=== PATIENT | female | born 1995 | race African-American/Black ===

== ENCOUNTER 2019-11-01 13:39 | Inpatient (IN) | payer BC ==
[~2019-11-01] VITALS: Ht 160 cm; Wt 43.7 kg
--- NOTE | 2019-11-01 14:05 | PHYS DOC ---
Adult General Chief Complaint Chief Complaint: ABDOMINAL PAIN HPI HPI Patient is a 24 year old female who presents with 3 days of worsening abdominal pain. She stated that it was generalized but now it is more right lower and mid abdominal pain. She states she does have nausea and she's been dry heaving. States she's also been having chills. She rates her pain a 9 out of 10. Review of Systems Review of Systems GI: abdominal pain, nausea, vomiting, denies bloody stools or diarrhea [] All other systems were reviewed and found to be within normal limits, except as documented in this note. Current Medications Current Medications Current Medications Medications (Trade) Dose Ordered Sig/Yeimi Start Time Stop Time Status Last Admin Dose Admin Fentanyl Citrate (Fentanyl 2ml Vial) 50 mcg PRN Q1HR PRN 11/01/19 16:45 11/02/19 16:44 Info (CONTRAST GIVEN -- Rx MONITORING) 1 each PRN DAILY PRN 11/01/19 15:15 11/03/19 15:14 Iohexol (Omnipaque 300 Mg/ml) 75 ml 1X ONCE 11/01/19 15:30 11/01/19 15:31 DC 11/01/19 15:32 75 ML Ondansetron HCl (Zofran) 4 mg PRN Q8HRS PRN 11/01/19 16:45 11/02/19 16:44 Piperacillin Sod/ Tazobactam Sod 3.375 gm/Sodium Chloride 50 ml @ 100 mls/hr 1X ONCE 11/01/19 17:00 11/01/19 17:29 11/01/19 16:55 100 MLS/HR Sodium Chloride 1,000 ml @ 125 mls/hr Q8H 11/01/19 16:39 11/02/19 16:38 11/01/19 16:54 125 MLS/HR Allergies Allergies Allergies Coded Allergies Type Severity Reaction Last Updated Verified No Known Drug Allergies 11/01/19 No Physical Exam Physical Exam Constitutional: Well developed, well nourished, no acute distress, non-toxic appearance. [] HENT: Normocephalic, atraumatic, bilateral external ears normal, oropharynx moist, no oral exudates, nose normal. [] Eyes: PERRLA, EOMI, conjunctiva normal, no discharge. [] Neck: Normal range of motion, no tenderness, supple, no stridor. [] Cardiovascular:Heart rate regular rhythm, no murmur [] Lungs & Thorax: Bilateral breath sounds clear to auscultation [] Abdomen: Bowel sounds normal, soft, RLQ and Mid Lower Quadrant tenderness, no masses, no pulsatile masses. [] Skin: Warm, dry, no erythema, no rash. [] Back: No tenderness, no CVA tenderness. [] Extremities: No tenderness, no cyanosis, no clubbing, ROM intact, no edema. [] Neurologic: Alert and oriented X 3, normal motor function, normal sensory function, no focal deficits noted. [] Psychologic: Affect normal, judgement normal, mood normal. [] Current Patient Data Vital Signs Vital Signs Date Time Temp Pulse Resp B/P (MAP) Pulse Ox O2 Delivery O2 Flow Rate FiO2 11/01/19 14:39 16 11/01/19 14:00 98.5 121 115/71 (86) Room Air 98.5 Lab Values Laboratory Tests Test 11/01/19 13:54 11/01/19 13:59 11/01/19 14:30 Urine Collection Type Unknown Urine Color Yellow Urine Clarity Clear Urine pH 5.5 Urine Specific [place] >=1.030 Urine Protein 30 mg/dL (NEG-TRACE) Urine Glucose (UA) Negative mg/dL (NEG) Urine Ketones (Stick) >=80 mg/dL (NEG) Urine Blood Large (NEG) Urine Nitrite Negative (NEG) Urine Bilirubin Negative (NEG) Urine Urobilinogen Dipstick 0.2 mg/dL (0.2 mg/dL) Urine Leukocyte Esterase Negative (NEG) Urine RBC >40 /HPF (0-2) Urine WBC Occ /HPF (0-4) Urine Squamous Epithelial Cells Mod /LPF Urine Bacteria Few /HPF (0-FEW) Urine Hyaline Casts Moderate /HPF Urine Mucus Marked /LPF Urine Opiates Screen Neg (NEG) Urine Methadone Screen Neg (NEG) Urine Barbiturates Neg (NEG) Urine Phencyclidine Screen Neg (NEG) Urine Amphetamine/Methamphetamine Neg (NEG) Urine Benzodiazepines Screen Neg (NEG) Urine Cocaine Screen Neg (NEG) Urine Cannabinoids Screen Neg (NEG) Urine Ethyl Alcohol Neg (NEG) POC Urine HCG, Qualitative Hcg negative (Negative) White Blood Count 3.9 x10^3/uL (4.0-11.0) L Red Blood Count 5.17 x10^6/uL (3.50-5.40) Hemoglobin 12.5 g/dL (12.0-15.5) Hematocrit 39.4 % (36.0-47.0) Mean Corpuscular Volume 76 fL (79-100) L Mean Corpuscular Hemoglobin 24 pg (25-35) L Mean Corpuscular Hemoglobin Concent 32 g/dL (31-37) Red Cell Distribution Width 19.2 % (11.5-14.5) H Platelet Count 265 x10^3/uL (140-400) Neutrophils (%) (Auto) 39 % (31-73) Lymphocytes (%) (Auto) 25 % (24-48) Monocytes (%) (Auto) 34 % (0-9) H Eosinophils (%) (Auto) 2 % (0-3) Basophils (%) (Auto) 1 % (0-3) Neutrophils # (Auto) 1.5 x10^3/uL (1.8-7.7) L Lymphocytes # (Auto) 0.9 x10^3/uL (1.0-4.8) L Monocytes # (Auto) 1.3 x10^3/uL (0.0-1.1) H Eosinophils # (Auto) 0.1 x10^3/uL (0.0-0.7) Basophils # (Auto) 0.0 x10^3/uL (0.0-0.2) Segmented Neutrophils % 3 % (35-66) L Band Neutrophils % 21 % (0-9) H Lymphocytes % 33 % (24-48) Monocytes % 38 % (0-10) H Eosinophils % 2 % (0-5) Basophils % 2 % (0-3) Metamyelocytes % 1 % (0-0) H Platelet Estimate Adequate (ADEQUATE) Giant Platelets Occ Hypochromasia Slight Anisocytosis Slight Ovalocytes Mod Schistocytes Few Prothrombin Time 15.2 SEC (11.7-14.0) H Prothrombin Time INR 1.2 (0.8-1.1) H Sodium Level 133 mmol/L (136-145) L Potassium Level 4.8 mmol/L (3.5-5.1) Chloride Level 100 mmol/L (98-107) Carbon Dioxide Level 15 mmol/L (21-32) L Anion Gap 18 (6-14) H Blood Urea Nitrogen 17 mg/dL (7-20) Creatinine 0.8 mg/dL (0.6-1.0) Estimated GFR (Cockcroft-Gault) 87.4 BUN/Creatinine Ratio 21 (6-20) H Glucose Level 89 mg/dL (70-99) Calcium Level 9.1 mg/dL (8.5-10.1) Total Bilirubin 0.3 mg/dL (0.2-1.0) Aspartate Amino Transferase (AST) 20 U/L (15-37) Alanine Aminotransferase (ALT) 17 U/L (14-59) Alkaline Phosphatase 88 U/L (46-116) Total Protein 8.2 g/dL (6.4-8.2) Albumin 3.6 g/dL (3.4-5.0) Albumin/Globulin Ratio 0.8 (1.0-1.7) L Lipase 42 U/L (73-393) L Salicylates Level 18.0 mg/dL (2.8-20.0) Salicylate Last Dose Date Unknown Salicylate Last Dose Time Unknown Acetaminophen Level < 2 mcg/ml (10-30) L Acetaminophen Last Dose Date Unknown Acetaminophen Last Dose Time Unknown Laboratory Tests 11/01/19 14:30 Laboratory Tests 11/01/19 14:30 EKG EKG [] Radiology/Procedures Radiology/Procedures [] Impressions: [facility] [address] [place] [address] IMAGING REPORT Signed PATIENT: CLAUDE UNGER ACCOUNT: [id number] : 1995 LOCATION: ER AGE: 24 SEX: F EXAM STATUS: REG ER ORD. PHYSICIAN: ROBE PARDO APRN REASON: LOWER ABD PAIN X 48HRS. PROCEDURE: CT ABD PELV W/ IV CONTRST ONLY Study: CT abdomen/pelvis with intravenous contrast Indication: Lower abdominal pain. Comparison: None. Technique: Helical CT imaging performed of the abdomen and pelvis after the intravenous administration of 75 cc Omnipaque 300 contrast. Sagittal and coronal reformats were obtained. One or more of the following individualized dose reduction techniques were utilized for this examination: 1. Automated exposure control 2. Adjustment of the mA and/or kV according to patient size 3. Use of iterative reconstruction technique. Findings: Chest: Unremarkable. Liver: No focal parenchymal abnormality. Mild fatty infiltration along the falciform ligament. Gallbladder/Biliary Tree: No CT findings of acute cholecystitis. Borderline prominent common bile duct at 5 mm but felt unlikely pathologic given lower abdominal pain. Pancreas: Unremarkable. Spleen: Within normal limits for size. Adrenal Glands: Normal morphology. Kidneys/Ureters/Bladder: No striated nephrogram. No hydroureteronephrosis or renal stone. Mass effect on the urinary bladder by a large uterine mass. Reproductive Organs: Well-circumscribed, large mass centered within the uterine fundus with heterogeneous internal attenuation. This effaces normal uterine parenchyma and the endometrium is deviated rightward such as seen on image 59 series 2. This mass measures approximately 6.6 AP by 6.7 transverse by 6.6 craniocaudal centimeters. No suspicious adnexal abnormality with the ovaries effaced to the periphery of the pelvis by the expanded uterus. Colon: No localized wall thickening or pericholecystic edema to suggest an active colitis. Dense material scattered throughout the colonic lumen. Appendix: A tubular structure thought to represent the appendix is segmentally visualized such as seen on image 52 series 2. This measures up to 7 mm which is slightly prominent but there are no localized inflammatory changes to suggest acute appendicitis. Small Bowel: Nondilated small bowel. Stomach: Mild wall thickening in the region of the gastric antrum such as on image 25 series 2 is nonspecific in the setting of incomplete distention. No surrounding inflammatory changes. Vasculature: Normal aortic caliber. Unremarkable iliofemoral system. Patent portal veins and superior mesenteric vein. Lymph Nodes: Scattered lymph nodes such as at the right lower quadrant but not meeting pathologic criteria based on size. Peritoneum and Body Wall: No free fluid or air. Symmetric musculature. Bones: No acute osseous abnormality. Miscellaneous: None. Impression: 1. A heterogeneously attenuating, well-circumscribed mass is seen within the uterine fundus that measures approximately 6.6 x 6.7 x 6.6 cm. The endometrium appears to be displaced to the right and this mass results in partial effacement of the subjacent urinary bladder. The imaging appearance is most compatible with a uterine leiomyoma with internal degeneration. 2. A tubular structure thought to represent the appendix is segmentally visualized and faintly prominent in transverse dimension but there are no regional inflammatory changes to suggest appendicitis. 3. Radiodense material scattered throughout the colon suggestive of retained contrast. Correlate for any recently performed outside imaging studies. Electronically signed by: ZANDRA SINHA MD (11/01/2019 4:01 PM) [facility] DICTATED and SIGNED BY: ZANDRA SINHA MD DATE: 11/01/19 160 Course & Med Decision Making Course & Med Decision Making Pertinent Labs and Imaging studies reviewed. (See chart for details) Denies dysuria, dizziness, headache, Chest pain, soa, vision changes, numbness or tingling, focal weakness, vision changes. Alert and oriented. Ambulatory unsteady gait. Skin pink warm and dry. Abdomen is tender at right lower and mid lower abdomen. Abdomen is otherwise soft and nontender. Lungs are clear to auscultation in all lobes. No CVA tenderness. Mucous membranes moist. PERRLA. Impression: 1. A heterogeneously attenuating, well-circumscribed mass is seen within the uterine fundus that measures approximately 6.6 x 6.7 x 6.6 cm. The endometrium appears to be displaced to the right and this mass results in partial effacement of the subjacent urinary bladder. The imaging appearance is most compatible with a uterine leiomyoma with internal degeneration. 2. A tubular structure thought to represent the appendix is segmentally visualized and faintly prominent in transverse dimension but there are no regional inflammatory changes to suggest appendicitis. 3. Radiodense material scattered throughout the colon suggestive of retained contrast. Correlate for any recently performed outside imaging studies. Patient neutropenic but has bands. She is also dehydrated and heart rate is down to 106. Appendic is slightly prominent and she is very tender in Right lower quadrant. I have had Dr Hassan look the patient findings. I have spoken to Dr Jacques and he states to admit patient and he will come see the patient. Patient is admitted to Dr Levin. [] Jessy Disclaimer Jessy Disclaimer This electronic medical record was generated, in whole or in part, using a voice recognition dictation system. Departure Departure Impression: Primary Impression: Abdominal pain Disposition: ADMITTED INPATIENT Admitting Physician: HUGO Condition: STABLE Referrals: NON,STAFF (PCP) Problem Qualifiers Primary Impression: Abdominal pain Abdominal location: right lower quadrant Qualified Codes: R10.31 - Right lower quadrant pain ROBE PARDO SETTER HELPER Nov 01, 2019 14:05
[2019-11-01 14:18] LABS: BILIRUBIN,URINE NEGATIVE (NEG); CLARITY,URINE CLEAR; COLOR,URINE YELLOW; NITRITE,URINE NEGATIVE (NEG); PH,URINE 5.5; PROTEIN,URINE 30 mg/dL (NEG-TRACE); UROBILINOGEN,URINE 0.2 mg/dL (0.2 mg/dL)
[2019-11-01 14:23] LABS: BARBITURATES NEG (NEG); BENZODIAZEPINES NEG (NEG); CANNABINOIDS NEG (NEG); COCAINE NEG (NEG); METHADONE NEG (NEG); OPIATES NEG (NEG); PHENCYCLIDINE NEG (NEG)
[2019-11-01 14:26] LABS: AMPHETAMINE/METHAMPHETAMINE NEG (NEG)
[2019-11-01] MEDS ORDERED: fentaNYL PF VIAL 100 MCG/2 ML VIAL IVP ONE (14:30)
[2019-11-01] MEDS ORDERED: ONDANSETRON PF 4 MG/2 ML VIAL. IVP ONE (14:30)
[2019-11-01] MEDS ORDERED: IV NORMAL SALINE 1000ML BAG 1,000 ML IV SCH (14:30)
[2019-11-01 14:35] LABS: BACTERIA,URINE FEW /HPF (0-FEW); HYALINE CASTS, URINE MODERATE /HPF; RBC,URINE >40 /HPF (0-2); SQUAMOUS EPITHELIAL CELL,UR MOD /LPF; WBC,URINE OCC /HPF (0-4)
[2019-11-01 14:47] LABS: BASO % 1 % (0-3); EOS # 0.1 x10^3/uL (0.0-0.7); EOS % 2 % (0-3); HEMATOCRIT 39.4 % (36.0-47.0); HEMOGLOBIN 12.5 g/dL (12.0-15.5); LYMPH # 0.9 x10^3/uL (1.0-4.8); LYMPH % 25 % (24-48); MEAN CORPUSCULAR HEMOGLOBIN 24 pg (25-35); MEAN CORPUSCULAR HGB CONC 32 g/dL (31-37); MEAN CORPUSCULAR VOLUME 76 fL (79-100); MONO # 1.3 x10^3/uL (0.0-1.1); MONO % 34 % (0-9); NEUT # 1.5 x10^3/uL (1.8-7.7); NEUT % 39 % (31-73); PLATELET COUNT 265 x10^3/uL (140-400); RED BLOOD COUNT 5.17 x10^6/uL (3.50-5.40); RED CELL DISTRIBUTION WIDTH 19.2 % (11.5-14.5); WHITE BLOOD COUNT 3.9 x10^3/uL (4.0-11.0)
[2019-11-01 14:56] LABS: PROTHROMBIN TIME PATIENT 15.2 SEC (11.7-14.0)
[2019-11-01 14:57] LABS: CALCIUM 9.1 mg/dL (8.5-10.1); CREATININE 0.8 mg/dL (0.6-1.0); GFR 87.4; POTASSIUM 4.8 mmol/L (3.5-5.1)
[2019-11-01 15:03] LABS: ALBUMIN 3.6 g/dL (3.4-5.0); ALBUMIN/GLOBULIN RATIO 0.8 (1.0-1.7); TOTAL BILIRUBIN 0.3 mg/dL (0.2-1.0); TOTAL PROTEIN 8.2 g/dL (6.4-8.2)
[2019-11-01] MEDS ORDERED: CONTRAST GIVEN. MC PRN (15:15)
[2019-11-01] MEDS ORDERED: IOHEXOL 300 MG/ML 100ML VIAL. IV ONE (15:30)
[2019-11-01 15:34] LABS: ACETAMIN < 2 mcg/ml (10-30)
[2019-11-01 15:49] LABS: % BANDS 21 % (0-9); % BASOS 2 % (0-3); % EOS 2 % (0-5); % LYMPHS 33 % (24-48); % METAS 1 % (0-0); % MONOS 38 % (0-10); % SEGS 3 % (35-66)
[2019-11-01 15:50] LABS: ANISOCYTOSIS SLIGHT; HYPOCHROMIA SLIGHT; OVALOCYTES MOD; PLT ESTIMATE ADEQUATE (ADEQUATE); SCHISTOCYTES FEW
--- NOTE | 2019-11-01 16:04 | RAD ---
Study: CT abdomen/pelvis with intravenous contrast Indication: Lower abdominal pain. Comparison: None. Technique: Helical CT imaging performed of the abdomen and pelvis after the intravenous administration of 75 cc Omnipaque 300 contrast. Sagittal and coronal reformats were obtained. One or more of the following individualized dose reduction techniques were utilized for this examination: 1. Automated exposure control 2. Adjustment of the mA and/or kV according to patient size 3. Use of iterative reconstruction technique. Findings: Chest: Unremarkable. Liver: No focal parenchymal abnormality. Mild fatty infiltration along the falciform ligament. Gallbladder/Biliary Tree: No CT findings of acute cholecystitis. Borderline prominent common bile duct at 5 mm but felt unlikely pathologic given lower abdominal pain. Pancreas: Unremarkable. Spleen: Within normal limits for size. Adrenal Glands: Normal morphology. Kidneys/Ureters/Bladder: No striated nephrogram. No hydroureteronephrosis or renal stone. Mass effect on the urinary bladder by a large uterine mass. Reproductive Organs: Well-circumscribed, large mass centered within the uterine fundus with heterogeneous internal attenuation. This effaces normal uterine parenchyma and the endometrium is deviated rightward such as seen on image 59 series 2. This mass measures approximately 6.6 AP by 6.7 transverse by 6.6 craniocaudal centimeters. No suspicious adnexal abnormality with the ovaries effaced to the periphery of the pelvis by the expanded uterus. Colon: No localized wall thickening or pericholecystic edema to suggest an active colitis. Dense material scattered throughout the colonic lumen. Appendix: A tubular structure thought to represent the appendix is segmentally visualized such as seen on image 52 series 2. This measures up to 7 mm which is slightly prominent but there are no localized inflammatory changes to suggest acute appendicitis. Small Bowel: Nondilated small bowel. Stomach: Mild wall thickening in the region of the gastric antrum such as on image 25 series 2 is nonspecific in the setting of incomplete distention. No surrounding inflammatory changes. Vasculature: Normal aortic caliber. Unremarkable iliofemoral system. Patent portal veins and superior mesenteric vein. Lymph Nodes: Scattered lymph nodes such as at the right lower quadrant but not meeting pathologic criteria based on size. Peritoneum and Body Wall: No free fluid or air. Symmetric musculature. Bones: No acute osseous abnormality. Miscellaneous: None. Impression: 1. A heterogeneously attenuating, well-circumscribed mass is seen within the uterine fundus that measures approximately 6.6 x 6.7 x 6.6 cm. The endometrium appears to be displaced to the right and this mass results in partial effacement of the subjacent urinary bladder. The imaging appearance is most compatible with a uterine leiomyoma with internal degeneration. 2. A tubular structure thought to represent the appendix is segmentally visualized and faintly prominent in transverse dimension but there are no regional inflammatory changes to suggest appendicitis. 3. Radiodense material scattered throughout the colon suggestive of retained contrast. Correlate for any recently performed outside imaging studies. Electronically signed by: ZANDRA SINHA MD (11/01/2019 4:01 PM) [facility]
[2019-11-01] MEDS ORDERED: ONDANSETRON PF 4 MG/2 ML VIAL. IV PRN (16:45)
[2019-11-01] MEDS: IV NORMAL SALINE 1000ML BAG 1,000 ML IV SCH (16:54)
[2019-11-01] MEDS ORDERED: PIPERACILLIN/TAZOBACTAM 3.375 GM in IV NORMAL SALINE 50ML 50 ML IV ONE (17:00)
--- NOTE | 2019-11-01 18:03 | NUR ---
Patient placed in room 428. c/o abdominal pain but wants to wait for more pain medication.
[2019-11-01 18:30] VITALS: BP 110/66
[2019-11-01 19:54] VITALS: BP 103/66
[2019-11-01] MEDS: fentaNYL PF VIAL 100 MCG/2 ML VIAL IV PRN ×2 (20:08→23:11)
--- NOTE | 2019-11-01 22:28 | PDOC1 ---
History and Physical Date of Admission Date of Admission DATE: 11/01/19 TIME: 22:25 Identification/Chief Complaint Chief Complaint abd pain, nausea Source Source: Chart review, Patient History of Present Illness History of Present Illness Ms.. Lei s a 24 year old female admit with worsening abd pain. She has 3 days of worsening abdominal pain and now 7/10, better with pain meds, and has been asking frequently. was 9/10 noted nausea earlier, and some dry heaving, . She stated that it was generalized but now it is more right lower and mid abdominal pain she works at [employer]. Past Medical History Cardiovascular: No pertinent hx Pulmonary: No pertinent hx GI: No pertinent hx Heme/Onc: No pertinent hx Family History Family History: No Significant Social History Smoke: No ALCOHOL: rare Drugs: None Current Problem List Problem List Problems Medical Problems: (1) Abdominal pain Status: Acute Current Medications Current Medications Current Medications Sodium Chloride 1,000 ml @ 1,000 mls/hr Q1H IV Last administered on 11/01/19at 14:38; Start 11/01/19 at 14:30; Stop 11/01/19 at 15:29; Status DC Fentanyl Citrate (Fentanyl 2ml Vial) 50 mcg 1X ONCE IVP Last administered on 11/01/19at 14:39; Start 11/01/19 at 14:30; Stop 11/01/19 at 14:31; Status DC Ondansetron HCl (Zofran) 4 mg 1X ONCE IVP Last administered on 11/01/19at 14:39; Start 11/01/19 at 14:30; Stop 11/01/19 at 14:31; Status DC Iohexol (Omnipaque 300 Mg/ml) 75 ml 1X ONCE IV Last administered on 11/01/19at 15:32; Start 11/01/19 at 15:30; Stop 11/01/19 at 15:31; Status DC Info (CONTRAST GIVEN -- Rx MONITORING) 1 each PRN DAILY PRN MC SEE COMMENTS; Start 11/01/19 at 15:15; Stop 11/03/19 at 15:14 Piperacillin Sod/ Tazobactam Sod 3.375 gm/Sodium Chloride 50 ml @ 100 mls/hr 1X ONCE IV Last administered on 11/01/19at 16:55; Start 11/01/19 at 17:00; Stop 11/01/19 at 17:29; Status DC Ondansetron HCl (Zofran) 4 mg PRN Q8HRS PRN IV NAUSEA/VOMITING; Start 11/01/19 at 16:45; Stop 11/02/19 at 16:44 Fentanyl Citrate (Fentanyl 2ml Vial) 50 mcg PRN Q1HR PRN IV PAIN Last administered on 11/01/19at 20:08; Start 11/01/19 at 16:45; Stop 11/02/19 at 16:44 Sodium Chloride 1,000 ml @ 125 mls/hr Q8H IV Last administered on 11/01/19at 16:54; Start 11/01/19 at 16:39; Stop 11/02/19 at 16:38 Allergies Allergies: Coded Allergies: No Known Drug Allergies (Unverified , 11/01/19) ROS General: YES: Chills, Fatigue; No: Night Sweats, Malaise, Appetite, Other PSYCHOLOGICAL ROS: No: Anxiety, Behavioral Disorder, Concentration difficultie, Decreased libido, Depression, Disorientation, Hallucinations, Hostility, Irritablity, Memory difficulties, Mood Swings, Obsessive thoughts, Physical abuse, Sexual abuse, Sleep disturbances, Suicidal ideation, Other Eyes: No Blurry vision, No Decreased vision, No Double vision, No Dry eyes, No Excessive tearing, No Eye Pain, No Itchy Eyes, No Loss of vision, No Photophobia, No Scotomata, No Uses contacts, No Uses glasses, No Other HEENT: No: Heacaches, Visual Changes, Hearing change, Nasal congestion, Nasal discharge, Oral lesions, Sinus pain, Sore Throat, Epistaxis, Sneezing, Snoring, Tinnitus, Vertigo, Vocal changes, Other Respiratory: No: Cough, Hemoptysis, Orthopnea, Pleuritic Pain, Shortness of breath, SOB with excertion, Sputum Changes, Stridor, Tachypnea, Wheezing, Other Cardiovascular: No Chest Pain, No Palpitations, No Orthopnea, No Paroxysmal Noc. Dyspnea, No Edema, No Lt Headedness, No Other Gastrointestinal: Yes Nausea, Yes Abdominal Pain; No Diarrhea, No Constipation, No Melena, No Hematochezia, No Other Genitourinary: No Dysuria, No Frequency, No Incontinence, No Hematuria, No Retention, No Discharge, No Urgency, No Pain, No Flank Pain, No Other, No , No , No , No , No , No , No Musculoskeletal: No Gait Disturbance, No Joint Pain, No Joint Stiffness, No Joint Swelling, No Muscle Pain, No Muscular Weakness, No Pain In:, No Swelling In:, No Other Neurological: No Behavorial Changes, No Bowel/Bladder ControlChng, No Confus ion, No Dizziness, No Gait Disturbance, No Headaches, No Impaired Coord/balance, No Memory Loss, No Numbness/Tingling, No Seizures, No Speech Problems, No Tremors, No Visual Changes, No Weakness, No Other Skin: No Dry Skin, No Eczema, No Hair Changes, No Lumps, No Mole Changes, No Mottling, No Nail Changes, No Pruritus, No Rash, No Skin Lesion Changes, No Othe r, No Acne Physical Exam General: Alert, Oriented X3, Cooperative, mild distress HEENT: Atraumatic, PERRLA, EOMI, Mucous membr. moist/pink, Other (geographic tongue) Lungs: Normal air movement Heart: S1S2, RRR, no gallops Abdomen: Soft (tender, diffuse r to lower, slight guarding, no rebound, ) Rectal Exam: not examined Extremities: No clubbing, No cyanosis Skin: No rashes, No breakdown Neuro: Normal gait, Strength at 5/5 X4 ext, Normal tone Psych/Mental Status: Mental status NL, Mood NL Vitals Vitals Vital Signs Date Time Temp Pulse Resp B/P (MAP) Pulse Ox O2 Delivery O2 Flow Rate FiO2 11/01/19 19:54 97.8 118 16 103/66 (78) 100 Room Air 97.8 Labs Labs Laboratory Tests Test 11/01/19 13:54 11/01/19 13:59 11/01/19 14:30 Urine Collection Type Unknown Urine Color Yellow Urine Clarity Clear Urine pH 5.5 Urine Specific [place] >=1.030 Urine Protein 30 mg/dL (NEG-TRACE) Urine Glucose (UA) Negative mg/dL (NEG) Urine Ketones (Stick) >=80 mg/dL (NEG) Urine Blood Large (NEG) Urine Nitrite Negative (NEG) Urine Bilirubin Negative (NEG) Urine Urobilinogen Dipstick 0.2 mg/dL (0.2 mg/dL) Urine Leukocyte Esterase Negative (NEG) Urine RBC >40 /HPF (0-2) Urine WBC Occ /HPF (0-4) Urine Squamous Epithelial Cells Mod /LPF Urine Bacteria Few /HPF (0-FEW) Urine Hyaline Casts Moderate /HPF Urine Mucus Marked /LPF Urine Opiates Screen Neg (NEG) Urine Methadone Screen Neg (NEG) Urine Barbiturates Neg (NEG) Urine Phencyclidine Screen Neg (NEG) Urine Amphetamine/Methamphetamine Neg (NEG) Urine Benzodiazepines Screen Neg (NEG) Urine Cocaine Screen Neg (NEG) Urine Cannabinoids Screen Neg (NEG) Urine Ethyl Alcohol Neg (NEG) Bedside Urine HCG, Qualitative Hcg negative (Negative) White Blood Count 3.9 x10^3/uL (4.0-11.0) Red Blood Count 5.17 x10^6/uL (3.50-5.40) Hemoglobin 12.5 g/dL (12.0-15.5) Hematocrit 39.4 % (36.0-47.0) Mean Corpuscular Volume 76 fL (79-100) Mean Corpuscular Hemoglobin 24 pg (25-35) Mean Corpuscular Hemoglobin Concent 32 g/dL (31-37) Red Cell Distribution Width 19.2 % (11.5-14.5) Platelet Count 265 x10^3/uL (140-400) Neutrophils (%) (Auto) 39 % (31-73) Lymphocytes (%) (Auto) 25 % (24-48) Monocytes (%) (Auto) 34 % (0-9) Eosinophils (%) (Auto) 2 % (0-3) Basophils (%) (Auto) 1 % (0-3) Neutrophils # (Auto) 1.5 x10^3/uL (1.8-7.7) Lymphocytes # (Auto) 0.9 x10^3/uL (1.0-4.8) Monocytes # (Auto) 1.3 x10^3/uL (0.0-1.1) Eosinophils # (Auto) 0.1 x10^3/uL (0.0-0.7) Basophils # (Auto) 0.0 x10^3/uL (0.0-0.2) Segmented Neutrophils % 3 % (35-66) Band Neutrophils % 21 % (0-9) Lymphocytes % 33 % (24-48) Monocytes % 38 % (0-10) Eosinophils % 2 % (0-5) Basophils % 2 % (0-3) Metamyelocytes % 1 % (0-0) Platelet Estimate Adequate (ADEQUATE) Giant Platelets Occ Hypochromasia Slight Anisocytosis Slight Ovalocytes Mod Schistocytes Few Prothrombin Time 15.2 SEC (11.7-14.0) Prothromb Time International Ratio 1.2 (0.8-1.1) Sodium Level 133 mmol/L (136-145) Potassium Level 4.8 mmol/L (3.5-5.1) Chloride Level 100 mmol/L (98-107) Carbon Dioxide Level 15 mmol/L (21-32) Anion Gap 18 (6-14) Blood Urea Nitrogen 17 mg/dL (7-20) Creatinine 0.8 mg/dL (0.6-1.0) Estimated GFR (Cockcroft-Gault) 87.4 BUN/Creatinine Ratio 21 (6-20) Glucose Level 89 mg/dL (70-99) Calcium Level 9.1 mg/dL (8.5-10.1) Total Bilirubin 0.3 mg/dL (0.2-1.0) Aspartate Amino Transf (AST/SGOT) 20 U/L (15-37) Alanine Aminotransferase (ALT/SGPT) 17 U/L (14-59) Alkaline Phosphatase 88 U/L (46-116) Total Protein 8.2 g/dL (6.4-8.2) Albumin 3.6 g/dL (3.4-5.0) Albumin/Globulin Ratio 0.8 (1.0-1.7) Lipase 42 U/L (73-393) Salicylates Level 18.0 mg/dL (2.8-20.0) Salicylate Last Dose Date Unknown Salicylate Last Dose Time Unknown Acetaminophen Level < 2 mcg/ml (10-30) Acetaminophen Last Dose Date Unknown Acetaminophen Last Dose Time Unknown Laboratory Tests Test 11/01/19 13:54 11/01/19 13:59 11/01/19 14:30 Urine Collection Type Unknown Urine Color Yellow Urine Clarity Clear Urine pH 5.5 Urine Specific Rush >=1.030 Urine Protein 30 mg/dL (NEG-TRACE) Urine Glucose (UA) Negative mg/dL (NEG) Urine Ketones (Stick) >=80 mg/dL (NEG) Urine Blood Large (NEG) Urine Nitrite Negative (NEG) Urine Bilirubin Negative (NEG) Urine Urobilinogen Dipstick 0.2 mg/dL (0.2 mg/dL) Urine Leukocyte Esterase Negative (NEG) Urine RBC >40 /HPF (0-2) Urine WBC Occ /HPF (0-4) Urine Squamous Epithelial Cells Mod /LPF Urine Bacteria Few /HPF (0-FEW) Urine Hyaline Casts Moderate /HPF Urine Mucus Marked /LPF Urine Opiates Screen Neg (NEG) Urine Methadone Screen Neg (NEG) Urine Barbiturates Neg (NEG) Urine Phencyclidine Screen Neg (NEG) Urine Amphetamine/Methamphetamine Neg (NEG) Urine Benzodiazepines Screen Neg (NEG) Urine Cocaine Screen Neg (NEG) Urine Cannabinoids Screen Neg (NEG) Urine Ethyl Alcohol Neg (NEG) Bedside Urine HCG, Qualitative Hcg negative (Negative) White Blood Count 3.9 x10^3/uL (4.0-11.0) Red Blood Count 5.17 x10^6/uL (3.50-5.40) Hemoglobin 12.5 g/dL (12.0-15.5) Hematocrit 39.4 % (36.0-47.0) Mean Corpuscular Volume 76 fL (79-100) Mean Corpuscular Hemoglobin 24 pg (25-35) Mean Corpuscular Hemoglobin Concent 32 g/dL (31-37) Red Cell Distribution Width 19.2 % (11.5-14.5) Platelet Count 265 x10^3/uL (140-400) Neutrophils (%) (Auto) 39 % (31-73) Lymphocytes (%) (Auto) 25 % (24-48) Monocytes (%) (Auto) 34 % (0-9) Eosinophils (%) (Auto) 2 % (0-3) Basophils (%) (Auto) 1 % (0-3) Neutrophils # (Auto) 1.5 x10^3/uL (1.8-7.7) Lymphocytes # (Auto) 0.9 x10^3/uL (1.0-4.8) Monocytes # (Auto) 1.3 x10^3/uL (0.0-1.1) Eosinophils # (Auto) 0.1 x10^3/uL (0.0-0.7) Basophils # (Auto) 0.0 x10^3/uL (0.0-0.2) Segmented Neutrophils % 3 % (35-66) Band Neutrophils % 21 % (0-9) Lymphocytes % 33 % (24-48) Monocytes % 38 % (0-10) Eosinophils % 2 % (0-5) Basophils % 2 % (0-3) Metamyelocytes % 1 % (0-0) Platelet Estimate Adequate (ADEQUATE) Giant Platelets Occ Hypochromasia Slight Anisocytosis Slight Ovalocytes Mod Schistocytes Few Prothrombin Time 15.2 SEC (11.7-14.0) Prothromb Time International Ratio 1.2 (0.8-1.1) Sodium Level 133 mmol/L (136-145) Potassium Level 4.8 mmol/L (3.5-5.1) Chloride Level 100 mmol/L (98-107) Carbon Dioxide Level 15 mmol/L (21-32) Anion Gap 18 (6-14) Blood Urea Nitrogen 17 mg/dL (7-20) Creatinine 0.8 mg/dL (0.6-1.0) Estimated GFR (Cockcroft-Gault) 87.4 BUN/Creatinine Ratio 21 (6-20) Glucose Level 89 mg/dL (70-99) Calcium Level 9.1 mg/dL (8.5-10.1) Total Bilirubin 0.3 mg/dL (0.2-1.0) Aspartate Amino Transf (AST/SGOT) 20 U/L (15-37) Alanine Aminotransferase (ALT/SGPT) 17 U/L (14-59) Alkaline Phosphatase 88 U/L (46-116) Total Protein 8.2 g/dL (6.4-8.2) Albumin 3.6 g/dL (3.4-5.0) Albumin/Globulin Ratio 0.8 (1.0-1.7) Lipase 42 U/L (73-393) Salicylates Level 18.0 mg/dL (2.8-20.0) Salicylate Last Dose Date Unknown Salicylate Last Dose Time Unknown Acetaminophen Level < 2 mcg/ml (10-30) Acetaminophen Last Dose Date Unknown Acetaminophen Last Dose Time Unknown VTE Prophylaxis Ordered VTE Prophylaxis Devices: Yes VTE Pharmacological Prophylaxi: No Assessment/Plan Assessment/Plan acute abd pain RLQ abd pain acute appy, zosyn IV, consult Gen surg to eval. AGUS RICCI MD Nov 01, 2019 22:28
[2019-11-01] MEDS: ACETAMINOPHEN 325 MG TABLET. PO PRN (23:11)
[2019-11-01 23:51] VITALS: BP 101/66
[2019-11-02] MEDS: fentaNYL PF VIAL 100 MCG/2 ML VIAL IV PRN ×4 (01:39→10:35)
[2019-11-02] MEDS: IV NORMAL SALINE 1000ML BAG 1,000 ML IV SCH ×2 (01:44→08:16)
[2019-11-02 03:33] VITALS: BP 113/68
[2019-11-02 07:05] VITALS: BP 105/64
--- NOTE | 2019-11-02 08:19 | PDOC2 ---
GHADA ROBERTS [employer] 11/02/19 0819: CONSULT Date of Consult Date of Consult DATE: 11/02/19 TIME: 08:10 Reason for Consult Reason for Consult: possible appendicitis Referring Physician Referring Physician: ER Identification/Chief Complaint Chief Complaint abdominal pain Source Source: Chart review, Patient History of Present Illness Reason for Visit: Lower abdominal pain that started , progressively worsened over weekend. Associated nausea, dry heaves, chills and subjective fevers. Does report currently menstruating. Denies issues besides heavy cycles. 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 Denies urinary symptoms Past Medical History Cardiovascular: No pertinent hx Pulmonary: No pertinent hx GI: No pertinent hx Heme/Onc: No pertinent hx Past Surgical History Past Surgical History: No pertinent history Family History Family History: No Significant Social History <1 pack per day (vap) ALCOHOL: rare Drugs: None Lives: Alone Current Problem List Problem List Problems Medical Problems: (1) Abdominal pain Status: Acute Current Medications Current Medications Current Medications Sodium Chloride 1,000 ml @ 1,000 mls/hr Q1H IV Last administered on 11/01/19at 14:38; Start 11/01/19 at 14:30; Stop 11/01/19 at 15:29; Status DC Fentanyl Citrate (Fentanyl 2ml Vial) 50 mcg 1X ONCE IVP Last administered on 11/01/19at 14:39; Start 11/01/19 at 14:30; Stop 11/01/19 at 14:31; Status DC Ondansetron HCl (Zofran) 4 mg 1X ONCE IVP Last administered on 11/01/19at 14:39; Start 11/01/19 at 14:30; Stop 11/01/19 at 14:31; Status DC Iohexol (Omnipaque 300 Mg/ml) 75 ml 1X ONCE IV Last administered on 11/01/19at 15:32; Start 11/01/19 at 15:30; Stop 11/01/19 at 15:31; Status DC Info (CONTRAST GIVEN -- Rx MONITORING) 1 each PRN DAILY PRN MC SEE COMMENTS; Start 11/01/19 at 15:15; Stop 11/03/19 at 15:14 Piperacillin Sod/ Tazobactam Sod 3.375 gm/Sodium Chloride 50 ml @ 100 mls/hr 1X ONCE IV Last administered on 11/01/19at 16:55; Start 11/01/19 at 17:00; Stop 11/01/19 at 17:29; Status DC Ondansetron HCl (Zofran) 4 mg PRN Q8HRS PRN IV NAUSEA/VOMITING Last administered on 11/01/19at 23:12; Start 11/01/19 at 16:45; Stop 11/02/19 at 16:44 Fentanyl Citrate (Fentanyl 2ml Vial) 50 mcg PRN Q1HR PRN IV PAIN Last administered on 11/02/19at 06:36; Start 11/01/19 at 16:45; Stop 11/02/19 at 16:44 Sodium Chloride 1,000 ml @ 125 mls/hr Q8H IV Last administered on 11/02/19at 01:44; Start 11/01/19 at 16:39; Stop 11/02/19 at 16:38 Acetaminophen (Tylenol) 650 mg PRN Q6HRS PRN PO fever Last administered on 11/01/19at 23:11; Start 11/01/19 at 23:00 Allergies Allergies: Coded Allergies: No Known Drug Allergies (Unverified , 11/01/19) ROS General: YES: Other (fevers ); No: Chills PSYCHOLOGICAL ROS: No: Anxiety, Depression Eyes: No Blurry vision, No Double vision HEENT: No: Heacaches, Sore Throat Hematological and Lymphatic: No: Bleeding Problems, Blood Clots Respiratory: No: Cough, SOB with excertion Cardiovascular: No Chest Pain, No Palpitations Gastrointestinal: No Diarrhea, No Constipation Genitourinary: No Dysuria, No Hematuria Musculoskeletal: No Joint Pain, No Muscle Pain Neurological: No Impaired Coord/balance, No Numbness/Tingling Skin: No Pruritus, No Rash Physical Exam General: Alert, Oriented X3, Cooperative, No acute distress HEENT: Atraumatic, PERRLA Lungs: Clear to auscultation, Normal air movement Heart: Regular rate, Normal S1, Normal S2 Abdomen: Soft, Other (tender across lower abdomen) Extremities: No clubbing, No cyanosis Skin: No rashes, No breakdown Neuro: Normal gait, Normal speech Psych/Mental Status: Mental status NL, Mood NL MUSCULOSKELETAL: No deformity, No swelling Vitals VITALS Vital Signs Date Time Temp Pulse Resp B/P (MAP) Pulse Ox O2 Delivery O2 Flow Rate FiO2 11/02/19 07:05 98.1 108 16 105/64 (78) 97 Room Air 98.1 Labs Labs Laboratory Tests Test 11/01/19 13:54 11/01/19 13:59 11/01/19 14:30 Urine Collection Type Unknown Urine Color Yellow Urine Clarity Clear Urine pH 5.5 Urine Specific [place] >=1.030 Urine Protein 30 mg/dL (NEG-TRACE) Urine Glucose (UA) Negative mg/dL (NEG) Urine Ketones (Stick) >=80 mg/dL (NEG) Urine Blood Large (NEG) Urine Nitrite Negative (NEG) Urine Bilirubin Negative (NEG) Urine Urobilinogen Dipstick 0.2 mg/dL (0.2 mg/dL) Urine Leukocyte Esterase Negative (NEG) Urine RBC >40 /HPF (0-2) Urine WBC Occ /HPF (0-4) Urine Squamous Epithelial Cells Mod /LPF Urine Bacteria Few /HPF (0-FEW) Urine Hyaline Casts Moderate /HPF Urine Mucus Marked /LPF Urine Opiates Screen Neg (NEG) Urine Methadone Screen Neg (NEG) Urine Barbiturates Neg (NEG) Urine Phencyclidine Screen Neg (NEG) Urine Amphetamine/Methamphetamine Neg (NEG) Urine Benzodiazepines Screen Neg (NEG) Urine Cocaine Screen Neg (NEG) Urine Cannabinoids Screen Neg (NEG) Urine Ethyl Alcohol Neg (NEG) Bedside Urine HCG, Qualitative Hcg negative (Negative) White Blood Count 3.9 x10^3/uL (4.0-11.0) Red Blood Count 5.17 x10^6/uL (3.50-5.40) Hemoglobin 12.5 g/dL (12.0-15.5) Hematocrit 39.4 % (36.0-47.0) Mean Corpuscular Volume 76 fL (79-100) Mean Corpuscular Hemoglobin 24 pg (25-35) Mean Corpuscular Hemoglobin Concent 32 g/dL (31-37) Red Cell Distribution Width 19.2 % (11.5-14.5) Platelet Count 265 x10^3/uL (140-400) Neutrophils (%) (Auto) 39 % (31-73) Lymphocytes (%) (Auto) 25 % (24-48) Monocytes (%) (Auto) 34 % (0-9) Eosinophils (%) (Auto) 2 % (0-3) Basophils (%) (Auto) 1 % (0-3) Neutrophils # (Auto) 1.5 x10^3/uL (1.8-7.7) Lymphocytes # (Auto) 0.9 x10^3/uL (1.0-4.8) Monocytes # (Auto) 1.3 x10^3/uL (0.0-1.1) Eosinophils # (Auto) 0.1 x10^3/uL (0.0-0.7) Basophils # (Auto) 0.0 x10^3/uL (0.0-0.2) Segmented Neutrophils % 3 % (35-66) Band Neutrophils % 21 % (0-9) Lymphocytes % 33 % (24-48) Monocytes % 38 % (0-10) Eosinophils % 2 % (0-5) Basophils % 2 % (0-3) Metamyelocytes % 1 % (0-0) Platelet Estimate Adequate (ADEQUATE) Giant Platelets Occ Hypochromasia Slight Anisocytosis Slight Ovalocytes Mod Schistocytes Few Prothrombin Time 15.2 SEC (11.7-14.0) Prothromb Time International Ratio 1.2 (0.8-1.1) Sodium Level 133 mmol/L (136-145) Potassium Level 4.8 mmol/L (3.5-5.1) Chloride Level 100 mmol/L (98-107) Carbon Dioxide Level 15 mmol/L (21-32) Anion Gap 18 (6-14) Blood Urea Nitrogen 17 mg/dL (7-20) Creatinine 0.8 mg/dL (0.6-1.0) Estimated GFR (Cockcroft-Gault) 87.4 BUN/Creatinine Ratio 21 (6-20) Glucose Level 89 mg/dL (70-99) Calcium Level 9.1 mg/dL (8.5-10.1) Total Bilirubin 0.3 mg/dL (0.2-1.0) Aspartate Amino Transf (AST/SGOT) 20 U/L (15-37) Alanine Aminotransferase (ALT/SGPT) 17 U/L (14-59) Alkaline Phosphatase 88 U/L (46-116) Total Protein 8.2 g/dL (6.4-8.2) Albumin 3.6 g/dL (3.4-5.0) Albumin/Globulin Ratio 0.8 (1.0-1.7) Lipase 42 U/L (73-393) Salicylates Level 18.0 mg/dL (2.8-20.0) Salicylate Last Dose Date Unknown Salicylate Last Dose Time Unknown Acetaminophen Level < 2 mcg/ml (10-30) Acetaminophen Last Dose Date Unknown Acetaminophen Last Dose Time Unknown Laboratory Tests Test 11/01/19 13:54 11/01/19 13:59 11/01/19 14:30 Urine Collection Type Unknown Urine Color Yellow Urine Clarity Clear Urine pH 5.5 Urine Specific [place] >=1.030 Urine Protein 30 mg/dL (NEG-TRACE) Urine Glucose (UA) Negative mg/dL (NEG) Urine Ketones (Stick) >=80 mg/dL (NEG) Urine Blood Large (NEG) Urine Nitrite Negative (NEG) Urine Bilirubin Negative (NEG) Urine Urobilinogen Dipstick 0.2 mg/dL (0.2 mg/dL) Urine Leukocyte Esterase Negative (NEG) Urine RBC >40 /HPF (0-2) Urine WBC Occ /HPF (0-4) Urine Squamous Epithelial Cells Mod /LPF Urine Bacteria Few /HPF (0-FEW) Urine Hyaline Casts Moderate /HPF Urine Mucus Marked /LPF Urine Opiates Screen Neg (NEG) Urine Methadone Screen Neg (NEG) Urine Barbiturates Neg (NEG) Urine Phencyclidine Screen Neg (NEG) Urine Amphetamine/Methamphetamine Neg (NEG) Urine Benzodiazepines Screen Neg (NEG) Urine Cocaine Screen Neg (NEG) Urine Cannabinoids Screen Neg (NEG) Urine Ethyl Alcohol Neg (NEG) Bedside Urine HCG, Qualitative Hcg negative (Negative) White Blood Count 3.9 x10^3/uL (4.0-11.0) Red Blood Count 5.17 x10^6/uL (3.50-5.40) Hemoglobin 12.5 g/dL (12.0-15.5) Hematocrit 39.4 % (36.0-47.0) Mean Corpuscular Volume 76 fL (79-100) Mean Corpuscular Hemoglobin 24 pg (25-35) Mean Corpuscular Hemoglobin Concent 32 g/dL (31-37) Red Cell Distribution Width 19.2 % (11.5-14.5) Platelet Count 265 x10^3/uL (140-400) Neutrophils (%) (Auto) 39 % (31-73) Lymphocytes (%) (Auto) 25 % (24-48) Monocytes (%) (Auto) 34 % (0-9) Eosinophils (%) (Auto) 2 % (0-3) Basophils (%) (Auto) 1 % (0-3) Neutrophils # (Auto) 1.5 x10^3/uL (1.8-7.7) Lymphocytes # (Auto) 0.9 x10^3/uL (1.0-4.8) Monocytes # (Auto) 1.3 x10^3/uL (0.0-1.1) Eosinophils # (Auto) 0.1 x10^3/uL (0.0-0.7) Basophils # (Auto) 0.0 x10^3/uL (0.0-0.2) Segmented Neutrophils % 3 % (35-66) Band Neutrophils % 21 % (0-9) Lymphocytes % 33 % (24-48) Monocytes % 38 % (0-10) Eosinophils % 2 % (0-5) Basophils % 2 % (0-3) Metamyelocytes % 1 % (0-0) Platelet Estimate Adequate (ADEQUATE) Giant Platelets Occ Hypochromasia Slight Anisocytosis Slight Ovalocytes Mod Schistocytes Few Prothrombin Time 15.2 SEC (11.7-14.0) Prothromb Time International Ratio 1.2 (0.8-1.1) Sodium Level 133 mmol/L (136-145) Potassium Level 4.8 mmol/L (3.5-5.1) Chloride Level 100 mmol/L (98-107) Carbon Dioxide Level 15 mmol/L (21-32) Anion Gap 18 (6-14) Blood Urea Nitrogen 17 mg/dL (7-20) Creatinine 0.8 mg/dL (0.6-1.0) Estimated GFR (Cockcroft-Gault) 87.4 BUN/Creatinine Ratio 21 (6-20) Glucose Level 89 mg/dL (70-99) Calcium Level 9.1 mg/dL (8.5-10.1) Total Bilirubin 0.3 mg/dL (0.2-1.0) Aspartate Amino Transf (AST/SGOT) 20 U/L (15-37) Alanine Aminotransferase (ALT/SGPT) 17 U/L (14-59) Alkaline Phosphatase 88 U/L (46-116) Total Protein 8.2 g/dL (6.4-8.2) Albumin 3.6 g/dL (3.4-5.0) Albumin/Globulin Ratio 0.8 (1.0-1.7) Lipase 42 U/L (73-393) Salicylates Level 18.0 mg/dL (2.8-20.0) Salicylate Last Dose Date Unknown Salicylate Last Dose Time Unknown Acetaminophen Level < 2 mcg/ml (10-30) Acetaminophen Last Dose Date Unknown Acetaminophen Last Dose Time Unknown Assessment/Plan Assessment/Plan abdominal pain CT with uterine mass, will ask CLINICAL ENGINEERING MANAGER to Eval mild prominence of appendix, however no inflammatory findings, no leukocytosis--seems less like appendicitis--will have Dr Jackson review would keep NPO for now RITA JACKSON MD 11/02/19 1431: CONSULT Assessment/Plan Assessment/Plan Pt seen and examined. Agree with Ms. Roberts's note Pt feels better abd soft, ND, NTTP CT with appendix without inflammation d/w drawer in hand will give diet, suspect component for dehydration no surgical plans. Thanks for consult! GHADA ROBERTS APRN Nov 02, 2019 08:19 RITA JACKSON MD Nov 02, 2019 14:31
--- NOTE | 2019-11-02 08:40 | PDOC ---
PROGRESS NOTES Chief Complaint Chief Complaint A/P: Abdominal pain Uterine Mass? History of Present Illness History of Present Illness Ms Lei is a 24yo F admitted with abdominal pain. CT with uterine mass, will ask [employer] to Eval. mild prominence of appendix, however no inflammatory findings, no leukocytosis--seems less like appendicitis--will have Dr Jackson review Vitals Vitals Vital Signs Date Time Temp Pulse Resp B/P (MAP) Pulse Ox O2 Delivery O2 Flow Rate FiO2 11/02/19 08:15 97 Room Air 11/02/19 07:05 98.1 108 16 105/64 (78) 98.1 Physical Exam General: Alert, Oriented X3, Cooperative, No acute distress Heart: Regular rate, Normal S1, Normal S2 Abdomen: Soft, Other (tender across lower abdomen) Extremities: No clubbing, No cyanosis Skin: No rashes, No breakdown Labs LABS Laboratory Tests Test 11/01/19 13:54 11/01/19 13:59 11/01/19 14:30 Urine Collection Type Unknown Urine Color Yellow Urine Clarity Clear Urine pH 5.5 Urine Specific [place] >=1.030 Urine Protein 30 mg/dL (NEG-TRACE) Urine Glucose (UA) Negative mg/dL (NEG) Urine Ketones (Stick) >=80 mg/dL (NEG) Urine Blood Large (NEG) Urine Nitrite Negative (NEG) Urine Bilirubin Negative (NEG) Urine Urobilinogen Dipstick 0.2 mg/dL (0.2 mg/dL) Urine Leukocyte Esterase Negative (NEG) Urine RBC >40 /HPF (0-2) Urine WBC Occ /HPF (0-4) Urine Squamous Epithelial Cells Mod /LPF Urine Bacteria Few /HPF (0-FEW) Urine Hyaline Casts Moderate /HPF Urine Mucus Marked /LPF Urine Opiates Screen Neg (NEG) Urine Methadone Screen Neg (NEG) Urine Barbiturates Neg (NEG) Urine Phencyclidine Screen Neg (NEG) Urine Amphetamine/Methamphetamine Neg (NEG) Urine Benzodiazepines Screen Neg (NEG) Urine Cocaine Screen Neg (NEG) Urine Cannabinoids Screen Neg (NEG) Urine Ethyl Alcohol Neg (NEG) Bedside Urine HCG, Qualitative Hcg negative (Negative) White Blood Count 3.9 x10^3/uL (4.0-11.0) Red Blood Count 5.17 x10^6/uL (3.50-5.40) Hemoglobin 12.5 g/dL (12.0-15.5) Hematocrit 39.4 % (36.0-47.0) Mean Corpuscular Volume 76 fL (79-100) Mean Corpuscular Hemoglobin 24 pg (25-35) Mean Corpuscular Hemoglobin Concent 32 g/dL (31-37) Red Cell Distribution Width 19.2 % (11.5-14.5) Platelet Count 265 x10^3/uL (140-400) Neutrophils (%) (Auto) 39 % (31-73) Lymphocytes (%) (Auto) 25 % (24-48) Monocytes (%) (Auto) 34 % (0-9) Eosinophils (%) (Auto) 2 % (0-3) Basophils (%) (Auto) 1 % (0-3) Neutrophils # (Auto) 1.5 x10^3/uL (1.8-7.7) Lymphocytes # (Auto) 0.9 x10^3/uL (1.0-4.8) Monocytes # (Auto) 1.3 x10^3/uL (0.0-1.1) Eosinophils # (Auto) 0.1 x10^3/uL (0.0-0.7) Basophils # (Auto) 0.0 x10^3/uL (0.0-0.2) Segmented Neutrophils % 3 % (35-66) Band Neutrophils % 21 % (0-9) Lymphocytes % 33 % (24-48) Monocytes % 38 % (0-10) Eosinophils % 2 % (0-5) Basophils % 2 % (0-3) Metamyelocytes % 1 % (0-0) Platelet Estimate Adequate (ADEQUATE) Giant Platelets Occ Hypochromasia Slight Anisocytosis Slight Ovalocytes Mod Schistocytes Few Prothrombin Time 15.2 SEC (11.7-14.0) Prothromb Time International Ratio 1.2 (0.8-1.1) Sodium Level 133 mmol/L (136-145) Potassium Level 4.8 mmol/L (3.5-5.1) Chloride Level 100 mmol/L (98-107) Carbon Dioxide Level 15 mmol/L (21-32) Anion Gap 18 (6-14) Blood Urea Nitrogen 17 mg/dL (7-20) Creatinine 0.8 mg/dL (0.6-1.0) Estimated GFR (Cockcroft-Gault) 87.4 BUN/Creatinine Ratio 21 (6-20) Glucose Level 89 mg/dL (70-99) Calcium Level 9.1 mg/dL (8.5-10.1) Total Bilirubin 0.3 mg/dL (0.2-1.0) Aspartate Amino Transf (AST/SGOT) 20 U/L (15-37) Alanine Aminotransferase (ALT/SGPT) 17 U/L (14-59) Alkaline Phosphatase 88 U/L (46-116) Total Protein 8.2 g/dL (6.4-8.2) Albumin 3.6 g/dL (3.4-5.0) Albumin/Globulin Ratio 0.8 (1.0-1.7) Lipase 42 U/L (73-393) Salicylates Level 18.0 mg/dL (2.8-20.0) Salicylate Last Dose Date Unknown Salicylate Last Dose Time Unknown Acetaminophen Level < 2 mcg/ml (10-30) Acetaminophen Last Dose Date Unknown Acetaminophen Last Dose Time Unknown Assessment and Plan Assessmemt and Plan Problems Medical Problems: (1) Abdominal pain Status: Acute Comment Review of Relevant I have reviewed the following items kamilah (where applicable) has been applied. Labs Laboratory Tests Test 11/01/19 13:54 11/01/19 13:59 11/01/19 14:30 Urine Collection Type Unknown Urine Color Yellow Urine Clarity Clear Urine pH 5.5 Urine Specific [place] >=1.030 Urine Protein 30 mg/dL (NEG-TRACE) Urine Glucose (UA) Negative mg/dL (NEG) Urine Ketones (Stick) >=80 mg/dL (NEG) Urine Blood Large (NEG) Urine Nitrite Negative (NEG) Urine Bilirubin Negative (NEG) Urine Urobilinogen Dipstick 0.2 mg/dL (0.2 mg/dL) Urine Leukocyte Esterase Negative (NEG) Urine RBC >40 /HPF (0-2) Urine WBC Occ /HPF (0-4) Urine Squamous Epithelial Cells Mod /LPF Urine Bacteria Few /HPF (0-FEW) Urine Hyaline Casts Moderate /HPF Urine Mucus Marked /LPF Urine Opiates Screen Neg (NEG) Urine Methadone Screen Neg (NEG) Urine Barbiturates Neg (NEG) Urine Phencyclidine Screen Neg (NEG) Urine Amphetamine/Methamphetamine Neg (NEG) Urine Benzodiazepines Screen Neg (NEG) Urine Cocaine Screen Neg (NEG) Urine Cannabinoids Screen Neg (NEG) Urine Ethyl Alcohol Neg (NEG) Bedside Urine HCG, Qualitative Hcg negative (Negative) White Blood Count 3.9 x10^3/uL (4.0-11.0) Red Blood Count 5.17 x10^6/uL (3.50-5.40) Hemoglobin 12.5 g/dL (12.0-15.5) Hematocrit 39.4 % (36.0-47.0) Mean Corpuscular Volume 76 fL (79-100) Mean Corpuscular Hemoglobin 24 pg (25-35) Mean Corpuscular Hemoglobin Concent 32 g/dL (31-37) Red Cell Distribution Width 19.2 % (11.5-14.5) Platelet Count 265 x10^3/uL (140-400) Neutrophils (%) (Auto) 39 % (31-73) Lymphocytes (%) (Auto) 25 % (24-48) Monocytes (%) (Auto) 34 % (0-9) Eosinophils (%) (Auto) 2 % (0-3) Basophils (%) (Auto) 1 % (0-3) Neutrophils # (Auto) 1.5 x10^3/uL (1.8-7.7) Lymphocytes # (Auto) 0.9 x10^3/uL (1.0-4.8) Monocytes # (Auto) 1.3 x10^3/uL (0.0-1.1) Eosinophils # (Auto) 0.1 x10^3/uL (0.0-0.7) Basophils # (Auto) 0.0 x10^3/uL (0.0-0.2) Segmented Neutrophils % 3 % (35-66) Band Neutrophils % 21 % (0-9) Lymphocytes % 33 % (24-48) Monocytes % 38 % (0-10) Eosinophils % 2 % (0-5) Basophils % 2 % (0-3) Metamyelocytes % 1 % (0-0) Platelet Estimate Adequate (ADEQUATE) Giant Platelets Occ Hypochromasia Slight Anisocytosis Slight Ovalocytes Mod Schistocytes Few Prothrombin Time 15.2 SEC (11.7-14.0) Prothromb Time International Ratio 1.2 (0.8-1.1) Sodium Level 133 mmol/L (136-145) Potassium Level 4.8 mmol/L (3.5-5.1) Chloride Level 100 mmol/L (98-107) Carbon Dioxide Level 15 mmol/L (21-32) Anion Gap 18 (6-14) Blood Urea Nitrogen 17 mg/dL (7-20) Creatinine 0.8 mg/dL (0.6-1.0) Estimated GFR (Cockcroft-Gault) 87.4 BUN/Creatinine Ratio 21 (6-20) Glucose Level 89 mg/dL (70-99) Calcium Level 9.1 mg/dL (8.5-10.1) Total Bilirubin 0.3 mg/dL (0.2-1.0) Aspartate Amino Transf (AST/SGOT) 20 U/L (15-37) Alanine Aminotransferase (ALT/SGPT) 17 U/L (14-59) Alkaline Phosphatase 88 U/L (46-116) Total Protein 8.2 g/dL (6.4-8.2) Albumin 3.6 g/dL (3.4-5.0) Albumin/Globulin Ratio 0.8 (1.0-1.7) Lipase 42 U/L (73-393) Salicylates Level 18.0 mg/dL (2.8-20.0) Salicylate Last Dose Date Unknown Salicylate Last Dose Time Unknown Acetaminophen Level < 2 mcg/ml (10-30) Acetaminophen Last Dose Date Unknown Acetaminophen Last Dose Time Unknown Laboratory Tests Test 11/01/19 13:54 11/01/19 13:59 11/01/19 14:30 Urine Collection Type Unknown Urine Color Yellow Urine Clarity Clear Urine pH 5.5 Urine Specific [place] >=1.030 Urine Protein 30 mg/dL (NEG-TRACE) Urine Glucose (UA) Negative mg/dL (NEG) Urine Ketones (Stick) >=80 mg/dL (NEG) Urine Blood Large (NEG) Urine Nitrite Negative (NEG) Urine Bilirubin Negative (NEG) Urine Urobilinogen Dipstick 0.2 mg/dL (0.2 mg/dL) Urine Leukocyte Esterase Negative (NEG) Urine RBC >40 /HPF (0-2) Urine WBC Occ /HPF (0-4) Urine Squamous Epithelial Cells Mod /LPF Urine Bacteria Few /HPF (0-FEW) Urine Hyaline Casts Moderate /HPF Urine Mucus Marked /LPF Urine Opiates Screen Neg (NEG) Urine Methadone Screen Neg (NEG) Urine Barbiturates Neg (NEG) Urine Phencyclidine Screen Neg (NEG) Urine Amphetamine/Methamphetamine Neg (NEG) Urine Benzodiazepines Screen Neg (NEG) Urine Cocaine Screen Neg (NEG) Urine Cannabinoids Screen Neg (NEG) Urine Ethyl Alcohol Neg (NEG) Bedside Urine HCG, Qualitative Hcg negative (Negative) White Blood Count 3.9 x10^3/uL (4.0-11.0) Red Blood Count 5.17 x10^6/uL (3.50-5.40) Hemoglobin 12.5 g/dL (12.0-15.5) Hematocrit 39.4 % (36.0-47.0) Mean Corpuscular Volume 76 fL (79-100) Mean Corpuscular Hemoglobin 24 pg (25-35) Mean Corpuscular Hemoglobin Concent 32 g/dL (31-37) Red Cell Distribution Width 19.2 % (11.5-14.5) Platelet Count 265 x10^3/uL (140-400) Neutrophils (%) (Auto) 39 % (31-73) Lymphocytes (%) (Auto) 25 % (24-48) Monocytes (%) (Auto) 34 % (0-9) Eosinophils (%) (Auto) 2 % (0-3) Basophils (%) (Auto) 1 % (0-3) Neutrophils # (Auto) 1.5 x10^3/uL (1.8-7.7) Lymphocytes # (Auto) 0.9 x10^3/uL (1.0-4.8) Monocytes # (Auto) 1.3 x10^3/uL (0.0-1.1) Eosinophils # (Auto) 0.1 x10^3/uL (0.0-0.7) Basophils # (Auto) 0.0 x10^3/uL (0.0-0.2) Segmented Neutrophils % 3 % (35-66) Band Neutrophils % 21 % (0-9) Lymphocytes % 33 % (24-48) Monocytes % 38 % (0-10) Eosinophils % 2 % (0-5) Basophils % 2 % (0-3) Metamyelocytes % 1 % (0-0) Platelet Estimate Adequate (ADEQUATE) Giant Platelets Occ Hypochromasia Slight Anisocytosis Slight Ovalocytes Mod Schistocytes Few Prothrombin Time 15.2 SEC (11.7-14.0) Prothromb Time International Ratio 1.2 (0.8-1.1) Sodium Level 133 mmol/L (136-145) Potassium Level 4.8 mmol/L (3.5-5.1) Chloride Level 100 mmol/L (98-107) Carbon Dioxide Level 15 mmol/L (21-32) Anion Gap 18 (6-14) Blood Urea Nitrogen 17 mg/dL (7-20) Creatinine 0.8 mg/dL (0.6-1.0) Estimated GFR (Cockcroft-Gault) 87.4 BUN/Creatinine Ratio 21 (6-20) Glucose Level 89 mg/dL (70-99) Calcium Level 9.1 mg/dL (8.5-10.1) Total Bilirubin 0.3 mg/dL (0.2-1.0) Aspartate Amino Transf (AST/SGOT) 20 U/L (15-37) Alanine Aminotransferase (ALT/SGPT) 17 U/L (14-59) Alkaline Phosphatase 88 U/L (46-116) Total Protein 8.2 g/dL (6.4-8.2) Albumin 3.6 g/dL (3.4-5.0) Albumin/Globulin Ratio 0.8 (1.0-1.7) Lipase 42 U/L (73-393) Salicylates Level 18.0 mg/dL (2.8-20.0) Salicylate Last Dose Date Unknown Salicylate Last Dose Time Unknown Acetaminophen Level < 2 mcg/ml (10-30) Acetaminophen Last Dose Date Unknown Acetaminophen Last Dose Time Unknown Medications Current Medications Sodium Chloride 1,000 ml @ 1,000 mls/hr Q1H IV Last administered on 11/01/19at 14:38; Start 11/01/19 at 14:30; Stop 11/01/19 at 15:29; Status DC Fentanyl Citrate (Fentanyl 2ml Vial) 50 mcg 1X ONCE IVP Last administered on 11/01/19at 14:39; Start 11/01/19 at 14:30; Stop 11/01/19 at 14:31; Status DC Ondansetron HCl (Zofran) 4 mg 1X ONCE IVP Last administered on 11/01/19at 14:39; Start 11/01/19 at 14:30; Stop 11/01/19 at 14:31; Status DC Iohexol (Omnipaque 300 Mg/ml) 75 ml 1X ONCE IV Last administered on 11/01/19at 15:32; Start 11/01/19 at 15:30; Stop 11/01/19 at 15:31; Status DC Info (CONTRAST GIVEN -- Rx MONITORING) 1 each PRN DAILY PRN MC SEE COMMENTS; Start 11/01/19 at 15:15; Stop 11/03/19 at 15:14 Piperacillin Sod/ Tazobactam Sod 3.375 gm/Sodium Chloride 50 ml @ 100 mls/hr 1X ONCE IV Last administered on 11/01/19at 16:55; Start 11/01/19 at 17:00; Stop 11/01/19 at 17:29; Status DC Ondansetron HCl (Zofran) 4 mg PRN Q8HRS PRN IV NAUSEA/VOMITING Last administered on 11/01/19at 23:12; Start 11/01/19 at 16:45; Stop 11/02/19 at 16:44 Fentanyl Citrate (Fentanyl 2ml Vial) 50 mcg PRN Q1HR PRN IV PAIN Last administered on 11/02/19at 06:36; Start 11/01/19 at 16:45; Stop 11/02/19 at 16:44 Sodium Chloride 1,000 ml @ 125 mls/hr Q8H IV Last administered on 11/02/19at 08:16; Start 11/01/19 at 16:39; Stop 11/02/19 at 16:38 Acetaminophen (Tylenol) 650 mg PRN Q6HRS PRN PO fever Last administered on 11/01/19at 23:11; Start 11/01/19 at 23:00 Vitals/I & O Vital Sign - Last 24 Hours 11/01/19 11/01/19 11/01/19 11/01/19 14:00 14:16 14:39 14:46 Temp 98.5 98.5 Pulse 121 122 116 Resp 14 14 16 14 B/P (MAP) 115/71 (86) 113/70 (84) 112/74 (87) Pulse Ox 98 100 O2 Delivery Room Air Room Air Room Air 11/01/19 11/01/19 11/01/19 11/01/19 15:16 15:46 16:01 16:31 Pulse 108 121 119 110 Resp 14 14 16 16 B/P (MAP) 108/63 (78) 138/58 (84) 119/73 (88) 99/74 (82) Pulse Ox 100 100 99 99 O2 Delivery Room Air Room Air Room Air Room Air 11/01/19 11/01/19 11/01/19 11/01/19 16:46 18:30 19:54 23:51 Temp 98.1 97.8 100.3 98.1 97.8 100.3 Pulse 116 118 118 118 Resp 16 16 18 B/P (MAP) 110/76 (87) 110/66 (81) 103/66 (78) 101/66 (78) Pulse Ox 99 97 100 100 O2 Delivery Room Air Room Air Room Air Room Air 11/02/19 11/02/19 11/02/19 11/02/19 00:00 02:30 03:33 04:28 Temp 99.4 99.4 99.4 99.4 Pulse 121 Resp 17 16 18 B/P (MAP) 113/68 (83) Pulse Ox 93 O2 Delivery Room Air Room Air Room Air 11/02/19 11/02/19 11/02/19 06:36 07:05 08:15 Temp 98.1 98.1 Pulse 108 Resp 16 16 B/P (MAP) 105/64 (78) Pulse Ox 97 97 O2 Delivery Room Air Room Air Room Air Intake and Output 11/01/19 11/01/19 11/02/19 15:00 23:00 07:00 Intake Total 1050 ml 0 ml Balance 1050 ml 0 ml MOON AGUIAR MD Nov 02, 2019 08:40
[2019-11-02 11:00] VITALS: BP 110/79
--- NOTE | 2019-11-02 11:32 | PDOC2 ---
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 At first the pt thought it may just be bad menstrual cramps, but after she had no improvement for the course of 72 hrs she knew something was wrong. She had never experienced pain so severe with cramping. On presentation to the ER the pt was reporting N/V and chills. Her pain was 9/10, but has improved over the course of her hospitalization. The pt underwent a CT revealing the fo llowin. A heterogeneously attenuating, well-circumscribed mass is seen within the uterine fundus that measures approximately 6.6 x 6.7 x 6.6 cm. The endometrium appears to be displaced to the right and this mass results in partial effacement of the subjacent urinary bladder. The imaging appearance is most compatible with a uterine leiomyoma with internal degeneration. 2. A tubular structure thought to represent the appendix is segmentally visualized and faintly prominent in transverse dimension but there are no regional inflammatory changes to suggest appendicitis. 3. Radiodense material scattered throughout the colon suggestive of retained contrast. Correlate for any recently performed outside imaging studies. The pt states that she was unaware of her family h/o fibroids until this finding. When the pt presented to the ER she was afebrile but tachycardiac. The tachycardia has improved over the hospitalization. The pt has had a nml WBC since admission with no left shift. 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 / regular intervals (typically heavy per pt) SH: no tob, rare EtOH FH: noncontributory Past Medical History Cardiovascular: No pertinent hx Pulmonary: No pertinent hx GI: No pertinent hx Heme/Onc: No pertinent hx Past Surgical History Past Surgical History: No pertinent history Family History Family History: No Significant Social History <1 pack per day (vap) ALCOHOL: rare Drugs: None Lives: Alone Current Problem List Problem List Problems Medical Problems: (1) Abdominal pain Status: Acute Current Medications Current Medications Current Medications Sodium Chloride 1,000 ml @ 1,000 mls/hr Q1H IV Last administered on 11/01/19at 14:38; Start 11/01/19 at 14:30; Stop 11/01/19 at 15:29; Status DC Fentanyl Citrate (Fentanyl 2ml Vial) 50 mcg 1X ONCE IVP Last administered on 11/01/19at 14:39; Start 11/01/19 at 14:30; Stop 11/01/19 at 14:31; Status DC Ondansetron HCl (Zofran) 4 mg 1X ONCE IVP Last administered on 11/01/19at 14:39; Start 11/01/19 at 14:30; Stop 11/01/19 at 14:31; Status DC Iohexol (Omnipaque 300 Mg/ml) 75 ml 1X ONCE IV Last administered on 11/01/19at 15:32; Start 11/01/19 at 15:30; Stop 11/01/19 at 15:31; Status DC Info (CONTRAST GIVEN -- Rx MONITORING) 1 each PRN DAILY PRN MC SEE COMMENTS; Start 11/01/19 at 15:15; Stop 11/03/19 at 15:14 Piperacillin Sod/ Tazobactam Sod 3.375 gm/Sodium Chloride 50 ml @ 100 mls/hr 1X ONCE IV Last administered on 11/01/19at 16:55; Start 11/01/19 at 17:00; Stop 11/01/19 at 17:29; Status DC Ondansetron HCl (Zofran) 4 mg PRN Q8HRS PRN IV NAUSEA/VOMITING Last administered on 11/01/19at 23:12; Start 11/01/19 at 16:45; Stop 11/02/19 at 16:44 Fentanyl Citrate (Fentanyl 2ml Vial) 50 mcg PRN Q1HR PRN IV PAIN Last administe red on 11/02/19at 10:35; Start 11/01/19 at 16:45; Stop 11/02/19 at 16:44 Sodium Chloride 1,000 ml @ 125 mls/hr Q8H IV Last administered on 11/02/19at 08:16; Start 11/01/19 at 16:39; Stop 11/02/19 at 16:38 Acetaminophen (Tylenol) 650 mg PRN Q6HRS PRN PO fever Last administered on 11/01/19at 23:11; Start 11/01/19 at 23:00 Allergies Allergies: Coded Allergies: No Known Drug Allergies (Unverified , 11/01/19) Physical Exam Physical Exam CTAB RRR S/diffuse tender/ND No C/C/E Vitals VITALS Vital Signs Date Time Temp Pulse Resp B/P (MAP) Pulse Ox O2 Delivery O2 Flow Rate FiO2 11/02/19 11:00 98.4 107 16 110/79 (89) 99 Room Air 98.4 Labs Labs Laboratory Tests Test 11/01/19 13:54 11/01/19 13:59 11/01/19 14:30 Urine Collection Type Unknown Urine Color Yellow Urine Clarity Clear Urine pH 5.5 Urine Specific [place] >=1.030 Urine Protein 30 mg/dL (NEG-TRACE) Urine Glucose (UA) Negative mg/dL (NEG) Urine Ketones (Stick) >=80 mg/dL (NEG) Urine Blood Large (NEG) Urine Nitrite Negative (NEG) Urine Bilirubin Negative (NEG) Urine Urobilinogen Dipstick 0.2 mg/dL (0.2 mg/dL) Urine Leukocyte Esterase Negative (NEG) Urine RBC >40 /HPF (0-2) Urine WBC Occ /HPF (0-4) Urine Squamous Epithelial Cells Mod /LPF Urine Bacteria Few /HPF (0-FEW) Urine Hyaline Casts Moderate /HPF Urine Mucus Marked /LPF Urine Opiates Screen Neg (NEG) Urine Methadone Screen Neg (NEG) Urine Barbiturates Neg (NEG) Urine Phencyclidine Screen Neg (NEG) Urine Amphetamine/Methamphetamine Neg (NEG) Urine Benzodiazepines Screen Neg (NEG) Urine Cocaine Screen Neg (NEG) Urine Cannabinoids Screen Neg (NEG) Urine Ethyl Alcohol Neg (NEG) Bedside Urine HCG, Qualitative Hcg negative (Negative) White Blood Count 3.9 x10^3/uL (4.0-11.0) Red Blood Count 5.17 x10^6/uL (3.50-5.40) Hemoglobin 12.5 g/dL (12.0-15.5) Hematocrit 39.4 % (36.0-47.0) Mean Corpuscular Volume 76 fL (79-100) Mean Corpuscular Hemoglobin 24 pg (25-35) Mean Corpuscular Hemoglobin Concent 32 g/dL (31-37) Red Cell Distribution Width 19.2 % (11.5-14.5) Platelet Count 265 x10^3/uL (140-400) Neutrophils (%) (Auto) 39 % (31-73) Lymphocytes (%) (Auto) 25 % (24-48) Monocytes (%) (Auto) 34 % (0-9) Eosinophils (%) (Auto) 2 % (0-3) Basophils (%) (Auto) 1 % (0-3) Neutrophils # (Auto) 1.5 x10^3/uL (1.8-7.7) Lymphocytes # (Auto) 0.9 x10^3/uL (1.0-4.8) Monocytes # (Auto) 1.3 x10^3/uL (0.0-1.1) Eosinophils # (Auto) 0.1 x10^3/uL (0.0-0.7) Basophils # (Auto) 0.0 x10^3/uL (0.0-0.2) Segmented Neutrophils % 3 % (35-66) Band Neutrophils % 21 % (0-9) Lymphocytes % 33 % (24-48) Monocytes % 38 % (0-10) Eosinophils % 2 % (0-5) Basophils % 2 % (0-3) Metamyelocytes % 1 % (0-0) Platelet Estimate Adequate (ADEQUATE) Giant Platelets Occ Hypochromasia Slight Anisocytosis Slight Ovalocytes Mod Schistocytes Few Prothrombin Time 15.2 SEC (11.7-14.0) Prothromb Time International Ratio 1.2 (0.8-1.1) Sodium Level 133 mmol/L (136-145) Potassium Level 4.8 mmol/L (3.5-5.1) Chloride Level 100 mmol/L (98-107) Carbon Dioxide Level 15 mmol/L (21-32) Anion Gap 18 (6-14) Blood Urea Nitrogen 17 mg/dL (7-20) Creatinine 0.8 mg/dL (0.6-1.0) Estimated GFR (Cockcroft-Gault) 87.4 BUN/Creatinine Ratio 21 (6-20) Glucose Level 89 mg/dL (70-99) Calcium Level 9.1 mg/dL (8.5-10.1) Total Bilirubin 0.3 mg/dL (0.2-1.0) Aspartate Amino Transf (AST/SGOT) 20 U/L (15-37) Alanine Aminotransferase (ALT/SGPT) 17 U/L (14-59) Alkaline Phosphatase 88 U/L (46-116) Total Protein 8.2 g/dL (6.4-8.2) Albumin 3.6 g/dL (3.4-5.0) Albumin/Globulin Ratio 0.8 (1.0-1.7) Lipase 42 U/L (73-393) Salicylates Level 18.0 mg/dL (2.8-20.0) Salicylate Last Dose Date Unknown Salicylate Last Dose Time Unknown Acetaminophen Level < 2 mcg/ml (10-30) Acetaminophen Last Dose Date Unknown Acetaminophen Last Dose Time Unknown Laboratory Tests Test 11/01/19 13:54 11/01/19 13:59 11/01/19 14:30 Urine Collection Type Unknown Urine Color Yellow Urine Clarity Clear Urine pH 5.5 Urine Specific [place] >=1.030 Urine Protein 30 mg/dL (NEG-TRACE) Urine Glucose (UA) Negative mg/dL (NEG) Urine Ketones (Stick) >=80 mg/dL (NEG) Urine Blood Large (NEG) Urine Nitrite Negative (NEG) Urine Bilirubin Negative (NEG) Urine Urobilinogen Dipstick 0.2 mg/dL (0.2 mg/dL) Urine Leukocyte Esterase Negative (NEG) Urine RBC >40 /HPF (0-2) Urine WBC Occ /HPF (0-4) Urine Squamous Epithelial Cells Mod /LPF Urine Bacteria Few /HPF (0-FEW) Urine Hyaline Casts Moderate /HPF Urine Mucus Marked /LPF Urine Opiates Screen Neg (NEG) Urine Methadone Screen Neg (NEG) Urine Barbiturates Neg (NEG) Urine Phencyclidine Screen Neg (NEG) Urine Amphetamine/Methamphetamine Neg (NEG) Urine Benzodiazepines Screen Neg (NEG) Urine Cocaine Screen Neg (NEG) Urine Cannabinoids Screen Neg (NEG) Urine Ethyl Alcohol Neg (NEG) Bedside Urine HCG, Qualitative Hcg negative (Negative) White Blood Count 3.9 x10^3/uL (4.0-11.0) Red Blood Count 5.17 x10^6/uL (3.50-5.40) Hemoglobin 12.5 g/dL (12.0-15.5) Hematocrit 39.4 % (36.0-47.0) Mean Corpuscular Volume 76 fL (79-100) Mean Corpuscular Hemoglobin 24 pg (25-35) Mean Corpuscular Hemoglobin Concent 32 g/dL (31-37) Red Cell Distribution Width 19.2 % (11.5-14.5) Platelet Count 265 x10^3/uL (140-400) Neutrophils (%) (Auto) 39 % (31-73) Lymphocytes (%) (Auto) 25 % (24-48) Monocytes (%) (Auto) 34 % (0-9) Eosinophils (%) (Auto) 2 % (0-3) Basophils (%) (Auto) 1 % (0-3) Neutrophils # (Auto) 1.5 x10^3/uL (1.8-7.7) Lymphocytes # (Auto) 0.9 x10^3/uL (1.0-4.8) Monocytes # (Auto) 1.3 x10^3/uL (0.0-1.1) Eosinophils # (Auto) 0.1 x10^3/uL (0.0-0.7) Basophils # (Auto) 0.0 x10^3/uL (0.0-0.2) Segmented Neutrophils % 3 % (35-66) Band Neutrophils % 21 % (0-9) Lymphocytes % 33 % (24-48) Monocytes % 38 % (0-10) Eosinophils % 2 % (0-5) Basophils % 2 % (0-3) Metamyelocytes % 1 % (0-0) Platelet Estimate Adequate (ADEQUATE) Giant Platelets Occ Hypochromasia Slight Anisocytosis Slight Ovalocytes Mod Schistocytes Few Prothrombin Time 15.2 SEC (11.7-14.0) Prothromb Time International Ratio 1.2 (0.8-1.1) Sodium Level 133 mmol/L (136-145) Potassium Level 4.8 mmol/L (3.5-5.1) Chloride Level 100 mmol/L (98-107) Carbon Dioxide Level 15 mmol/L (21-32) Anion Gap 18 (6-14) Blood Urea Nitrogen 17 mg/dL (7-20) Creatinine 0.8 mg/dL (0.6-1.0) Estimated GFR (Cockcroft-Gault) 87.4 BUN/Creatinine Ratio 21 (6-20) Glucose Level 89 mg/dL (70-99) Calcium Level 9.1 mg/dL (8.5-10.1) Total Bilirubin 0.3 mg/dL (0.2-1.0) Aspartate Amino Transf (AST/SGOT) 20 U/L (15-37) Alanine Aminotransferase (ALT/SGPT) 17 U/L (14-59) Alkaline Phosphatase 88 U/L (46-116) Total Protein 8.2 g/dL (6.4-8.2) Albumin 3.6 g/dL (3.4-5.0) Albumin/Globulin Ratio 0.8 (1.0-1.7) Lipase 42 U/L (73-393) Salicylates Level 18.0 mg/dL (2.8-20.0) Salicylate Last Dose Date Unknown Salicylate Last Dose Time Unknown Acetaminophen Level < 2 mcg/ml (10-30) Acetaminophen Last Dose Date Unknown Acetaminophen Last Dose Time Unknown Assessment/Plan Assessment/Plan Assessment: 24y G0 admitted for abd pain Recommendations: 1.) Abd pain Pain thought to be secondary to either acute appendix or degeneration of a fibroid 2.) Degenerating fibroid Discussed fibroid degeneration with the pt. Degenerating fibroid typically results in pelvic pain and may be associated with a low-grade fever, uterine tenderness on palpation, elevated white blood cell count, or peritoneal signs. The additional symptoms are not present with the pt. The discomfort resulting from degenerating fibroids is self-limited, lasting from days to a few weeks, and usually responds to nonsteroidal anti-inflammatory drugs. With the pts improving clinical course this would mean no surgical intervention would be necessary. The pt may benefit from additional imaging lik e an ultrasound. On ultrasound, a potential diagnosis of degeneration is suggested when pain is present when scanning directly over the fibroid. In cases where the etiology of pain is unclear, pelvic magnetic resonance imaging with gadolinium can be useful to make the diagnosis of degeneration since regions of degeneration within fibroids do not have enhancement following contrast administration. With the pt improving clinical situation an MRI does not seem necessary at this time. 3.) Appendix s/p Gen Surg consult, feels mild prominence of appendix not likely appendicitis due to the lack of leukocytosis. 4.) Contraception None 5.) Will continue to follow BRENT MACHADO MD Nov 02, 2019 11:32
--- NOTE | 2019-11-02 11:57 | NUR ---
SW following. Discussed with RN. Pt from home, [facility], up [facility]. RN advised no SW needs at this time. SW will continue to follow.
[2019-11-02] MEDS: KETOROLAC 30 MG/ML VIAL. IVP PRN ×2 (14:12→21:04)
[2019-11-02 15:30] VITALS: BP 111/86
[2019-11-02] MEDS: ACETAMINOPHEN 325 MG TABLET. PO PRN (16:44)
--- NOTE | 2019-11-02 17:26 | RAD ---
Examination: Ultrasound pelvis HISTORY: History of fibroids, pelvic pain COMPARISON: None available FINDINGS: The uterus measures 8.1 x 1.1 x 5.8 cm. The endometrium is poorly visualized due to large uterine fibroid.The right ovary could not be identified. The left ovary measures 2.8 x 3.2 x 1.4 cm. Large centrally located heterogeneous echogenicity identified measuring 6.2 x 5.7 x 5.3 cm likely a large fibroid. IMPRESSION: Large 6.2 cm fibroid identified in the uterus. Electronically signed by: Gilbert Beasley MD (11/02/2019 5:23 PM) [id number]
[2019-11-02 19:00] VITALS: BP 112/74
[2019-11-02] MEDS ORDERED: ONDANSETRON PF 4 MG/2 ML VIAL. IVP PRN (21:30)
[2019-11-02 23:00] VITALS: BP 121/80
[2019-11-03 03:00] VITALS: BP 106/66
[2019-11-03] MEDS: fentaNYL PF VIAL 100 MCG/2 ML VIAL IVP PRN ×6 (03:09→19:34)
[2019-11-03 07:00] VITALS: BP 109/71
--- NOTE | 2019-11-03 07:54 | PDOC ---
PROGRESS NOTES Chief Complaint Chief Complaint A/P: Abdominal pain Uterine Mass? History of Present Illness History of Present Illness Ms Lei is a 24yo F admitted with abdominal pain. CT with uterine mass. mild prominence of appendix, however no inflammatory findings, no leukocytosis. US reveals likely 6cm uterine fibroid. Seen by general surgery and [employer]. Feeling RLQ pain this morning. Toradol did not seem to help. Mother is bedside. I have discussed repeating imaging as a possibility though US does not always visualize the appendix. Vitals Vitals Vital Signs Date Time Temp Pulse Resp B/P (MAP) Pulse Ox O2 Delivery O2 Flow Rate FiO2 11/03/19 07:19 100 11/03/19 07:00 99.0 118 16 109/71 (84) Room Air 99.0 Physical Exam General: Alert, Oriented X3, Cooperative, No acute distress Heart: Regular rate, Normal S1, Normal S2 Abdomen: Soft, Other (tender across lower abdomen) Extremities: No clubbing, No cyanosis Skin: No rashes, No breakdown Assessment and Plan Assessmemt and Plan Problems Medical Problems: (1) Abdominal pain Status: Acute Comment Review of Relevant I have reviewed the following items kamilah (where applicable) has been applied. Labs Laboratory Tests Test 11/01/19 13:54 11/01/19 13:59 11/01/19 14:30 Urine Collection Type Unknown Urine Color Yellow Urine Clarity Clear Urine pH 5.5 Urine Specific [place] >=1.030 Urine Protein 30 mg/dL (NEG-TRACE) Urine Glucose (UA) Negative mg/dL (NEG) Urine Ketones (Stick) >=80 mg/dL (NEG) Urine Blood Large (NEG) Urine Nitrite Negative (NEG) Urine Bilirubin Negative (NEG) Urine Urobilinogen Dipstick 0.2 mg/dL (0.2 mg/dL) Urine Leukocyte Esterase Negative (NEG) Urine RBC >40 /HPF (0-2) Urine WBC Occ /HPF (0-4) Urine Squamous Epithelial Cells Mod /LPF Urine Bacteria Few /HPF (0-FEW) Urine Hyaline Casts Moderate /HPF Urine Mucus Marked /LPF Urine Opiates Screen Neg (NEG) Urine Methadone Screen Neg (NEG) Urine Barbiturates Neg (NEG) Urine Phencyclidine Screen Neg (NEG) Urine Amphetamine/Methamphetamine Neg (NEG) Urine Benzodiazepines Screen Neg (NEG) Urine Cocaine Screen Neg (NEG) Urine Cannabinoids Screen Neg (NEG) Urine Ethyl Alcohol Neg (NEG) Bedside Urine HCG, Qualitative Hcg negative (Negative) White Blood Count 3.9 x10^3/uL (4.0-11.0) Red Blood Count 5.17 x10^6/uL (3.50-5.40) Hemoglobin 12.5 g/dL (12.0-15.5) Hematocrit 39.4 % (36.0-47.0) Mean Corpuscular Volume 76 fL (79-100) Mean Corpuscular Hemoglobin 24 pg (25-35) Mean Corpuscular Hemoglobin Concent 32 g/dL (31-37) Red Cell Distribution Width 19.2 % (11.5-14.5) Platelet Count 265 x10^3/uL (140-400) Neutrophils (%) (Auto) 39 % (31-73) Lymphocytes (%) (Auto) 25 % (24-48) Monocytes (%) (Auto) 34 % (0-9) Eosinophils (%) (Auto) 2 % (0-3) Basophils (%) (Auto) 1 % (0-3) Neutrophils # (Auto) 1.5 x10^3/uL (1.8-7.7) Lymphocytes # (Auto) 0.9 x10^3/uL (1.0-4.8) Monocytes # (Auto) 1.3 x10^3/uL (0.0-1.1) Eosinophils # (Auto) 0.1 x10^3/uL (0.0-0.7) Basophils # (Auto) 0.0 x10^3/uL (0.0-0.2) Segmented Neutrophils % 3 % (35-66) Band Neutrophils % 21 % (0-9) Lymphocytes % 33 % (24-48) Monocytes % 38 % (0-10) Eosinophils % 2 % (0-5) Basophils % 2 % (0-3) Metamyelocytes % 1 % (0-0) Platelet Estimate Adequate (ADEQUATE) Giant Platelets Occ Hypochromasia Slight Anisocytosis Slight Ovalocytes Mod Schistocytes Few Prothrombin Time 15.2 SEC (11.7-14.0) Prothromb Time International Ratio 1.2 (0.8-1.1) Sodium Level 133 mmol/L (136-145) Potassium Level 4.8 mmol/L (3.5-5.1) Chloride Level 100 mmol/L (98-107) Carbon Dioxide Level 15 mmol/L (21-32) Anion Gap 18 (6-14) Blood Urea Nitrogen 17 mg/dL (7-20) Creatinine 0.8 mg/dL (0.6-1.0) Estimated GFR (Cockcroft-Gault) 87.4 BUN/Creatinine Ratio 21 (6-20) Glucose Level 89 mg/dL (70-99) Calcium Level 9.1 mg/dL (8.5-10.1) Total Bilirubin 0.3 mg/dL (0.2-1.0) Aspartate Amino Transf (AST/SGOT) 20 U/L (15-37) Alanine Aminotransferase (ALT/SGPT) 17 U/L (14-59) Alkaline Phosphatase 88 U/L (46-116) Total Protein 8.2 g/dL (6.4-8.2) Albumin 3.6 g/dL (3.4-5.0) Albumin/Globulin Ratio 0.8 (1.0-1.7) Lipase 42 U/L (73-393) Salicylates Level 18.0 mg/dL (2.8-20.0) Salicylate Last Dose Date Unknown Salicylate Last Dose Time Unknown Acetaminophen Level < 2 mcg/ml (10-30) Acetaminophen Last Dose Date Unknown Acetaminophen Last Dose Time Unknown Medications Current Medications Sodium Chloride 1,000 ml @ 1,000 mls/hr Q1H IV Last administered on 11/01/19at 14:38; Start 11/01/19 at 14:30; Stop 11/01/19 at 15:29; Status DC Fentanyl Citrate (Fentanyl 2ml Vial) 50 mcg 1X ONCE IVP Last administered on 11/01/19at 14:39; Start 11/01/19 at 14:30; Stop 11/01/19 at 14:31; Status DC Ondansetron HCl (Zofran) 4 mg 1X ONCE IVP Last administered on 11/01/19at 14:39; Start 11/01/19 at 14:30; Stop 11/01/19 at 14:31; Status DC Iohexol (Omnipaque 300 Mg/ml) 75 ml 1X ONCE IV Last administered on 11/01/19at 15:32; Start 11/01/19 at 15:30; Stop 11/01/19 at 15:31; Status DC Info (CONTRAST GIVEN -- Rx MONITORING) 1 each PRN DAILY PRN MC SEE COMMENTS; Start 11/01/19 at 15:15; Stop 11/03/19 at 15:14 Piperacillin Sod/ Tazobactam Sod 3.375 gm/Sodium Chloride 50 ml @ 100 mls/hr 1X ONCE IV Last administered on 11/01/19at 16:55; Start 11/01/19 at 17:00; Stop 11/01/19 at 17:29; Status DC Ondansetron HCl (Zofran) 4 mg PRN Q8HRS PRN IV NAUSEA/VOMITING Last administered on 11/01/19at 23:12; Start 11/01/19 at 16:45; Stop 11/02/19 at 16:44; Status DC Fentanyl Citrate (Fentanyl 2ml Vial) 50 mcg PRN Q1HR PRN IV PAIN Last administered on 11/02/19at 10:35; Start 11/01/19 at 16:45; Stop 11/02/19 at 11:25; Status DC Sodium Chloride 1,000 ml @ 125 mls/hr Q8H IV Last administered on 11/02/19at 08:16; Start 11/01/19 at 16:39; Stop 11/02/19 at 16:38; Status DC Acetaminophen (Tylenol) 650 mg PRN Q6HRS PRN PO fever Last administered on 11/02/19at 16:44; Start 11/01/19 at 23:00 Ketorolac Tromethamine (Toradol 30mg Vial) 30 mg PRN Q6HRS PRN IVP PAIN Last administered on 11/02/19at 21:04; Start 11/02/19 at 11:30; Stop 11/07/19 at 11:29 Ondansetron HCl (Zofran) 4 mg PRN Q6HRS PRN IVP NAUSEA/VOMITING Last administered on 11/03/19at 03:09; Start 11/02/19 at 21:30 Fentanyl Citrate (Fentanyl 2ml Vial) 50 mcg PRN Q2HR PRN IVP SEVERE PAIN 7-10 Last administered on 11/03/19at 06:06; Start 11/03/19 at 03:00 Vitals/I & O Vital Sign - Last 24 Hours 11/02/19 11/02/19 11/02/19 11/02/19 08:15 10:35 11:00 11:19 Temp 98.4 98.4 Pulse 107 Resp 16 B/P (MAP) 110/79 (89) Pulse Ox 97 97 99 99 O2 Delivery Room Air Room Air 11/02/19 11/02/19 11/02/19 11/03/19 15:30 19:00 23:00 03:00 Temp 98.1 98.4 98.0 98.2 98.1 98.4 98.0 98.2 Pulse 114 121 114 124 Resp 18 16 16 14 B/P (MAP) 111/86 (94) 112/74 (87) 121/80 (94) 106/66 (79) Pulse Ox 100 100 100 100 O2 Delivery Room Air Room Air Room Air Room Air 11/03/19 11/03/19 11/03/19 11/03/19 03:09 03:39 06:06 07:00 Temp 99.0 99.0 Pulse 118 Resp 18 20 16 B/P (MAP) 109/71 (84) Pulse Ox 100 100 100 100 O2 Delivery Room Air Room Air Room Air 11/03/19 07:19 Pulse Ox 100 Intake and Output 11/02/19 11/02/19 11/03/19 15:00 23:00 07:00 Intake Total 240 ml 600 ml Balance 240 ml 600 ml MOON AGUIAR MD Nov 03, 2019 07:54
[2019-11-03 11:00] VITALS: BP 104/75
--- NOTE | 2019-11-03 11:14 | PDOC ---
SURGICAL PROGRESS NOTE Subjective Pt still with lower abd pain Vital Signs Vital Signs Date Time Temp Pulse Resp B/P (MAP) Pulse Ox O2 Delivery O2 Flow Rate FiO2 11/03/19 11:11 100 11/03/19 08:43 Room Air 11/03/19 07:00 99.0 118 16 109/71 (84) 99.0 I&O Intake and Output 11/03/19 07:00 Intake Total 840 ml Balance 840 ml Intake Oral 840 ml # Voids 4 General: Alert, Oriented X3, Cooperative, mild distress Abdomen: Soft, Other (mild TTP lower abd) Labs Laboratory Tests Test 11/01/19 13:54 11/01/19 13:59 11/01/19 14:30 Urine Collection Type Unknown Urine Color Yellow Urine Clarity Clear Urine pH 5.5 Urine Specific [place] >=1.030 Urine Protein 30 mg/dL (NEG-TRACE) Urine Glucose (UA) Negative mg/dL (NEG) Urine Ketones (Stick) >=80 mg/dL (NEG) Urine Blood Large (NEG) Urine Nitrite Negative (NEG) Urine Bilirubin Negative (NEG) Urine Urobilinogen Dipstick 0.2 mg/dL (0.2 mg/dL) Urine Leukocyte Esterase Negative (NEG) Urine RBC >40 /HPF (0-2) Urine WBC Occ /HPF (0-4) Urine Squamous Epithelial Cells Mod /LPF Urine Bacteria Few /HPF (0-FEW) Urine Hyaline Casts Moderate /HPF Urine Mucus Marked /LPF Urine Opiates Screen Neg (NEG) Urine Methadone Screen Neg (NEG) Urine Barbiturates Neg (NEG) Urine Phencyclidine Screen Neg (NEG) Urine Amphetamine/Methamphetamine Neg (NEG) Urine Benzodiazepines Screen Neg (NEG) Urine Cocaine Screen Neg (NEG) Urine Cannabinoids Screen Neg (NEG) Urine Ethyl Alcohol Neg (NEG) Bedside Urine HCG, Qualitative Hcg negative (Negative) White Blood Count 3.9 x10^3/uL (4.0-11.0) Red Blood Count 5.17 x10^6/uL (3.50-5.40) Hemoglobin 12.5 g/dL (12.0-15.5) Hematocrit 39.4 % (36.0-47.0) Mean Corpuscular Volume 76 fL (79-100) Mean Corpuscular Hemoglobin 24 pg (25-35) Mean Corpuscular Hemoglobin Concent 32 g/dL (31-37) Red Cell Distribution Width 19.2 % (11.5-14.5) Platelet Count 265 x10^3/uL (140-400) Neutrophils (%) (Auto) 39 % (31-73) Lymphocytes (%) (Auto) 25 % (24-48) Monocytes (%) (Auto) 34 % (0-9) Eosinophils (%) (Auto) 2 % (0-3) Basophils (%) (Auto) 1 % (0-3) Neutrophils # (Auto) 1.5 x10^3/uL (1.8-7.7) Lymphocytes # (Auto) 0.9 x10^3/uL (1.0-4.8) Monocytes # (Auto) 1.3 x10^3/uL (0.0-1.1) Eosinophils # (Auto) 0.1 x10^3/uL (0.0-0.7) Basophils # (Auto) 0.0 x10^3/uL (0.0-0.2) Segmented Neutrophils % 3 % (35-66) Band Neutrophils % 21 % (0-9) Lymphocytes % 33 % (24-48) Monocytes % 38 % (0-10) Eosinophils % 2 % (0-5) Basophils % 2 % (0-3) Metamyelocytes % 1 % (0-0) Platelet Estimate Adequate (ADEQUATE) Giant Platelets Occ Hypochromasia Slight Anisocytosis Slight Ovalocytes Mod Schistocytes Few Prothrombin Time 15.2 SEC (11.7-14.0) Prothromb Time International Ratio 1.2 (0.8-1.1) Sodium Level 133 mmol/L (136-145) Potassium Level 4.8 mmol/L (3.5-5.1) Chloride Level 100 mmol/L (98-107) Carbon Dioxide Level 15 mmol/L (21-32) Anion Gap 18 (6-14) Blood Urea Nitrogen 17 mg/dL (7-20) Creatinine 0.8 mg/dL (0.6-1.0) Estimated GFR (Cockcroft-Gault) 87.4 BUN/Creatinine Ratio 21 (6-20) Glucose Level 89 mg/dL (70-99) Calcium Level 9.1 mg/dL (8.5-10.1) Total Bilirubin 0.3 mg/dL (0.2-1.0) Aspartate Amino Transf (AST/SGOT) 20 U/L (15-37) Alanine Aminotransferase (ALT/SGPT) 17 U/L (14-59) Alkaline Phosphatase 88 U/L (46-116) Total Protein 8.2 g/dL (6.4-8.2) Albumin 3.6 g/dL (3.4-5.0) Albumin/Globulin Ratio 0.8 (1.0-1.7) Lipase 42 U/L (73-393) Salicylates Level 18.0 mg/dL (2.8-20.0) Salicylate Last Dose Date Unknown Salicylate Last Dose Time Unknown Acetaminophen Level < 2 mcg/ml (10-30) Acetaminophen Last Dose Date Unknown Acetaminophen Last Dose Time Unknown I have reviewed the following CT with fibroid, US with fibroid Problem List Problems Medical Problems: (1) Abdominal pain Status: Acute Assessment/Plan 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 D/w pt and pt's mother, if pain not improved by AM, will consider laparoscopic exploration. RITA MALDONADO MD Nov 03, 2019 11:13
--- NOTE | 2019-11-03 12:15 | NUR ---
SW following. Discussed with RN. RN advised no SW needs. SW will continue to follow.
--- NOTE | 2019-11-03 14:50 | RAD ---
EXAM: Right lower quadrant sonogram. HISTORY: Pain. TECHNIQUE: Sonographic imaging of the right lower quadrant was performed. COMPARISON: Sonogram dated 11/02/[address] dated 11/01/2019. FINDINGS: There is a blind-ending tubular structure within the right lower quadrant measuring 6 mm in caliber, the appearance of which favors a normal caliber appendix. There is a benign-appearing lymph node within the right lower quadrant measuring 8 mm in long axis. There is no free fluid. There are bowel loops within the right lower quadrant. The right ovary is not seen. IMPRESSION: 1. Suspected normal caliber appendix within the right lower quadrant. Note is made that repeat cross-sectional imaging may be indicated if there is continued concern for appendicitis. 2. Nonspecific lymph node and bowel loops within the right lower quadrant. 3. Obscured right ovary. Electronically signed by: Jazlyn Jennings MD (11/03/2019 2:47 PM) [facility] [place]
[2019-11-03 15:00] VITALS: BP 115/77
--- NOTE | 2019-11-03 15:54 | PDOC ---
PROGRESS NOTES Subjective Subjective Pt looks more uncomfortable than yesterday. She states that her pain is off and on and about the same as yesterday. Discussed u/s finding and impact on bleeding and fertility in the future. Objective Objective Vital Signs Date Time Temp Pulse Resp B/P (MAP) Pulse Ox O2 Delivery O2 Flow Rate FiO2 11/03/19 15:45 100 11/03/19 15:00 98.1 117 16 115/77 (90) Room Air 98.1 Intake and Output 11/03/19 07:00 Intake Total 840 ml Balance 840 ml Intake Oral 840 ml # Voids 4 Physical Exam Physical Exam CTAB RRR S/diffusely tender (no rebound or guarding)/ND no C/C/E Assessment Assessment Problems Medical Problems: (1) Abdominal pain Status: Acute Plan Plan of Care A/P 24y G0 admitted for abd pain 1.) Abd pain Pain thought to be secondary to either acute appendix or degener ation of a fibroid, may have exploration with GS 2.) Degenerating fibroid u/s consistent size of fibroid (6.2cm), will continue expectant management. Still remains w/o low-grade fever, uterine tenderness on palpation, elevated white blood cell count, or peritoneal signs. 3.) Appendix mild prominence of appendix not thought to be likely appendicitis due to the lack of leukocytosis. 4.) Contraception None 5.) Will continue to follow Comment Review of Relevant I have reviewed the following items kamilah (where applicable) has been applied. Labs Laboratory Tests Test 11/03/19 10:36 Iron Level 12 ug/dL (50-170) Total Iron Binding Capacity 254 ug/dL (250-450) Iron Saturation 5 % (15-34) Thyroid Stimulating Hormone (TSH) 1.395 uIU/mL (0.358-3.74) Laboratory Tests Test 11/03/19 10:36 Iron Level 12 ug/dL (50-170) Total Iron Binding Capacity 254 ug/dL (250-450) Iron Saturation 5 % (15-34) Thyroid Stimulating Hormone (TSH) 1.395 uIU/mL (0.358-3.74) Medications Current Medications Sodium Chloride 1,000 ml @ 1,000 mls/hr Q1H IV Last administered on 11/01/19at 14:38; Start 11/01/19 at 14:30; Stop 11/01/19 at 15:29; Status DC Fentanyl Citrate (Fentanyl 2ml Vial) 50 mcg 1X ONCE IVP Last administered on 11/01/19at 14:39; Start 11/01/19 at 14:30; Stop 11/01/19 at 14:31; Status DC Ondansetron HCl (Zofran) 4 mg 1X ONCE IVP Last administered on 11/01/19at 14:39; Start 11/01/19 at 14:30; Stop 11/01/19 at 14:31; Status DC Iohexol (Omnipaque 300 Mg/ml) 75 ml 1X ONCE IV Last administered on 11/01/19at 15:32; Start 11/01/19 at 15:30; Stop 11/01/19 at 15:31; Status DC Info (CONTRAST GIVEN -- Rx MONITORING) 1 each PRN DAILY PRN MC SEE COMMENTS; Start 11/01/19 at 15:15; Stop 11/03/19 at 15:14; Status DC Piperacillin Sod/ Tazobactam Sod 3.375 gm/Sodium Chloride 50 ml @ 100 mls/hr 1X ONCE IV Last administered on 11/01/19at 16:55; Start 11/01/19 at 17:00; Stop 11/01/19 at 17:29; Status DC Ondansetron HCl (Zofran) 4 mg PRN Q8HRS PRN IV NAUSEA/VOMITING Last administered on 11/01/19at 23:12; Start 11/01/19 at 16:45; Stop 11/02/19 at 16:44; Status DC Fentanyl Citrate (Fentanyl 2ml Vial) 50 mcg PRN Q1HR PRN IV PAIN Last administered on 11/02/19at 10:35; Start 11/01/19 at 16:45; Stop 11/02/19 at 11:25; Status DC Sodium Chloride 1,000 ml @ 125 mls/hr Q8H IV Last administered on 11/02/19at 08:16; Start 11/01/19 at 16:39; Stop 11/02/19 at 16:38; Status DC Acetaminophen (Tylenol) 650 mg PRN Q6HRS PRN PO fever Last administered on 11/02/19at 16:44; Start 11/01/19 at 23:00 Ketorolac Tromethamine (Toradol 30mg Vial) 30 mg PRN Q6HRS PRN IVP MILD PAIN 1- 3 Last administered on 11/02/19at 21:04; Start 11/02/19 at 11:30; Stop 11/07/19 at 11:29 Ondansetron HCl (Zofran) 4 mg PRN Q6HRS PRN IVP NAUSEA/VOMITING Last administered on 11/03/19at 03:09; Start 11/02/19 at 21:30 Fentanyl Citrate (Fentanyl 2ml Vial) 50 mcg PRN Q2HR PRN IVP SEVERE PAIN 7-10 Last administered on 11/03/19at 15:45; Start 11/03/19 at 03:00 Ondansetron HCl (Zofran) 4 mg PRN Q6HRS PRN IV NAUSEA/VOMITING; Start 11/04/19 at 07:00; Stop 11/05/19 at 06:59 Fentanyl Citrate (Fentanyl 2ml Vial) 25 mcg PRN Q5MIN PRN IV MILD PAIN 1-3; Start 11/04/19 at 07:00; Stop 11/05/19 at 06:59 Fentanyl Citrate (Fentanyl 2ml Vial) 50 mcg PRN Q5MIN PRN IV MODERATE TO SEVERE PAIN; Start 11/04/19 at 07:00; Stop 11/05/19 at 06:59 Morphine Sulfate (Morphine Sulfate) 1 mg PRN Q10MIN PRN IV SEVERE PAIN 7-10; Start 11/04/19 at 07:00; Stop 11/05/19 at 06:59 Ringer's Solution 1,000 ml @ 30 mls/hr Q24H IV ; Start 11/04/19 at 07:00; Stop 11/04/19 at 18:59 Lidocaine HCl (Xylocaine-Mpf 1% 2ml Vial) 2 ml PRN 1X PRN ID PRIOR TO IV START; Start 11/04/19 at 07:00; Stop 11/05/19 at 06:59 Hydromorphone HCl (Dilaudid) 0.5 mg PRN Q10MIN PRN IV SEV PAIN, Second choice; Start 11/04/19 at 07:00; Stop 11/05/19 at 06:59 Prochlorperazine Edisylate (Compazine) 5 mg PACU PRN PRN IV NAUSEA, MRX1; Start 11/04/19 at 07:00; Stop 11/05/19 at 06:59 Vitals/I & O Vital Sign - Last 24 Hours 11/02/19 11/02/19 11/03/19 11/03/19 19:00 23:00 03:00 03:09 Temp 98.4 98.0 98.2 98.4 98.0 98.2 Pulse 121 114 124 Resp 16 16 14 20 B/P (MAP) 112/74 (87) 121/80 (94) 106/66 (79) Pulse Ox 100 100 100 100 O2 Delivery Room Air Room Air Room Air 11/03/19 11/03/19 11/03/19 11/03/19 03:39 06:06 07:00 07:19 Temp 99.0 99.0 Pulse 118 Resp 18 20 16 B/P (MAP) 109/71 (84) Pulse Ox 100 100 100 100 O2 Delivery Room Air Room Air Room Air 11/03/19 11/03/19 11/03/19 11/03/19 08:12 08:43 11:00 11:11 Temp 98.9 98.9 Pulse 116 Resp 18 B/P (MAP) 104/75 (85) Pulse Ox 100 100 100 100 O2 Delivery Room Air Room Air Room Air 11/03/19 11/03/19 15:00 15:45 Temp 98.1 98.1 Pulse 117 Resp 16 B/P (MAP) 115/77 (90) Pulse Ox 100 100 O2 Delivery Room Air Intake and Output 11/02/19 11/02/19 11/03/19 15:00 23:00 07:00 Intake Total 240 ml 600 ml Balance 240 ml 600 ml BRENT MACHADO MD Nov 03, 2019 15:54
[2019-11-03 19:20] VITALS: BP 114/71
[2019-11-03] MEDS: ACETAMINOPHEN 325 MG TABLET. PO PRN (19:35)
[2019-11-04] VITALS (7 sets, daily range): BP systolic 96–119; BP diastolic 55–72
[2019-11-04] MEDS: fentaNYL PF VIAL 100 MCG/2 ML VIAL IVP PRN ×8 (03:32→22:02)
[2019-11-04] MEDS ORDERED: PROCHLORPERAZINE 10 MG/2 ML VIAL. IV PRN (07:00)
[2019-11-04] MEDS ORDERED: LIDOCAINE 1% PF 2 ML VIAL. ID PRN (07:00)
[2019-11-04] MEDS ORDERED: ONDANSETRON PF 4 MG/2 ML VIAL. IV PRN (07:00)
[2019-11-04] MEDS ORDERED: MORPHINE SULFATE 2 MG/ML VIAL. IV PRN (07:00)
[2019-11-04] MEDS ORDERED: fentaNYL PF VIAL 100 MCG/2 ML VIAL IV PRN ×2 (07:00)
[2019-11-04] MEDS ORDERED: IV RINGERS,LACTATED 1000ML 1,000 ML IV SCH (07:00)
[2019-11-04] MEDS ORDERED: HYDROmorphone 2 MG/ML VIAL IV PRN (07:00)
--- NOTE | 2019-11-04 08:13 | PDOC ---
PROGRESS NOTES Chief Complaint Chief Complaint A/P: Abdominal pain Uterine fibroids Iron deficiency History of Present Illness History of Present Illness Ms Lei is a 24yo F admitted with abdominal pain. CT with uterine mass. mild prominence of appendix, however no inflammatory findings, no leukocytosis. US reveals likely 6cm uterine fibroid. Seen by general surgery and Insurance Processing Clerk. 11/03: Feeling RLQ pain this morning. Toradol did not seem to help. Mother is bedside. I have discussed repeating imaging as a possibility though US does not always visualize the appendix. No changes Pain improved somewhat. Still present on palpation. Iron levels low. Plan to try to advance diet today, but also plan for ex-lap tomorrow given persistence of symptoms. Vitals Vitals Vital Signs Date Time Temp Pulse Resp B/P (MAP) Pulse Ox O2 Delivery O2 Flow Rate FiO2 11/04/19 07:15 98.4 103 18 119/55 (76) 99 Room Air 98.4 Physical Exam General: Alert, Oriented X3, Cooperative, mild distress Heart: Regular rate, Normal S1, Normal S2 Abdomen: Soft, Other Extremities: No clubbing, No cyanosis Skin: No rashes, No breakdown Labs LABS Laboratory Tests Test 11/03/19 10:36 Iron Level 12 ug/dL (50-170) Total Iron Binding Capacity 254 ug/dL (250-450) Iron Saturation 5 % (15-34) Thyroid Stimulating Hormone (TSH) 1.395 uIU/mL (0.358-3.74) Assessment and Plan Assessmemt and Plan Problems Medical Problems: (1) Abdominal pain Status: Acute Comment Review of Relevant I have reviewed the following items kamilah (where applicable) has been applied. Labs Laboratory Tests Test 11/03/19 10:36 Iron Level 12 ug/dL (50-170) Total Iron Binding Capacity 254 ug/dL (250-450) Iron Saturation 5 % (15-34) Thyroid Stimulating Hormone (TSH) 1.395 uIU/mL (0.358-3.74) Laboratory Tests Test 11/03/19 10:36 Iron Level 12 ug/dL (50-170) Total Iron Binding Capacity 254 ug/dL (250-450) Iron Saturation 5 % (15-34) Thyroid Stimulating Hormone (TSH) 1.395 uIU/mL (0.358-3.74) Medications Current Medications Sodium Chloride 1,000 ml @ 1,000 mls/hr Q1H IV Last administered on 11/01/19at 14:38; Start 11/01/19 at 14:30; Stop 11/01/19 at 15:29; Status DC Fentanyl Citrate (Fentanyl 2ml Vial) 50 mcg 1X ONCE IVP Last administered on 11/01/19at 14:39; Start 11/01/19 at 14:30; Stop 11/01/19 at 14:31; Status DC Ondansetron HCl (Zofran) 4 mg 1X ONCE IVP Last administered on 11/01/19at 14:39; Start 11/01/19 at 14:30; Stop 11/01/19 at 14:31; Status DC Iohexol (Omnipaque 300 Mg/ml) 75 ml 1X ONCE IV Last administered on 11/01/19at 15:32; Start 11/01/19 at 15:30; Stop 11/01/19 at 15:31; Status DC Info (CONTRAST GIVEN -- Rx MONITORING) 1 each PRN DAILY PRN MC SEE COMMENTS; S tart 11/01/19 at 15:15; Stop 11/03/19 at 15:14; Status DC Piperacillin Sod/ Tazobactam Sod 3.375 gm/Sodium Chloride 50 ml @ 100 mls/hr 1X ONCE IV Last administered on 11/01/19at 16:55; Start 11/01/19 at 17:00; Stop 11/01/19 at 17:29; Status DC Ondansetron HCl (Zofran) 4 mg PRN Q8HRS PRN IV NAUSEA/VOMITING Last administered on 11/01/19at 23:12; Start 11/01/19 at 16:45; Stop 11/02/19 at 16:44; Status DC Fentanyl Citrate (Fentanyl 2ml Vial) 50 mcg PRN Q1HR PRN IV PAIN Last administered on 11/02/19at 10:35; Start 11/01/19 at 16:45; Stop 11/02/19 at 11:25; Status DC Sodium Chloride 1,000 ml @ 125 mls/hr Q8H IV Last administered on 11/02/19at 08:16; Start 11/01/19 at 16:39; Stop 11/02/19 at 16:38; Status DC Acetaminophen (Tylenol) 650 mg PRN Q6HRS PRN PO fever Last administered on 11/03/19at 19:35; Start 11/01/19 at 23:00 Ketorolac Tromethamine (Toradol 30mg Vial) 30 mg PRN Q6HRS PRN IVP MILD PAIN 1- 3 Last administered on 11/02/19at 21:04; Start 11/02/19 at 11:30; Stop 11/07/19 at 11:29 Ondansetron HCl (Zofran) 4 mg PRN Q6HRS PRN IVP NAUSEA/VOMITING Last administered on 11/03/19at 03:09; Start 11/02/19 at 21:30 Fentanyl Citrate (Fentanyl 2ml Vial) 50 mcg PRN Q2HR PRN IVP SEVERE PAIN 7-10 Last administered on 11/04/19at 06:06; Start 11/03/19 at 03:00 Ondansetron HCl (Zofran) 4 mg PRN Q6HRS PRN IV NAUSEA/VOMITING; Start 11/04/19 at 07:00; Stop 11/05/19 at 06:59 Fentanyl Citrate (Fentanyl 2ml Vial) 25 mcg PRN Q5MIN PRN IV MILD PAIN 1-3; Start 11/04/19 at 07:00; Stop 11/05/19 at 06:59 Fentanyl Citrate (Fentanyl 2ml Vial) 50 mcg PRN Q5MIN PRN IV MODERATE TO SEVERE PAIN; Start 11/04/19 at 07:00; Stop 11/05/19 at 06:59 Morphine Sulfate (Morphine Sulfate) 1 mg PRN Q10MIN PRN IV SEVERE PAIN 7-10; Start 11/04/19 at 07:00; Stop 11/05/19 at 06:59 Ringer's Solution 1,000 ml @ 30 mls/hr Q24H IV ; Start 11/04/19 at 07:00; Stop 11/04/19 at 18:59 Lidocaine HCl (Xylocaine-Mpf 1% 2ml Vial) 2 ml PRN 1X PRN ID PRIOR TO IV START; Start 11/04/19 at 07:00; Stop 11/05/19 at 06:59 Hydromorphone HCl (Dilaudid) 0.5 mg PRN Q10MIN PRN IV SEV PAIN, Second choice; Start 11/04/19 at 07:00; Stop 11/05/19 at 06:59 Prochlorperazine Edisylate (Compazine) 5 mg PACU PRN PRN IV NAUSEA, MRX1; Start 11/04/19 at 07:00; Stop 11/05/19 at 06:59 Vitals/I & O Vital Sign - Last 24 Hours 11/03/19 11/03/19 11/03/19 11/03/19 08:43 11:00 11:11 15:00 Temp 98.9 98.1 98.9 98.1 Pulse 116 117 Resp 18 16 B/P (MAP) 104/75 (85) 115/77 (90) Pulse Ox 100 100 100 100 O2 Delivery Room Air Room Air Room Air 11/03/19 11/03/19 11/03/19 11/03/19 15:45 16:15 19:20 19:34 Temp 99.4 99.4 Pulse 115 Resp 18 B/P (MAP) 114/71 (85) Pulse Ox 100 100 100 100 O2 Delivery Room Air Room Air 11/03/19 11/04/19 11/04/19 11/04/19 20:04 00:00 03:20 04:02 Temp 99.0 98.3 99.0 98.3 Pulse 111 111 Resp 18 20 18 B/P (MAP) 103/68 (80) 103/72 (82) Pulse Ox 100 98 100 100 O2 Delivery Room Air Room Air Room Air Room Air 11/04/19 11/04/19 11/04/19 06:06 06:36 07:15 Temp 98.4 98.4 Pulse 103 Resp 20 18 B/P (MAP) 119/55 (76) Pulse Ox 100 100 99 O2 Delivery Room Air Room Air Intake and Output 11/03/19 11/03/19 11/04/19 15:00 23:00 07:00 Intake Total 200 ml Balance 200 ml MOON AGUIAR MD Nov 04, 2019 08:13
--- NOTE | 2019-11-04 12:17 | PDOC ---
SURGICAL PROGRESS NOTE Subjective Pt with c/o RLQ "soreness", improved. No N/V Vital Signs Vital Signs Date Time Temp Pulse Resp B/P (MAP) Pulse Ox O2 Delivery O2 Flow Rate FiO2 11/04/19 11:10 Room Air 11/04/19 11:04 98.6 111 16 96/70 (79) 97 98.6 I&O Intake and Output 11/04/19 07:00 Intake Total 200 ml Balance 200 ml Intake Oral 200 ml # Voids 3 General: Alert, Oriented X3, Cooperative, No acute distress Abdomen: Soft, Other (min TTP RLQ) Labs Laboratory Tests Test 11/03/19 10:36 Iron Level 12 ug/dL (50-170) Total Iron Binding Capacity 254 ug/dL (250-450) Iron Saturation 5 % (15-34) Thyroid Stimulating Hormone (TSH) 1.395 uIU/mL (0.358-3.74) Problem List Problems Medical Problems: (1) Abdominal pain Status: Acute Assessment/Plan d/w pt, pt's supportive mother and hospitalist. Unknown etiology of abd pain. Favor independent living advisor in nature, but occult abd pain from other causes possible R/R/B/A d/w pt and pt's mother. Laparoscopic exploration and appendectomy offered vs conservative measures. Pt favors attempting diet. Will tentatively schedule pt tomorrow, if not improved. RITA MALDONADO MD Nov 04, 2019 12:17
--- NOTE | 2019-11-04 12:34 | NUR ---
SW following. Discussed with RN. Pt from home, ad [facility]. Possible surgery scheduled today for 1600. RN advised no SW needs. SW will continue to follow.
--- NOTE | 2019-11-04 15:21 | PDOC ---
PROGRESS NOTES Subjective Subjective Pt states that her pain is much better today. Discussed Fibroids with pt. Explained to common issues associated with fibroids is heavy bleeding and fertility. Discussed tx options (hysterectomy, myomectomy). Explained that could have negative effect on as well. Objective Objective Vital Signs Date Time Temp Pulse Resp B/P (MAP) Pulse Ox O2 Delivery O2 Flow Rate FiO2 11/04/19 14:12 Room Air 11/04/19 11:04 98.6 111 16 96/70 (79) 97 98.6 Intake and Output 11/04/19 07:00 Intake Total 200 ml Balance 200 ml Intake Oral 200 ml # Voids 3 Physical Exam Physical Exam CTAB RRR S/slightly tender throughout abd/ND no C/C/E Assessment Assessment Problems Medical Problems: (1) Abdominal pain Status: Acute Plan Plan of Care A/P 24y G0 admitted for abd pain 1.) Abd pain greatly improved today, pt would like to determine the etilogy so will undergo exploration with GS in am 2.) Degenerating fibroid u/s consistent size of fibroid (6.2cm), will continue expectant management. Still remains w/o low-grade fever, uterine tenderness on palpation, elevated white blood cell count, or peritoneal signs. 3.) Appendix mild prominence of appendix not thought to be likely appendicitis due to the lack of leukocytosis. 4.) Contraception None 5.) Will continue to follow Comment Review of Relevant I have reviewed the following items kamilah (where applicable) has been applied. Labs Laboratory Tests Test 11/03/19 10:36 Iron Level 12 ug/dL (50-170) Total Iron Binding Capacity 254 ug/dL (250-450) Iron Saturation 5 % (15-34) Thyroid Stimulating Hormone (TSH) 1.395 uIU/mL (0.358-3.74) Medications Current Medications Sodium Chloride 1,000 ml @ 1,000 mls/hr Q1H IV Last administered on 11/01/19at 14:38; Start 11/01/19 at 14:30; Stop 11/01/19 at 15:29; Status DC Fentanyl Citrate (Fentanyl 2ml Vial) 50 mcg 1X ONCE IVP Last administered on 11/01/19at 14:39; Start 11/01/19 at 14:30; Stop 11/01/19 at 14:31; Status DC Ondansetron HCl (Zofran) 4 mg 1X ONCE IVP Last administered on 11/01/19at 14:39; Start 11/01/19 at 14:30; Stop 11/01/19 at 14:31; Status DC Iohexol (Omnipaque 300 Mg/ml) 75 ml 1X ONCE IV Last administered on 11/01/19at 15:32; Start 11/01/19 at 15:30; Stop 11/01/19 at 15:31; Status DC Info (CONTRAST GIVEN -- Rx MONITORING) 1 each PRN DAILY PRN MC SEE COMMENTS; Start 11/01/19 at 15:15; Stop 11/03/19 at 15:14; Status DC Piperacillin Sod/ Tazobactam Sod 3.375 gm/Sodium Chloride 50 ml @ 100 mls/hr 1X ONCE IV Last administered on 11/01/19at 16:55; Start 11/01/19 at 17:00; Stop 11/01/19 at 17:29; Status DC Ondansetron HCl (Zofran) 4 mg PRN Q8HRS PRN IV NAUSEA/VOMITING Last administered on 11/01/19at 23:12; Start 11/01/19 at 16:45; Stop 11/02/19 at 16:44; Status DC Fentanyl Citrate (Fentanyl 2ml Vial) 50 mcg PRN Q1HR PRN IV PAIN Last administered on 11/02/19at 10:35; Start 11/01/19 at 16:45; Stop 11/02/19 at 11:25; Status DC Sodium Chloride 1,000 ml @ 125 mls/hr Q8H IV Last administered on 11/02/19at 08:16; Start 11/01/19 at 16:39; Stop 11/02/19 at 16:38; Status DC Acetaminophen (Tylenol) 650 mg PRN Q6HRS PRN PO fever Last administered on 10/17 05/05at 19:35; Start 11/01/19 at 23:00 Ketorolac Tromethamine (Toradol 30mg Vial) 30 mg PRN Q6HRS PRN IVP MILD PAIN 1- 3 Last administered on 11/02/19at 21:04; Start 11/02/19 at 11:30; Stop 11/07/19 at 11:29 Ondansetron HCl (Zofran) 4 mg PRN Q6HRS PRN IVP NAUSEA/VOMITING Last administered on 11/03/19at 03:09; Start 11/02/19 at 21:30 Fentanyl Citrate (Fentanyl 2ml Vial) 50 mcg PRN Q2HR PRN IVP SEVERE PAIN 7-10 Last administered on 11/04/19at 14:12; Start 11/03/19 at 03:00 Ondansetron HCl (Zofran) 4 mg PRN Q6HRS PRN IV NAUSEA/VOMITING; Start 11/04/19 at 07:00; Stop 11/05/19 at 06:59 Fentanyl Citrate (Fentanyl 2ml Vial) 25 mcg PRN Q5MIN PRN IV MILD PAIN 1-3; Start 11/04/19 at 07:00; Stop 11/05/19 at 06:59 Fentanyl Citrate (Fentanyl 2ml Vial) 50 mcg PRN Q5MIN PRN IV MODERATE TO SEVERE PAIN; Start 11/04/19 at 07:00; Stop 11/05/19 at 06:59 Morphine Sulfate (Morphine Sulfate) 1 mg PRN Q10MIN PRN IV SEVERE PAIN 7-10; Start 11/04/19 at 07:00; Stop 11/05/19 at 06:59 Ringer's Solution 1,000 ml @ 30 mls/hr Q24H IV ; Start 11/04/19 at 07:00; Stop 11/04/19 at 18:59 Lidocaine HCl (Xylocaine-Mpf 1% 2ml Vial) 2 ml PRN 1X PRN ID PRIOR TO IV START; Start 11/04/19 at 07:00; Stop 11/05/19 at 06:59 Hydromorphone HCl (Dilaudid) 0.5 mg PRN Q10MIN PRN IV SEV PAIN, Second choice; Start 11/04/19 at 07:00; Stop 11/05/19 at 06:59 Prochlorperazine Edisylate (Compazine) 5 mg PACU PRN PRN IV NAUSEA, MRX1; Star t 11/04/19 at 07:00; Stop 11/05/19 at 06:59 Vitals/I & O Vital Sign - Last 24 Hours 11/03/19 11/03/19 11/03/19 11/03/19 15:45 16:15 19:20 19:34 Temp 99.4 99.4 Pulse 115 Resp 18 B/P (MAP) 114/71 (85) Pulse Ox 100 100 100 100 O2 Delivery Room Air Room Air 11/03/19 11/04/19 11/04/19 11/04/19 20:04 00:00 03:20 04:02 Temp 99.0 98.3 99.0 98.3 Pulse 111 111 Resp 18 20 18 B/P (MAP) 103/68 (80) 103/72 (82) Pulse Ox 100 98 100 100 O2 Delivery Room Air Room Air Room Air Room Air 11/04/19 11/04/19 11/04/19 11/04/19 06:06 06:36 07:15 08:20 Temp 98.4 98.4 Pulse 103 Resp 18 B/P (MAP) 119/55 (76) Pulse Ox 100 100 99 O2 Delivery Room Air Room Air Room Air 11/04/19 11/04/19 11/04/19 11/04/19 08:28 09:00 10:37 11:04 Temp 98.6 98.6 Pulse 111 Resp 16 B/P (MAP) 96/70 (79) Pulse Ox 97 O2 Delivery Room Air Room Air Room Air Room Air 11/04/19 11/04/19 11:10 14:12 O2 Delivery Room Air Room Air Intake and Output 11/03/19 11/03/19 11/04/19 15:00 23:00 07:00 Intake Total 200 ml Balance 200 ml BRENT MACHADO MD Nov 04, 2019 15:21
[2019-11-04] MEDS ORDERED: IRON SUCROSE COMPLEX 200 MG in IV NORMAL SALINE 100ML 100 ML IV ONE (15:45)
[2019-11-05] VITALS (11 sets, daily range): BP systolic 104–116; BP diastolic 66–73
[2019-11-05] MEDS: fentaNYL PF VIAL 100 MCG/2 ML VIAL IVP PRN ×4 (00:11→09:30)
[2019-11-05] MEDS ORDERED: fentaNYL PF VIAL 100 MCG/2 ML VIAL IV PRN ×2 (07:00)
[2019-11-05] MEDS ORDERED: MORPHINE SULFATE 2 MG/ML VIAL. IV PRN (07:00)
[2019-11-05] MEDS ORDERED: PROCHLORPERAZINE 10 MG/2 ML VIAL. IV PRN (07:00)
[2019-11-05] MEDS ORDERED: ONDANSETRON PF 4 MG/2 ML VIAL. IV PRN (07:00)
[2019-11-05] MEDS ORDERED: IV RINGERS,LACTATED 1000ML 1,000 ML IV SCH (07:00)
[2019-11-05] MEDS ORDERED: HYDROmorphone 2 MG/ML VIAL IV PRN (07:00)
--- NOTE | 2019-11-05 08:06 | PDOC ---
PROGRESS NOTES Chief Complaint Chief Complaint A/P: Abdominal pain Uterine fibroids Iron deficiency History of Present Illness History of Present Illness Ms Lei is a 24yo F admitted with abdominal pain. CT with uterine mass. mild prominence of appendix, however no inflammatory findings, no leukocytosis. US reveals likely 6cm uterine fibroid. Seen by general surgery and Kitchen Operator. 11/03: Feeling RLQ pain this morning. Toradol did not seem to help. Mother is bedside. I have discussed repeating imaging as a possibility though US does not always visualize the appendix. No changes 11/04: Pain improved somewhat. Still present on palpation. Iron levels low. Plan to try to advance diet today, but also plan for ex-lap tomorrow given persistence of symptoms. Still with pain, tolerated iron well. Going for ex-lap today. Vitals Vitals Vital Signs Date Time Temp Pulse Resp B/P (MAP) Pulse Ox O2 Delivery O2 Flow Rate FiO2 11/05/19 07:46 Room Air 11/05/19 07:00 98.7 115 18 106/66 (79) 98 98.7 Physical Exam General: Alert, Oriented X3, Cooperative, No acute distress Heart: Regular rate, Normal S1, Normal S2 Abdomen: Soft, Other (min TTP RLQ) Extremities: No clubbing, No cyanosis Skin: No rashes, No breakdown Assessment and Plan Assessmemt and Plan Problems Medical Problems: (1) Abdominal pain Status: Acute Comment Review of Relevant I have reviewed the following items kamilah (where applicable) has been applied. Labs Laboratory Tests Test 11/03/19 10:36 Iron Level 12 ug/dL (50-170) Total Iron Binding Capacity 254 ug/dL (250-450) Iron Saturation 5 % (15-34) Thyroid Stimulating Hormone (TSH) 1.395 uIU/mL (0.358-3.74) Medications Current Medications Sodium Chloride 1,000 ml @ 1,000 mls/hr Q1H IV Last administered on 11/01/19at 14:38; Start 11/01/19 at 14:30; Stop 11/01/19 at 15:29; Status DC Fentanyl Citrate (Fentanyl 2ml Vial) 50 mcg 1X ONCE IVP Last administered on 11/01/19at 14:39; Start 11/01/19 at 14:30; Stop 11/01/19 at 14:31; Status DC Ondansetron HCl (Zofran) 4 mg 1X ONCE IVP Last administered on 11/01/19at 14:39; Start 11/01/19 at 14:30; Stop 11/01/19 at 14:31; Status DC Iohexol (Omnipaque 300 Mg/ml) 75 ml 1X ONCE IV Last administered on 11/01/19at 15:32; Start 11/01/19 at 15:30; Stop 11/01/19 at 15:31; Status DC Info (CONTRAST GIVEN -- Rx MONITORING) 1 each PRN DAILY PRN MC SEE COMMENTS; Start 11/01/19 at 15:15; Stop 11/03/19 at 15:14; Status DC Piperacillin Sod/ Tazobactam Sod 3.375 gm/Sodium Chloride 50 ml @ 100 mls/hr 1X ONCE IV Last administered on 11/01/19at 16:55; Start 11/01/19 at 17:00; Stop 11/01/19 at 17:29; Status DC Ondansetron HCl (Zofran) 4 mg PRN Q8HRS PRN IV NAUSEA/VOMITING Last administered on 11/01/19at 23:12; Start 11/01/19 at 16:45; Stop 11/02/19 at 16:44; Status DC Fentanyl Citrate (Fentanyl 2ml Vial) 50 mcg PRN Q1HR PRN IV PAIN Last administered on 11/02/19at 10:35; Start 11/01/19 at 16:45; Stop 11/02/19 at 11:25; Status DC Sodium Chloride 1,000 ml @ 125 mls/hr Q8H IV Last administered on 11/02/19at 08:16; Start 11/01/19 at 16:39; Stop 11/02/19 at 16:38; Status DC Acetaminophen (Tylenol) 650 mg PRN Q6HRS PRN PO fever Last administered on 11/03/19at 19:35; Start 11/01/19 at 23:00 Ketorolac Tromethamine (Toradol 30mg Vial) 30 mg PRN Q6HRS PRN IVP MILD PAIN 1- 3 Last administered on 11/02/19at 21:04; Start 11/02/19 at 11:30; Stop 11/07/19 at 11:29 Ondansetron HCl (Zofran) 4 mg PRN Q6HRS PRN IVP NAUSEA/VOMITING Last administered on 11/03/19at 03:09; Start 11/02/19 at 21:30 Fentanyl Citrate (Fentanyl 2ml Vial) 50 mcg PRN Q2HR PRN IVP SEVERE PAIN 7-10 Last administered on 11/05/19at 06:09; Start 11/03/19 at 03:00 Ondansetron HCl (Zofran) 4 mg PRN Q6HRS PRN IV NAUSEA/VOMITING; Start 11/04/19 at 07:00; Stop 11/05/19 at 06:59; Status DC Fentanyl Citrate (Fentanyl 2ml Vial) 25 mcg PRN Q5MIN PRN IV MILD PAIN 1-3; Start 11/04/19 at 07:00; Stop 11/05/19 at 06:59; Status DC Fentanyl Citrate (Fentanyl 2ml Vial) 50 mcg PRN Q5MIN PRN IV MODERATE TO SEVERE PAIN; Start 11/04/19 at 07:00; Stop 11/05/19 at 06:59; Status DC Morphine Sulfate (Morphine Sulfate) 1 mg PRN Q10MIN PRN IV SEVERE PAIN 7-10; Start 11/04/19 at 07:00; Stop 11/05/19 at 06:59; Status DC Ringer's Solution 1,000 ml @ 30 mls/hr Q24H IV ; Start 11/04/19 at 07:00; Stop 11/04/19 at 18:59; Status DC Lidocaine HCl (Xylocaine-Mpf 1% 2ml Vial) 2 ml PRN 1X PRN ID PRIOR TO IV START; Start 11/04/19 at 07:00; Stop 11/05/19 at 06:59; Status DC Hydromorphone HCl (Dilaudid) 0.5 mg PRN Q10MIN PRN IV SEV PAIN, Second choice; Start 11/04/19 at 07:00; Stop 11/05/19 at 06:59; Status DC Prochlorperazine Edisylate (Compazine) 5 mg PACU PRN PRN IV NAUSEA, MRX1; Sta rt 11/04/19 at 07:00; Stop 11/05/19 at 06:59; Status DC Iron Sucrose 200 mg/Sodium Chloride 110 ml @ 55 mls/hr 1X ONCE IV Last administered on 11/04/19at 17:05; Start 11/04/19 at 15:45; Stop 11/04/19 at 17:44; Status DC Ondansetron HCl (Zofran) 4 mg PRN Q6HRS PRN IV NAUSEA/VOMITING; Start 11/05/19 at 07:00; Stop 11/06/19 at 06:59 Fentanyl Citrate (Fentanyl 2ml Vial) 25 mcg PRN Q5MIN PRN IV MILD PAIN 1-3; Start 11/05/19 at 07:00; Stop 11/06/19 at 06:59 Fentanyl Citrate (Fentanyl 2ml Vial) 50 mcg PRN Q5MIN PRN IV MODERATE TO SEVERE PAIN; Start 11/05/19 at 07:00; Stop 11/06/19 at 06:59 Morphine Sulfate (Morphine Sulfate) 1 mg PRN Q10MIN PRN IV SEVERE PAIN 7-10; Start 11/05/19 at 07:00; Stop 11/06/19 at 06:59 Ringer's Solution 1,000 ml @ 30 mls/hr Q24H IV ; Start 11/05/19 at 07:00; Stop 11/05/19 at 18:59 Hydromorphone HCl (Dilaudid) 0.5 mg PRN Q10MIN PRN IV SEV PAIN, Second choice; Start 11/05/19 at 07:00; Stop 11/06/19 at 06:59 Prochlorperazine Edisylate (Compazine) 5 mg PACU PRN PRN IV NAUSEA, MRX1; Start 11/05/19 at 07:00; Stop 11/06/19 at 06:59 Vitals/I & O Vital Sign - Last 24 Hours 11/04/19 11/04/19 11/04/19 11/04/19 08:20 08:28 09:00 10:37 O2 Delivery Room Air Room Air Room Air Room Air 11/04/19 11/04/19 11/04/19 11/04/19 11:04 11:10 14:12 14:45 Temp 98.6 98.6 Pulse 111 Resp 16 B/P (MAP) 96/70 (79) Pulse Ox 97 O2 Delivery Room Air Room Air Room Air Room Air 11/04/19 11/04/19 11/04/19 11/04/19 15:15 17:02 17:30 19:00 Temp 99.4 98.3 99.4 98.3 Pulse 106 102 Resp 18 18 B/P (MAP) 106/72 (83) 103/68 (80) Pulse Ox 97 92 O2 Delivery Room Air Room Air Room Air Room Air 11/04/19 11/04/19 11/04/19 11/04/19 19:21 19:51 20:00 22:02 O2 Delivery Room Air Room Air Room Air Room Air 11/04/19 11/04/19 11/05/19 11/05/19 22:32 23:00 00:11 00:41 Temp 98.8 98.8 Pulse 112 Resp 18 B/P (MAP) 99/65 (76) Pulse Ox 97 O2 Delivery Room Air Room Air Room Air Room Air 11/05/19 11/05/19 11/05/19 11/05/19 03:00 03:00 03:30 06:09 Temp 98.1 98.1 Pulse 118 Resp 18 B/P (MAP) 104/70 (81) Pulse Ox 97 O2 Delivery Room Air Room Air Room Air Room Air 11/05/19 11/05/19 11/05/19 07:00 07:00 07:46 Temp 98.7 98.7 Pulse 115 Resp 18 B/P (MAP) 106/66 (79) Pulse Ox 98 O2 Delivery Room Air Room Air Room Air Intake and Output 11/04/19 11/04/19 11/05/19 14:59 22:59 06:59 Intake Total 280 ml 150 ml Balance 280 ml 150 ml MOON AGUIAR MD Nov 05, 2019 08:06
--- NOTE | 2019-11-05 08:51 | PDOC ---
PROGRESS NOTES Subjective Subjective Pt in shower this am. Nurse reports pain worse last night, associated with PO. Objective Objective Vital Signs Date Time Temp Pulse Resp B/P (MAP) Pulse Ox O2 Delivery O2 Flow Rate FiO2 11/05/19 07:46 Room Air 11/05/19 07:00 98.7 115 18 106/66 (79) 98 98.7 Intake and Output 11/05/19 06:59 Intake Total 430 ml Balance 430 ml Intake Oral 430 ml # Voids 3 Assessment Assessment Problems Medical Problems: (1) Abdominal pain Status: Acute Plan Plan of Care A/P 24y G0 admitted for abd pain 1.) Abd pain pt to undergo exploration with GS in am 2.) Degenerating fibroid u/s consistent size of fibroid (6.2cm), will continue expectant management. Still remains w/o low-grade fever, uterine tenderness on palpation, elevated white blood cell count, or peritoneal signs. 3.) Appendix mild prominence of appendix not thought to be likely appendicitis due to the lack of leukocytosis. 4.) Contraception None 5.) Will continue to follow Comment Review of Relevant I have reviewed the following items kamilah (where applicable) has been applied. Labs Laboratory Tests Test 11/03/19 10:36 Iron Level 12 ug/dL (50-170) Total Iron Binding Capacity 254 ug/dL (250-450) Iron Saturation 5 % (15-34) Thyroid Stimulating Hormone (TSH) 1.395 uIU/mL (0.358-3.74) Medications Current Medications Sodium Chloride 1,000 ml @ 1,000 mls/hr Q1H IV Last administered on 11/01/19at 14:38; Start 11/01/19 at 14:30; Stop 11/01/19 at 15:29; Status DC Fentanyl Citrate (Fentanyl 2ml Vial) 50 mcg 1X ONCE IVP Last administered on 11/01/19at 14:39; Start 11/01/19 at 14:30; Stop 11/01/19 at 14:31; Status DC Ondansetron HCl (Zofran) 4 mg 1X ONCE IVP Last administered on 11/01/19at 14:39; Start 11/01/19 at 14:30; Stop 11/01/19 at 14:31; Status DC Iohexol (Omnipaque 300 Mg/ml) 75 ml 1X ONCE IV Last administered on 11/01/19at 15:32; Start 11/01/19 at 15:30; Stop 11/01/19 at 15:31; Status DC Info (CONTRAST GIVEN -- Rx MONITORING) 1 each PRN DAILY PRN MC SEE COMMENTS; Start 11/01/19 at 15:15; Stop 11/03/19 at 15:14; Status DC Piperacillin Sod/ Tazobactam Sod 3.375 gm/Sodium Chloride 50 ml @ 100 mls/hr 1X ONCE IV Last administered on 11/01/19at 16:55; Start 11/01/19 at 17:00; Stop 11/01/19 at 17:29; Status DC Ondansetron HCl (Zofran) 4 mg PRN Q8HRS PRN IV NAUSEA/VOMITING Last administered on 11/01/19at 23:12; Start 11/01/19 at 16:45; Stop 11/02/19 at 16:44; Status DC Fentanyl Citrate (Fentanyl 2ml Vial) 50 mcg PRN Q1HR PRN IV PAIN Last administered on 11/02/19at 10:35; Start 11/01/19 at 16:45; Stop 11/02/19 at 11:25; Status DC Sodium Chloride 1,000 ml @ 125 mls/hr Q8H IV Last administered on 11/02/19at 08:16; Start 11/01/19 at 16:39; Stop 11/02/19 at 16:38; Status DC Acetaminophen (Tylenol) 650 mg PRN Q6HRS PRN PO fever Last administered on 11/03/19at 19:35; Start 11/01/19 at 23:00 Ketorolac Tromethamine (Toradol 30mg Vial) 30 mg PRN Q6HRS PRN IVP MILD PAIN 1-3 Last administered on 11/02/19at 21:04; Start 11/02/19 at 11:30; Stop 11/07/19 at 11:29 Ondansetron HCl (Zofran) 4 mg PRN Q6HRS PRN IVP NAUSEA/VOMITING Last administered on 11/03/19at 03:09; Start 11/02/19 at 21:30 Fentanyl Citrate (Fentanyl 2ml Vial) 50 mcg PRN Q2HR PRN IVP SEVERE PAIN 7-10 Last administered on 11/05/19at 06:09; Start 11/03/19 at 03:00 Ondansetron HCl (Zofran) 4 mg PRN Q6HRS PRN IV NAUSEA/VOMITING; Start 11/04/19 at 07:00; Stop 11/05/19 at 06:59; Status DC Fentanyl Citrate (Fentanyl 2ml Vial) 25 mcg PRN Q5MIN PRN IV MILD PAIN 1-3; Start 11/04/19 at 07:00; Stop 11/05/19 at 06:59; Status DC Fentanyl Citrate (Fentanyl 2ml Vial) 50 mcg PRN Q5MIN PRN IV MODERATE TO SEVERE PAIN; Start 11/04/19 at 07:00; Stop 11/05/19 at 06:59; Status DC Morphine Sulfate (Morphine Sulfate) 1 mg PRN Q10MIN PRN IV SEVERE PAIN 7-10; Start 11/04/19 at 07:00; Stop 11/05/19 at 06:59; Status DC Ringer's Solution 1,000 ml @ 30 mls/hr Q24H IV ; Start 11/04/19 at 07:00; Stop 11/04/19 at 18:59; Status DC Lidocaine HCl (Xylocaine-Mpf 1% 2ml Vial) 2 ml PRN 1X PRN ID PRIOR TO IV START; Start 11/04/19 at 07:00; Stop 11/05/19 at 06:59; Status DC Hydromorphone HCl (Dilaudid) 0.5 mg PRN Q10MIN PRN IV SEV PAIN, Second choice; Start 11/04/19 at 07:00; Stop 11/05/19 at 06:59; Status DC Prochlorperazine Edisylate (Compazine) 5 mg PACU PRN PRN IV NAUSEA, MRX1; Start 11/04/19 at 07:00; Stop 11/05/19 at 06:59; Status DC Iron Sucrose 200 mg/Sodium Chloride 110 ml @ 55 mls/hr 1X ONCE IV Last administered on 11/04/19at 17:05; Start 11/04/19 at 15:45; Stop 11/04/19 at 17:44; Status DC Ondansetron HCl (Zofran) 4 mg PRN Q6HRS PRN IV NAUSEA/VOMITING; Start 11/05/19 at 07:00; Stop 11/06/19 at 06:59 Fentanyl Citrate (Fentanyl 2ml Vial) 25 mcg PRN Q5MIN PRN IV MILD PAIN 1-3; Start 11/05/19 at 07:00; Stop 11/06/19 at 06:59 Fentanyl Citrate (Fentanyl 2ml Vial) 50 mcg PRN Q5MIN PRN IV MODERATE TO SEVERE PAIN; Start 11/05/19 at 07:00; Stop 11/06/19 at 06:59 Morphine Sulfate (Morphine Sulfate) 1 mg PRN Q10MIN PRN IV SEVERE PAIN 7-10; S tart 11/05/19 at 07:00; Stop 11/06/19 at 06:59 Ringer's Solution 1,000 ml @ 30 mls/hr Q24H IV ; Start 11/05/19 at 07:00; Stop 11/05/19 at 18:59 Hydromorphone HCl (Dilaudid) 0.5 mg PRN Q10MIN PRN IV SEV PAIN, Second choice; Start 11/05/19 at 07:00; Stop 11/06/19 at 06:59 Prochlorperazine Edisylate (Compazine) 5 mg PACU PRN PRN IV NAUSEA, MRX1; Start 11/05/19 at 07:00; Stop 11/06/19 at 06:59 Vitals/I & O Vital Sign - Last 24 Hours 11/04/19 11/04/19 11/04/19 11/04/19 09:00 10:37 11:04 11:10 Temp 98.6 98.6 Pulse 111 Resp 16 B/P (MAP) 96/70 (79) Pulse Ox 97 O2 Delivery Room Air Room Air Room Air Room Air 11/04/19 11/04/19 11/04/19 11/04/19 14:12 14:45 15:15 17:02 Temp 99.4 99.4 Pulse 106 Resp 18 B/P (MAP) 106/72 (83) Pulse Ox 97 O2 Delivery Room Air Room Air Room Air Room Air 11/04/19 11/04/19 11/04/19 11/04/19 17:30 19:00 19:21 19:51 Temp 98.3 98.3 Pulse 102 Resp 18 B/P (MAP) 103/68 (80) Pulse Ox 92 O2 Delivery Room Air Room Air Room Air Room Air 11/04/19 11/04/19 11/04/1911/04/20 20:00 22:02 22:32 23:00 Temp 98.8 98.8 Pulse 112 Resp 18 B/P (MAP) 99/65 (76) Pulse Ox 97 O2 Delivery Room Air Room Air Room Air Room Air 11/05/19 11/05/19 11/05/19 11/05/19 00:11 00:41 03:00 03:00 Temp 98.1 98.1 Pulse 118 Resp 18 B/P (MAP) 104/70 (81) Pulse Ox 97 O2 Delivery Room Air Room Air Room Air Room Air 11/05/19 11/05/19 11/05/19 11/05/19 03:30 06:09 07:00 07:00 Temp 98.7 98.7 Pulse 115 Resp 18 B/P (MAP) 106/66 (79) Pulse Ox 98 O2 Delivery Room Air Room Air Room Air Room Air 11/05/19 07:46 O2 Delivery Room Air Intake and Output 11/04/19 11/04/19 11/05/19 14:59 22:59 06:59 Intake Total 280 ml 150 ml Balance 280 ml 150 ml BRENT MACHADO MD Nov 05, 2019 08:51
[2019-11-05] MEDS ORDERED: fentaNYL PF VIAL 100 MCG/2 ML VIAL ONE (10:49)
[2019-11-05] MEDS ORDERED: LIDOCAINE 2% PF 5 ML VIAL. ONE (10:49)
[2019-11-05] MEDS ORDERED: ROCURONIUM 50 MG/5 ML VIAL. ONE (10:49)
[2019-11-05] MEDS ORDERED: PROPOFOL 20 ML IV ONE (10:49)
[2019-11-05] MEDS ORDERED: cefOXitin SODIUM IV Push 2 GM VIAL. IVP ONE ×2 (11:36→11:45)
--- NOTE | 2019-11-05 11:36 | PDOC ---
SURGICAL PROGRESS NOTE Subjective Pre-Op Note 24 yo F with abd pain, RLQ. Pain is improved, but still present. Pt favors proceeding with exploration. TO OR for laparoscopic versus open exploration, appendectomy. R/B/A d/w pt and pt's supportive mother. Risks, including, but not limited to: bleeding, infection, damage to surrounding structures, risk of anesthesia, risk of open, risk of and risk of not resolving pain. They appear to understand, their questions are answered and they elect to proceed. Vital Signs Vital Signs Date Time Temp Pulse Resp B/P (MAP) Pulse Ox O2 Delivery O2 Flow Rate FiO2 11/05/19 11:09 98.7 110 15 112/73 99 Room Air 98.7 I&O Intake and Output 11/05/19 06:59 Intake Total 430 ml Balance 430 ml Intake Oral 430 ml # Voids 3 Problem List Problems Medical Problems: (1) Abdominal pain Status: Acute RITA MALDONADO MD Nov 05, 2019 11:36
[2019-11-05] MEDS ORDERED: BUPIVACAINE-EPI 0.5%-1:200000 MPF 30 ML VIAL. ONE (11:48)
[2019-11-05] MEDS ORDERED: SEVOFLURANE 61 TO 120 MINUTES. IH ONE (12:06)
[2019-11-05] MEDS ORDERED: DEXAMETHASONE SOD PHOS 4 MG/ML VIAL ONE (12:06)
[2019-11-05] MEDS ORDERED: GLYCOPYRROLATE 1 MG/5 ML VIAL. ONE (12:13)
[2019-11-05] MEDS ORDERED: NEOSTIGMINE METHYLSULFATE 5 MG/5 ML SYRINGE. ONE (12:13)
[2019-11-05] MEDS ORDERED: ONDANSETRON PF 4 MG/2 ML VIAL. ONE (12:13)
[2019-11-05] MEDS ORDERED: KETAMINE HCL IN NACL, ISO-OSM 50 MG/5 ML SYRINGE ONE (14:05)
[2019-11-05] MEDS ORDERED: HYDROmorphone 2 MG/ML VIAL ONE (14:05)
[2019-11-05] MEDS: IV NORMAL SALINE 1000ML BAG 1,000 ML IV SCH (14:39)
[2019-11-05] MEDS ORDERED: 0.9 % SODIUM CHLORIDE 10 ML DISP.SYRIN. IV PRN (14:45)
[2019-11-05] MEDS ORDERED: ONDANSETRON PF 4 MG/2 ML VIAL. IVP PRN (14:45)
[2019-11-05] MEDS: IV RINGERS,LACTATED 1000ML 1,000 ML IV SCH (14:45)
[2019-11-05] MEDS ORDERED: NALOXONE 0.4 MG/ML VIAL. IV PRN (14:45)
[2019-11-05] MEDS: MORPHINE SULFATE/PF 30 ML IV PRN (14:56)
--- NOTE | 2019-11-05 14:56 | PDOC4 ---
OPERATIVE NOTE Date: Date: Nov 05, 2019 Pre-Op Diagnosis: RLQ abd pain Post-Op Diagnosis: terminal ileum and colonic ulcers Procedure Performed: laparoscopic ileocolic resection Surgeon: Yan Maldonado Anesthesia Type: GETA plus local Blood Loss: 50 Specimans Obtained: ileocolic resection Findings: ulcers of terminal ileum and colon, normal gynecological structures, although somewhat big uterus Complications: none Operative Note: After obtaining informed consent, patient was taken to OR, induced under GETA and prepped in the usual fashion. 5 mm port placed LLQ and suprapubic, 12 port placed epigastric, all under laparoscopic guidance. Abdominal cavity explored and otherwise unremarkable. Gallbladder, liver, stomach, spleen wnl. Appendix retrocecal in nature. Purplish colored hard mass noted of cecum. Attempts at taking this off the cecum was unsuccessful, and as such right colon indicated. White line of toldt divided using sharp dissection. Right ureter readily identified and maintained without injury. Ileocolic area mobilized and eviscerated through RLQ transverse incision via wound protector. CODY staplers used to divide small bowel proximal to area of concern and at the hepatic flexure. Mesentery taken with ligasure, including multiple enlarged lymph nodes. Pathology identified multiple ulcers. Side to side stapled anastomosis created with CODY stapler and sealed with TA 60. Anastomosis reinforced with 3 0 vicryl and mesenteric defect closed with 3 0 chromic. Anastomosis noted to be patent, under no tension, completely viable and no evidence of leakage. Bowel was returned to abdominal cavity. Gloves changed. Peritoneum closed with 0 vicryl. Anterior fascia repaired with 0 PDS looped. Pneumoperitoneum reestablished and abdominal cavity reexplored. No evidence of bleeding or other pathology. Bowel viable. Ports removed without bleeding. Fascia repaired with 0 vicryl. Skin repaired with 3 0 vicryl and 4 0 monocryl. Dressing placed. Patient tolerated procedure well and sent to PACU in stable condition. All counts correct. Wound class is 3. RITA MALDONADO MD Nov 05, 2019 14:56
--- NOTE | 2019-11-05 16:37 | RAD ---
KUB History: Postop exploratory laparotomy. Technique: Supine view the abdomen. Comparison: CT November 01, 2019 Findings: Postoperative pneumoperitoneum. No radiopaque foreign bodies. Contrast noted within the colon. Postoperative changes right lower quadrant. Nonobstructed bowel gas pattern. Impression: 1. No metallic foreign bodies. Postoperative pneumoperitoneum. Electronically signed by: Elvis Disla DO (11/05/2019 4:34 PM) [id number]
[2019-11-05] MEDS: FAMOTIDINE 20 MG/2 ML VIAL IVP SCH (22:16)
[2019-11-06 03:17] VITALS: BP 102/68
[2019-11-06] MEDS: IV RINGERS,LACTATED 1000ML 1,000 ML IV SCH ×3 (04:23→21:35)
[2019-11-06] MEDS: MORPHINE SULFATE/PF 30 ML IV PRN (06:18)
[2019-11-06 07:00] VITALS: BP 119/81
--- NOTE | 2019-11-06 08:13 | PDOC ---
PROGRESS NOTES Chief Complaint Chief Complaint A/P: Abdominal pain Uterine fibroids Iron deficiency anemia Ileum and colon ulcerations History of Present Illness History of Present Illness Ms Lei is a 24yo F admitted with abdominal pain. CT with uterine mass. mild prominence of appendix, however no inflammatory findings, no leukocytosis. US reveals likely 6cm uterine fibroid. Seen by general surgery and Telephone Operator. 11/03: Feeling RLQ pain this morning. Toradol did not seem to help. Mother is bedside. I have discussed repeating imaging as a possibility though US does not always visualize the appendix. No changes 11/04: Pain improved somewhat. Still present on palpation. Iron levels low. Plan to try to advance diet today, but also plan for ex-lap tomorrow given persistence of symptoms. 11/05: Ex-lap with terminal ileum and colonic ulcers, intraop appearance not consistent with degenerating fibroid, s/p laparoscopic ileocolic resection Still with pain, tolerated iron well. Using CERTIFIED ADDICTION COUNSELOR for pain control. No CP or SOB. Vitals Vitals Vital Signs Date Time Temp Pulse Resp B/P (MAP) Pulse Ox O2 Delivery O2 Flow Rate FiO2 11/06/19 06:48 96 Room Air 11/06/19 06:18 20 11/06/19 03:17 98.3 109 102/68 (79) 1.0 98.3 Physical Exam General: Alert, Oriented X3, Cooperative, No acute distress Heart: Regular rate, Normal S1, Normal S2 Abdomen: Soft, Other (min TTP RLQ) Extremities: No clubbing, No cyanosis Skin: No rashes, No breakdown Assessment and Plan Assessmemt and Plan Problems Medical Problems: (1) Abdominal pain Status: Acute Comment Review of Relevant I have reviewed the following items kamilah (where applicable) has been applied. Medications Current Medications Sodium Chloride 1,000 ml @ 1,000 mls/hr Q1H IV Last administered on 11/01/19at 14:38; Start 11/01/19 at 14:30; Stop 11/01/19 at 15:29; Status DC Fentanyl Citrate (Fentanyl 2ml Vial) 50 mcg 1X ONCE IVP Last administered on 11/01/19at 14:39; Start 11/01/19 at 14:30; Stop 11/01/19 at 14:31; Status DC Ondansetron HCl (Zofran) 4 mg 1X ONCE IVP Last administered on 11/01/19at 14:39; Start 11/01/19 at 14:30; Stop 11/01/19 at 14:31; Status DC Iohexol (Omnipaque 300 Mg/ml) 75 ml 1X ONCE IV Last administered on 11/01/19at 15:32; Start 11/01/19 at 15:30; Stop 11/01/19 at 15:31; Status DC Info (CONTRAST GIVEN -- Rx MONITORING) 1 each PRN DAILY PRN MC SEE COMMENTS; Start 11/01/19 at 15:15; Stop 11/03/19 at 15:14; Status DC Piperacillin Sod/ Tazobactam Sod 3.375 gm/Sodium Chloride 50 ml @ 100 mls/hr 1X ONCE IV Last administered on 11/01/19at 16:55; Start 11/01/19 at 17:00; Stop 11/01/19 at 17:29; Status DC Ondansetron HCl (Zofran) 4 mg PRN Q8HRS PRN IV NAUSEA/VOMITING Last administered on 11/01/19at 23:12; Start 11/01/19 at 16:45; Stop 11/02/19 at 16:44; Status DC Fentanyl Citrate (Fentanyl 2ml Vial) 50 mcg PRN Q1HR PRN IV PAIN Last administered on 11/02/19at 10:35; Start 11/01/19 at 16:45; Stop 11/02/19 at 11:25; Status DC Sodium Chloride 1,000 ml @ 125 mls/hr Q8H IV Last administered on 11/02/19at 08:16; Start 11/01/19 at 16:39; Stop 11/02/19 at 16:38; Status DC Acetaminophen (Tylenol) 650 mg PRN Q6HRS PRN PO fever Last administered on 11/03/19at 19:35; Start 11/01/19 at 23:00 Ketorolac Tromethamine (Toradol 30mg Vial) 30 mg PRN Q6HRS PRN IVP MILD PAIN 1- 3 Last administered on 11/02/19at 21:04; Start 11/02/19 at 11:30; Stop 11/07/19 at 11:29 Ondansetron HCl (Zofran) 4 mg PRN Q6HRS PRN IVP NAUSEA/VOMITING Last administered on 11/03/19at 03:09; Start 11/02/19 at 21:30 Fentanyl Citrate (Fentanyl 2ml Vial) 50 mcg PRN Q2HR PRN IVP SEVERE PAIN 7-10 Last administered on 11/05/19at 09:30; Start 11/03/19 at 03:00 Ondansetron HCl (Zofran) 4 mg PRN Q6HRS PRN IV NAUSEA/VOMITING; Start 11/04/19 at 07:00; Stop 11/05/19 at 06:59; Status DC Fentanyl Citrate (Fentanyl 2ml Vial) 25 mcg PRN Q5MIN PRN IV MILD PAIN 1-3; Start 11/04/19 at 07:00; Stop 11/05/19 at 06:59; Status DC Fentanyl Citrate (Fentanyl 2ml Vial) 50 mcg PRN Q5MIN PRN IV MODERATE TO SEVERE PAIN; Start 11/04/19 at 07:00; Stop 11/05/19 at 06:59; Status DC Morphine Sulfate (Morphine Sulfate) 1 mg PRN Q10MIN PRN IV SEVERE PAIN 7-10; Start 11/04/19 at 07:00; Stop 11/05/19 at 06:59; Status DC Ringer's Solution 1,000 ml @ 30 mls/hr Q24H IV ; Start 11/04/19 at 07:00; Stop 11/04/19 at 18:59; Status DC Lidocaine HCl (Xylocaine-Mpf 1% 2ml Vial) 2 ml PRN 1X PRN ID PRIOR TO IV START; Start 11/04/19 at 07:00; Stop 11/05/19 at 06:59; Status DC Hydromorphone HCl (Dilaudid) 0.5 mg PRN Q10MIN PRN IV SEV PAIN, Second choice; Start 11/04/19 at 07:00; Stop 11/05/19 at 06:59; Status DC Prochlorperazine Edisylate (Compazine) 5 mg PACU PRN PRN IV NAUSEA, MRX1; Start 11/04/19 at 07:00; Stop 11/05/19 at 06:59; Status DC Iron Sucrose 200 mg/Sodium Chloride 110 ml @ 55 mls/hr 1X ONCE IV Last administered on 11/04/19at 17:05; Start 11/04/19 at 15:45; Stop 11/04/19 at 17:44; Status DC Ondansetron HCl (Zofran) 4 mg PRN Q6HRS PRN IV NAUSEA/VOMITING; Start 11/05/19 at 07:00; Stop 11/06/19 at 06:59; Status DC Fentanyl Citrate (Fentanyl 2ml Vial) 25 mcg PRN Q5MIN PRN IV MILD PAIN 1-3; Start 11/05/19 at 07:00; Stop 11/06/19 at 06:59; Status DC Fentanyl Citrate (Fentanyl 2ml Vial) 50 mcg PRN Q5MIN PRN IV MODERATE TO SEVERE PAIN; Start 11/05/19 at 07:00; Stop 11/06/19 at 06:59; Status DC Morphine Sulfate (Morphine Sulfate) 1 mg PRN Q10MIN PRN IV SEVERE PAIN 7-10; Start 11/05/19 at 07:00; Stop 11/06/19 at 06:59; Status DC Ringer's Solution 1,000 ml @ 30 mls/hr Q24H IV Last administered on 11/05/19at 11:00; Start 11/05/19 at 07:00; Stop 11/05/19 at 18:59; Status DC Hydromorphone HCl (Dilaudid) 0.5 mg PRN Q10MIN PRN IV SEV PAIN, Second choice; Start 11/05/19 at 07:00; Stop 11/06/19 at 06:59; Status DC Prochlorperazine Edisylate (Compazine) 5 mg PACU PRN PRN IV NAUSEA, MRX1; Start 11/05/19 at 07:00; Stop 11/06/19 at 06:59; Status DC Propofol 20 ml @ As Directed STK-MED ONCE IV ; Start 11/05/19 at 10:49; Stop 11/05/19 at 10:49; Status DC Lidocaine HCl (Lidocaine Pf 2% Vial) 5 ml STK-MED ONCE .ROUTE ; Start 11/05/19 at 10:49; Stop 11/05/19 at 10:49; Status DC Fentanyl Citrate (Fentanyl 2ml Vial) 100 mcg STK-MED ONCE .ROUTE ; Start 11/05/19 at 10:49; Stop 11/05/19 at 10:49; Status DC Rocuronium [place] (Zemuron) 50 mg STK-MED ONCE .ROUTE ; Start 11/05/19 at 10:49; Stop 11/05/19 at 10:50; Status DC Cefoxitin Sodium (Mefoxin) 2 gm 1X PREOP ONCE IVP Last administered on 11/05/19at 11:55; Start 11/05/19 at 11:45; Stop 11/05/19 at 11:46; Status DC Cefoxitin Sodium (Mefoxin) 2 gm STK-MED ONCE IVP ; Start 11/05/19 at 11:36; Stop 11/05/19 at 11:36; Status DC Bupivacaine HCl/ Epinephrine Bitart (Sensorcain-Epi 0.5%-1:148951 Mpf) 30 ml STK-MED ONCE .ROUTE Last administered on 11/05/19at 12:20; Start 11/05/19 at 11:48; Stop 11/05/19 at 11:49; Status DC Dexamethasone Sodium Phosphate (Decadron) 4 mg STK-MED ONCE .ROUTE ; Start 11/05/19 at 12:06; Stop 11/05/19 at 12:06; Status DC Sevoflurane (Ultane) 60 ml STK-MED ONCE IH ; Start 11/05/19 at 12:06; Stop 11/05/19 at 12:06; Status DC Ondansetron HCl (Zofran) 4 mg STK-MED ONCE .ROUTE ; Start 11/05/19 at 12:13; Stop 11/05/19 at 12:13; Status DC Glycopyrrolate (Robinul) 1 mg STK-MED ONCE .ROUTE ; Start 11/05/19 at 12:13; Stop 11/05/19 at 12:13; Status DC Neostigmine [place] (Neostigmine Methylsulfate) 5 mg STK-MED ONCE .ROUTE ; Start 11/05/19 at 12:13; Stop 11/05/19 at 12:13; Status DC Hydromorphone HCl (Dilaudid) 2 mg STK-MED ONCE .ROUTE ; Start 11/05/19 at 14:05; Stop 11/05/19 at 14:05; Status DC Ketamine HCl (Ketamine) 50 mg STK-MED ONCE .ROUTE ; Start 11/05/19 at 14:05; Stop 11/05/19 at 14:05; Status DC Famotidine (Pepcid Vial) 20 mg BID IVP Last administered on 11/05/19at 22:16; Start 11/05/19 at 21:00 Sodium Chloride (Normal Saline Flush) 3 ml QSHIFT PRN IV AFTER MEDS AND BLOOD DRAWS; Start 11/05/19 at 14:45 Ringer's Solution 1,000 ml @ 100 mls/hr Q10H IV Last administered on 11/06/19at 04:23; Start 11/05/19 at 14:39 Naloxone HCl (Narcan) 0.4 mg PRN Q2MIN PRN IV SEE INSTRUCTIONS; Start 11/05/19 at 14:45 Sodium Chloride 1,000 ml @ 25 mls/hr Q24H IV ; Start 11/05/19 at 14:39 Morphine Sulfate 30 ml @ 0 mls/hr CONT PRN PRN IV PER PROTOCOL Last administered on 11/06/19at 06:18; Start 11/05/19 at 14:45 Ondansetron HCl (Zofran) 4 mg PRN Q6HRS PRN IVP NAUESA, 1ST CHOICE; Start 11/05/19 at 14:45 Vitals/I & O Vital Sign - Last 24 Hours 11/05/19 11/05/19 11/05/19 11/05/19 09:30 10:00 11:09 14:17 Temp 98.7 98.7 Pulse 110 Resp 15 B/P (MAP) 112/73 Pulse Ox 99 O2 Delivery Room Air Room Air Room Air Room Air 11/05/19 11/05/19 11/05/19 11/05/19 14:17 14:30 14:45 14:56 Temp 97.2 97.2 Pulse 99 110 111 Resp 14 14 14 14 B/P (MAP) 107/58 110/56 114/62 Pulse Ox 100 100 100 97 O2 Delivery Simple Mask Simple Mask Simple Mask Nasal Cannula O2 Flow Rate 10 10 10 2.0 11/05/19 11/05/19 11/05/19 11/05/19 15:00 15:12 15:15 16:00 Temp 98.4 98.4 Pulse 118 122 Resp 14 14 B/P (MAP) 115/61 115/66 Pulse Ox 94 99 O2 Delivery Nasal Cannula Room Air Nasal Cannula Nasal Cannula O2 Flow Rate 2 2 2.0 11/05/19 11/05/19 11/05/19 11/05/19 16:00 16:15 16:30 16:45 Temp 97.6 97.6 Pulse 116 113 113 120 Resp 18 18 18 18 B/P (MAP) 108/69 (82) 110/71 (84) 114/70 (85) 109/72 (84) Pulse Ox 96 98 98 100 O2 Delivery Nasal Cannula Nasal Cannula Nasal Cannula Nasal Cannula O2 Flow Rate 2.0 2.0 2.0 2.0 11/05/19 11/05/19 11/05/19 11/05/19 17:15 17:45 18:45 19:00 Temp 98.7 98.7 Pulse 111 108 105 120 Resp 18 18 18 18 B/P (MAP) 105/71 (82) 114/73 (87) 116/70 (85) 108/71 (83) Pulse Ox 100 100 100 99 O2 Delivery Nasal Cannula Nasal Cannula Nasal Cannula Nasal Cannula O2 Flow Rate 2.0 2.0 2.0 2.0 11/05/19 11/05/19 11/06/19 11/06/19 20:00 23:39 03:17 06:18 Temp 98.7 98.3 98.7 98.3 Pulse 111 109 Resp 18 16 20 B/P (MAP) 109/68 (82) 102/68 (79) Pulse Ox 99 96 96 O2 Delivery Room Air Nasal Cannula Nasal Cannula Room Air O2 Flow Rate 1.0 1.0 11/06/19 06:48 Pulse Ox 96 O2 Delivery Room Air Intake and Output 11/05/19 11/05/19 11/06/19 15:00 23:00 07:00 Intake Total 800 ml 0 ml 0 ml Output Total 125 ml 50 ml 900 ml Balance 675 ml -50 ml -900 ml MOON AGUIAR MD Nov 06, 2019 08:13
[2019-11-06 08:20] LABS: BASO % 0 % (0-3); EOS % 1 % (0-3); HEMATOCRIT 33.8 % (36.0-47.0); HEMOGLOBIN 10.7 g/dL (12.0-15.5); LYMPH # 1.6 x10^3/uL (1.0-4.8); LYMPH % 17 % (24-48); MEAN CORPUSCULAR HEMOGLOBIN 24 pg (25-35); MEAN CORPUSCULAR HGB CONC 32 g/dL (31-37); MEAN CORPUSCULAR VOLUME 76 fL (79-100); MONO % 11 % (0-9); NEUT # 6.5 x10^3/uL (1.8-7.7); NEUT % 71 % (31-73); PLATELET COUNT 155 x10^3/uL (140-400); RED BLOOD COUNT 4.46 x10^6/uL (3.50-5.40); RED CELL DISTRIBUTION WIDTH 19.5 % (11.5-14.5); WHITE BLOOD COUNT 9.2 x10^3/uL (4.0-11.0)
[2019-11-06] MEDS: FAMOTIDINE 20 MG/2 ML VIAL IVP SCH ×2 (09:23→21:30)
--- NOTE | 2019-11-06 09:41 | PDOC ---
SURGICAL PROGRESS NOTE Subjective pain managed while still no flatus no emesis Vital Signs Vital Signs Date Time Temp Pulse Resp B/P (MAP) Pulse Ox O2 Delivery O2 Flow Rate FiO2 11/06/19 07:00 98.4 127 16 119/81 (94) 99 Room Air 98.4 11/06/19 03:17 1.0 I&O l Intake and Output 11/06/19 07:00 Intake Total 800 ml Output Total 1075 ml Balance -275 ml Intake Oral 0 ml IV Total 800 ml Output Urine Total 1025 ml Estimated Blood Loss 50 ml PATIENT HAS A STANLEY: Yes General: Alert, Oriented X3, Cooperative Abdomen: Soft, Other (ND, dressing dry) Labs Laboratory Tests Test 11/06/19 07:50 White Blood Count 9.2 x10^3/uL (4.0-11.0) Red Blood Count 4.46 x10^6/uL (3.50-5.40) Hemoglobin 10.7 g/dL (12.0-15.5) Hematocrit 33.8 % (36.0-47.0) Mean Corpuscular Volume 76 fL (79-100) Mean Corpuscular Hemoglobin 24 pg (25-35) Mean Corpuscular Hemoglobin Concent 32 g/dL (31-37) Red Cell Distribution Width 19.5 % (11.5-14.5) Platelet Count 155 x10^3/uL (140-400) Neutrophils (%) (Auto) 71 % (31-73) Lymphocytes (%) (Auto) 17 % (24-48) Monocytes (%) (Auto) 11 % (0-9) Eosinophils (%) (Auto) 1 % (0-3) Basophils (%) (Auto) 0 % (0-3) Neutrophils # (Auto) 6.5 x10^3/uL (1.8-7.7) Lymphocytes # (Auto) 1.6 x10^3/uL (1.0-4.8) Monocytes # (Auto) 1.0 x10^3/uL (0.0-1.1) Eosinophils # (Auto) 0.0 x10^3/uL (0.0-0.7) Basophils # (Auto) 0.0 x10^3/uL (0.0-0.2) Laboratory Tests Test 11/06/19 07:50 White Blood Count 9.2 x10^3/uL (4.0-11.0) Red Blood Count 4.46 x10^6/uL (3.50-5.40) Hemoglobin 10.7 g/dL (12.0-15.5) Hematocrit 33.8 % (36.0-47.0) Mean Corpuscular Volume 76 fL (79-100) Mean Corpuscular Hemoglobin 24 pg (25-35) Mean Corpuscular Hemoglobin Concent 32 g/dL (31-37) Red Cell Distribution Width 19.5 % (11.5-14.5) Platelet Count 155 x10^3/uL (140-400) Neutrophils (%) (Auto) 71 % (31-73) Lymphocytes (%) (Auto) 17 % (24-48) Monocytes (%) (Auto) 11 % (0-9) Eosinophils (%) (Auto) 1 % (0-3) Basophils (%) (Auto) 0 % (0-3) Neutrophils # (Auto) 6.5 x10^3/uL (1.8-7.7) Lymphocytes # (Auto) 1.6 x10^3/uL (1.0-4.8) Monocytes # (Auto) 1.0 x10^3/uL (0.0-1.1) Eosinophils # (Auto) 0.0 x10^3/uL (0.0-0.7) Basophils # (Auto) 0.0 x10^3/uL (0.0-0.2) Problem List Problems Medical Problems: (1) Abdominal pain Status: Acute Assessment/Plan s/p ileocolic resection await bowel function dc stanley path is pending start gradual activity GHADA ROBERTS APRN Nov 06, 2019 09:41
--- NOTE | 2019-11-06 10:42 | PDOC ---
PROGRESS NOTES Subjective Subjective Pt with good pain control. Objective Objective Vital Signs Date Time Temp Pulse Resp B/P (MAP) Pulse Ox O2 Delivery O2 Flow Rate FiO2 11/06/19 07:00 98.4 127 16 119/81 (94) 99 Room Air 98.4 11/06/19 03:17 1.0 Intake and Output 11/06/19 07:00 Intake Total 800 ml Output Total 1075 ml Balance -275 ml Intake Oral 0 ml IV Total 800 ml Output Urine Total 1025 ml Estimated Blood Loss 50 ml Physical Exam Physical Exam CTAB RRR S/NT/ND No C/C/E Assessment Assessment Problems Medical Problems: (1) Abdominal pain Status: Acute Plan Plan of Care A/P 24y G0 admitted for abd pain 1.) Abd pain now thought to be 2/2 terminal ileum and colonic ulcers 2.) Degenerating fibroid intraop appearance not consistent with degenerating fibroid, may need alf f/u for fibroids, pt currently does not have a doctor for first leveler care 3.) Terminal ileum and colonic ulcers s/p laparoscopic ileocolic resection 4.) Contraception None 5.) Pt can f/u in our office for first leveler care after d/c Comment Review of Relevant I have reviewed the following items kamilah (where applicable) has been applied. Labs Laboratory Tests Test 11/06/19 07:50 White Blood Count 9.2 x10^3/uL (4.0-11.0) Red Blood Count 4.46 x10^6/uL (3.50-5.40) Hemoglobin 10.7 g/dL (12.0-15.5) Hematocrit 33.8 % (36.0-47.0) Mean Corpuscular Volume 76 fL (79-100) Mean Corpuscular Hemoglobin 24 pg (25-35) Mean Corpuscular Hemoglobin Concent 32 g/dL (31-37) Red Cell Distribution Width 19.5 % (11.5-14.5) Platelet Count 155 x10^3/uL (140-400) Neutrophils (%) (Auto) 71 % (31-73) Lymphocytes (%) (Auto) 17 % (24-48) Monocytes (%) (Auto) 11 % (0-9) Eosinophils (%) (Auto) 1 % (0-3) Basophils (%) (Auto) 0 % (0-3) Neutrophils # (Auto) 6.5 x10^3/uL (1.8-7.7) Lymphocytes # (Auto) 1.6 x10^3/uL (1.0-4.8) Monocytes # (Auto) 1.0 x10^3/uL (0.0-1.1) Eosinophils # (Auto) 0.0 x10^3/uL (0.0-0.7) Basophils # (Auto) 0.0 x10^3/uL (0.0-0.2) Laboratory Tests Test 11/06/19 07:50 White Blood Count 9.2 x10^3/uL (4.0-11.0) Red Blood Count 4.46 x10^6/uL (3.50-5.40) Hemoglobin 10.7 g/dL (12.0-15.5) Hematocrit 33.8 % (36.0-47.0) Mean Corpuscular Volume 76 fL (79-100) Mean Corpuscular Hemoglobin 24 pg (25-35) Mean Corpuscular Hemoglobin Concent 32 g/dL (31-37) Red Cell Distribution Width 19.5 % (11.5-14.5) Platelet Count 155 x10^3/uL (140-400) Neutrophils (%) (Auto) 71 % (31-73) Lymphocytes (%) (Auto) 17 % (24-48) Monocytes (%) (Auto) 11 % (0-9) Eosinophils (%) (Auto) 1 % (0-3) Basophils (%) (Auto) 0 % (0-3) Neutrophils # (Auto) 6.5 x10^3/uL (1.8-7.7) Lymphocytes # (Auto) 1.6 x10^3/uL (1.0-4.8) Monocytes # (Auto) 1.0 x10^3/uL (0.0-1.1) Eosinophils # (Auto) 0.0 x10^3/uL (0.0-0.7) Basophils # (Auto) 0.0 x10^3/uL (0.0-0.2) Medications Current Medications Sodium Chloride 1,000 ml @ 1,000 mls/hr Q1H IV Last administered on 11/01/19at 14:38; Start 11/01/19 at 14:30; Stop 11/01/19 at 15:29; Status DC Fentanyl Citrate (Fentanyl 2ml Vial) 50 mcg 1X ONCE IVP Last administered on 11/01/19at 14:39; Start 11/01/19 at 14:30; Stop 11/01/19 at 14:31; Status DC Ondansetron HCl (Zofran) 4 mg 1X ONCE IVP Last administered on 11/01/19at 14:39; Start 11/01/19 at 14:30; Stop 11/01/19 at 14:31; Status DC Iohexol (Omnipaque 300 Mg/ml) 75 ml 1X ONCE IV Last administered on 11/01/19at 15:32; Start 11/01/19 at 15:30; Stop 11/01/19 at 15:31; Status DC Info (CONTRAST GIVEN -- Rx MONITORING) 1 each PRN DAILY PRN MC SEE COMMENTS; Start 11/01/19 at 15:15; Stop 11/03/19 at 15:14; Status DC Piperacillin Sod/ Tazobactam Sod 3.375 gm/Sodium Chloride 50 ml @ 100 mls/hr 1X ONCE IV Last administered on 11/01/19at 16:55; Start 11/01/19 at 17:00; Stop 11/01/19 at 17:29; Status DC Ondansetron HCl (Zofran) 4 mg PRN Q8HRS PRN IV NAUSEA/VOMITING Last administered on 11/01/19at 23:12; Start 11/01/19 at 16:45; Stop 11/02/19 at 16 :44; Status DC Fentanyl Citrate (Fentanyl 2ml Vial) 50 mcg PRN Q1HR PRN IV PAIN Last administered on 11/02/19at 10:35; Start 11/01/19 at 16:45; Stop 11/02/19 at 11:25; Status DC Sodium Chloride 1,000 ml @ 125 mls/hr Q8H IV Last administered on 11/02/19at 08:16; Start 11/01/19 at 16:39; Stop 11/02/19 at 16:38; Status DC Acetaminophen (Tylenol) 650 mg PRN Q6HRS PRN PO fever Last administered on 11/03/19at 19:35; Start 11/01/19 at 23:00 Ketorolac Tromethamine (Toradol 30mg Vial) 30 mg PRN Q6HRS PRN IVP MILD PAIN 1- 3 Last administered on 11/02/19at 21:04; Start 11/02/19 at 11:30; Stop 11/07/19 at 11:29 Ondansetron HCl (Zofran) 4 mg PRN Q6HRS PRN IVP NAUSEA/VOMITING Last administered on 11/03/19at 03:09; Start 11/02/19 at 21:30 Fentanyl Citrate (Fentanyl 2ml Vial) 50 mcg PRN Q2HR PRN IVP SEVERE PAIN 7-10 Last administered on 11/05/19at 09:30; Start 11/03/19 at 03:00 Ondansetron HCl (Zofran) 4 mg PRN Q6HRS PRN IV NAUSEA/VOMITING; Start 11/04/19 at 07:00; Stop 11/05/19 at 06:59; Status DC Fentanyl Citrate (Fentanyl 2ml Vial) 25 mcg PRN Q5MIN PRN IV MILD PAIN 1-3; Start 11/04/19 at 07:00; Stop 11/05/19 at 06:59; Status DC Fentanyl Citrate (Fentanyl 2ml Vial) 50 mcg PRN Q5MIN PRN IV MODERATE TO SEVERE PAIN; Start 11/04/19 at 07:00; Stop 11/05/19 at 06:59; Status DC Morphine Sulfate (Morphine Sulfate) 1 mg PRN Q10MIN PRN IV SEVERE PAIN 7-10; Start 11/04/19 at 07:00; Stop 11/05/19 at 06:59; Status DC Ringer's Solution 1,000 ml @ 30 mls/hr Q24H IV ; Start 11/04/19 at 07:00; Stop 11/04/19 at 18:59; Status DC Lidocaine HCl (Xylocaine-Mpf 1% 2ml Vial) 2 ml PRN 1X PRN ID PRIOR TO IV START; Start 11/04/19 at 07:00; Stop 11/05/19 at 06:59; Status DC Hydromorphone HCl (Dilaudid) 0.5 mg PRN Q10MIN PRN IV SEV PAIN, Second choice; Start 11/04/19 at 07:00; Stop 11/05/19 at 06:59; Status DC Prochlorperazine Edisylate (Compazine) 5 mg PACU PRN PRN IV NAUSEA, MRX1; Start 11/04/19 at 07:00; Stop 11/05/19 at 06:59; Status DC Iron Sucrose 200 mg/Sodium Chloride 110 ml @ 55 mls/hr 1X ONCE IV Last administered on 11/04/19at 17:05; Start 11/04/19 at 15:45; Stop 11/04/19 at 17:44; Status DC Ondansetron HCl (Zofran) 4 mg PRN Q6HRS PRN IV NAUSEA/VOMITING; Start 11/05/19 at 07:00; Stop 11/06/19 at 06:59; Status DC Fentanyl Citrate (Fentanyl 2ml Vial) 25 mcg PRN Q5MIN PRN IV MILD PAIN 1-3; Start 11/05/19 at 07:00; Stop 11/06/19 at 06:59; Status DC Fentanyl Citrate (Fentanyl 2ml Vial) 50 mcg PRN Q5MIN PRN IV MODERATE TO SEVERE PAIN; Start 11/05/19 at 07:00; Stop 11/06/19 at 06:59; Status DC Morphine Sulfate (Morphine Sulfate) 1 mg PRN Q10MIN PRN IV SEVERE PAIN 7-10; Start 11/05/19 at 07:00; Stop 11/06/19 at 06:59; Status DC Ringer's Solution 1,000 ml @ 30 mls/hr Q24H IV Last administered on 11/05/19at 11:00; Start 11/05/19 at 07:00; Stop 11/05/19 at 18:59; Status DC Hydromorphone HCl (Dilaudid) 0.5 mg PRN Q10MIN PRN IV SEV PAIN, Second choice; Start 11/05/19 at 07:00; Stop 11/06/19 at 06:59; Status DC Prochlorperazine Edisylate (Compazine) 5 mg PACU PRN PRN IV NAUSEA, MRX1; Start 11/05/19 at 07:00; Stop 11/06/19 at 06:59; Status DC Propofol 20 ml @ As Directed STK-MED ONCE IV ; Start 11/05/19 at 10:49; Stop 11/05/19 at 10:49; Status DC Lidocaine HCl (Lidocaine Pf 2% Vial) 5 ml STK-MED ONCE .ROUTE ; Start 11/05/19 at 10:49; Stop 11/05/19 at 10:49; Status DC Fentanyl Citrate (Fentanyl 2ml Vial) 100 mcg STK-MED ONCE .ROUTE ; Start 11/05/19 at 10:49; Stop 11/05/19 at 10:49; Status DC Rocuronium [place] (Zemuron) 50 mg STK-MED ONCE .ROUTE ; Start 11/05/19 at 10:49; Stop 11/05/19 at 10:50; Status DC Cefoxitin Sodium (Mefoxin) 2 gm 1X PREOP ONCE IVP Last administered on 11/05/19at 11:55; Start 11/05/19 at 11:45; Stop 11/05/19 at 11:46; Status DC Cefoxitin Sodium (Mefoxin) 2 gm STK-MED ONCE IVP ; Start 11/05/19 at 11:36; Stop 11/05/19 at 11:36; Status DC Bupivacaine HCl/ Epinephrine Bitart (Sensorcain-Epi 0.5%-1:[id number] Mpf) 30 ml STK-MED ONCE .ROUTE Last administered on 11/05/19at 12:20; Start 11/05/19 at 11:48; Stop 11/05/19 at 11:49; Status DC Dexamethasone Sodium Phosphate (Decadron) 4 mg STK-MED ONCE .ROUTE ; Start at 12:06; Stop 11/05/19 at 12:06; Status DC Sevoflurane (Ultane) 60 ml STK-MED ONCE IH ; Start 11/05/19 at 12:06; Stop 11/05/19 at 12:06; Status DC Ondansetron HCl (Zofran) 4 mg STK-MED ONCE .ROUTE ; Start 11/05/19 at 12:13; Stop 11/05/19 at 12:13; Status DC Glycopyrrolate (Robinul) 1 mg STK-MED ONCE .ROUTE ; Start 11/05/19 at 12:13; Stop 11/05/19 at 12:13; Status DC Neostigmine [place] (Neostigmine Methylsulfate) 5 mg STK-MED ONCE .ROUTE ; Start 11/05/19 at 12:13; Stop 11/05/19 at 12:13; Status DC Hydromorphone HCl (Dilaudid) 2 mg STK-MED ONCE .ROUTE ; Start 11/05/19 at 14:05; Stop 11/05/19 at 14:05; Status DC Ketamine HCl (Ketamine) 50 mg STK-MED ONCE .ROUTE ; Start 11/05/19 at 14:05; Stop 11/05/19 at 14:05; Status DC Famotidine (Pepcid Vial) 20 mg BID IVP Last administered on 11/06/19at 09:23; Start 11/05/19 at 21:00 Sodium Chloride (Normal Saline Flush) 3 ml QSHIFT PRN IV AFTER MEDS AND BLOOD DRAWS; Start 11/05/19 at 14:45 Ringer's Solution 1,000 ml @ 100 mls/hr Q10H IV Last administered on 11/06/19at 04:23; Start 11/05/19 at 14:39 Naloxone HCl (Narcan) 0.4 mg PRN Q2MIN PRN IV SEE INSTRUCTIONS; Start 11/05/19 at 14:45 Sodium Chloride 1,000 ml @ 25 mls/hr Q24H IV ; Start 11/05/19 at 14:39 Morphine Sulfate 30 ml @ 0 mls/hr CONT PRN PRN IV PER PROTOCOL Last administered on 11/06/19at 06:18; Start 11/05/19 at 14:45 Ondansetron HCl (Zofran) 4 mg PRN Q6HRS PRN IVP NAUESA, 1ST CHOICE; Start 11/05/19 at 14:45 Vitals/I & O Vital Sign - Last 24 Hours 11/05/19 11/05/19 11/05/19 11/05/19 11:09 14:17 14:17 14:30 Temp 98.7 97.2 98.7 97.2 Pulse 110 99 110 Resp 15 14 14 B/P (MAP) 112/73 107/58 110/56 Pulse Ox 99 100 100 O2 Delivery Room Air Room Air Simple Mask Simple Mask O2 Flow Rate 10 10 11/05/19 11/05/19 11/05/19 11/05/19 14:45 14:56 15:00 15:12 Pulse 111 118 Resp 14 14 14 B/P (MAP) 114/62 115/61 Pulse Ox 100 97 94 O2 Delivery Simple Mask Nasal Cannula Nasal Cannula Room Air O2 Flow Rate 10 2.0 2 11/05/19 11/05/1920 2/20/20 15:15 16:00 16:00 16:15 Temp 98.4 97.6 98.4 97.6 Pulse 122 116 113 Resp 14 18 18 B/P (MAP) 115/66 108/69 (82) 110/71 (84) Pulse Ox 99 96 98 O2 Delivery Nasal Cannula Nasal Cannula Nasal Cannula Nasal Cannula O2 Flow Rate 2 2.0 2.0 2.0 11/05/19 11/05/19 11/05/19 11/05/19 16:30 16:45 17:15 17:45 Pulse 113 120 111 108 Resp 18 18 18 18 B/P (MAP) 114/70 (85) 109/72 (84) 105/71 (82) 114/73 (87) Pulse Ox 98 100 100 100 O2 Delivery Nasal Cannula Nasal Cannula Nasal Cannula Nasal Cannula O2 Flow Rate 2.0 2.0 2.0 2.0 11/05/19 11/05/19 2 2 18:45 19:00 20:00 23:39 Temp 98.7 98.7 98.7 98.7 Pulse 105 120 111 Resp 18 18 18 B/P (MAP) 116/70 (85) 108/71 (83) 109/68 (82) Pulse Ox 100 99 99 O2 Delivery Nasal Cannula Nasal Cannula Room Air Nasal Cannula O2 Flow Rate 2.0 2.0 1.0 11/06/19 11/06/19 211/06/19 03:17 06:18 06:48 07:00 Temp 98.3 98.4 98.3 98.4 Pulse 109 127 Resp 16 20 16 B/P (MAP) 102/68 (79) 119/81 (94) Pulse Ox 96 96 96 99 O2 Delivery Nasal Cannula Room Air Room Air Room Air O2 Flow Rate 1.0 Intake and Output 11/05/19 11/05/19 11/06/19 15:00 23:00 07:00 Intake Total 800 ml 0 ml 0 ml Output Total 125 ml 50 ml 900 ml Balance 675 ml -50 ml -900 ml BRENT MACHADO MD Nov 06, 2019 10:42
[2019-11-06 11:00] VITALS: BP 116/74
--- NOTE | 2019-11-06 11:15 | PDOC2 ---
GI CONSULT Reason For Consult: ex-lap w/ ulcerations on bowel HPI: HPI: Pleasant 24 y/o female w/ diffuse abdominal pain since last . "Like a bad stomachache." Might have had similar pain in the past but improved quickly at that time w/ Pepto. Associated w/ nausea. Might have seen red blood in stool once the day before pain began but also could have been starting her period. Labs note VEENA. Imaging as below noted possible prominent appendix (though normal caliber on US), large uterine fibroid, and nonspecific lymph node and bowel loops in RLQ. Now s/p laparoscopic ilecolic resection by Dr. Jackson on 11/05/19 - reviewed op note w/ findings of TI and colon ulcers and somewhat big uterus. Path pending. Plans to follow-up w/ [employer]ATER after DC. Denies chronic GI issues including reflux/heartburn, dysphagia, vomiting, chronic abd pain, diarrhea, constipation, melena, change in appetite, or weight loss. No previous EGD or colonoscopy. No GB, liver, pancreas, or PUD history. I asked about NSAID use - at previous job, "used to pop pain pills" because it was so stressful - specifically Aleve and ibuprofen. Stopped in 06/2019. 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 Says passed gas and would really like something to drink. PMH: PMH: denies FH: Family History: Other (mother - GERD, father - "flatulence problem" and "soft or thin colon") Social History: Smoke: No (vapes) ALCOHOL: occassional Drugs: None ROS: GEN: Denies fevers, chills, sweats HEENT: Denies blurred vision, sore throat CV: Denies chest pain RESP: Denies shortness of air, cough GI: Per HPI : Denies hematuria, dysuria ENDO: Denies weight changes NEURO: Denies confusion, dizziness MSK: Denies weakness, joint pain/swelling SKIN: Denies jaundice, pruritus Vitals: Vitals: Vital Signs Date Time Temp Pulse Resp B/P (MAP) Pulse Ox O2 Delivery O2 Flow Rate FiO2 11/06/19 07:00 98.4 127 16 119/81 (94) 99 Room Air 98.4 11/06/19 03:17 1.0 Labs: Labs: Laboratory Tests Test 11/06/19 07:50 White Blood Count 9.2 x10^3/uL (4.0-11.0) Red Blood Count 4.46 x10^6/uL (3.50-5.40) Hemoglobin 10.7 g/dL (12.0-15.5) Hematocrit 33.8 % (36.0-47.0) Mean Corpuscular Volume 76 fL (79-100) Mean Corpuscular Hemoglobin 24 pg (25-35) Mean Corpuscular Hemoglobin Concent 32 g/dL (31-37) Red Cell Distribution Width 19.5 % (11.5-14.5) Platelet Count 155 x10^3/uL (140-400) Neutrophils (%) (Auto) 71 % (31-73) Lymphocytes (%) (Auto) 17 % (24-48) Monocytes (%) (Auto) 11 % (0-9) Eosinophils (%) (Auto) 1 % (0-3) Basophils (%) (Auto) 0 % (0-3) Neutrophils # (Auto) 6.5 x10^3/uL (1.8-7.7) Lymphocytes # (Auto) 1.6 x10^3/uL (1.0-4.8) Monocytes # (Auto) 1.0 x10^3/uL (0.0-1.1) Eosinophils # (Auto) 0.0 x10^3/uL (0.0-0.7) Basophils # (Auto) 0.0 x10^3/uL (0.0-0.2) Allergies: Coded Allergies: No Known Drug Allergies (Unverified , 11/01/19) Medications: Current Medications Medications (Trade) Dose Ordered Sig/Yeimi Route PRN Reason Start Time Stop Time Status Last Admin Dose Admin Cefoxitin Sodium (Mefoxin) 2 gm 1X PREOP ONCE IVP 11/05/19 11:45 11/05/19 11:46 DC 11/05/19 11:55 Bupivacaine HCl/ Epinephrine Bitart (Sensorcain-Epi 0.5%-1:734590 Mpf) 30 ml STK-MED ONCE .ROUTE 11/05/19 11:48 11/05/19 11:49 DC 11/05/19 12:20 Famotidine (Pepcid Vial) 20 mg BID IVP 11/05/19 21:00 11/06/19 09:23 Ringer's Solution 1,000 ml @ 100 mls/hr Q10H IV 11/05/19 14:39 11/06/19 04:23 Morphine Sulfate 30 ml @ 0 mls/hr CONT PRN PRN IV PER PROTOCOL 11/05/19 14:45 11/06/19 06:18 Imaging: Imaging: CT A/P 11/01 Impression: 1. A heterogeneously attenuating, well-circumscribed mass is seen within the uterine fundus that measures approximately 6.6 x 6.7 x 6.6 cm. The endometrium appears to be displaced to the right and this mass results in partial effacement of the subjacent urinary bladder. The imaging appearance is most compatible with a uterine leiomyoma with internal degeneration. 2. A tubular structure thought to represent the appendix is segmentally visualized and faintly prominent in transverse dimension but there are no regional inflammatory changes to suggest appendicitis. 3. Radiodense material scattered throughout the colon suggestive of retained contrast. Correlate for any recently performed outside imaging studies. Pelvis US 11/02 IMPRESSION: Large 6.2 cm fibroid identified in the uterus. Abd US 11/03 IMPRESSION: 1. Suspected normal caliber appendix within the right lower quadrant. Noteis made that repeat cross-sectional imaging may be indicated if there is continued concern for appendicitis. 2. Nonspecific lymph node and bowel loops within the right lower quadrant. 3. Obscured right ovary. KUB 11/05 Impression: 1. No metallic foreign bodies. Postoperative pneumoperitoneum. PE: GEN: NAD HEENT: Atraumatic, PERRL LUNGS: CTAB HEART: tachycardic ABD: quiet, soft, has ice pack EXTREMITY: No edema SKIN: No rashes, no jaundice NEURO/PSYCH: A & O 3 A/P: A/P: Abd pain VEENA, uterine fibroid S/p ileocolic resection - ulcers in TI and colon CRC screen - average risk -- Continue post-op care per surgery, await pathology. TIFFANIE MULLINS Nov 06, 2019 11:15
[2019-11-06] MEDS: IV NORMAL SALINE 1000ML BAG 1,000 ML IV SCH (14:39)
[2019-11-06 15:00] VITALS: BP 109/74
[2019-11-06 19:25] VITALS: BP 107/66
[2019-11-06] MEDS: ACETAMINOPHEN 325 MG TABLET. PO PRN (21:29)
[2019-11-06] MEDS ORDERED: ACETAMINOPHEN 325 MG TABLET. PO ONE (23:15)
[2019-11-06] MEDS ORDERED: IV NORMAL SALINE 1000ML BAG 1,000 ML IV ONE (23:15)
[2019-11-06 23:30] VITALS: BP 108/67
[2019-11-06 23:48] LABS: BILIRUBIN,URINE NEGATIVE (NEG); CLARITY,URINE CLEAR; COLOR,URINE YELLOW; NITRITE,URINE NEGATIVE (NEG); PH,URINE 5.5; PROTEIN,URINE 30 mg/dL (NEG-TRACE); UROBILINOGEN,URINE 0.2 mg/dL (0.2 mg/dL)
[2019-11-06 23:57] LABS: BACTERIA,URINE 0 /HPF (0-FEW); SQUAMOUS EPITHELIAL CELL,UR OCC /LPF
[2019-11-07] VITALS (7 sets, daily range): BP systolic 112–126; BP diastolic 72–88
--- NOTE | 2019-11-07 05:34 | NUR ---
Boudreaux discontinued at 0530 with no complications.
[2019-11-07] MEDS: MORPHINE SULFATE/PF 30 ML IV PRN (07:50)
[2019-11-07] MEDS: IV RINGERS,LACTATED 1000ML 1,000 ML IV SCH ×4 (08:21→23:54)
[2019-11-07] MEDS: FAMOTIDINE 20 MG/2 ML VIAL IVP SCH ×2 (08:23→21:19)
--- NOTE | 2019-11-07 08:50 | RAD ---
PORTABLE CHEST 1V Clinical indications: Tachycardia. History of exploratory laparotomy. COMPARISON: None available. Findings: There is a small amount of free intraperitoneal air underneath the right hemidiaphragm one day after surgery. Bibasilar linear atelectasis is seen. No pleural effusion or pneumothorax is evident. Heart size and pulmonary vasculature and mediastinum and both jaspreet are unremarkable. IMPRESSION: Postoperative bibasilar atelectasis. Small amount of postoperative free air. Electronically signed by: Andres Knutson MD (11/07/2019 8:47 AM) [facility]
--- NOTE | 2019-11-07 08:59 | PDOC ---
PROGRESS NOTES Chief Complaint Chief Complaint A/P: Abdominal pain Uterine fibroids Iron deficiency anemia Ileum and colon ulcerations History of Present Illness History of Present Illness Ms Lei is a 24yo F admitted with abdominal pain. CT with uterine mass. mild prominence of appendix, however no inflammatory findings, no leukocytosis. US reveals likely 6cm uterine fibroid. Seen by general surgery and Abstracter. 11/03: Feeling RLQ pain this morning. Toradol did not seem to help. Mother is bedside. I have discussed repeating imaging as a possibility though US does not always visualize the appendix. No changes 11/04: Pain improved somewhat. Still present on palpation. Iron levels low. Plan to try to advance diet today, but also plan for ex-lap tomorrow given persistence of symptoms. 11/05: Ex-lap with terminal ileum and colonic ulcers, intraop appearance not consistent with degenerating fibroid, s/p laparoscopic ileocolic resection 11/06: Still with pain, tolerated iron well. 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 No CP or SOB. Pain is improved today. No CP or SOB. Still on REPL[employer]ING MACHINE CREWMAN, path pending. Vitals Vitals Vital Signs Date Time Temp Pulse Resp B/P (MAP) Pulse Ox O2 Delivery O2 Flow Rate FiO2 11/07/19 07:50 98 Room Air 11/07/19 07:00 98.4 132 16 112/88 (96) 98.4 11/07/19 00:36 Physical Exam General: Alert, Oriented X3, Cooperative Heart: Regular rate, Normal S1, Normal S2 Abdomen: Soft, Other (ND, dressing dry) Extremities: No clubbing, No cyanosis Skin: No rashes, No breakdown Labs LABS Laboratory Tests Test 11/06/19 23:15 Urine Collection Type Unknown Urine Color Yellow Urine Clarity Clear Urine pH 5.5 Urine Specific [place] 1.025 Urine Protein 30 mg/dL (NEG-TRACE) Urine Glucose (UA) Negative mg/dL (NEG) Urine Ketones (Stick) >=80 mg/dL (NEG) Urine Blood Moderate (NEG) Urine Nitrite Negative (NEG) Urine Bilirubin Negative (NEG) Urine Urobilinogen Dipstick 0.2 mg/dL (0.2 mg/dL) Urine Leukocyte Esterase Negative (NEG) Urine RBC 11-20 /HPF (0-2) Urine WBC 1-4 /HPF (0-4) Urine Squamous Epithelial Cells Occ /LPF Urine Bacteria 0 /HPF (0-FEW) Urine Mucus Slight /LPF Assessment and Plan Assessmemt and Plan Problems Medical Problems: (1) Abdominal pain Status: Acute Comment Review of Relevant I have reviewed the following items kamilah (where applicable) has been applied. Labs Laboratory Tests Test 11/05/19 13:05 11/06/19 07:50 11/06/19 23:15 Carcinoembryonic Antigen 6.5 ng/mL (0.0-4.7) White Blood Count 9.2 x10^3/uL (4.0-11.0) Red Blood Count 4.46 x10^6/uL (3.50-5.40) Hemoglobin 10.7 g/dL (12.0-15.5) Hematocrit 33.8 % (36.0-47.0) Mean Corpuscular Volume 76 fL (79-100) Mean Corpuscular Hemoglobin 24 pg (25-35) Mean Corpuscular Hemoglobin Concent 32 g/dL (31-37) Red Cell Distribution Width 19.5 % (11.5-14.5) Platelet Count 155 x10^3/uL (140-400) Neutrophils (%) (Auto) 71 % (31-73) Lymphocytes (%) (Auto) 17 % (24-48) Monocytes (%) (Auto) 11 % (0-9) Eosinophils (%) (Auto) 1 % (0-3) Basophils (%) (Auto) 0 % (0-3) Neutrophils # (Auto) 6.5 x10^3/uL (1.8-7.7) Lymphocytes # (Auto) 1.6 x10^3/uL (1.0-4.8) Monocytes # (Auto) 1.0 x10^3/uL (0.0-1.1) Eosinophils # (Auto) 0.0 x10^3/uL (0.0-0.7) Basophils # (Auto) 0.0 x10^3/uL (0.0-0.2) Urine Collection Type Unknown Urine Color Yellow Urine Clarity Clear Urine pH 5.5 Urine Specific [place] 1.025 Urine Protein 30 mg/dL (NEG-TRACE) Urine Glucose (UA) Negative mg/dL (NEG) Urine Ketones (Stick) >=80 mg/dL (NEG) Urine Blood Moderate (NEG) Urine Nitrite Negative (NEG) Urine Bilirubin Negative (NEG) Urine Urobilinogen Dipstick 0.2 mg/dL (0.2 mg/dL) Urine Leukocyte Esterase Negative (NEG) Urine RBC 11-20 /HPF (0-2) Urine WBC 1-4 /HPF (0-4) Urine Squamous Epithelial Cells Occ /LPF Urine Bacteria 0 /HPF (0-FEW) Urine Mucus Slight /LPF Laboratory Tests Test 11/06/19 23:15 Urine Collection Type Unknown Urine Color Yellow Urine Clarity Clear Urine pH 5.5 Urine Specific Cook[place] 1.025 Urine Protein 30 mg/dL (NEG-TRACE) Urine Glucose (UA) Negative mg/dL (NEG) Urine Ketones (Stick) >=80 mg/dL (NEG) Urine Blood Moderate (NEG) Urine Nitrite Negative (NEG) Urine Bilirubin Negative (NEG) Urine Urobilinogen Dipstick 0.2 mg/dL (0.2 mg/dL) Urine Leukocyte Esterase Negative (NEG) Urine RBC 11-20 /HPF (0-2) Urine WBC 1-4 /HPF (0-4) Urine Squamous Epithelial Cells Occ /LPF Urine Bacteria 0 /HPF (0-FEW) Urine Mucus Slight /LPF Medications Current Medications Sodium Chloride 1,000 ml @ 1,000 mls/hr Q1H IV Last administered on 11/01/19at 14:38; Start 11/01/19 at 14:30; Stop 11/01/19 at 15:29; Status DC Fentanyl Citrate (Fentanyl 2ml Vial) 50 mcg 1X ONCE IVP Last administered on 11/01/19at 14:39; Start 11/01/19 at 14:30; Stop 11/01/19 at 14:31; Status DC Ondansetron HCl (Zofran) 4 mg 1X ONCE IVP Last administered on 11/01/19at 14:39; Start 11/01/19 at 14:30; Stop 11/01/19 at 14:31; Status DC Iohexol (Omnipaque 300 Mg/ml) 75 ml 1X ONCE IV Last administered on 11/01/19at 15:32; Start 11/01/19 at 15:30; Stop 11/01/19 at 15:31; Status DC Info (CONTRAST GIVEN -- Rx MONITORING) 1 each PRN DAILY PRN MC SEE COMMENTS; Start 11/01/19 at 15:15; Stop 11/03/19 at 15:14; Status DC Piperacillin Sod/ Tazobactam Sod 3.375 gm/Sodium Chloride 50 ml @ 100 mls/hr 1X ONCE IV Last administered on 11/01/19at 16:55; Start 11/01/19 at 17:00; Stop 11/01/19 at 17:29; Status DC Ondansetron HCl (Zofran) 4 mg PRN Q8HRS PRN IV NAUSEA/VOMITING Last administered on 11/01/19at 23:12; Start 11/01/19 at 16:45; Stop 11/02/19 at 16:44 ; Status DC Fentanyl Citrate (Fentanyl 2ml Vial) 50 mcg PRN Q1HR PRN IV PAIN Last administered on 11/02/19at 10:35; Start 11/01/19 at 16:45; Stop 11/02/19 at 11:25; Status DC Sodium Chloride 1,000 ml @ 125 mls/hr Q8H IV Last administered on 11/02/19at 0 8:16; Start 11/01/19 at 16:39; Stop 11/02/19 at 16:38; Status DC Acetaminophen (Tylenol) 650 mg PRN Q6HRS PRN PO fever Last administered on 11/06/19at 21:29; Start 11/01/19 at 23:00 Ketorolac Tromethamine (Toradol 30mg Vial) 30 mg PRN Q6HRS PRN IVP MILD PAIN 1- 3 Last administered on 11/02/19at 21:04; Start 11/02/19 at 11:30; Stop 11/07/19 at 11:29 Ondansetron HCl (Zofran) 4 mg PRN Q6HRS PRN IVP NAUSEA/VOMITING Last administered on 11/03/19at 03:09; Start 11/02/19 at 21:30; Stop 11/06/19 at 11:25; Status DC Fentanyl Citrate (Fentanyl 2ml Vial) 50 mcg PRN Q2HR PRN IVP SEVERE PAIN 7-10 Last administered on 11/05/19at 09:30; Start 11/03/19 at 03:00 Ondansetron HCl (Zofran) 4 mg PRN Q6HRS PRN IV NAUSEA/VOMITING; Start 11/04/19 at 07:00; Stop 11/05/19 at 06:59; Status DC Fentanyl Citrate (Fentanyl 2ml Vial) 25 mcg PRN Q5MIN PRN IV MILD PAIN 1-3; Start 11/04/19 at 07:00; Stop 11/05/19 at 06:59; Status DC Fentanyl Citrate (Fentanyl 2ml Vial) 50 mcg PRN Q5MIN PRN IV MODERATE TO SEVERE PAIN; Start 11/04/19 at 07:00; Stop 11/05/19 at 06:59; Status DC Morphine Sulfate (Morphine Sulfate) 1 mg PRN Q10MIN PRN IV SEVERE PAIN 7-10; Start 11/04/19 at 07:00; Stop 11/05/19 at 06:59; Status DC Ringer's Solution 1,000 ml @ 30 mls/hr Q24H IV ; Start 11/04/19 at 07:00; Stop 11/04/19 at 18:59; Status DC Lidocaine HCl (Xylocaine-Mpf 1% 2ml Vial) 2 ml PRN 1X PRN ID PRIOR TO IV START; Start 11/04/19 at 07:00; Stop 11/05/19 at 06:59; Status DC Hydromorphone HCl (Dilaudid) 0.5 mg PRN Q10MIN PRN IV SEV PAIN, Second choice; Start 11/04/19 at 07:00; Stop 11/05/19 at 06:59; Status DC Prochlorperazine Edisylate (Compazine) 5 mg PACU PRN PRN IV NAUSEA, MRX1; Start 11/04/19 at 07:00; Stop 11/05/19 at 06:59; Status DC Iron Sucrose 200 mg/Sodium Chloride 110 ml @ 55 mls/hr 1X ONCE IV Last administered on 11/04/19at 17:05; Start 11/04/19 at 15:45; Stop 11/04/19 at 17:44; Status DC Ondansetron HCl (Zofran) 4 mg PRN Q6HRS PRN IV NAUSEA/VOMITING; Start 11/05/19 at 07:00; Stop 11/06/19 at 06:59; Status DC Fentanyl Citrate (Fentanyl 2ml Vial) 25 mcg PRN Q5MIN PRN IV MILD PAIN 1-3; Start 11/05/19 at 07:00; Stop 11/06/19 at 06:59; Status DC Fentanyl Citrate (Fentanyl 2ml Vial) 50 mcg PRN Q5MIN PRN IV MODERATE TO SEVERE PAIN; Start 11/05/19 at 07:00; Stop 11/06/19 at 06:59; Status DC Morphine Sulfate (Morphine Sulfate) 1 mg PRN Q10MIN PRN IV SEVERE PAIN 7-10; Start 11/05/19 at 07:00; Stop 11/06/19 at 06:59; Status DC Ringer's Solution 1,000 ml @ 30 mls/hr Q24H IV Last administered on 11/05/19at 11:00; Start 11/05/19 at 07:00; Stop 11/05/19 at 18:59; Status DC Hydromorphone HCl (Dilaudid) 0.5 mg PRN Q10MIN PRN IV SEV PAIN, Second choice; Start 11/05/19 at 07:00; Stop 11/06/19 at 06:59; Status DC Prochlorperazine Edisylate (Compazine) 5 mg PACU PRN PRN IV NAUSEA, MRX1; Start 11/05/19 at 07:00; Stop 11/06/19 at 06:59; Status DC Propofol 20 ml @ As Directed STK-MED ONCE IV ; Start 11/05/19 at 10:49; Stop at 10:49; Status DC Lidocaine HCl (Lidocaine Pf 2% Vial) 5 ml STK-MED ONCE .ROUTE ; Start 11/05/19 at 10:49; Stop 11/05/19 at 10:49; Status DC Fentanyl Citrate (Fentanyl 2ml Vial) 100 mcg STK-MED ONCE .ROUTE ; Start 11/05/19 at 10:49; Stop 11/05/19 at 10:49; Status DC Rocuronium [place] (Zemuron) 50 mg STK-MED ONCE .ROUTE ; Start 11/05/19 at 10:49; Stop 11/05/19 at 10:50; Status DC Cefoxitin Sodium (Mefoxin) 2 gm 1X PREOP ONCE IVP Last administered on 11/05/19at 11:55; Start 11/05/19 at 11:45; Stop 11/05/19 at 11:46; Status DC Cefoxitin Sodium (Mefoxin) 2 gm STK-MED ONCE IVP ; Start 11/05/19 at 11:36; Stop 11/05/19 at 11:36; Status DC Bupivacaine HCl/ Epinephrine Bitart (Sensorcain-Epi 0.5%-1:173332 Mpf) 30 ml STK-MED ONCE .ROUTE Last administered on 11/05/19at 12:20; Start 11/05/19 at 11:48; Stop 11/05/19 at 11:49; Status DC Dexamethasone Sodium Phosphate (Decadron) 4 mg STK-MED ONCE .ROUTE ; Start 11/05/19 at 12:06; Stop 11/05/19 at 12:06; Status DC Sevoflurane (Ultane) 60 ml STK-MED ONCE IH ; Start 11/05/19 at 12:06; Stop 11/05/19 at 12:06; Status DC Ondansetron HCl (Zofran) 4 mg STK-MED ONCE .ROUTE ; Start 11/05/19 at 12:13; Stop 11/05/19 at 12:13; Status DC Glycopyrrolate (Robinul) 1 mg STK-MED ONCE .ROUTE ; Start 11/05/19 at 12:13; Stop 11/05/19 at 12:13; Status DC Neostigmine [place] (Neostigmine Methylsulfate) 5 mg STK-MED ONCE .ROUTE ; Start 11/05/19 at 12:13; Stop 11/05/19 at 12:13; Status DC Hydromorphone HCl (Dilaudid) 2 mg STK-MED ONCE .ROUTE ; Start 11/05/19 at 14:05; Stop 11/05/19 at 14:05; Status DC Ketamine HCl (Ketamine) 50 mg STK-MED ONCE .ROUTE ; Start 11/05/19 at 14:05; Stop 11/05/19 at 14:05; Status DC Famotidine (Pepcid Vial) 20 mg BID IVP Last administered on 11/07/19at 08:23; Start 11/05/19 at 21:00 Sodium Chloride (Normal Saline Flush) 3 ml QSHIFT PRN IV AFTER MEDS AND BLOOD DRAWS; Start 11/05/19 at 14:45 Ringer's Solution 1,000 ml @ 125 mls/hr Q8H IV Last administered on 11/07/19at 08:21; Start 11/05/19 at 14:39 Naloxone HCl (Narcan) 0.4 mg PRN Q2MIN PRN IV SEE INSTRUCTIONS; Start 11/05/19 at 14:45 Sodium Chloride 1,000 ml @ 25 mls/hr Q24H IV ; Start 11/05/19 at 14:39 Morphine Sulfate 30 ml @ 0 mls/hr CONT PRN PRN IV PER PROTOCOL Last administered on 11/07/19at 07:50; Start 11/05/19 at 14:45 Ondansetron HCl (Zofran) 4 mg PRN Q6HRS PRN IVP [id number], 1ST CHOICE; Start 11/05/19 at 14:45 Acetaminophen (Tylenol) 325 mg 1X ONCE PO Last administered on 11/06/19at 23:19; Start 11/06/19 at 23:15; Stop 11/06/19 at 23:16; Status DC Sodium Chloride 1,000 ml @ 1,000 mls/hr 1X ONCE IV Last administered on 11/06/19at 23:18; Start 11/06/19 at 23:15; Stop 11/07/19 at 00:14; Status DC Vitals/I & O Vital Sign - Last 24 Hours 11/06/19 11/06/19 11/06/19 11/06/19 11:00 15:00 19:25 19:35 Temp 98.1 98.2 100.2 98.1 98.2 100.2 Pulse 118 96 134 Resp 18 16 20 B/P (MAP) 116/74 (88) 109/74 (86) 107/66 (80) Pulse Ox 99 100 94 O2 Delivery Room Air Room Air Room Air Room Air 11/06/19 11/07/19 11/07/19 11/07/19 23:30 00:36 02:56 07:00 Temp 100.4 100.1 99.4 98.4 100.4 100.1 99.4 98.4 Pulse 137 136 132 132 Resp 20 18 18 16 B/P (MAP) 108/67 (81) 115/72 (86) 126/79 (95) 112/88 (96) Pulse Ox 96 97 98 99 O2 Delivery Room Air Room Air Room Air Room Air O2 Flow Rate 11/07/19 11/07/19 07:25 07:50 Pulse Ox 98 O2 Delivery Room Air Room Air Intake and Output 11/06/19 11/06/19 11/07/19 15:00 23:00 07:00 Intake Total 0 ml 0 ml Output Total 1250 ml Balance 0 ml -1250 ml MOON AGUIAR MD Nov 07, 2019 08:59
[2019-11-07] MEDS: IV NORMAL SALINE 1000ML BAG 1,000 ML IV SCH (09:05)
--- NOTE | 2019-11-07 09:05 | PDOC ---
GHADA ROBERTS LAUNDRY PRESSER 11/07/19 0905: SURGICAL PROGRESS NOTE Subjective + flatus pain managed no n/v Vital Signs Vital Signs Date Time Temp Pulse Resp B/P (MAP) Pulse Ox O2 Delivery O2 Flow Rate FiO2 11/07/19 07:50 98 Room Air 11/07/19 07:00 98.4 132 16 112/88 (96) 98.4 11/07/19 00:36 I&O Intake and Output 11/07/19 07:00 Intake Total 0 ml Output Total 1250 ml Balance -1250 ml Intake Oral 0 ml Output Urine Total 1250 ml # Voids 3 General: Alert, Oriented X3, Cooperative Abdomen: Soft, Other (ND, incisions c/d/i, no erythema ) Labs Laboratory Tests Test 11/05/19 13:05 11/06/19 07:50 11/06/19 23:15 Carcinoembryonic Antigen 6.5 ng/mL (0.0-4.7) White Blood Count 9.2 x10^3/uL (4.0-11.0) Red Blood Count 4.46 x10^6/uL (3.50-5.40) Hemoglobin 10.7 g/dL (12.0-15.5) Hematocrit 33.8 % (36.0-47.0) Mean Corpuscular Volume 76 fL (79-100) Mean Corpuscular Hemoglobin 24 pg (25-35) Mean Corpuscular Hemoglobin Concent 32 g/dL (31-37) Red Cell Distribution Width 19.5 % (11.5-14.5) Platelet Count 155 x10^3/uL (140-400) Neutrophils (%) (Auto) 71 % (31-73) Lymphocytes (%) (Auto) 17 % (24-48) Monocytes (%) (Auto) 11 % (0-9) Eosinophils (%) (Auto) 1 % (0-3) Basophils (%) (Auto) 0 % (0-3) Neutrophils # (Auto) 6.5 x10^3/uL (1.8-7.7) Lymphocytes # (Auto) 1.6 x10^3/uL (1.0-4.8) Monocytes # (Auto) 1.0 x10^3/uL (0.0-1.1) Eosinophils # (Auto) 0.0 x10^3/uL (0.0-0.7) Basophils # (Auto) 0.0 x10^3/uL (0.0-0.2) Urine Collection Type Unknown Urine Color Yellow Urine Clarity Clear Urine pH 5.5 Urine Specific [place] 1.025 Urine Protein 30 mg/dL (NEG-TRACE) Urine Glucose (UA) Negative mg/dL (NEG) Urine Ketones (Stick) >=80 mg/dL (NEG) Urine Blood Moderate (NEG) Urine Nitrite Negative (NEG) Urine Bilirubin Negative (NEG) Urine Urobilinogen Dipstick 0.2 mg/dL (0.2 mg/dL) Urine Leukocyte Esterase Negative (NEG) Urine RBC 11-20 /HPF (0-2) Urine WBC 1-4 /HPF (0-4) Urine Squamous Epithelial Cells Occ /LPF Urine Bacteria 0 /HPF (0-FEW) Urine Mucus Slight /LPF Laboratory Tests Test 11/06/19 23:15 Urine Collection Type Unknown Urine Color Yellow Urine Clarity Clear Urine pH 5.5 Urine Specific [place] 1.025 Urine Protein 30 mg/dL (NEG-TRACE) Urine Glucose (UA) Negative mg/dL (NEG) Urine Ketones (Stick) >=80 mg/dL (NEG) Urine Blood Moderate (NEG) Urine Nitrite Negative (NEG) Urine Bilirubin Negative (NEG) Urine Urobilinogen Dipstick 0.2 mg/dL (0.2 mg/dL) Urine Leukocyte Esterase Negative (NEG) Urine RBC 11-20 /HPF (0-2) Urine WBC 1-4 /HPF (0-4) Urine Squamous Epithelial Cells Occ /LPF Urine Bacteria 0 /HPF (0-FEW) Urine Mucus Slight /LPF Problem List Problems Medical Problems: (1) Abdominal pain Status: Acute Assessment/Plan s/p ileocolic resection await path clear liquids low grade fevers, tachy IS, ambulate check labs MIO ESCOBAR MD 11/07/19 1052: SURGICAL PROGRESS NOTE Assessment/Plan Agree with Cassandra assessment and plan advance diet to clear liquids GHADA RBOERTS LAUNDRY PRESSER Nov 07, 2019 09:05 MIO ESCOBAR MD Nov 07, 2019 10:52
[2019-11-07 10:08] LABS: CALCIUM 7.6 mg/dL (8.5-10.1); CREATININE 0.4 mg/dL (0.6-1.0); GFR 235.3
[2019-11-07 10:09] LABS: BASO # 0.1 x10^3/uL (0.0-0.2); BASO % 0 % (0-3); EOS # 0.1 x10^3/uL (0.0-0.7); EOS % 0 % (0-3); HEMATOCRIT 33.7 % (36.0-47.0); HEMOGLOBIN 10.6 g/dL (12.0-15.5); LYMPH # 1.2 x10^3/uL (1.0-4.8); LYMPH % 6 % (24-48); MEAN CORPUSCULAR HEMOGLOBIN 24 pg (25-35); MEAN CORPUSCULAR HGB CONC 32 g/dL (31-37); MEAN CORPUSCULAR VOLUME 76 fL (79-100); MONO # 1.2 x10^3/uL (0.0-1.1); MONO % 6 % (0-9); NEUT # 19.1 x10^3/uL (1.8-7.7); NEUT % 88 % (31-73); PLATELET COUNT 144 x10^3/uL (140-400); RED BLOOD COUNT 4.45 x10^6/uL (3.50-5.40); RED CELL DISTRIBUTION WIDTH 19.6 % (11.5-14.5); WHITE BLOOD COUNT 21.7 x10^3/uL (4.0-11.0)
[2019-11-07] MEDS ORDERED: traMADol 50 MG TABLET PO PRN (16:30)
[2019-11-07] MEDS: ACETAMINOPHEN 325 MG TABLET. PO PRN (19:32)
[2019-11-08 02:31] VITALS: BP 120/84
[2019-11-08 06:36] VITALS: BP 118/82
[2019-11-08] MEDS: MORPHINE SULFATE/PF 30 ML IV PRN (06:59)
[2019-11-08] MEDS: FAMOTIDINE 20 MG/2 ML VIAL IVP SCH ×2 (07:28→21:44)
--- NOTE | 2019-11-08 07:45 | PDOC ---
PROGRESS NOTES Chief Complaint Chief Complaint A/P: Abdominal pain Uterine fibroids Iron deficiency anemia Ileum and colon ulcerations History of Present Illness History of Present Illness Ms Lei is a 24yo F admitted with abdominal pain. CT with uterine mass. mild prominence of appendix, however no inflammatory findings, no leukocytosis. US reveals likely 6cm uterine fibroid. Seen by general surgery and Obstetrics Tech. 11/03: Feeling RLQ pain this morning. Toradol did not seem to help. Mother is bedside. I have discussed repeating imaging as a possibility though US does not always visualize the appendix. No changes 11/04: Pain improved somewhat. Still present on palpation. Iron levels low. Plan to try to advance diet today, but also plan for ex-lap tomorrow given persistence of symptoms. 11/05: Ex-lap with terminal ileum and colonic ulcers, intraop appearance not consistent with degenerating fibroid, s/p laparoscopic ileocolic resection 11/06: Still with pain, tolerated iron well. Using OVERLAY PLASTICIAN for pain control. No CP or SOB. 11/07: Pain is improved today. No CP or SOB. Still on OVERLAY PLASTICIAN, path pending. Tachycardic Overnight still with tachycardia. Fever 101F. Using bedside spirometer. Her pain is controlled, but still requiring OVERLAY PLASTICIAN. Plan: Blood cultures Abdominal CT Vitals Vitals Vital Signs Date Time Temp Pulse Resp B/P (MAP) Pulse Ox O2 Delivery O2 Flow Rate FiO2 11/08/19 07:30 97 Room Air 11/08/19 06:36 98.1 132 18 118/82 (94) 98.1 Physical Exam General: Alert, Oriented X3, Cooperative Heart: Regular rate, Normal S1, Normal S2 Abdomen: Soft, Other (ND, incisions c/d/i, no erythema ) Extremities: No clubbing, No cyanosis Skin: No rashes, No breakdown Labs LABS Laboratory Tests Test 11/07/19 09:40 White Blood Count 21.7 x10^3/uL (4.0-11.0) Red Blood Count 4.45 x10^6/uL (3.50-5.40) Hemoglobin 10.6 g/dL (12.0-15.5) Hematocrit 33.7 % (36.0-47.0) Mean Corpuscular Volume 76 fL (79-100) Mean Corpuscular Hemoglobin 24 pg (25-35) Mean Corpuscular Hemoglobin Concent 32 g/dL (31-37) Red Cell Distribution Width 19.6 % (11.5-14.5) Platelet Count 144 x10^3/uL (140-400) Neutrophils (%) (Auto) 88 % (31-73) Lymphocytes (%) (Auto) 6 % (24-48) Monocytes (%) (Auto) 6 % (0-9) Eosinophils (%) (Auto) 0 % (0-3) Basophils (%) (Auto) 0 % (0-3) Neutrophils # (Auto) 19.1 x10^3/uL (1.8-7.7) Lymphocytes # (Auto) 1.2 x10^3/uL (1.0-4.8) Monocytes # (Auto) 1.2 x10^3/uL (0.0-1.1) Eosinophils # (Auto) 0.1 x10^3/uL (0.0-0.7) Basophils # (Auto) 0.1 x10^3/uL (0.0-0.2) Sodium Level 136 mmol/L (136-145) Potassium Level 4.0 mmol/L (3.5-5.1) Chloride Level 104 mmol/L (98-107) Carbon Dioxide Level 14 mmol/L (21-32) Anion Gap 18 (6-14) Blood Urea Nitrogen 4 mg/dL (7-20) Creatinine 0.4 mg/dL (0.6-1.0) Estimated GFR (Cockcroft-Gault) 235.3 Glucose Level 94 mg/dL (70-99) Calcium Level 7.6 mg/dL (8.5-10.1) Assessment and Plan Assessmemt and Plan Problems Medical Problems: (1) Abdominal pain Status: Acute Comment Review of Relevant I have reviewed the following items kamilah (where applicable) has been applied. Labs Laboratory Tests Test 11/06/19 07:50 11/06/19 23:15 11/07/19 09:40 White Blood Count 9.2 x10^3/uL (4.0-11.0) 21.7 x10^3/uL (4.0-11.0) Red Blood Count 4.46 x10^6/uL (3.50-5.40) 4.45 x10^6/uL (3.50-5.40) Hemoglobin 10.7 g/dL (12.0-15.5) 10.6 g/dL (12.0-15.5) Hematocrit 33.8 % (36.0-47.0) 33.7 % (36.0-47.0) Mean Corpuscular Volume 76 fL (79-100) 76 fL (79-100) Mean Corpuscular Hemoglobin 24 pg (25-35) 24 pg (25-35) Mean Corpuscular Hemoglobin Concent 32 g/dL (31-37) 32 g/dL (31-37) Red Cell Distribution Width 19.5 % (11.5-14.5) 19.6 % (11.5-14.5) Platelet Count 155 x10^3/uL (140-400) 144 x10^3/uL (140-400) Neutrophils (%) (Auto) 71 % (31-73) 88 % (31-73) Lymphocytes (%) (Auto) 17 % (24-48) 6 % (24-48) Monocytes (%) (Auto) 11 % (0-9) 6 % (0-9) Eosinophils (%) (Auto) 1 % (0-3) 0 % (0-3) Basophils (%) (Auto) 0 % (0-3) 0 % (0-3) Neutrophils # (Auto) 6.5 x10^3/uL (1.8-7.7) 19.1 x10^3/uL (1.8-7.7) Lymphocytes # (Auto) 1.6 x10^3/uL (1.0-4.8) 1.2 x10^3/uL (1.0-4.8) Monocytes # (Auto) 1.0 x10^3/uL (0.0-1.1) 1.2 x10^3/uL (0.0-1.1) Eosinophils # (Auto) 0.0 x10^3/uL (0.0-0.7) 0.1 x10^3/uL (0.0-0.7) Basophils # (Auto) 0.0 x10^3/uL (0.0-0.2) 0.1 x10^3/uL (0.0-0.2) Urine Collection Type Unknown Urine Color Yellow Urine Clarity Clear Urine pH 5.5 Urine Specific [place] 1.025 Urine Protein 30 mg/dL (NEG-TRACE) Urine Glucose (UA) Negative mg/dL (NEG) Urine Ketones (Stick) >=80 mg/dL (NEG) Urine Blood Moderate (NEG) Urine Nitrite Negative (NEG) Urine Bilirubin Negative (NEG) Urine Urobilinogen Dipstick 0.2 mg/dL (0.2 mg/dL) Urine Leukocyte Esterase Negative (NEG) Urine RBC 11-20 /HPF (0-2) Urine WBC 1-4 /HPF (0-4) Urine Squamous Epithelial Cells Occ /LPF Urine Bacteria 0 /HPF (0-FEW) Urine Mucus Slight /LPF Sodium Level 136 mmol/L (136-145) Potassium Level 4.0 mmol/L (3.5-5.1) Chloride Level 104 mmol/L (98-107) Carbon Dioxide Level 14 mmol/L (21-32) Anion Gap 18 (6-14) Blood Urea Nitrogen 4 mg/dL (7-20) Creatinine 0.4 mg/dL (0.6-1.0) Estimated GFR (Cockcroft-Gault) 235.3 Glucose Level 94 mg/dL (70-99) Calcium Level 7.6 mg/dL (8.5-10.1) Laboratory Tests Test 11/07/19 09:40 White Blood Count 21.7 x10^3/uL (4.0-11.0) Red Blood Count 4.45 x10^6/uL (3.50-5.40) Hemoglobin 10.6 g/dL (12.0-15.5) Hematocrit 33.7 % (36.0-47.0) Mean Corpuscular Volume 76 fL (79-100) Mean Corpuscular Hemoglobin 24 pg (25-35) Mean Corpuscular Hemoglobin Concent 32 g/dL (31-37) Red Cell Distribution Width 19.6 % (11.5-14.5) Platelet Count 144 x10^3/uL (140-400) Neutrophils (%) (Auto) 88 % (31-73) Lymphocytes (%) (Auto) 6 % (24-48) Monocytes (%) (Auto) 6 % (0-9) Eosinophils (%) (Auto) 0 % (0-3) Basophils (%) (Auto) 0 % (0-3) Neutrophils # (Auto) 19.1 x10^3/uL (1.8-7.7) Lymphocytes # (Auto) 1.2 x10^3/uL (1.0-4.8) Monocytes # (Auto) 1.2 x10^3/uL (0.0-1.1) Eosinophils # (Auto) 0.1 x10^3/uL (0.0-0.7) Basophils # (Auto) 0.1 x10^3/uL (0.0-0.2) Sodium Level 136 mmol/L (136-145) Potassium Level 4.0 mmol/L (3.5-5.1) Chloride Level 104 mmol/L (98-107) Carbon Dioxide Level 14 mmol/L (21-32) Anion Gap 18 (6-14) Blood Urea Nitrogen 4 mg/dL (7-20) Creatinine 0.4 mg/dL (0.6-1.0) Estimated GFR (Cockcroft-Gault) 235.3 Glucose Level 94 mg/dL (70-99) Calcium Level 7.6 mg/dL (8.5-10.1) Medications Current Medications Sodium Chloride 1,000 ml @ 1,000 mls/hr Q1H IV Last administered on 11/01/19at 14:38; Start 11/01/19 at 14:30; Stop 11/01/19 at 15:29; Status DC Fentanyl Citrate (Fentanyl 2ml Vial) 50 mcg 1X ONCE IVP Last administered on 11/01/19at 14:39; Start 11/01/19 at 14:30; Stop 11/01/19 at 14:31; Status DC Ondansetron HCl (Zofran) 4 mg 1X ONCE IVP Last administered on 11/01/19at 14:39; Start 11/01/19 at 14:30; Stop 11/01/19 at 14:31; Status DC Iohexol (Omnipaque 300 Mg/ml) 75 ml 1X ONCE IV Last administered on 11/01/19at 15:32; Start 11/01/19 at 15:30; Stop 11/01/19 at 15:31; Status DC Info (CONTRAST GIVEN -- Rx MONITORING) 1 each PRN DAILY PRN MC SEE COMMENTS; Start 11/01/19 at 15:15; Stop 11/03/19 at 15:14; Status DC Piperacillin Sod/ Tazobactam Sod 3.375 gm/Sodium Chloride 50 ml @ 100 mls/hr 1X ONCE IV Last administered on 11/01/19at 16:55; Start 11/01/19 at 17:00; Stop 11/01/19 at 17:29; Status DC Ondansetron HCl (Zofran) 4 mg PRN Q8HRS PRN IV NAUSEA/VOMITING Last administered on 11/01/19at 23:12; Start 11/01/19 at 16:45; Stop 11/02/19 at 16:44; Status DC Fentanyl Citrate (Fentanyl 2ml Vial) 50 mcg PRN Q1HR PRN IV PAIN Last administered on 11/02/19at 10:35; Start 11/01/19 at 16:45; Stop 11/02/19 at 11:25; Status DC Sodium Chloride 1,000 ml @ 125 mls/hr Q8H IV Last administered on 11/02/19at 08:16; Start 11/01/19 at 16:39; Stop 11/02/19 at 16:38; Status DC Acetaminophen (Tylenol) 650 mg PRN Q6HRS PRN PO fever Last administered on 11/07/19at 19:32; Start 11/01/19 at 23:00 Ketorolac Tromethamine (Toradol 30mg Vial) 30 mg PRN Q6HRS PRN IVP MILD PAIN 1- 3 Last administered on 11/02/19at 21:04; Start 11/02/19 at 11:30; Stop 11/07/19 at 11:29; Status DC Ondansetron HCl (Zofran) 4 mg PRN Q6HRS PRN IVP NAUSEA/VOMITING Last administered on 11/03/19at 03:09; Start 11/02/19 at 21:30; Stop 11/06/19 at 11:25; Status DC Fentanyl Citrate (Fentanyl 2ml Vial) 50 mcg PRN Q2HR PRN IVP SEVERE PAIN 7-10 Last administered on 11/05/19at 09:30; Start 11/03/19 at 03:00 Ondansetron HCl (Zofran) 4 mg PRN Q6HRS PRN IV NAUSEA/VOMITING; Start 11/04/19 at 07:00; Stop 11/05/19 at 06:59; Status DC Fentanyl Citrate (Fentanyl 2ml Vial) 25 mcg PRN Q5MIN PRN IV MILD PAIN 1-3; Start 11/04/19 at 07:00; Stop 11/05/19 at 06:59; Status DC Fentanyl Citrate (Fentanyl 2ml Vial) 50 mcg PRN Q5MIN PRN IV MODERATE TO SEVERE PAIN; Start 11/04/19 at 07:00; Stop 11/05/19 at 06:59; Status DC Morphine Sulfate (Morphine Sulfate) 1 mg PRN Q10MIN PRN IV SEVERE PAIN 7-10; Start 11/04/19 at 07:00; Stop 11/05/19 at 06:59; Status DC Ringer's Solution 1,000 ml @ 30 mls/hr Q24H IV ; Start 11/04/19 at 07:00; Stop 11/04/19 at 18:59; Status DC Lidocaine HCl (Xylocaine-Mpf 1% 2ml Vial) 2 ml PRN 1X PRN ID PRIOR TO IV START; Start 11/04/19 at 07:00; Stop 11/05/19 at 06:59; Status DC Hydromorphone HCl (Dilaudid) 0.5 mg PRN Q10MIN PRN IV SEV PAIN, Second choice; Start 11/04/19 at 07:00; Stop 11/05/19 at 06:59; Status DC Prochlorperazine Edisylate (Compazine) 5 mg PACU PRN PRN IV NAUSEA, MRX1; Start 11/04/19 at 07:00; Stop 11/05/19 at 06:59; Status DC Iron Sucrose 200 mg/Sodium Chloride 110 ml @ 55 mls/hr 1X ONCE IV Last administered on 11/04/19at 17:05; Start 11/04/19 at 15:45; Stop 11/04/19 at 17:44; Status DC Ondansetron HCl (Zofran) 4 mg PRN Q6HRS PRN IV NAUSEA/VOMITING; Start 11/05/19 at 07:00; Stop 11/06/19 at 06:59; Status DC Fentanyl Citrate (Fentanyl 2ml Vial) 25 mcg PRN Q5MIN PRN IV MILD PAIN 1-3; Start 11/05/19 at 07:00; Stop 11/06/19 at 06:59; Status DC Fentanyl Citrate (Fentanyl 2ml Vial) 50 mcg PRN Q5MIN PRN IV MODERATE TO SEVERE PAIN; Start 11/05/19 at 07:00; Stop 11/06/19 at 06:59; Status DC Morphine Sulfate (Morphine Sulfate) 1 mg PRN Q10MIN PRN IV SEVERE PAIN 7-10; Start 11/05/19 at 07:00; Stop 11/06/19 at 06:59; Status DC Ringer's Solution 1,000 ml @ 30 mls/hr Q24H IV Last administered on 11/05/19at 11:00; Start 11/05/19 at 07:00; Stop 11/05/19 at 18:59; Status DC Hydromorphone HCl (Dilaudid) 0.5 mg PRN Q10MIN PRN IV SEV PAIN, Second choice; Start 11/05/19 at 07:00; Stop 11/06/19 at 06:59; Status DC Prochlorperazine Edisylate (Compazine) 5 mg PACU PRN PRN IV NAUSEA, MRX1; Start 11/05/19 at 07:00; Stop 11/06/19 at 06:59; Status DC Propofol 20 ml @ As Directed STK-MED ONCE IV ; Start 11/05/19 at 10:49; Stop 11/05/19 at 10:49; Status DC Lidocaine HCl (Lidocaine Pf 2% Vial) 5 ml STK-MED ONCE .ROUTE ; Start 11/05/19 at 10:49; Stop 11/05/19 at 10:49; Status DC Fentanyl Citrate (Fentanyl 2ml Vial) 100 mcg STK-MED ONCE .ROUTE ; Start 11/05/19 at 10:49; Stop 11/05/19 at 10:49; Status DC Rocuronium Jordan (Zemuron) 50 mg STK-MED ONCE .ROUTE ; Start 11/05/19 at 10:49; Stop 11/05/19 at 10:50; Status DC Cefoxitin Sodium (Mefoxin) 2 gm 1X PREOP ONCE IVP Last administered on 11/05/19at 11:55; Start 11/05/19 at 11:45; Stop 11/05/19 at 11:46; Status DC Cefoxitin Sodium (Mefoxin) 2 gm STK-MED ONCE IVP ; Start 11/05/19 at 11:36; Stop 11/05/19 at 11:36; Status DC Bupivacaine HCl/ Epinephrine Bitart (Sensorcain-Epi 0.5%-1:420635 Mpf) 30 ml STK-MED ONCE .ROUTE Last administered on 11/05/19at 12:20; Start 11/05/19 at 11:48; Stop 11/05/19 at 11:49; Status DC Dexamethasone Sodium Phosphate (Decadron) 4 mg STK-MED ONCE .ROUTE ; Start 11/05/19 at 12:06; Stop 11/05/19 at 12:06; Status DC Sevoflurane (Ultane) 60 ml STK-MED ONCE IH ; Start 11/05/19 at 12:06; Stop 11/05/19 at 12:06; Status DC Ondansetron HCl (Zofran) 4 mg STK-MED ONCE .ROUTE ; Start 11/05/19 at 12:13; Stop 11/05/19 at 12:13; Status DC Glycopyrrolate (Robinul) 1 mg STK-MED ONCE .ROUTE ; Start 11/05/19 at 12:13; Stop 11/05/19 at 12:13; Status DC Neostigmine Jordan (Neostigmine Methylsulfate) 5 mg STK-MED ONCE .ROUTE ; Start 11/05/19 at 12:13; Stop 11/05/19 at 12:13; Status DC Hydromorphone HCl (Dilaudid) 2 mg STK-MED ONCE .ROUTE ; Start 11/05/19 at 14:05; Stop 11/05/19 at 14:05; Status DC Ketamine HCl (Ketamine) 50 mg STK-MED ONCE .ROUTE ; Start 11/05/19 at 14:05; Stop 11/05/19 at 14:05; Status DC Famotidine (Pepcid Vial) 20 mg BID IVP Last administered on 11/08/19at 07:28; Start 11/05/19 at 21:00 Sodium Chloride (Normal Saline Flush) 3 ml QSHIFT PRN IV AFTER MEDS AND BLOOD DRAWS; Start 11/05/19 at 14:45 Ringer's Solution 1,000 ml @ 125 mls/hr Q8H IV Last administered on 11/07/19at 23:54; Start 11/05/19 at 14:39 Naloxone HCl (Narcan) 0.4 mg PRN Q2MIN PRN IV SEE INSTRUCTIONS; Start 11/05/19 at 14:45 Sodium Chloride 1,000 ml @ 25 mls/hr Q24H IV ; Start 11/05/19 at 14:39 Morphine Sulfate 30 ml @ 0 mls/hr CONT PRN PRN IV PER PROTOCOL Last administered on 11/08/19at 06:59; Start 11/05/19 at 14:45 Ondansetron HCl (Zofran) 4 mg PRN Q6HRS PRN IVP NAUESA, 1ST CHOICE; Start 11/05/19 at 14:45 Acetaminophen (Tylenol) 325 mg 1X ONCE PO Last administered on 11/06/19at 23:19; Start 11/06/19 at 23:15; Stop 11/06/19 at 23:16; Status DC Sodium Chloride 1,000 ml @ 1,000 mls/hr 1X ONCE IV Last administered on 11/06/19at 23:18; Start 11/06/19 at 23:15; Stop 11/07/19 at 00:14; Status DC Tramadol HCl (Ultram) 50 mg PRN Q6HRS PRN PO PAIN; Start 11/07/19 at 16:30 Vitals/I & O Vital Sign - Last 24 Hours 11/07/19 11/07/19 11/07/19 11/07/19 07:50 09:04 11:00 15:00 Temp 98.6 99.8 98.6 99.8 Pulse 122 127 Resp 16 16 B/P (MAP) 113/81 (92) 117/76 (90) Pulse Ox 98 98 97 96 O2 Delivery Room Air Room Air Room Air Room Air 11/07/19 11/07/19 11/07/19 11/07/19 19:25 19:30 21:31 22:52 Temp 101.0 100.0 98.3 101.0 100.0 98.3 Pulse 140 127 Resp 18 18 B/P (MAP) 122/82 (95) 113/77 (89) Pulse Ox 96 92 O2 Delivery Room Air Room Air Room Air 11/08/19 11/08/19 11/08/19 11/08/19 02:31 06:36 06:59 07:13 Temp 97.6 98.1 97.6 98.1 Pulse 127 132 Resp 18 18 B/P (MAP) 120/84 (96) 118/82 (94) Pulse Ox 93 97 97 O2 Delivery Room Air Room Air Room Air Room Air 11/08/19 07:30 Pulse Ox 97 O2 Delivery Room Air Intake and Output 11/07/19 11/07/19 11/08/19 15:00 23:00 07:00 Intake Total 100 ml 100 ml Balance 100 ml 100 ml MOON AGUIAR MD Nov 08, 2019 07:45
[2019-11-08] MEDS: IV RINGERS,LACTATED 1000ML 1,000 ML IV SCH ×2 (08:21→21:45)
[2019-11-08] MEDS: ENOXAPARIN 40 MG/0.4 ML SYRINGE. SQ SCH (08:23)
[2019-11-08] MEDS: IV NORMAL SALINE 1000ML BAG 1,000 ML IV SCH (08:23)
--- NOTE | 2019-11-08 10:04 | PDOC ---
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 no n/v + flatus ambulating Vital Signs Vital Signs Date Time Temp Pulse Resp B/P (MAP) Pulse Ox O2 Delivery O2 Flow Rate FiO2 11/08/19 07:30 97 Room Air 11/08/19 06:36 98.1 132 18 118/82 (94) 98.1 I&O Intake and Output 11/08/19 07:00 Intake Total 200 ml Balance 200 ml Intake Oral 200 ml # Voids 3 General: Alert, Oriented X3, Cooperative Abdomen: Soft, No tenderness Labs Laboratory Tests Test 11/06/19 23:15 11/07/19 09:40 Urine Collection Type Unknown Urine Color Yellow Urine Clarity Clear Urine pH 5.5 Urine Specific [place] 1.025 Urine Protein 30 mg/dL (NEG-TRACE) Urine Glucose (UA) Negative mg/dL (NEG) Urine Ketones (Stick) >=80 mg/dL (NEG) Urine Blood Moderate (NEG) Urine Nitrite Negative (NEG) Urine Bilirubin Negative (NEG) Urine Urobilinogen Dipstick 0.2 mg/dL (0.2 mg/dL) Urine Leukocyte Esterase Negative (NEG) Urine RBC 11-20 /HPF (0-2) Urine WBC 1-4 /HPF (0-4) Urine Squamous Epithelial Cells Occ /LPF Urine Bacteria 0 /HPF (0-FEW) Urine Mucus Slight /LPF White Blood Count 21.7 x10^3/uL (4.0-11.0) Red Blood Count 4.45 x10^6/uL (3.50-5.40) Hemoglobin 10.6 g/dL (12.0-15.5) Hematocrit 33.7 % (36.0-47.0) Mean Corpuscular Volume 76 fL (79-100) Mean Corpuscular Hemoglobin 24 pg (25-35) Mean Corpuscular Hemoglobin Concent 32 g/dL (31-37) Red Cell Distribution Width 19.6 % (11.5-14.5) Platelet Count 144 x10^3/uL (140-400) Neutrophils (%) (Auto) 88 % (31-73) Lymphocytes (%) (Auto) 6 % (24-48) Monocytes (%) (Auto) 6 % (0-9) Eosinophils (%) (Auto) 0 % (0-3) Basophils (%) (Auto) 0 % (0-3) Neutrophils # (Auto) 19.1 x10^3/uL (1.8-7.7) Lymphocytes # (Auto) 1.2 x10^3/uL (1.0-4.8) Monocytes # (Auto) 1.2 x10^3/uL (0.0-1.1) Eosinophils # (Auto) 0.1 x10^3/uL (0.0-0.7) Basophils # (Auto) 0.1 x10^3/uL (0.0-0.2) Sodium Level 136 mmol/L (136-145) Potassium Level 4.0 mmol/L (3.5-5.1) Chloride Level 104 mmol/L (98-107) Carbon Dioxide Level 14 mmol/L (21-32) Anion Gap 18 (6-14) Blood Urea Nitrogen 4 mg/dL (7-20) Creatinine 0.4 mg/dL (0.6-1.0) Estimated GFR (Cockcroft-Gault) 235.3 Glucose Level 94 mg/dL (70-99) Calcium Level 7.6 mg/dL (8.5-10.1) Problem List Problems Medical Problems: (1) Abdominal pain Status: Acute Assessment/Plan s/p ileocolic resection path pending fevers, tachy will check labs, ekg plan for CT in AM MIO ESCOBAR MD 11/08/19 1040: SURGICAL PROGRESS NOTE Assessment/Plan Clinically appears good although significant elevation in her white count. We'll plan on CT scan of abdomen and pelvis in a.m. evaluation of possible absces. agree with Cassandra assessment and plan GHADA ROBERTS APRN Nov 08, 2019 10:04 MIO ESCOBAR MD Nov 08, 2019 10:40
--- NOTE | 2019-11-08 10:20 | EKG ---
[facility] [address] [place] [address] Test Date: 2019-11-08 Test Time: 10:16:20 Pat Name: CLAUDE UNGER Department: Room: [facility] Gender: F Diagnostic Assistant: : 1995 Requested By: GHADA ROBERTS Order Number: [id number] Reading MD: Measurements Intervals [place] Rate: 131 P: 41 TN: 96 QRS: 50 QRSD: 74 T: 22 QT: 344 QTc: 513 Interpretive Statements SINUS TACHYCARDIA QRS(T) CONTOUR ABNORMALITY CONSIDER ANTEROLATERAL MYOCARDIAL DAMAGE CONSIDER INFERIOR MYOCARDIAL DAMAGE POSSIBLY ABNORMAL ECG RI6.01 No previous ECG available for comparison
[2019-11-08 10:26] LABS: BASO % 0 % (0-3); EOS # 0.3 x10^3/uL (0.0-0.7); EOS % 2 % (0-3); HEMATOCRIT 27.1 % (36.0-47.0); HEMOGLOBIN 8.9 g/dL (12.0-15.5); LYMPH # 1.5 x10^3/uL (1.0-4.8); LYMPH % 10 % (24-48); MEAN CORPUSCULAR HEMOGLOBIN 24 pg (25-35); MEAN CORPUSCULAR HGB CONC 33 g/dL (31-37); MEAN CORPUSCULAR VOLUME 74 fL (79-100); MONO # 1.1 x10^3/uL (0.0-1.1); MONO % 7 % (0-9); NEUT # 12.1 x10^3/uL (1.8-7.7); NEUT % 81 % (31-73); PLATELET COUNT 107 x10^3/uL (140-400); RED BLOOD COUNT 3.65 x10^6/uL (3.50-5.40); RED CELL DISTRIBUTION WIDTH 18.6 % (11.5-14.5)
[2019-11-08 10:32] LABS: CALCIUM 7.6 mg/dL (8.5-10.1); CREATININE 0.4 mg/dL (0.6-1.0); GFR 235.3; POTASSIUM 3.1 mmol/L (3.5-5.1)
[2019-11-08] MEDS ORDERED: POTASSIUM CHLORIDE 20 MEQ TABLET.ER. PO ONE (10:45)
[2019-11-08 11:00] VITALS: BP 112/74
[2019-11-08] MEDS: ACETAMINOPHEN 325 MG TABLET. PO PRN ×2 (11:46→21:44)
[2019-11-08] MEDS ORDERED: MAGNESIUM SULFATE 4GM 100 ML IV ONE (12:00)
[2019-11-08 15:00] VITALS: BP 119/73
[2019-11-08 19:00] VITALS: BP 107/79
[2019-11-08 23:00] VITALS: BP 120/85
[2019-11-09] MEDS: IV RINGERS,LACTATED 1000ML 1,000 ML IV SCH ×2 (03:22→15:23)
[2019-11-09] MEDS: MORPHINE SULFATE/PF 30 ML IV PRN (03:22)
[2019-11-09 03:24] VITALS: BP 96/62
[2019-11-09 06:39] LABS: CALCIUM 7.3 mg/dL (8.5-10.1); CREATININE 0.4 mg/dL (0.6-1.0); GFR 235.3; POTASSIUM 3.4 mmol/L (3.5-5.1)
[2019-11-09 07:00] VITALS: BP 111/72
[2019-11-09] MEDS ORDERED: IOHEXOL 240 MG/ML 50ML VIAL. PO ONE (07:15)
[2019-11-09] MEDS ORDERED: IOHEXOL 300 MG/ML 100ML VIAL. IV ONE (07:15)
[2019-11-09] MEDS ORDERED: CONTRAST GIVEN. MC PRN (07:15)
[2019-11-09 07:26] LABS: BASO % 0 % (0-3); EOS # 0.2 x10^3/uL (0.0-0.7); EOS % 2 % (0-3); HEMATOCRIT 27.7 % (36.0-47.0); LYMPH # 0.9 x10^3/uL (1.0-4.8); LYMPH % 10 % (24-48); MEAN CORPUSCULAR HEMOGLOBIN 25 pg (25-35); MEAN CORPUSCULAR HGB CONC 33 g/dL (31-37); MEAN CORPUSCULAR VOLUME 75 fL (79-100); MONO # 0.9 x10^3/uL (0.0-1.1); MONO % 10 % (0-9); NEUT # 7.4 x10^3/uL (1.8-7.7); NEUT % 78 % (31-73); PLATELET COUNT 150 x10^3/uL (140-400); RED BLOOD COUNT 3.68 x10^6/uL (3.50-5.40); RED CELL DISTRIBUTION WIDTH 18.7 % (11.5-14.5); WHITE BLOOD COUNT 9.5 x10^3/uL (4.0-11.0)
--- NOTE | 2019-11-09 08:49 | PDOC ---
SURGICAL PROGRESS NOTE Subjective feels pretty good + loose stools no n/v Vital Signs Vital Signs Date Time Temp Pulse Resp B/P (MAP) Pulse Ox O2 Delivery O2 Flow Rate FiO2 11/09/19 07:00 98.1 127 18 111/72 (85) 98 Room Air 98.1 11/09/19 03:58 1.0 I&O Intake and Output 11/09/19 07:00 Intake Total 30 ml Balance 30 ml Intake Oral 30 ml General: Alert, Oriented X3, Cooperative Abdomen: Soft, Other (ND, incisional TTP) Labs Laboratory Tests Test 11/07/19 09:40 11/08/19 09:45 11/09/19 06:05 White Blood Count 21.7 x10^3/uL (4.0-11.0) 15.0 x10^3/uL (4.0-11.0) 9.5 x10^3/uL (4.0-11.0) Red Blood Count 4.45 x10^6/uL (3.50-5.40) 3.65 x10^6/uL (3.50-5.40) 3.68 x10^6/uL (3.50-5.40) Hemoglobin 10.6 g/dL (12.0-15.5) 8.9 g/dL (12.0-15.5) 9.0 g/dL (12.0-15.5) Hematocrit 33.7 % (36.0-47.0) 27.1 % (36.0-47.0) 27.7 % (36.0-47.0) Mean Corpuscular Volume 76 fL (79-100) 74 fL (79-100) 75 fL (79-100) Mean Corpuscular Hemoglobin 24 pg (25-35) 24 pg (25-35) 25 pg (25-35) Mean Corpuscular Hemoglobin Concent 32 g/dL (31-37) 33 g/dL (31-37) 33 g/dL (31-37) Red Cell Distribution Width 19.6 % (11.5-14.5) 18.6 % (11.5-14.5) 18.7 % (11.5-14.5) Platelet Count 144 x10^3/uL (140-400) 107 x10^3/uL (140-400) 150 x10^3/uL (140-400) Neutrophils (%) (Auto) 88 % (31-73) 81 % (31-73) 78 % (31-73) Lymphocytes (%) (Auto) 6 % (24-48) 10 % (24-48) 10 % (24-48) Monocytes (%) (Auto) 6 % (0-9) 7 % (0-9) 10 % (0-9) Eosinophils (%) (Auto) 0 % (0-3) 2 % (0-3) 2 % (0-3) Basophils (%) (Auto) 0 % (0-3) 0 % (0-3) 0 % (0-3) Neutrophils # (Auto) 19.1 x10^3/uL (1.8-7.7) 12.1 x10^3/uL (1.8-7.7) 7.4 x10^3/uL (1.8-7.7) Lymphocytes # (Auto) 1.2 x10^3/uL (1.0-4.8) 1.5 x10^3/uL (1.0-4.8) 0.9 x10^3/uL (1.0-4.8) Monocytes # (Auto) 1.2 x10^3/uL (0.0-1.1) 1.1 x10^3/uL (0.0-1.1) 0.9 x10^3/uL (0.0-1.1) Eosinophils # (Auto) 0.1 x10^3/uL (0.0-0.7) 0.3 x10^3/uL (0.0-0.7) 0.2 x10^3/uL (0.0-0.7) Basophils # (Auto) 0.1 x10^3/uL (0.0-0.2) 0.0 x10^3/uL (0.0-0.2) 0.0 x10^3/uL (0.0-0.2) Sodium Level 136 mmol/L (136-145) 137 mmol/L (136-145) 139 mmol/L (136-145) Potassium Level 4.0 mmol/L (3.5-5.1) 3.1 mmol/L (3.5-5.1) 3.4 mmol/L (3.5-5.1) Chloride Level 104 mmol/L (98-107) 104 mmol/L (98-107) 106 mmol/L (98-107) Carbon Dioxide Level 14 mmol/L (21-32) 23 mmol/L (21-32) 24 mmol/L (21-32) Anion Gap 18 (6-14) 10 (6-14) 9 (6-14) Blood Urea Nitrogen 4 mg/dL (7-20) 2 mg/dL (7-20) 2 mg/dL (7-20) Creatinine 0.4 mg/dL (0.6-1.0) 0.4 mg/dL (0.6-1.0) 0.4 mg/dL (0.6-1.0) Estimated GFR (Cockcroft-Gault) 235.3 235.3 235.3 Glucose Level 94 mg/dL (70-99) 101 mg/dL (70-99) 82 mg/dL (70-99) Calcium Level 7.6 mg/dL (8.5-10.1) 7.6 mg/dL (8.5-10.1) 7.3 mg/dL (8.5-10.1) Magnesium Level 1.5 mg/dL (1.8-2.4) Laboratory Tests Test 11/08/19 09:45 11/09/19 06:05 White Blood Count 15.0 x10^3/uL (4.0-11.0) 9.5 x10^3/uL (4.0-11.0) Red Blood Count 3.65 x10^6/uL (3.50-5.40) 3.68 x10^6/uL (3.50-5.40) Hemoglobin 8.9 g/dL (12.0-15.5) 9.0 g/dL (12.0-15.5) Hematocrit 27.1 % (36.0-47.0) 27.7 % (36.0-47.0) Mean Corpuscular Volume 74 fL (79-100) 75 fL (79-100) Mean Corpuscular Hemoglobin 24 pg (25-35) 25 pg (25-35) Mean Corpuscular Hemoglobin Concent 33 g/dL (31-37) 33 g/dL (31-37) Red Cell Distribution Width 18.6 % (11.5-14.5) 18.7 % (11.5-14.5) Platelet Count 107 x10^3/uL (140-400) 150 x10^3/uL (140-400) Neutrophils (%) (Auto) 81 % (31-73) 78 % (31-73) Lymphocytes (%) (Auto) 10 % (24-48) 10 % (24-48) Monocytes (%) (Auto) 7 % (0-9) 10 % (0-9) Eosinophils (%) (Auto) 2 % (0-3) 2 % (0-3) Basophils (%) (Auto) 0 % (0-3) 0 % (0-3) Neutrophils # (Auto) 12.1 x10^3/uL (1.8-7.7) 7.4 x10^3/uL (1.8-7.7) Lymphocytes # (Auto) 1.5 x10^3/uL (1.0-4.8) 0.9 x10^3/uL (1.0-4.8) Monocytes # (Auto) 1.1 x10^3/uL (0.0-1.1) 0.9 x10^3/uL (0.0-1.1) Eosinophils # (Auto) 0.3 x10^3/uL (0.0-0.7) 0.2 x10^3/uL (0.0-0.7) Basophils # (Auto) 0.0 x10^3/uL (0.0-0.2) 0.0 x10^3/uL (0.0-0.2) Sodium Level 137 mmol/L (136-145) 139 mmol/L (136-145) Potassium Level 3.1 mmol/L (3.5-5.1) 3.4 mmol/L (3.5-5.1) Chloride Level 104 mmol/L (98-107) 106 mmol/L (98-107) Carbon Dioxide Level 23 mmol/L (21-32) 24 mmol/L (21-32) Anion Gap 10 (6-14) 9 (6-14) Blood Urea Nitrogen 2 mg/dL (7-20) 2 mg/dL (7-20) Creatinine 0.4 mg/dL (0.6-1.0) 0.4 mg/dL (0.6-1.0) Estimated GFR (Cockcroft-Gault) 235.3 235.3 Glucose Level 101 mg/dL (70-99) 82 mg/dL (70-99) Calcium Level 7.6 mg/dL (8.5-10.1) 7.3 mg/dL (8.5-10.1) Magnesium Level 1.5 mg/dL (1.8-2.4) Problem List Problems Medical Problems: (1) Abdominal pain Status: Acute Assessment/Plan WBC normal, clinically well--will dc CT advance to full liquids, 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
[2019-11-09] MEDS: ENOXAPARIN 40 MG/0.4 ML SYRINGE. SQ SCH (08:58)
[2019-11-09] MEDS: FAMOTIDINE 20 MG/2 ML VIAL IVP SCH (08:58)
[2019-11-09] MEDS ORDERED: MORPHINE SULFATE 2 MG/ML VIAL. IV PRN (09:00)
--- NOTE | 2019-11-09 10:05 | PDOC ---
Subjective: Subjective: Pain controlled right now, just doesn't want to move. Says advancing diet and transitioning from IV to PO meds. Has passed gas and stool. Objective: Objective: Orders for full liquid diet. Vital Signs: Vital Signs Date Time Temp Pulse Resp B/P (MAP) Pulse Ox O2 Delivery O2 Flow Rate FiO2 11/09/19 07:00 98.1 127 18 111/72 (85) 98 Room Air 98.1 11/09/19 03:58 1.0 Labs: Laboratory Tests Test 11/09/19 06:05 White Blood Count 9.5 x10^3/uL Red Blood Count 3.68 x10^6/uL Hemoglobin 9.0 g/dL Hematocrit 27.7 % Mean Corpuscular Volume 75 fL Mean Corpuscular Hemoglobin 25 pg Mean Corpuscular Hemoglobin Concent 33 g/dL Red Cell Distribution Width 18.7 % Platelet Count 150 x10^3/uL Neutrophils (%) (Auto) 78 % Lymphocytes (%) (Auto) 10 % Monocytes (%) (Auto) 10 % Eosinophils (%) (Auto) 2 % Basophils (%) (Auto) 0 % Neutrophils # (Auto) 7.4 x10^3/uL Lymphocytes # (Auto) 0.9 x10^3/uL Monocytes # (Auto) 0.9 x10^3/uL Eosinophils # (Auto) 0.2 x10^3/uL Basophils # (Auto) 0.0 x10^3/uL Sodium Level 139 mmol/L Potassium Level 3.4 mmol/L Chloride Level 106 mmol/L Carbon Dioxide Level 24 mmol/L Anion Gap 9 Blood Urea Nitrogen 2 mg/dL Creatinine 0.4 mg/dL Estimated GFR (Cockcroft-Gault) 235.3 Glucose Level 82 mg/dL Calcium Level 7.3 mg/dL PE: GEN: NAD LUNGS: CTAB HEART: RRR ABD: quiet BS, soft, mildly tender NEURO/PSYCH: A & O 3 A/P: S/p ileocolic resection - ulcers in TI and colon, path pending VEENA, uterine fibroid -- Plans as above, awaiting path. TIFFANIE MULLINS Nov 09, 2019 10:05
[2019-11-09 11:00] VITALS: BP 111/72
--- NOTE | 2019-11-09 13:41 | PDOC ---
PROGRESS NOTES Chief Complaint Chief Complaint A/P: Abdominal pain Uterine fibroids Iron deficiency anemia Ileum and colon ulcerations History of Present Illness History of Present Illness Ms Lei is a 24yo F admitted with abdominal pain. CT with uterine mass. mild prominence of appendix, however no inflammatory findings, no leukocytosis. US reveals likely 6cm uterine fibroid. Seen by general surgery and Senior Manager. 11/03: Feeling RLQ pain this morning. Toradol did not seem to help. Mother is bedside. I have discussed repeating imaging as a possibility though US does not always visualize the appendix. No changes 11/04: Pain improved somewhat. Still present on palpation. Iron levels low. Plan to try to advance diet today, but also plan for ex-lap tomorrow given persistence of symptoms. 11/05: Ex-lap with terminal ileum and colonic ulcers, intraop appearance not consistent with degenerating fibroid, s/p laparoscopic ileocolic resection 11/06: Still with pain, tolerated iron well. Using CONTROL ELECTRICIAN for pain control. No CP or SOB. 11/07: Pain is improved today. No CP or SOB. Still on CONTROL ELECTRICIAN, path pending. Tachycardic 11/08: Overnight still with tachycardia. Fever 101F. Using bedside spirometer. Her pain is controlled, but still requiring CONTROL ELECTRICIAN. WBC normalized, afebrile past 24 hours. Blood cultures NGTD. Not on antibiotics. She is feeling better, still requiring CONTROL ELECTRICIAN, however. Plan: Blood cultures F/u pathology Vitals Vitals Vital Signs Date Time Temp Pulse Resp B/P (MAP) Pulse Ox O2 Delivery O2 Flow Rate FiO2 11/09/19 12:03 Room Air 11/09/19 11:00 99.2 122 18 111/72 (85) 98 99.2 11/09/19 03:58 1.0 Physical Exam General: Alert, Oriented X3, Cooperative Heart: Regular rate, Normal S1, Normal S2 Abdomen: Soft, Other (ND, incisional TTP) Extremities: No clubbing, No cyanosis Skin: No rashes, No breakdown Labs LABS Laboratory Tests Test 11/09/19 06:05 White Blood Count 9.5 x10^3/uL (4.0-11.0) Red Blood Count 3.68 x10^6/uL (3.50-5.40) Hemoglobin 9.0 g/dL (12.0-15.5) Hematocrit 27.7 % (36.0-47.0) Mean Corpuscular Volume 75 fL (79-100) Mean Corpuscular Hemoglobin 25 pg (25-35) Mean Corpuscular Hemoglobin Concent 33 g/dL (31-37) Red Cell Distribution Width 18.7 % (11.5-14.5) Platelet Count 150 x10^3/uL (140-400) Neutrophils (%) (Auto) 78 % (31-73) Lymphocytes (%) (Auto) 10 % (24-48) Monocytes (%) (Auto) 10 % (0-9) Eosinophils (%) (Auto) 2 % (0-3) Basophils (%) (Auto) 0 % (0-3) Neutrophils # (Auto) 7.4 x10^3/uL (1.8-7.7) Lymphocytes # (Auto) 0.9 x10^3/uL (1.0-4.8) Monocytes # (Auto) 0.9 x10^3/uL (0.0-1.1) Eosinophils # (Auto) 0.2 x10^3/uL (0.0-0.7) Basophils # (Auto) 0.0 x10^3/uL (0.0-0.2) Sodium Level 139 mmol/L (136-145) Potassium Level 3.4 mmol/L (3.5-5.1) Chloride Level 106 mmol/L (98-107) Carbon Dioxide Level 24 mmol/L (21-32) Anion Gap 9 (6-14) Blood Urea Nitrogen 2 mg/dL (7-20) Creatinine 0.4 mg/dL (0.6-1.0) Estimated GFR (Cockcroft-Gault) 235.3 Glucose Level 82 mg/dL (70-99) Calcium Level 7.3 mg/dL (8.5-10.1) Assessment and Plan Assessmemt and Plan Problems Medical Problems: (1) Abdominal pain Status: Acute Comment Review of Relevant I have reviewed the following items kamilah (where applicable) has been applied. Labs Laboratory Tests Test 11/08/19 09:45 11/09/19 06:05 White Blood Count 15.0 x10^3/uL (4.0-11.0) 9.5 x10^3/uL (4.0-11.0) Red Blood Count 3.65 x10^6/uL (3.50-5.40) 3.68 x10^6/uL (3.50-5.40) Hemoglobin 8.9 g/dL (12.0-15.5) 9.0 g/dL (12.0-15.5) Hematocrit 27.1 % (36.0-47.0) 27.7 % (36.0-47.0) Mean Corpuscular Volume 74 fL (79-100) 75 fL (79-100) Mean Corpuscular Hemoglobin 24 pg (25-35) 25 pg (25-35) Mean Corpuscular Hemoglobin Concent 33 g/dL (31-37) 33 g/dL (31-37) Red Cell Distribution Width 18.6 % (11.5-14.5) 18.7 % (11.5-14.5) Platelet Count 107 x10^3/uL (140-400) 150 x10^3/uL (140-400) Neutrophils (%) (Auto) 81 % (31-73) 78 % (31-73) Lymphocytes (%) (Auto) 10 % (24-48) 10 % (24-48) Monocytes (%) (Auto) 7 % (0-9) 10 % (0-9) Eosinophils (%) (Auto) 2 % (0-3) 2 % (0-3) Basophils (%) (Auto) 0 % (0-3) 0 % (0-3) Neutrophils # (Auto) 12.1 x10^3/uL (1.8-7.7) 7.4 x10^3/uL (1.8-7.7) Lymphocytes # (Auto) 1.5 x10^3/uL (1.0-4.8) 0.9 x10^3/uL (1.0-4.8) Monocytes # (Auto) 1.1 x10^3/uL (0.0-1.1) 0.9 x10^3/uL (0.0-1.1) Eosinophils # (Auto) 0.3 x10^3/uL (0.0-0.7) 0.2 x10^3/uL (0.0-0.7) Basophils # (Auto) 0.0 x10^3/uL (0.0-0.2) 0.0 x10^3/uL (0.0-0.2) Sodium Level 137 mmol/L (136-145) 139 mmol/L (136-145) Potassium Level 3.1 mmol/L (3.5-5.1) 3.4 mmol/L (3.5-5.1) Chloride Level 104 mmol/L (98-107) 106 mmol/L (98-107) Carbon Dioxide Level 23 mmol/L (21-32) 24 mmol/L (21-32) Anion Gap 10 (6-14) 9 (6-14) Blood Urea Nitrogen 2 mg/dL (7-20) 2 mg/dL (7-20) Creatinine 0.4 mg/dL (0.6-1.0) 0.4 mg/dL (0.6-1.0) Estimated GFR (Cockcroft-Gault) 235.3 235.3 Glucose Level 101 mg/dL (70-99) 82 mg/dL (70-99) Calcium Level 7.6 mg/dL (8.5-10.1) 7.3 mg/dL (8.5-10.1) Magnesium Level 1.5 mg/dL (1.8-2.4) Laboratory Tests Test 11/09/19 06:05 White Blood Count 9.5 x10^3/uL (4.0-11.0) Red Blood Count 3.68 x10^6/uL (3.50-5.40) Hemoglobin 9.0 g/dL (12.0-15.5) Hematocrit 27.7 % (36.0-47.0) Mean Corpuscular Volume 75 fL (79-100) Mean Corpuscular Hemoglobin 25 pg (25-35) Mean Corpuscular Hemoglobin Concent 33 g/dL (31-37) Red Cell Distribution Width 18.7 % (11.5-14.5) Platelet Count 150 x10^3/uL (140-400) Neutrophils (%) (Auto) 78 % (31-73) Lymphocytes (%) (Auto) 10 % (24-48) Monocytes (%) (Auto) 10 % (0-9) Eosinophils (%) (Auto) 2 % (0-3) Basophils (%) (Auto) 0 % (0-3) Neutrophils # (Auto) 7.4 x10^3/uL (1.8-7.7) Lymphocytes # (Auto) 0.9 x10^3/uL (1.0-4.8) Monocytes # (Auto) 0.9 x10^3/uL (0.0-1.1) Eosinophils # (Auto) 0.2 x10^3/uL (0.0-0.7) Basophils # (Auto) 0.0 x10^3/uL (0.0-0.2) Sodium Level 139 mmol/L (136-145) Potassium Level 3.4 mmol/L (3.5-5.1) Chloride Level 106 mmol/L (98-107) Carbon Dioxide Level 24 mmol/L (21-32) Anion Gap 9 (6-14) Blood Urea Nitrogen 2 mg/dL (7-20) Creatinine 0.4 mg/dL (0.6-1.0) Estimated GFR (Cockcroft-Gault) 235.3 Glucose Level 82 mg/dL (70-99) Calcium Level 7.3 mg/dL (8.5-10.1) Microbiology 11/08/19 Blood Culture - Preliminary, Resulted NO GROWTH AFTER 1 DAY Medications Current Medications Sodium Chloride 1,000 ml @ 1,000 mls/hr Q1H IV Last administered on 11/01/19at 14:38; Start 11/01/19 at 14:30; Stop 11/01/19 at 15:29; Status DC Fentanyl Citrate (Fentanyl 2ml Vial) 50 mcg 1X ONCE IVP Last administered on 11/01/19at 14:39; Start 11/01/19 at 14:30; Stop 11/01/19 at 14:31; Status DC Ondansetron HCl (Zofran) 4 mg 1X ONCE IVP Last administered on 11/01/19at 14:39; Start 11/01/19 at 14:30; Stop 11/01/19 at 14:31; Status DC Iohexol (Omnipaque 300 Mg/ml) 75 ml 1X ONCE IV Last administered on 11/01/19at 15:32; Start 11/01/19 at 15:30; Stop 11/01/19 at 15:31; Status DC Info (CONTRAST GIVEN -- Rx MONITORING) 1 each PRN DAILY PRN MC SEE COMMENTS; Start 11/01/19 at 15:15; Stop 11/03/19 at 15:14; Status DC Piperacillin Sod/ Tazobactam Sod 3.375 gm/Sodium Chloride 50 ml @ 100 mls/hr 1X ONCE IV Last administered on 11/01/19at 16:55; Start 11/01/19 at 17:00; Stop 11/01/19 at 17:29; Status DC Ondansetron HCl (Zofran) 4 mg PRN Q8HRS PRN IV NAUSEA/VOMITING Last administered on 11/01/19at 23:12; Start 11/01/19 at 16:45; Stop 11/02/19 at 16:44; Status DC Fentanyl Citrate (Fentanyl 2ml Vial) 50 mcg PRN Q1HR PRN IV PAIN Last administered on 11/02/19at 10:35; Start 11/01/19 at 16:45; Stop 11/02/19 at 11:25; Status DC Sodium Chloride 1,000 ml @ 125 mls/hr Q8H IV Last administered on 11/02/19at 08:16; Start 11/01/19 at 16:39; Stop 11/02/19 at 16:38; Status DC Acetaminophen (Tylenol) 650 mg PRN Q6HRS PRN PO fever Last administered on 11/08/19at 21:44; Start 11/01/19 at 23:00 Ketorolac Tromethamine (Toradol 30mg Vial) 30 mg PRN Q6HRS PRN IVP MILD PAIN 1- 3 Last administered on 11/02/19at 21:04; Start 11/02/19 at 11:30; Stop 11/07/19 at 11:29; Status DC Ondansetron HCl (Zofran) 4 mg PRN Q6HRS PRN IVP NAUSEA/VOMITING Last administered on 11/03/19at 03:09; Start 11/02/19 at 21:30; Stop 11/06/19 at 11:25; Status DC Fentanyl Citrate (Fentanyl 2ml Vial) 50 mcg PRN Q2HR PRN IVP SEVERE PAIN 7-10 Last administered on 11/05/19at 09:30; Start 11/03/19 at 03:00 Ondansetron HCl (Zofran) 4 mg PRN Q6HRS PRN IV NAUSEA/VOMITING; Start 11/04/19 at 07:00; Stop 11/05/19 at 06:59; Status DC Fentanyl Citrate (Fentanyl 2ml Vial) 25 mcg PRN Q5MIN PRN IV MILD PAIN 1-3; Start 11/04/19 at 07:00; Stop 11/05/19 at 06:59; Status DC Fentanyl Citrate (Fentanyl 2ml Vial) 50 mcg PRN Q5MIN PRN IV MODERATE TO SEVERE PAIN; Start 11/04/19 at 07:00; Stop 11/05/19 at 06:59; Status DC Morphine Sulfate (Morphine Sulfate) 1 mg PRN Q10MIN PRN IV SEVERE PAIN 7-10; Start 11/04/19 at 07:00; Stop 11/05/19 at 06:59; Status DC Ringer's Solution 1,000 ml @ 30 mls/hr Q24H IV ; Start 11/04/19 at 07:00; Stop 11/04/19 at 18:59; Status DC Lidocaine HCl (Xylocaine-Mpf 1% 2ml Vial) 2 ml PRN 1X PRN ID PRIOR TO IV START; Start 11/04/19 at 07:00; Stop 11/05/19 at 06:59; Status DC Hydromorphone HCl (Dilaudid) 0.5 mg PRN Q10MIN PRN IV SEV PAIN, Second choice; Start 11/04/19 at 07:00; Stop 11/05/19 at 06:59; Status DC Prochlorperazine Edisylate (Compazine) 5 mg PACU PRN PRN IV NAUSEA, MRX1; Start 11/04/19 at 07:00; Stop 11/05/19 at 06:59; Status DC Iron Sucrose 200 mg/Sodium Chloride 110 ml @ 55 mls/hr 1X ONCE IV Last administered on 11/04/19at 17:05; Start 11/04/19 at 15:45; Stop 11/04/19 at 17:44; Status DC Ondansetron HCl (Zofran) 4 mg PRN Q6HRS PRN IV NAUSEA/VOMITING; Start 11/05/19 at 07:00; Stop 11/06/19 at 06:59; Status DC Fentanyl Citrate (Fentanyl 2ml Vial) 25 mcg PRN Q5MIN PRN IV MILD PAIN 1-3; St art 11/05/19 at 07:00; Stop 11/06/19 at 06:59; Status DC Fentanyl Citrate (Fentanyl 2ml Vial) 50 mcg PRN Q5MIN PRN IV MODERATE TO SEVERE PAIN; Start 11/05/19 at 07:00; Stop 11/06/19 at 06:59; Status DC Morphine Sulfate (Morphine Sulfate) 1 mg PRN Q10MIN PRN IV SEVERE PAIN 7-10; Start 11/05/19 at 07:00; Stop 11/06/19 at 06:59; Status DC Ringer's Solution 1,000 ml @ 30 mls/hr Q24H IV Last administered on 11/05/19at 11:00; Start 11/05/19 at 07:00; Stop 11/05/19 at 18:59; Status DC Hydromorphone HCl (Dilaudid) 0.5 mg PRN Q10MIN PRN IV SEV PAIN, Second choice; Start 11/05/19 at 07:00; Stop 11/06/19 at 06:59; Status DC Prochlorperazine Edisylate (Compazine) 5 mg PACU PRN PRN IV NAUSEA, MRX1; Start 11/05/19 at 07:00; Stop 11/06/19 at 06:59; Status DC Propofol 20 ml @ As Directed STK-MED ONCE IV ; Start 11/05/19 at 10:49; Stop 11/05/19 at 10:49; Status DC Lidocaine HCl (Lidocaine Pf 2% Vial) 5 ml STK-MED ONCE .ROUTE ; Start 11/05/19 at 10:49; Stop 11/05/19 at 10:49; Status DC Fentanyl Citrate (Fentanyl 2ml Vial) 100 mcg STK-MED ONCE .ROUTE ; Start 11/05/19 at 10:49; Stop 11/05/19 at 10:49; Status DC Rocuronium [place] (Zemuron) 50 mg STK-MED ONCE .ROUTE ; Start 11/05/19 at 10:49; Stop 11/05/19 at 10:50; Status DC Cefoxitin Sodium (Mefoxin) 2 gm 1X PREOP ONCE IVP Last administered on 11/05/19at 11:55; Start 11/05/19 at 11:45; Stop 11/05/19 at 11:46; Status DC Cefoxitin Sodium (Mefoxin) 2 gm STK-MED ONCE IVP ; Start 11/05/19 at 11:36; Stop 11/05/19 at 11:36; Status DC Bupivacaine HCl/ Epinephrine Bitart (Sensorcain-Epi 0.5%-1:791106 Mpf) 30 ml STK-MED ONCE .ROUTE Last administered on 11/05/19at 12:20; Start 11/05/19 at 11:48; Stop 11/05/19 at 11:49; Status DC Dexamethasone Sodium Phosphate (Decadron) 4 mg STK-MED ONCE .ROUTE ; Start 11/05/19 at 12:06; Stop 11/05/19 at 12:06; Status DC Sevoflurane (Ultane) 60 ml STK-MED ONCE IH ; Start 11/05/19 at 12:06; Stop 11/05/19 at 12:06; Status DC Ondansetron HCl (Zofran) 4 mg STK-MED ONCE .ROUTE ; Start 11/05/19 at 12:13; Stop 11/05/19 at 12:13; Status DC Glycopyrrolate (Robinul) 1 mg STK-MED ONCE .ROUTE ; Start 11/05/19 at 12:13; Stop 11/05/19 at 12:13; Status DC Neostigmine [place] (Neostigmine Methylsulfate) 5 mg STK-MED ONCE .ROUTE ; Start 11/05/19 at 12:13; Stop 11/05/19 at 12:13; Status DC Hydromorphone HCl (Dilaudid) 2 mg STK-MED ONCE .ROUTE ; Start 11/05/19 at 14:05; Stop 11/05/19 at 14:05; Status DC Ketamine HCl (Ketamine) 50 mg STK-MED ONCE .ROUTE ; Start 11/05/19 at 14:05; Stop 11/05/19 at 14:05; Status DC Famotidine (Pepcid Vial) 20 mg BID IVP Last administered on 11/09/19at 08:58; Start 11/05/19 at 21:00; Stop 11/09/19 at 10:06; Status DC Sodium Chloride (Normal Saline Flush) 3 ml QSHIFT PRN IV AFTER MEDS AND BLOOD DRAWS; Start 11/05/19 at 14:45 Ringer's Solution 1,000 ml @ 75 mls/hr [id number] IV Last administered on 11/09/19at 03:22; Start 11/05/19 at 14:39 Naloxone HCl (Narcan) 0.4 mg PRN Q2MIN PRN IV SEE INSTRUCTIONS; Start 11/05/19 at 14:45 Sodium Chloride 1,000 ml @ 25 mls/hr Q24H IV ; Start 11/05/19 at 14:39 Morphine Sulfate 30 ml @ 0 mls/hr CONT PRN PRN IV PER PROTOCOL Last administered on 11/09/19at 03:22; Start 11/05/19 at 14:45; Stop 11/09/19 at 08:48; Status DC Ondansetron HCl (Zofran) 4 mg PRN Q6HRS PRN IVP NAUESA, 1ST CHOICE; Start 11/05/19 at 14:45 Acetaminophen (Tylenol) 325 mg 1X ONCE PO Last administered on 11/06/19at 23:19; Start 11/06/19 at 23:15; Stop 11/06/19 at 23:16; Status DC Sodium Chloride 1,000 ml @ 1,000 mls/hr 1X ONCE IV Last administered on 11/06/19at 23:18; Start 11/06/19 at 23:15; Stop 11/07/19 at 00:14; Status DC Tramadol HCl (Ultram) 50 mg PRN Q6HRS PRN PO MILD PAIN 1-3 Last administered on 11/09/19at 12:03; Start 11/07/19 at 16:30 Enoxaparin Sodium (Lovenox 40mg Syringe) 40 mg Q24H SQ Last administered on 11/09/19at 08:58; Start 11/08/19 at 08:00 Potassium Chloride (Klor-Con) 40 meq 1X ONCE PO Last administered on 11/08/19at 11:46; Start 11/08/19 at 10:45; Stop 11/08/19 at 10:46; Status DC Magnesium Sulfate 100 ml @ 25 mls/hr 1X ONCE IV Last administered on 11/08/19at 11:47; Start 11/08/19 at 12:00; Stop 11/08/19 at 15:59; Status DC Iohexol (Omnipaque 300 Mg/ml) 75 ml 1X ONCE IV ; Start 11/09/19 at 07:15; Stop 11/09/19 at 07:16; Status DC Iohexol (Omnipaque 240 Mg/ml) 50 ml 1X ONCE PO ; Start 11/09/19 at 07:15; Stop 11/09/19 at 07:16; Status DC Info (CONTRAST GIVEN -- Rx MONITORING) 1 each PRN DAILY PRN MC SEE COMMENTS; Start 11/09/19 at 07:15; Stop 11/11/19 at 07:14 Oxycodone/ Acetaminophen (Percocet 5/325) 1 tab PRN Q4HRS PRN PO MODERATE- SEVERE PAIN; Start 11/09/19 at 09:00 Morphine Sulfate (Morphine Sulfate) 2 mg PRN Q2HR PRN IV MODERATE PAIN; Start 11/09/19 at 09:00 Famotidine (Pepcid) 20 mg QHS PO ; Start 11/09/19 at 21:00 Vitals/I & O Vital Sign - Last 24 Hours 11/08/19 11/08/19 11/08/19 11/08/19 15:00 19:00 20:00 23:00 Temp 98.0 98.0 98.8 98.0 98.0 98.8 Pulse 112 121 125 Resp 18 22 18 B/P (MAP) 119/73 (88) 107/79 (88) 120/85 (97) Pulse Ox 96 99 99 O2 Delivery Room Air Room Air Room Air Room Air 11/09/19 11/09/19 11/09/19 11/09/19 03:22 03:24 03:58 07:00 Temp 98.6 98.1 98.6 98.1 Pulse 113 127 Resp 18 18 18 B/P (MAP) 96/62 (73) 111/72 (85) Pulse Ox 99 97 97 98 O2 Delivery Room Air Room Air Room Air Room Air O2 Flow Rate 1.0 1.0 11/09/19 11/09/19 11/09/19 07:50 11:00 12:03 Temp 99.2 99.2 Pulse 122 Resp 18 B/P (MAP) 111/72 (85) Pulse Ox 98 O2 Delivery Room Air Room Air Room Air Intake and Output 11/08/19 11/08/19 11/09/19 15:00 23:00 07:00 Intake Total 30 ml Balance 30 ml MOON AGUIAR MD Nov 09, 2019 13:41
[2019-11-09] MEDS ORDERED: POTASSIUM CHLORIDE 20 MEQ TABLET.ER. PO ONE (14:30)
[2019-11-09] MEDS: IV NORMAL SALINE 1000ML BAG 1,000 ML IV SCH (14:39)
[2019-11-09 15:00] VITALS: BP 116/73
--- NOTE | 2019-11-09 15:07 | PATHOLOGY ---
[facility] Accession Number: [id number] . 01 Material submitted: . colon - RIGHT COLON. Modifiers: right . 01 Clinical history: . Abdominal pain . 02 Frozen section diagnosis: . INTRAOPERATIVE CONSULTATION WITH GROSS IMPRESSION (Tom Mascorro MD) . Distal ileum, cecum, and ascending colon with attached mesocolon/mesentery, right colon resection: - Irregular areas of ulceration of distal ileum and colonic aspect of ileocecal valve - no evidence of malignancy. . The results are displayed to Dr. Jacques in the operating room. A specimen is fixed in formalin prior to additional sectioning. . . Frozen section performed at [facility], [address] [place] [address], [place] [id number]. . . GROSS DESCRIPTION The specimen is received fresh for intraoperative consultation and is designated "right colon". This consists of a segment of terminal ileum with contiguous cecum and ascending colon. The segment is stapled closed at both ends. The segment of distal ileum measures approximately 17 cm in length. The cecum and ascending colon measure approximately 9.5 cm in length. Attached to the cecum is a retrocecal appendix measuring approximately 7 cm in length and up to 1.0 cm in diameter. The appendix is partially encased in adhesions. The serosa of the distal ileum is reddish brown and hyperemic. The serosa of the cecum and ascending colon is pinkish brown and slightly hyperemic. The attached mesocolon and mesentery measures up to approximately 6 cm in depth. At the resection margin of the mesocolon there are several pinkish brown enlarged lymph nodes. The segment is open along the antimesenteric aspect. The proximal distal ileum mucosa is pink-campbell and transversely folded and shows a couple of punctate foci of ulceration which began approximately 1.5 cm from the proximal margin. There are several additional larger irregular areas of ulceration involving the distal 8 cm of the distal ileum. These areas of ulceration measure up to 2.3 cm in greatest dimension. Areas of ulceration are focally by focally erythematous normal appearing mucosa. The ileocecal valve itself is purple-dempsey and hyperemic. There is an additional area of ulceration on the colonic aspect of the ileocecal valve measuring up to 1.3 cm. The remainder of the cecal mucosa and ascending colon mucosa appears relatively normal. There is erythema of the mucosa surrounding the appendiceal orifice. (JPM:vivek; 11/05/2019) . [facility]/QMS . 02 Diagnosis: Terminal ileum and right colon, removal: - Segment of ileum and attached right colon with multifocal mucosal ulcerations. - Relatively normal small bowel and large bowel mucosa in between the areas of ulceration. - Acute and chronic serositis, mild to moderate. - Appendix with no pathologic diagnosis. - 14 pericolonic lymph nodes with reactive changes. . (SKM:mml; 11/09/2019) M 11/09/2019 1452 Local . 02 Electronically signed: . Mateo Posadas MD, Pathologist NPI- [id number] . 01 Gross description: . PLEASE SEE GROSS DESCRIPTION DICTATED UNDER FROZEN SECTION. . Sectioning through the appendix reveals a pinpoint to slightly patent lumen with a thickened appendiceal wall. Palpation of the attached mesenteric and pericolic fat reveals 14 lymph nodes ranging in size from 0.3 to 2.8 cm in maximum dimensions. The specimen is submitted representatively as follows: . A1 proximal margin A2 distal margin A3 entire area of ulceration closest to proximal margin A4 public relations representative section of ulceration from mid aspect of small bowel A5 public relations representative section of ulceration from distal aspect of small bowel near ileocecal valve A6 public relations representative sections of small bowel mucosa between each area of ulceration A7 public relations representative sections of ileocecal valve A8 public relations representative section of mucosa surrounding the appendiceal orifice A9 public relations representative sections of colonic mucosa A10 appendiceal margin and bisected tip A11 additional cross sections of appendix A12-A13 intact lymph nodes A14-A17 public relations representative section from each of the larger 5 lymph nodes. (CAA; 11/07/2019) QAC/QMS 11/07/2019 1750 Local . 02 Pathologist provided ICD-10: K63.3, K65.8 . 02 CPT . 349139 Specimen Comment: A courtesy copy of this report has been sent to [phone] Specimen Comment: Report sent to Performed at: [address], [place] [id number] MD Matthias Hill MD Phone: [phone] Performed at: [address] [id number] MD Tom Mascorro MD Phone: [phone]
[2019-11-09] MEDS: oxyCODONE/APAP 5/325 1 TAB TABLET PO PRN (15:31)
[2019-11-09 19:50] VITALS: BP 118/79
[2019-11-09] MEDS ORDERED: FAMOTIDINE 20 MG TABLET. PO SCH (21:00)
[2019-11-09 23:00] VITALS: BP 117/81
[2019-11-10 02:55] VITALS: BP 111/69
[2019-11-10] MEDS: oxyCODONE/APAP 5/325 1 TAB TABLET PO PRN (03:07)
[2019-11-10] MEDS: IV RINGERS,LACTATED 1000ML 1,000 ML IV SCH (04:59)
[2019-11-10 07:00] VITALS: BP 112/75
--- NOTE | 2019-11-10 08:28 | PDOC ---
PROGRESS NOTES Chief Complaint Chief Complaint A/P: Abdominal pain Uterine fibroids Iron deficiency anemia Ileum and colon ulcerations History of Present Illness History of Present Illness Ms Lei is a 24yo F admitted with abdominal pain. CT with uterine mass. mild prominence of appendix, however no inflammatory findings, no leukocytosis. US reveals likely 6cm uterine fibroid. Seen by general surgery and Slubber Machine Operator. 11/03: Feeling RLQ pain this morning. Toradol did not seem to help. Mother is bedside. I have discussed repeating imaging as a possibility though US does not always visualize the appendix. No changes 11/04: Pain improved somewhat. Still present on palpation. Iron levels low. Plan to try to advance diet today, but also plan for ex-lap tomorrow given persistence of symptoms. 11/05: Ex-lap with terminal ileum and colonic ulcers, intraop appearance not consistent with degenerating fibroid, s/p laparoscopic ileocolic resection 11/06: Still with pain, tolerated iron well. Using PRODUCT REPRESENTATIVE for pain control. No CP or SOB. 11/07: Pain is improved today. No CP or SOB. Still on PRODUCT REPRESENTATIVE, path pending. Tachycardic 11/08: Overnight still with tachycardia. Fever 101F. Using bedside spirometer. Her pain is controlled, but still requiring PRODUCT REPRESENTATIVE. 11/09: WBC normalized, afebrile past 24 hours. Blood cultures NGTD. Not on antibiotics. She is feeling better. off rib bender Feels much better, wishes to leave. Pathology returned, but microscopic path still pending. PATH: Material submitted: colon - RIGHT COLON. Clinical history: Abdominal pain Distal ileum, cecum, and ascending colon with attached mesocolon/mesentery, right colon resection: - Irregular areas of ulceration of distal ileum and colonic aspect of ileocecal valve - no evidence of malignancy. The results are displayed to Dr. Jacques in the operating room. A specimen is fixed in formalin prior to additional sectioning. Diagnosis: Terminal ileum and right colon, removal: - Segment of ileum and attached right colon with multifocal mucosal ulcerations. - Relatively normal small bowel and large bowel mucosa in between the areas of ulceration. - Acute and chronic serositis, mild to moderate. - Appendix with no pathologic diagnosis. - 14 pericolonic lymph nodes with reactive changes. Plan: F/u pathology F/u GI, surgery, and nurse obgyn outpatient Off work until 11/19/2019 Vitals Vitals Vital Signs Date Time Temp Pulse Resp B/P (MAP) Pulse Ox O2 Delivery O2 Flow Rate FiO2 11/10/19 07:00 98.0 109 18 112/75 (87) 98 Room Air 98.0 Physical Exam General: Alert, Oriented X3, Cooperative Heart: Regular rate, Normal S1, Normal S2 Abdomen: Soft, Other (ND, incisional TTP) Extremities: No clubbing, No cyanosis Skin: No rashes, No breakdown Assessment and Plan Assessmemt and Plan Problems Medical Problems: (1) Abdominal pain Status: Acute Comment Review of Relevant I have reviewed the following items kamilah (where applicable) has been applied. Labs Laboratory Tests Test 11/08/19 09:45 11/09/19 06:05 White Blood Count 15.0 x10^3/uL (4.0-11.0) 9.5 x10^3/uL (4.0-11.0) Red Blood Count 3.65 x10^6/uL (3.50-5.40) 3.68 x10^6/uL (3.50-5.40) Hemoglobin 8.9 g/dL (12.0-15.5) 9.0 g/dL (12.0-15.5) Hematocrit 27.1 % (36.0-47.0) 27.7 % (36.0-47.0) Mean Corpuscular Volume 74 fL (79-100) 75 fL (79-100) Mean Corpuscular Hemoglobin 24 pg (25-35) 25 pg (25-35) Mean Corpuscular Hemoglobin Concent 33 g/dL (31-37) 33 g/dL (31-37) Red Cell Distribution Width 18.6 % (11.5-14.5) 18.7 % (11.5-14.5) Platelet Count 107 x10^3/uL (140-400) 150 x10^3/uL (140-400) Neutrophils (%) (Auto) 81 % (31-73) 78 % (31-73) Lymphocytes (%) (Auto) 10 % (24-48) 10 % (24-48) Monocytes (%) (Auto) 7 % (0-9) 10 % (0-9) Eosinophils (%) (Auto) 2 % (0-3) 2 % (0-3) Basophils (%) (Auto) 0 % (0-3) 0 % (0-3) Neutrophils # (Auto) 12.1 x10^3/uL (1.8-7.7) 7.4 x10^3/uL (1.8-7.7) Lymphocytes # (Auto) 1.5 x10^3/uL (1.0-4.8) 0.9 x10^3/uL (1.0-4.8) Monocytes # (Auto) 1.1 x10^3/uL (0.0-1.1) 0.9 x10^3/uL (0.0-1.1) Eosinophils # (Auto) 0.3 x10^3/uL (0.0-0.7) 0.2 x10^3/uL (0.0-0.7) Basophils # (Auto) 0.0 x10^3/uL (0.0-0.2) 0.0 x10^3/uL (0.0-0.2) Sodium Level 137 mmol/L (136-145) 139 mmol/L (136-145) Potassium Level 3.1 mmol/L (3.5-5.1) 3.4 mmol/L (3.5-5.1) Chloride Level 104 mmol/L (98-107) 106 mmol/L (98-107) Carbon Dioxide Level 23 mmol/L (21-32) 24 mmol/L (21-32) Anion Gap 10 (6-14) 9 (6-14) Blood Urea Nitrogen 2 mg/dL (7-20) 2 mg/dL (7-20) Creatinine 0.4 mg/dL (0.6-1.0) 0.4 mg/dL (0.6-1.0) Estimated GFR (Cockcroft-Gault) 235.3 235.3 Glucose Level 101 mg/dL (70-99) 82 mg/dL (70-99) Calcium Level 7.6 mg/dL (8.5-10.1) 7.3 mg/dL (8.5-10.1) Magnesium Level 1.5 mg/dL (1.8-2.4) 1.9 mg/dL (1.8-2.4) Microbiology 11/08/19 Blood Culture - Preliminary, Resulted NO GROWTH AFTER 1 DAY Medications Current Medications Sodium Chloride 1,000 ml @ 1,000 mls/hr Q1H IV Last administered on 11/01/19at 14:38; Start 11/01/19 at 14:30; Stop 11/01/19 at 15:29; Status DC Fentanyl Citrate (Fentanyl 2ml Vial) 50 mcg 1X ONCE IVP Last administered on 11/01/19at 14:39; Start 11/01/19 at 14:30; Stop 11/01/19 at 14:31; Status DC Ondansetron HCl (Zofran) 4 mg 1X ONCE IVP Last administered on 11/01/19at 14:39; Start 11/01/19 at 14:30; Stop 11/01/19 at 14:31; Status DC Iohexol (Omnipaque 300 Mg/ml) 75 ml 1X ONCE IV Last administered on 11/01/19at 15:32; Start 11/01/19 at 15:30; Stop 11/01/19 at 15:31; Status DC Info (CONTRAST GIVEN -- Rx MONITORING) 1 each PRN DAILY PRN MC SEE COMMENTS; Start 11/01/19 at 15:15; Stop 11/03/19 at 15:14; Status DC Piperacillin Sod/ Tazobactam Sod 3.375 gm/Sodium Chloride 50 ml @ 100 mls/hr 1X ONCE IV Last administered on 11/01/19at 16:55; Start 11/01/19 at 17:00; Stop 11/01/19 at 17:29; Status DC Ondansetron HCl (Zofran) 4 mg PRN Q8HRS PRN IV NAUSEA/VOMITING Last administered on 11/01/19at 23:12; Start 11/01/19 at 16:45; Stop 11/02/19 at 16:44; Status DC Fentanyl Citrate (Fentanyl 2ml Vial) 50 mcg PRN Q1HR PRN IV PAIN Last administered on 11/02/19at 10:35; Start 11/01/19 at 16:45; Stop 11/02/19 at 11:25; Status DC Sodium Chloride 1,000 ml @ 125 mls/hr Q8H IV Last administered on 11/02/19at 08:16; Start 11/01/19 at 16:39; Stop 11/02/19 at 16:38; Status DC Acetaminophen (Tylenol) 650 mg PRN Q6HRS PRN PO fever Last administered on 11/08/19at 21:44; Start 11/01/19 at 23:00 Ketorolac Tromethamine (Toradol 30mg Vial) 30 mg PRN Q6HRS PRN IVP MILD PAIN 1- 3 Last administered on 11/02/19at 21:04; Start 11/02/19 at 11:30; Stop 11/07/19 at 11:29; Status DC Ondansetron HCl (Zofran) 4 mg PRN Q6HRS PRN IVP NAUSEA/VOMITING Last administered on 11/03/19at 03:09; Start 11/02/19 at 21:30; Stop 11/06/19 at 11:25; Status DC Fentanyl Citrate (Fentanyl 2ml Vial) 50 mcg PRN Q2HR PRN IVP SEVERE PAIN 7-10 Last administered on 11/05/19at 09:30; Start 11/03/19 at 03:00 Ondansetron HCl (Zofran) 4 mg PRN Q6HRS PRN IV NAUSEA/VOMITING; Start 11/04/19 at 07:00; Stop 11/05/19 at 06:59; Status DC Fentanyl Citrate (Fentanyl 2ml Vial) 25 mcg PRN Q5MIN PRN IV MILD PAIN 1-3; Start 11/04/19 at 07:00; Stop 11/05/19 at 06:59; Status DC Fentanyl Citrate (Fentanyl 2ml Vial) 50 mcg PRN Q5MIN PRN IV MODERATE TO SEVERE PAIN; Start 11/04/19 at 07:00; Stop 11/05/19 at 06:59; Status DC Morphine Sulfate (Morphine Sulfate) 1 mg PRN Q10MIN PRN IV SEVERE PAIN 7-10; Start 11/04/19 at 07:00; Stop 11/05/19 at 06:59; Status DC Ringer's Solution 1,000 ml @ 30 mls/hr Q24H IV ; Start 11/04/19 at 07:00; Stop 11/04/19 at 18:59; Status DC Lidocaine HCl (Xylocaine-Mpf 1% 2ml Vial) 2 ml PRN 1X PRN ID PRIOR TO IV START; Start 11/04/19 at 07:00; Stop 11/05/19 at 06:59; Status DC Hydromorphone HCl (Dilaudid) 0.5 mg PRN Q10MIN PRN IV SEV PAIN, Second choice; Start 11/04/19 at 07:00; Stop 11/05/19 at 06:59; Status DC Prochlorperazine Edisylate (Compazine) 5 mg PACU PRN PRN IV NAUSEA, MRX1; Start 11/04/19 at 07:00; Stop 11/05/19 at 06:59; Status DC Iron Sucrose 200 mg/Sodium Chloride 110 ml @ 55 mls/hr 1X ONCE IV Last administered on 11/04/19at 17:05; Start 11/04/19 at 15:45; Stop 11/04/19 at 17:44; Status DC Ondansetron HCl (Zofran) 4 mg PRN Q6HRS PRN IV NAUSEA/VOMITING; Start 11/05/19 at 07:00; Stop 11/06/19 at 06:59; Status DC Fentanyl Citrate (Fentanyl 2ml Vial) 25 mcg PRN Q5MIN PRN IV MILD PAIN 1-3; Start 11/05/19 at 07:00; Stop 11/06/19 at 06:59; Status DC Fentanyl Citrate (Fentanyl 2ml Vial) 50 mcg PRN Q5MIN PRN IV MODERATE TO SEVERE PAIN; Start 11/05/19 at 07:00; Stop 11/06/19 at 06:59; Status DC Morphine Sulfate (Morphine Sulfate) 1 mg PRN Q10MIN PRN IV SEVERE PAIN 7-10; Start 11/05/19 at 07:00; Stop 11/06/19 at 06:59; Status DC Ringer's Solution 1,000 ml @ 30 mls/hr Q24H IV Last administered on 11/05/19at 11:00; Start 11/05/19 at 07:00; Stop 11/05/19 at 18:59; Status DC Hydromorphone HCl (Dilaudid) 0.5 mg PRN Q10MIN PRN IV SEV PAIN, Second choice; Start 11/05/19 at 07:00; Stop 11/06/19 at 06:59; Status DC Prochlorperazine Edisylate (Compazine) 5 mg PACU PRN PRN IV NAUSEA, MRX1; Start 11/05/19 at 07:00; Stop 11/06/19 at 06:59; Status DC Propofol 20 ml @ As Directed STK-MED ONCE IV ; Start 11/05/19 at 10:49; Stop 11/05/19 at 10:49; Status DC Lidocaine HCl (Lidocaine Pf 2% Vial) 5 ml STK-MED ONCE .ROUTE ; Start 11/05/19 at 10:49; Stop 11/05/19 at 10:49; Status DC Fentanyl Citrate (Fentanyl 2ml Vial) 100 mcg STK-MED ONCE .ROUTE ; Start 11/05/19 at 10:49; Stop 11/05/19 at 10:49; Status DC Rocuronium Altus (Zemuron) 50 mg STK-MED ONCE .ROUTE ; Start 11/05/19 at 10:49; Stop 11/05/19 at 10:50; Status DC Cefoxitin Sodium (Mefoxin) 2 gm 1X PREOP ONCE IVP Last administered on 11/05/19at 11:55; Start 11/05/19 at 11:45; Stop 11/05/19 at 11:46; Status DC Cefoxitin Sodium (Mefoxin) 2 gm STK-MED ONCE IVP ; Start 11/05/19 at 11:36; Stop 11/05/19 at 11:36; Status DC Bupivacaine HCl/ Epinephrine Bitart (Sensorcain-Epi 0.5%-1:010647 Mpf) 30 ml STK-MED ONCE .ROUTE Last administered on 11/05/19at 12:20; Start 11/05/19 at 11:48; Stop 11/05/19 at 11:49; Status DC Dexamethasone Sodium Phosphate (Decadron) 4 mg STK-MED ONCE .ROUTE ; Start 11/05/19 at 12:06; Stop 11/05/19 at 12:06; Status DC Sevoflurane (Ultane) 60 ml STK-MED ONCE IH ; Start 11/05/19 at 12:06; Stop 11/05/19 at 12:06; Status DC Ondansetron HCl (Zofran) 4 mg STK-MED ONCE .ROUTE ; Start 11/05/19 at 12:13; Stop 11/05/19 at 12:13; Status DC Glycopyrrolate (Robinul) 1 mg STK-MED ONCE .ROUTE ; Start 11/05/19 at 12:13; Stop 11/05/19 at 12:13; Status DC Neostigmine Altus (Neostigmine Methylsulfate) 5 mg STK-MED ONCE .ROUTE ; Start 11/05/19 at 12:13; Stop 11/05/19 at 12:13; Status DC Hydromorphone HCl (Dilaudid) 2 mg STK-MED ONCE .ROUTE ; Start 11/05/19 at 14:05; Stop 11/05/19 at 14:05; Status DC Ketamine HCl (Ketamine) 50 mg STK-MED ONCE .ROUTE ; Start 11/05/19 at 14:05; Stop 11/05/19 at 14:05; Status DC Famotidine (Pepcid Vial) 20 mg BID IVP Last administered on 11/09/19at 08:58; Start 11/05/19 at 21:00; Stop 11/09/19 at 10:06; Status DC Sodium Chloride (Normal Saline Flush) 3 ml QSHIFT PRN IV AFTER MEDS AND BLOOD DRAWS; Start 11/05/19 at 14:45 Ringer's Solution 1,000 ml @ 75 mls/hr [id number] IV Last administered on 11/10/19at 04:59; Start 11/05/19 at 14:39 Naloxone HCl (Narcan) 0.4 mg PRN Q2MIN PRN IV SEE INSTRUCTIONS; Start 11/05/19 at 14:45 Sodium Chloride 1,000 ml @ 25 mls/hr Q24H IV ; Start 11/05/19 at 14:39 Morphine Sulfate 30 ml @ 0 mls/hr CONT PRN PRN IV PER PROTOCOL Last administered on 11/09/19at 03:22; Start 11/05/19 at 14:45; Stop 11/09/19 at 08:48; Status DC Ondansetron HCl (Zofran) 4 mg PRN Q6HRS PRN IVP NAUESA, 1ST CHOICE; Start 11/05/19 at 14:45 Acetaminophen (Tylenol) 325 mg 1X ONCE PO Last administered on 11/06/19at 23:19; Start 11/06/19 at 23:15; Stop 11/06/19 at 23:16; Status DC Sodium Chloride 1,000 ml @ 1,000 mls/hr 1X ONCE IV Last administered on 11/06/19at 23:18; Start 11/06/19 at 23:15; Stop 11/07/19 at 00:14; Status DC Tramadol HCl (Ultram) 50 mg PRN Q6HRS PRN PO MILD PAIN 1-3 Last administered on 11/09/19at 12:03; Start 11/07/19 at 16:30 Enoxaparin Sodium (Lovenox 40mg Syringe) 40 mg Q24H SQ Last administered on 11/09/19at 08:58; Start 11/08/19 at 08:00 Potassium Chloride (Klor-Con) 40 meq 1X ONCE PO Last administered on 11/08/19at 11:46; Start 11/08/19 at 10:45; Stop 11/08/19 at 10:46; Status DC Magnesium Sulfate 100 ml @ 25 mls/hr 1X ONCE IV Last administered on 11/08/19at 11:47; Start 11/08/19 at 12:00; Stop 11/08/19 at 15:59; Status DC Iohexol (Omnipaque 300 Mg/ml) 75 ml 1X ONCE IV ; Start 11/09/19 at 07:15; Stop 11/09/19 at 07:16; Status DC Iohexol (Omnipaque 240 Mg/ml) 50 ml 1X ONCE PO ; Start 11/09/19 at 07:15; Stop 11/09/19 at 07:16; Status DC Info (CONTRAST GIVEN -- Rx MONITORING) 1 each PRN DAILY PRN MC SEE COMMENTS; Start 11/09/19 at 07:15; Stop 11/11/19 at 07:14 Oxycodone/ Acetaminophen (Percocet 5/325) 1 tab PRN Q4HRS PRN PO MODERATE- SEVERE PAIN Last administered on 11/10/19at 03:07; Start 11/09/19 at 09:00 Morphine Sulfate (Morphine Sulfate) 2 mg PRN Q2HR PRN IV MODERATE PAIN; Start 11/09/19 at 09:00 Famotidine (Pepcid) 20 mg QHS PO Last administered on 11/09/19at 21:27; Start 11/09/19 at 21:00 Potassium Chloride (Klor-Con) 40 meq 1X ONCE PO Last administered on 11/09/19at 15:24; Start 11/09/19 at 14:30; Stop 11/09/19 at 14:31; Status DC Vitals/I & O Vital Sign - Last 24 Hours 11/09/19 11/09/19 11/09/19 11/09/19 11:00 12:03 15:00 15:31 Temp 99.2 99.4 99.2 99.4 Pulse 122 118 Resp 18 18 B/P (MAP) 111/72 (85) 116/73 (87) Pulse Ox 98 99 O2 Delivery Room Air Room Air Room Air Room Air 11/09/19 11/09/19 11/09/19 11/09/19 17:24 19:50 20:00 23:00 Temp 98.0 98.4 98.0 98.4 Pulse 114 115 Resp 20 20 B/P (MAP) 118/79 (92) 117/81 (93) Pulse Ox 95 98 O2 Delivery Room Air Room Air Room Air Room Air 11/10/19 11/10/19 11/10/19 02:55 03:07 07:00 Temp 98.7 98.0 98.7 98.0 Pulse 117 109 Resp 18 18 18 B/P (MAP) 111/69 (83) 112/75 (87) Pulse Ox 96 98 O2 Delivery Room Air Room Air Room Air Intake and Output 11/09/19 11/09/19 11/10/19 15:00 23:00 07:00 Intake Total 1340 ml Balance 1340 ml MOON AGUIAR MD Nov 10, 2019 08:28
--- NOTE | 2019-11-10 09:13 | PDOC ---
Subjective: Subjective: Not much appetite but tolerating diet. Has some soreness in abdomen but not needing pain meds all the time. Still passing flatus and stool. Would like to go home today. Objective: Vital Signs: Vital Signs Date Time Temp Pulse Resp B/P (MAP) Pulse Ox O2 Delivery O2 Flow Rate FiO2 11/10/19 07:00 98.0 109 18 112/75 (87) 98 Room Air 98.0 Labs: Material submitted: colon - RIGHT COLON. Clinical history: Abdominal pain Distal ileum, cecum, and ascending colon with attached mesocolon/mesentery, right colon resection: - Irregular areas of ulceration of distal ileum and colonic aspect of ileocecal valve - no evidence of malignancy. The results are displayed to Dr. Jacques in the operating room. A specimen is fixed in formalin prior to additional sectioning. Diagnosis: Terminal ileum and right colon, removal: - Segment of ileum and attached right colon with multifocal mucosal ulcerations. - Relatively normal small bowel and large bowel mucosa in between the areas of ulceration. - Acute and chronic serositis, mild to moderate. - Appendix with no pathologic diagnosis. - 14 pericolonic lymph nodes with reactive changes. PE: GEN: NAD, sitting up in bed, breakfast tray untouched LUNGS: CTAB HEART: RRR ABD: soft NEURO/PSYCH: A & O 3 A/P: S/p ileocolic resection - path as above VEENA, uterine fibroid -- Will reivew path and any additional GI recs w/ Dr. Jorge. Hemodynamically unstable?: No Is patient in severe pain?: No Is NPO status required?: No TIFFANIE MULLINS Nov 10, 2019 09:13
[2019-11-10] MEDS: ENOXAPARIN 40 MG/0.4 ML SYRINGE. SQ SCH (09:27)
--- NOTE | 2019-11-10 10:54 | PDOC ---
SURGICAL PROGRESS NOTE Subjective feels pretty good having stools tolerating diet pain managed Vital Signs Vital Signs Date Time Temp Pulse Resp B/P (MAP) Pulse Ox O2 Delivery O2 Flow Rate FiO2 11/10/19 08:00 Room Air 11/10/19 07:00 98.0 109 18 112/75 (87) 98 98.0 I&O Intake and Output 11/10/19 07:00 Intake Total 1340 ml Balance 1340 ml Intake Oral 340 ml IV Total 1000 ml # Voids 8 # Bowel Movements 1 General: Alert, Oriented X3, Cooperative Abdomen: Soft, Other (incision c/d/i, no erythema ) Labs Laboratory Tests Test 11/09/19 06:05 White Blood Count 9.5 x10^3/uL (4.0-11.0) Red Blood Count 3.68 x10^6/uL (3.50-5.40) Hemoglobin 9.0 g/dL (12.0-15.5) Hematocrit 27.7 % (36.0-47.0) Mean Corpuscular Volume 75 fL (79-100) Mean Corpuscular Hemoglobin 25 pg (25-35) Mean Corpuscular Hemoglobin Concent 33 g/dL (31-37) Red Cell Distribution Width 18.7 % (11.5-14.5) Platelet Count 150 x10^3/uL (140-400) Neutrophils (%) (Auto) 78 % (31-73) Lymphocytes (%) (Auto) 10 % (24-48) Monocytes (%) (Auto) 10 % (0-9) Eosinophils (%) (Auto) 2 % (0-3) Basophils (%) (Auto) 0 % (0-3) Neutrophils # (Auto) 7.4 x10^3/uL (1.8-7.7) Lymphocytes # (Auto) 0.9 x10^3/uL (1.0-4.8) Monocytes # (Auto) 0.9 x10^3/uL (0.0-1.1) Eosinophils # (Auto) 0.2 x10^3/uL (0.0-0.7) Basophils # (Auto) 0.0 x10^3/uL (0.0-0.2) Sodium Level 139 mmol/L (136-145) Potassium Level 3.4 mmol/L (3.5-5.1) Chloride Level 106 mmol/L (98-107) Carbon Dioxide Level 24 mmol/L (21-32) Anion Gap 9 (6-14) Blood Urea Nitrogen 2 mg/dL (7-20) Creatinine 0.4 mg/dL (0.6-1.0) Estimated GFR (Cockcroft-Gault) 235.3 Glucose Level 82 mg/dL (70-99) Calcium Level 7.3 mg/dL (8.5-10.1) Magnesium Level 1.9 mg/dL (1.8-2.4) Problem List Problems Medical Problems: (1) Abdominal pain Status: Acute Assessment/Plan s/p ileocolic resection advance diet possible dc path reviewed GHADA ROBERTS APRN Nov 10, 2019 10:53
[2019-11-10 11:00] VITALS: BP 120/81
[2019-11-10] MEDS ORDERED: OXYC1TAB15 PO (13:59)
--- NOTE | 2019-11-10 14:04 | PDOC3 ---
Discharge Summary Visit Information Date of Admission: Nov 02, 2019 Date of Discharge: Nov 10, 2019 Admitting Diagnosis: Abdominal pain Final Diagnosis Problems Medical Problems: (1) Abdominal pain Status: Acute Brief Hospital Course Allergies Allergies Coded Allergies Type Severity Reaction Last Updated Verified No Known Drug Allergies 11/01/19 No Vital Signs Vital Signs Date Time Temp Pulse Resp B/P (MAP) Pulse Ox O2 Delivery O2 Flow Rate FiO2 11/10/19 11:00 98.6 111 18 120/81 (94) 99 Room Air 98.6 Lab Results Laboratory Tests Test 11/09/19 06:05 White Blood Count 9.5 x10^3/uL (4.0-11.0) Red Blood Count 3.68 x10^6/uL (3.50-5.40) Hemoglobin 9.0 g/dL (12.0-15.5) Hematocrit 27.7 % (36.0-47.0) Mean Corpuscular Volume 75 fL (79-100) Mean Corpuscular Hemoglobin 25 pg (25-35) Mean Corpuscular Hemoglobin Concent 33 g/dL (31-37) Red Cell Distribution Width 18.7 % (11.5-14.5) Platelet Count 150 x10^3/uL (140-400) Neutrophils (%) (Auto) 78 % (31-73) Lymphocytes (%) (Auto) 10 % (24-48) Monocytes (%) (Auto) 10 % (0-9) Eosinophils (%) (Auto) 2 % (0-3) Basophils (%) (Auto) 0 % (0-3) Neutrophils # (Auto) 7.4 x10^3/uL (1.8-7.7) Lymphocytes # (Auto) 0.9 x10^3/uL (1.0-4.8) Monocytes # (Auto) 0.9 x10^3/uL (0.0-1.1) Eosinophils # (Auto) 0.2 x10^3/uL (0.0-0.7) Basophils # (Auto) 0.0 x10^3/uL (0.0-0.2) Sodium Level 139 mmol/L (136-145) Potassium Level 3.4 mmol/L (3.5-5.1) Chloride Level 106 mmol/L (98-107) Carbon Dioxide Level 24 mmol/L (21-32) Anion Gap 9 (6-14) Blood Urea Nitrogen 2 mg/dL (7-20) Creatinine 0.4 mg/dL (0.6-1.0) Estimated GFR (Cockcroft-Gault) 235.3 Glucose Level 82 mg/dL (70-99) Calcium Level 7.3 mg/dL (8.5-10.1) Magnesium Level 1.9 mg/dL (1.8-2.4) Brief Hospital Course Ms Lei is a 24yo F admitted with abdominal pain. CT with uterine mass. mild prominence of appendix, however no inflammatory findings, no leukocytosis. US reveals likely 6cm uterine fibroid. Seen by general surgery and Kitchen Operator. 11/03: Feeling RLQ pain this morning. Toradol did not seem to help. Mother is bedside. I have discussed repeating imaging as a possibility though US does not always visualize the appendix. No changes 11/04: Pain improved somewhat. Still present on palpation. Iron levels low. Plan to try to advance diet today, but also plan for ex-lap tomorrow given persistence of symptoms. 11/05: Ex-lap with terminal ileum and colonic ulcers, intraop appearance not c onsistent with degenerating fibroid, s/p laparoscopic ileocolic resection 11/06: Still with pain, tolerated iron well. Using SOCK FOLDER for pain control. No CP or SOB. 11/07: Pain is improved today. No CP or SOB. Still on SOCK FOLDER, path pending. Ta chycardic 11/08: Overnight still with tachycardia. Fever 101F. Using bedside spirometer. Her pain is controlled, but still requiring SOCK FOLDER. 11/09: WBC normalized, afebrile past 24 hours. Blood cultures NGTD. Not on antibiotics. She is feeling better. 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 Pathology returned, but microscopic path still pending. PATH: Material submitted: colon - RIGHT COLON. Clinical history: Abdominal pain Distal ileum, cecum, and ascending colon with attached mesocolon/mesentery, right colon resection: - Irregular areas of ulceration of distal ileum and colonic aspect of ileocecal valve - no evidence of malignancy. The results are displayed to Dr. Jacques in the operating room. A specimen is fixed in formalin prior to additional sectioning. Diagnosis: Terminal ileum and right colon, removal: - Segment of ileum and attached right colon with multifocal mucosal ulcerations. - Relatively normal small bowel and large bowel mucosa in between the areas of ulceration. - Acute and chronic serositis, mild to moderate. - Appendix with no pathologic diagnosis. - 14 pericolonic lymph nodes with reactive changes. Problem List: Abdominal pain Uterine fibroids Iron deficiency anemia Ileum and colon ulcerations Plan: F/u pathology F/u GI, surgery, and supervisor carbon electrodes outpatient Off work until 11/19/2019 Greater than 30 minutes spent on d/c Discharge Information Condition at Discharge: Improved Follow Up: Weeks (1) Disposition/Orders: D/C to Home Scheduled PRN Oxycodone/Apap 5-325 (Percocet 5-325 Mg Tablet ) 1 Each Tablet, 1 TAB PO PRN Q4HRS PRN for MODERATE-SEVERE PAIN for 6 Days, #16 Prescribed by: MOON AGUIAR MD on 11/10/19 9182 Hemodynamically unstable?: No Is patient in severe pain?: No Is NPO status required?: No MOON AGUIAR MD Nov 10, 2019 14:04
--- NOTE | 2019-11-10 15:00 | NUR ---
Discharge instructions and belongings reviewed with patient verbalized understanding. Patient was escorted out via wheelchair by Alia CORREIA accompanied by her mother.
[2019-11-10 19:09] LABS: ANA INTERP Negative (.)
[2019-11-11 04:08] LABS: ANTI-DS DNA <1 IU/mL (0-9)
== END 2019-11-10 15:01 | disposition home or self-care (01) | DRG 330 ==
LOC: ER 13:39 → 4 NORTH 16:35 → OBSVTOIN 11-02 20:25
PROVIDERS: ADMIT Internal Medicine; ATTEND Internal Medicine
PROC: 0DTF4ZZ Resection of Right Large Intestine, Percutaneous Endoscopic Approach (ICD-10-PCS; 2019-11-05)
PROC: 0DTB4ZZ Resection of Ileum, Percutaneous Endoscopic Approach (ICD-10-PCS; principal; 2019-11-05 12:00)
DX: K63.3 Ulcer of intestine (principal); J95.851 Ventilator associated pneumonia; D25.9 Leiomyoma of uterus, unspecified; K37 Unspecified appendicitis; D50.9 Iron deficiency anemia, unspecified; D70.9 Neutropenia, unspecified; E86.0 Dehydration
CPT/HCPCS: 36415; 71045; 74018; 74177; 76830; 76856; 80048; 80053; 80307; 80329; 81001; 81025; 82378; 83540; 83550; 83690; 83735; 84443; 85007; 85025; 85610; 86038; 87040; 87801; 88307; 93005; 93975; 96361; 96365; 96375; A7015; G0378; G0379; J0694; J1100; J1170; J1650; J1756; J1885; J2001; J2270; J2405; J2543; J2704; J2710; J3010; J3475; J3490; J7030; J7120; Q9967; 99285-25; G0480

== ENCOUNTER 2019-11-16 04:04 | Inpatient (IN) | payer BC ==
[~2019-11-16] VITALS: Ht 149.9 cm; Wt 40.4 kg
[~2019-11-16 04:04] MED LIST: OXYC1TAB15 PO
--- NOTE | 2019-11-16 04:23 | PHYS DOC ---
Past Medical History Past Medical History: No Pertinent History (ZHANG HUI Jr., DO) Past Surgical History: Appendectomy (EH FLORES MD) Smoking Status: Current Some Day Smoker Alcohol Use: None (ZHANG HUI Jr., DO) Adult General Chief Complaint Chief Complaint: CHEST PAIN HPI HPI Patient is a 24 year old female who presents with complaint of left-sided chest discomfort that started yesterday morning at about 6 AM. Patient states the pain is sharp and stabbing in nature and is worsened with movement and with deep breathing. She denies any recent injuries. She denies any heavy lifting. Patient states that nothing is improving the pain.[] (ZHANG HUI Jr., DO) Review of Systems Review of Systems Constitutional: Denies fever or chills [] Respiratory: Denies cough or shortness of breath [] Cardiovascular: No additional information not addressed in HPI [] GI: Denies abdominal pain, nausea, vomiting or diarrhea [] Integument: Denies rash or skin lesions [] Neurologic: Denies headache, focal weakness or sensory changes [] All other systems were reviewed and found to be within normal limits, except as documented in this note. (ZHANG HUI Jr., DO) Current Medications Current Medications Current Medications Medications (Trade) Dose Ordered Sig/Yeimi Start Time Stop Time Status Last Admin Dose Admin Heparin Sodium (Porcine) (Heparin Sodium) 600 unit PRN Q6HRS PRN 11/16/19 07:00 Heparin Sodium/ Dextrose 250 ml @ 0 mls/hr CONT PRN 11/16/19 07:00 Info (Anti-Coagulation Monitoring By Pharmacy) 1 each PRN DAILY PRN 11/16/19 07:00 Info (CONTRAST GIVEN -- Rx MONITORING) 1 each PRN DAILY PRN 11/16/19 06:00 11/18/19 05:59 Iohexol (Omnipaque 350 Mg/ml) 75 ml 1X ONCE 11/16/19 06:30 11/16/19 06:31 DC 11/16/19 06:23 75 ML Morphine Sulfate (Morphine Sulfate) 4 mg PRN Q15MIN PRN 11/16/19 04:30 11/17/19 04:29 11/16/19 07:21 4 MG Sodium Chloride 1,000 ml @ 1,000 mls/hr Q1H 11/16/19 04:30 11/16/19 05:29 DC 11/16/19 04:49 1,000 MLS/HR (EH FLORES MD) Allergies Allergies Allergies Coded Allergies Type Severity Reaction Last Updated Verified No Known Drug Allergies 11/01/19 No (EH FLORES MD) Physical Exam Physical Exam Constitutional: Well developed, well nourished, no acute distress, non-toxic appearance. [] HENT: Normocephalic, atraumatic, bilateral external ears normal, oropharynx moist, no oral exudates, nose normal. [] Eyes: PERRLA, EOMI, conjunctiva normal, no discharge. [] Neck: Normal range of motion, no tenderness, supple. [] Cardiovascular: Regular rate and rhythm. There is reproducible tenderness along the left lower costal margin[] Lungs & Thorax: Bilateral breath sounds clear to auscultation [] Abdomen: Bowel sounds normal, soft, no tenderness. [] Skin: Warm, dry, no erythema, no rash. [] Extremities: No tenderness, no cyanosis, no clubbing, ROM intact, no edema. [] Neurologic: Alert and oriented X 3, no focal deficits noted. [] (ZHANG HUI Jr. DO) Current Patient Data Vital Signs Vital Signs Date Time Temp Pulse Resp B/P (MAP) Pulse Ox O2 Delivery O2 Flow Rate FiO2 11/16/19 06:42 114 21 121/76 (91) 100 Room Air 11/16/19 04:22 98.3 98.3 (EH FLORES MD) Lab Values Laboratory Tests Test 11/16/19 04:35 11/16/19 04:36 11/16/19 06:50 POC Urine HCG, Qualitative Hcg negative (Negative) White Blood Count 8.3 x10^3/uL (4.0-11.0) 8.8 x10^3/uL (4.0-11.0) Red Blood Count 4.44 x10^6/uL (3.50-5.40) 4.20 x10^6/uL (3.50-5.40) Hemoglobin 10.9 g/dL (12.0-15.5) L 10.4 g/dL (12.0-15.5) L Hematocrit 33.6 % (36.0-47.0) L 31.9 % (36.0-47.0) L Mean Corpuscular Volume 76 fL (79-100) L 76 fL (79-100) L Mean Corpuscular Hemoglobin 25 pg (25-35) 25 pg (25-35) Mean Corpuscular Hemoglobin Concent 33 g/dL (31-37) 33 g/dL (31-37) Red Cell Distribution Width 20.3 % (11.5-14.5) H 20.0 % (11.5-14.5) H Platelet Count 915 x10^3/uL (140-400) *H 800 x10^3/uL (140-400) H Neutrophils (%) (Auto) 63 % (31-73) 64 % (31-73) Lymphocytes (%) (Auto) 20 % (24-48) L 18 % (24-48) L Monocytes (%) (Auto) 13 % (0-9) H 14 % (0-9) H Eosinophils (%) (Auto) 3 % (0-3) 3 % (0-3) Basophils (%) (Auto) 1 % (0-3) 1 % (0-3) Neutrophils # (Auto) 5.3 x10^3/uL (1.8-7.7) 5.6 x10^3/uL (1.8-7.7) Lymphocytes # (Auto) 1.7 x10^3/uL (1.0-4.8) 1.6 x10^3/uL (1.0-4.8) Monocytes # (Auto) 1.1 x10^3/uL (0.0-1.1) 1.2 x10^3/uL (0.0-1.1) H Eosinophils # (Auto) 0.2 x10^3/uL (0.0-0.7) 0.3 x10^3/uL (0.0-0.7) Basophils # (Auto) 0.1 x10^3/uL (0.0-0.2) 0.1 x10^3/uL (0.0-0.2) Platelet Estimate Increased (ADEQUATE) Large Platelets Few Giant Platelets Occ Hypochromasia Slight Poikilocytosis Present Anisocytosis Mod Target Cells Occ Ovalocytes Occ Schistocytes Occ D-Dimer (Audra) 2.64 ug/mlFEU (0.00-0.50) H Sodium Level 139 mmol/L (136-145) Potassium Level 4.0 mmol/L (3.5-5.1) Chloride Level 102 mmol/L (98-107) Carbon Dioxide Level 23 mmol/L (21-32) Anion Gap 14 (6-14) Blood Urea Nitrogen 5 mg/dL (7-20) L Creatinine 0.6 mg/dL (0.6-1.0) Estimated GFR (Cockcroft-Gault) 147.4 BUN/Creatinine Ratio 8 (6-20) Glucose Level 98 mg/dL (70-99) Calcium Level 9.0 mg/dL (8.5-10.1) Magnesium Level 1.8 mg/dL (1.8-2.4) Total Bilirubin 0.5 mg/dL (0.2-1.0) Aspartate Amino Transferase (AST) 26 U/L (15-37) Alanine Aminotransferase (ALT) 19 U/L (14-59) Alkaline Phosphatase 80 U/L (46-116) Troponin I Quantitative < 0.017 ng/mL (0.000-0.055) SS-Tlk-V-Type Natriuretic Peptide 55 pg/mL (0-124) Total Protein 8.3 g/dL (6.4-8.2) H Albumin 2.8 g/dL (3.4-5.0) L Albumin/Globulin Ratio 0.5 (1.0-1.7) L Laboratory Tests 11/16/19 04:36 11/16/19 06:50 Laboratory Tests 11/16/19 04:36 (EH FLORES MD) Lab Values Laboratory Tests Test 11/16/19 04:35 11/16/19 04:36 POC Urine HCG, Qualitative Hcg negative (Negative) White Blood Count 8.3 x10^3/uL (4.0-11.0) Red Blood Count 4.44 x10^6/uL (3.50-5.40) Hemoglobin 10.9 g/dL (12.0-15.5) L Hematocrit 33.6 % (36.0-47.0) L Mean Corpuscular Volume 76 fL (79-100) L Mean Corpuscular Hemoglobin 25 pg (25-35) Mean Corpuscular Hemoglobin Concent 33 g/dL (31-37) Red Cell Distribution Width 20.3 % (11.5-14.5) H Platelet Count 915 x10^3/uL (140-400) *H Neutrophils (%) (Auto) 63 % (31-73) Lymphocytes (%) (Auto) 20 % (24-48) L Monocytes (%) (Auto) 13 % (0-9) H Eosinophils (%) (Auto) 3 % (0-3) Basophils (%) (Auto) 1 % (0-3) Neutrophils # (Auto) 5.3 x10^3/uL (1.8-7.7) Lymphocytes # (Auto) 1.7 x10^3/uL (1.0-4.8) Monocytes # (Auto) 1.1 x10^3/uL (0.0-1.1) Eosinophils # (Auto) 0.2 x10^3/uL (0.0-0.7) Basophils # (Auto) 0.1 x10^3/uL (0.0-0.2) Platelet Estimate Increased (ADEQUATE) Large Platelets Few Giant Platelets Occ Hypochromasia Slight Poikilocytosis Present Anisocytosis Mod Target Cells Occ Ovalocytes Occ Schistocytes Occ Sodium Level 139 mmol/L (136-145) Potassium Level 4.0 mmol/L (3.5-5.1) Chloride Level 102 mmol/L (98-107) Carbon Dioxide Level 23 mmol/L (21-32) Anion Gap 14 (6-14) Blood Urea Nitrogen 5 mg/dL (7-20) L Creatinine 0.6 mg/dL (0.6-1.0) Estimated GFR (Cockcroft-Gault) 147.4 BUN/Creatinine Ratio 8 (6-20) Glucose Level 98 mg/dL (70-99) Calcium Level 9.0 mg/dL (8.5-10.1) Magnesium Level 1.8 mg/dL (1.8-2.4) Total Bilirubin 0.5 mg/dL (0.2-1.0) Aspartate Amino Transferase (AST) 26 U/L (15-37) Alanine Aminotransferase (ALT) 19 U/L (14-59) Alkaline Phosphatase 80 U/L (46-116) Troponin I Quantitative < 0.017 ng/mL (0.000-0.055) ZI-Aqx-Y-Type Natriuretic Peptide 55 pg/mL (0-124) Total Protein 8.3 g/dL (6.4-8.2) H Albumin 2.8 g/dL (3.4-5.0) L Albumin/Globulin Ratio 0.5 (1.0-1.7) L Laboratory Tests 11/16/19 04:36 Laboratory Tests 11/16/19 04:36 (ZHANG HUI Jr., DO) EKG EKG EKG demonstrates sinus tachycardia with a rate of 129.[] (ZHANG HUI Jr., DO) Radiology/Procedures Radiology/Procedures [] (ZHANG HUI Jr., DO) Impressions: PROCEDURE: PORTABLE CHEST 1V PORTABLE CHEST 1V History: Chest wall pain. Comparison: November 06, 2019 Findings: Mild bibasilar linear atelectasis. No consolidation. Possible small left pleural effusion. No pneumothorax. Normal heart size. Impression: 1. Mild bibasilar linear atelectasis. 2. Possible small left pleural effusion. Electronically signed by: Elvis Disla DO (11/16/2019 4:52 AM) [id number] (ZHANG HUI Jr., DO) Course & Med Decision Making Course & Med Decision Making Pertinent Labs and Imaging studies reviewed. (See chart for details) Patient moved to room upon arrival was evaluated by your medical staff after which an IV was established and blood work was drawn. Patient noted to have significantly elevated platelets on exam. A CT angiogram of the chest has been ordered and is pending at this time. Patient is being signed out to the oncoming ER physician at 6:00 AM. (ZHANG HUI Jr., DO) Course & Med Decision Making 6:50 AM: Patient's condition remains stable. She recently had an appendectomy, and has been recovering and now developed left-sided pleuritic chest pain with t achycardia. CT angiogram is positive for pulmonary embolism. The patient be admitted to the hospitalist for further evaluation and treatment. Abdomen has been reexamined, she does exhibit some mild diffuse tenderness to palpation of the abdomen. There is a healing appendectomy scar in the right lowe r quadrant. There is no rebound or guarding. This might explain her elevated platelet count, but a CBC will be redrawn to exclude lab error. (EH FLORES MD) Dragon Disclaimer Dragon Disclaimer This electronic medical record was generated, in whole or in part, using a voice recognition dictation system. (ZHANG HUI Jr. DO) Departure Departure Impression: Primary Impression: Pulmonary embolism Disposition: ADMITTED INPATIENT Admitting Physician: HUGO (EH FLORES MD) Condition: STABLE Referrals: NO PCP (PCP) ZHANG HUI Jr. DO Nov 16, 2019 04:23 EH FLORES MD Nov 16, 2019 06:54
[2019-11-16] MEDS ORDERED: IV NORMAL SALINE 1000ML BAG 1,000 ML IV SCH (04:30)
[2019-11-16] MEDS: MORPHINE SULFATE 4 MG/ML VIAL. IV/SQ PRN ×4 (04:50→12:14)
[2019-11-16 04:55] LABS: BASO # 0.1 x10^3/uL (0.0-0.2); BASO % 1 % (0-3); EOS # 0.2 x10^3/uL (0.0-0.7); EOS % 3 % (0-3); HEMATOCRIT 33.6 % (36.0-47.0); HEMOGLOBIN 10.9 g/dL (12.0-15.5); LYMPH # 1.7 x10^3/uL (1.0-4.8); LYMPH % 20 % (24-48); MEAN CORPUSCULAR HEMOGLOBIN 25 pg (25-35); MEAN CORPUSCULAR HGB CONC 33 g/dL (31-37); MEAN CORPUSCULAR VOLUME 76 fL (79-100); MONO # 1.1 x10^3/uL (0.0-1.1); MONO % 13 % (0-9); NEUT # 5.3 x10^3/uL (1.8-7.7); NEUT % 63 % (31-73); RED BLOOD COUNT 4.44 x10^6/uL (3.50-5.40); RED CELL DISTRIBUTION WIDTH 20.3 % (11.5-14.5); WHITE BLOOD COUNT 8.3 x10^3/uL (4.0-11.0)
--- NOTE | 2019-11-16 04:55 | RAD ---
PORTABLE CHEST 1V History: Chest wall pain. Comparison: November 06, 2019 Findings: Mild bibasilar linear atelectasis. No consolidation. Possible small left pleural effusion. No pneumothorax. Normal heart size. Impression: 1. Mild bibasilar linear atelectasis. 2. Possible small left pleural effusion. Electronically signed by: Elvis Disla DO (11/16/2019 4:52 AM) [id number]
[2019-11-16 05:03] LABS: CREATININE 0.6 mg/dL (0.6-1.0); GFR 147.4
[2019-11-16 05:06] LABS: ALBUMIN 2.8 g/dL (3.4-5.0); ALBUMIN/GLOBULIN RATIO 0.5 (1.0-1.7); MAGNESIUM 1.8 mg/dL (1.8-2.4); TOTAL BILIRUBIN 0.5 mg/dL (0.2-1.0); TOTAL PROTEIN 8.3 g/dL (6.4-8.2)
[2019-11-16 05:14] LABS: PLATELET COUNT 915 x10^3/uL (140-400)
[2019-11-16 05:54] LABS: PLT ESTIMATE INCREASED (ADEQUATE)
[2019-11-16 05:58] LABS: ANISOCYTOSIS MOD; HYPOCHROMIA SLIGHT; OVALOCYTES OCC; POIKILOCYTOSIS PRESENT; SCHISTOCYTES OCC; TARGET CELLS OCC
--- NOTE | 2019-11-16 05:58 | EKG ---
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
[2019-11-16] MEDS ORDERED: CONTRAST GIVEN. MC PRN (06:00)
[2019-11-16] MEDS ORDERED: IOHEXOL 350 MG/ML 100 ML VIAL. IV ONE (06:30)
--- NOTE | 2019-11-16 06:51 | RAD ---
CT ANGIOGRAPHY CHEST History: Chest wall pain. Technique: CT of the chest was performed with contrast. PE protocol. Maximum intensity projection coronal and sagittal reconstructions were performed. Exposure: One or more of the following individualized dose reduction techniques were utilized for this examination: 1. Automated exposure control 2. Adjustment of the mA and/or kV according to patient size 3. Use of iterative reconstruction technique. Comparison: None Findings: Chest: Several small left lower lobe segmental and subsegmental pulmonary emboli. Small left upper lobe inferior branch pulmonary embolism. No evidence of right heart strain. Small left pleural effusion with adjacent atelectasis. Peripheral ground glass opacity within the lingula. No aortic dissection or aneurysm. No pathologic axillary, mediastinal or hilar adenopathy. Upper abdomen: The imaged upper abdomen is unremarkable. Bones: No pathologic osseous lesions. Impression: 1. Small left lower lobe and lingular pulmonary emboli. 2. Patchy peripheral lingular opacity, may represent infarct. 3. Small left pleural effusion with adjacent atelectasis. FOR INTERNAL CODING PURPOSES Critical result: Findings discussed with ZHANG HUI at 11/16/2019 6:47 AM. RESULT CODE: (C) Electronically signed by: Elvis Disla DO (11/16/2019 6:47 AM) [id number]
[2019-11-16] MEDS ORDERED: HEPARIN for IV BOLUS 10,000 UNIT/10 ML VIAL. IV PRN (07:00)
[2019-11-16] MEDS ORDERED: ANTI-COAG MONITOR BY PHARMACY. MC PRN (07:00)
[2019-11-16] MEDS ORDERED: HEPARIN 25,000UTS/250ML PREMIX 250 ML IV PRN (07:00)
[2019-11-16] MEDS ORDERED: HEPARIN for IV BOLUS 10,000 UNIT/10 ML VIAL. IV ONE (07:15)
[2019-11-16 07:22] LABS: BASO # 0.1 x10^3/uL (0.0-0.2); BASO % 1 % (0-3); EOS # 0.3 x10^3/uL (0.0-0.7); EOS % 3 % (0-3); HEMATOCRIT 31.9 % (36.0-47.0); HEMOGLOBIN 10.4 g/dL (12.0-15.5); LYMPH # 1.6 x10^3/uL (1.0-4.8); LYMPH % 18 % (24-48); MEAN CORPUSCULAR HEMOGLOBIN 25 pg (25-35); MEAN CORPUSCULAR HGB CONC 33 g/dL (31-37); MEAN CORPUSCULAR VOLUME 76 fL (79-100); MONO # 1.2 x10^3/uL (0.0-1.1); MONO % 14 % (0-9); NEUT # 5.6 x10^3/uL (1.8-7.7); NEUT % 64 % (31-73); PLATELET COUNT 800 x10^3/uL (140-400); WHITE BLOOD COUNT 8.8 x10^3/uL (4.0-11.0)
--- NOTE | 2019-11-16 09:24 | PDOC1 ---
History and Physical Date of Admission Date of Admission DATE: 11/16/19 TIME: 09:23 Identification/Chief Complaint Chief Complaint seen in er with acute pe 24 year old female who presents with complaint of left-sided chest discomfort that started yesterday morning at about 6 AM. pain is sharp and stabbing in nature and is worsened with movement and with deep breathing. She denies any recent injuries. She denies any heavy lifting. has been off work no leg swelling or calf pain Past Medical History Past Medical History Past Medical History Past Medical History: No Pertinent History Past Surgical History: Appendectomy Smoking Status: Current Some Day Smoker Alcohol Use: None fhx HTN OPERATIVE NOTE Date: Date: Nov 05, 2019 Pre-Op Diagnosis: RLQ abd pain Post-Op Diagnosis: terminal ileum and colonic ulcers Procedure Performed: laparoscopic ileocolic resection Surgeon: Yan Jackson Anesthesia Type: GETA plus local Blood Loss: 50 Specimans Obtained: ileocolic resection Findings: ulcers of terminal ileum and colon, normal gynecological structures, although somewhat big uterus Cardiovascular: No pertinent hx Pulmonary: No pertinent hx GI: No pertinent hx Heme/Onc: No pertinent hx Past Surgical History Past Surgical History: No pertinent history Family History Family History: No Significant, High Cholestrol, Hypertension Social History Smoke: No ALCOHOL: none Drugs: None, Other (works at [employer]) Current Problem List Problem List Problems Medical Problems: (1) Pulmonary embolism Status: Acute Current Medications Current Medications Current Medications Morphine Sulfate (Morphine Sulfate) 4 mg PRN Q15MIN PRN IV/SQ PAIN GREATER THAN 3/10 Last administered on 11/16/19at 09:14; Start 11/16/19 at 04:30; Stop 11/17/19 at 04:29 Sodium Chloride 1,000 ml @ 1,000 mls/hr Q1H IV Last administered on 11/16/19at 04:49; Start 11/16/19 at 04:30; Stop 11/16/19 at 05:29; Status DC Iohexol (Omnipaque 350 Mg/ml) 75 ml 1X ONCE IV Last administered on 11/16/19at 06:23; Start 11/16/19 at 06:30; Stop 11/16/19 at 06:31; Status DC Info (CONTRAST GIVEN -- Rx MONITORING) 1 each PRN DAILY PRN MC SEE COMMENTS; Start 11/16/19 at 06:00; Stop 11/18/19 at 05:59 Heparin Sodium (Porcine) (Heparin Sodium) 3,300 unit 1X ONCE IV Last administe red on 11/16/19at 07:27; Start 11/16/19 at 07:15; Stop 11/16/19 at 07:16; Status DC Heparin Sodium/ Dextrose 250 ml @ 0 mls/hr CONT PRN IV PER PROTOCOL Last administered on 11/16/19at 07:29; Start 11/16/19 at 07:00 Heparin Sodium (Porcine) (Heparin Sodium) 1,250 unit PRN Q6HRS PRN IV FOR UFH LEVEL LESS THAN 0.2; Start 11/16/19 at 07:00 Heparin Sodium (Porcine) (Heparin Sodium) 600 unit PRN Q6HRS PRN IV FOR UFH LEVEL 0.2 - 0.29; Start 11/16/19 at 07:00 Info (Anti-Coagulation Monitoring By Pharmacy) 1 each PRN DAILY PRN MC SEE COMMENTS; Start 11/16/19 at 07:00 Active Scripts Active Percocet 5-325 Mg Tablet (Oxycodone/Acetaminophen) 1 Each Tablet 1 Tab PO PRN Q4HRS PRN 6 Days Allergies Allergies: Coded Allergies: No Known Drug Allergies (Unverified , 11/01/19) ROS Review of System Review of Systems Review of Systems Constitutional: Denies fever or chills [] Respiratory: Denies cough or shortness of breath [] Cardiovascular: No additional information not addressed in HPI [] GI: Denies abdominal pain, nausea, vomiting or diarrhea [] Integument: Denies rash or skin lesions [] Neurologic: Denies headache, focal weakness or sensory changes [] 14 pt systems were reviewed and found to be within normal limits, except as documented General: YES: Fatigue Hematological and Lymphatic: No: Bleeding Problems, Blood Clots, Blood Transfusions, Brusing, Night Sweats, Pallor, Swollen Lymph Nodes, Other ENDOCRINE: No: Breast Changes, Galactorrhea, Hair Pattern Changes, Hot Flashes, Malaise/lethargy, Mood Swings, Palpitations, Polydipsia/polyuria, Skin Changes, Temperature Intolerance, Unexpected Weight Changes, Other Respiratory: YES: Pleuritic Pain, Shortness of breath Cardiovascular: yes Chest Pain Musculoskeletal: No Gait Disturbance, No Joint Pain, No Joint Stiffness, No Joint Swelling, No Muscle Pain, No Muscular Weakness, No Pain In:, No Swelling In:, No Other Physical Exam Physical Exam Physical Exam Physical Exam Constitutional: Well developed, well nourished, no acute distress, non-toxic appearance. [] HENT: Normocephalic, atraumatic, bilateral external ears normal, oropharynx moist, no oral exudates, nose normal. [] Eyes: PERRLA, EOMI, conjunctiva normal, no discharge. [] Neck: Normal range of motion, no tenderness, supple. [] Cardiovascular: Regular rate and rhythm. There is reproducible tenderness along the left lower costal margin[] Lungs & Thorax: Bilateral breath sounds clear to auscultation [] Abdomen: Bowel sounds normal, soft, no tenderness. [] Skin: Warm, dry, no erythema, no rash. [] Extremities: No tenderness, no cyanosis, no clubbing, ROM intact, no edema. [] Neurologic: Alert and oriented X 3, no focal deficits noted. [] General: Alert, Oriented X3, Cooperative, No acute distress HEENT: Atraumatic, PERRLA Lungs: Clear to auscultation, Normal air movement Heart: RRR Breasts: Not examined Abdomen: Normal bowel sounds Rectal Exam: not examined PELVIC: Examination not indicated Extremities: No cyanosis, No edema Neuro: Normal speech, Cranial nerves 3-12 NL Psych/Mental Status: Mental status NL, Mood NL Vitals Vitals Vital Signs Date Time Temp Pulse Resp B/P (MAP) Pulse Ox O2 Delivery O2 Flow Rate FiO2 11/16/19 06:42 114 21 121/76 (91) 100 Room Air 11/16/19 04:22 98.3 98.3 Labs Labs Laboratory Tests Test 11/16/19 04:35 11/16/19 04:36 11/16/19 06:50 Bedside Urine HCG, Qualitative Hcg negative (Negative) White Blood Count 8.3 x10^3/uL (4.0-11.0) 8.8 x10^3/uL (4.0-11.0) Red Blood Count 4.44 x10^6/uL (3.50-5.40) 4.20 x10^6/uL (3.50-5.40) Hemoglobin 10.9 g/dL (12.0-15.5) 10.4 g/dL (12.0-15.5) Hematocrit 33.6 % (36.0-47.0) 31.9 % (36.0-47.0) Mean Corpuscular Volume 76 fL (79-100) 76 fL (79-100) Mean Corpuscular Hemoglobin 25 pg (25-35) 25 pg (25-35) Mean Corpuscular Hemoglobin Concent 33 g/dL (31-37) 33 g/dL (31-37) Red Cell Distribution Width 20.3 % (11.5-14.5) 20.0 % (11.5-14.5) Platelet Count 915 x10^3/uL (140-400) 800 x10^3/uL (140-400) Neutrophils (%) (Auto) 63 % (31-73) 64 % (31-73) Lymphocytes (%) (Auto) 20 % (24-48) 18 % (24-48) Monocytes (%) (Auto) 13 % (0-9) 14 % (0-9) Eosinophils (%) (Auto) 3 % (0-3) 3 % (0-3) Basophils (%) (Auto) 1 % (0-3) 1 % (0-3) Neutrophils # (Auto) 5.3 x10^3/uL (1.8-7.7) 5.6 x10^3/uL (1.8-7.7) Lymphocytes # (Auto) 1.7 x10^3/uL (1.0-4.8) 1.6 x10^3/uL (1.0-4.8) Monocytes # (Auto) 1.1 x10^3/uL (0.0-1.1) 1.2 x10^3/uL (0.0-1.1) Eosinophils # (Auto) 0.2 x10^3/uL (0.0-0.7) 0.3 x10^3/uL (0.0-0.7) Basophils # (Auto) 0.1 x10^3/uL (0.0-0.2) 0.1 x10^3/uL (0.0-0.2) Platelet Estimate Increased (ADEQUATE) Large Platelets Few Giant Platelets Occ Hypochromasia Slight Poikilocytosis Present Anisocytosis Mod Target Cells Occ Ovalocytes Occ Schistocytes Occ D-Dimer (Audra) 2.64 ug/mlFEU (0.00-0.50) Sodium Level 139 mmol/L (136-145) Potassium Level 4.0 mmol/L (3.5-5.1) Chloride Level 102 mmol/L (98-107) Carbon Dioxide Level 23 mmol/L (21-32) Anion Gap 14 (6-14) Blood Urea Nitrogen 5 mg/dL (7-20) Creatinine 0.6 mg/dL (0.6-1.0) Estimated GFR (Cockcroft-Gault) 147.4 BUN/Creatinine Ratio 8 (6-20) Glucose Level 98 mg/dL (70-99) Calcium Level 9.0 mg/dL (8.5-10.1) Magnesium Level 1.8 mg/dL (1.8-2.4) Total Bilirubin 0.5 mg/dL (0.2-1.0) Aspartate Amino Transf (AST/SGOT) 26 U/L (15-37) Alanine Aminotransferase (ALT/SGPT) 19 U/L (14-59) Alkaline Phosphatase 80 U/L (46-116) Troponin I Quantitative < 0.017 ng/mL (0.000-0.055) [id number]-Yut-[id number]-Type Natriuretic Peptide 55 pg/mL (0-124) Total Protein 8.3 g/dL (6.4-8.2) Albumin 2.8 g/dL (3.4-5.0) Albumin/Globulin Ratio 0.5 (1.0-1.7) Laboratory Tests Test 11/16/19 04:35 11/16/19 04:36 11/16/19 06:50 Bedside Urine HCG, Qualitative Hcg negative (Negative) White Blood Count 8.3 x10^3/uL (4.0-11.0) 8.8 x10^3/uL (4.0-11.0) Red Blood Count 4.44 x10^6/uL (3.50-5.40) 4.20 x10^6/uL (3.50-5.40) Hemoglobin 10.9 g/dL (12.0-15.5) 10.4 g/dL (12.0-15.5) Hematocrit 33.6 % (36.0-47.0) 31.9 % (36.0-47.0) Mean Corpuscular Volume 76 fL (79-100) 76 fL (79-100) Mean Corpuscular Hemoglobin 25 pg (25-35) 25 pg (25-35) Mean Corpuscular Hemoglobin Concent 33 g/dL (31-37) 33 g/dL (31-37) Red Cell Distribution Width 20.3 % (11.5-14.5) 20.0 % (11.5-14.5) Platelet Count 915 x10^3/uL (140-400) 800 x10^3/uL (140-400) Neutrophils (%) (Auto) 63 % (31-73) 64 % (31-73) Lymphocytes (%) (Auto) 20 % (24-48) 18 % (24-48) Monocytes (%) (Auto) 13 % (0-9) 14 % (0-9) Eosinophils (%) (Auto) 3 % (0-3) 3 % (0-3) Basophils (%) (Auto) 1 % (0-3) 1 % (0-3) Neutrophils # (Auto) 5.3 x10^3/uL (1.8-7.7) 5.6 x10^3/uL (1.8-7.7) Lymphocytes # (Auto) 1.7 x10^3/uL (1.0-4.8) 1.6 x10^3/uL (1.0-4.8) Monocytes # (Auto) 1.1 x10^3/uL (0.0-1.1) 1.2 x10^3/uL (0.0-1.1) Eosinophils # (Auto) 0.2 x10^3/uL (0.0-0.7) 0.3 x10^3/uL (0.0-0.7) Basophils # (Auto) 0.1 x10^3/uL (0.0-0.2) 0.1 x10^3/uL (0.0-0.2) Platelet Estimate Increased (ADEQUATE) Large Platelets Few Giant Platelets Occ Hypochromasia Slight Poikilocytosis Present Anisocytosis Mod Target Cells Occ Ovalocytes Occ Schistocytes Occ D-Dimer (Audra) 2.64 ug/mlFEU (0.00-0.50) Sodium Level 139 mmol/L (136-145) Potassium Level 4.0 mmol/L (3.5-5.1) Chloride Level 102 mmol/L (98-107) Carbon Dioxide Level 23 mmol/L (21-32) Anion Gap 14 (6-14) Blood Urea Nitrogen 5 mg/dL (7-20) Creatinine 0.6 mg/dL (0.6-1.0) Estimated GFR (Cockcroft-Gault) 147.4 BUN/Creatinine Ratio 8 (6-20) Glucose Level 98 mg/dL (70-99) Calcium Level 9.0 mg/dL (8.5-10.1) Magnesium Level 1.8 mg/dL (1.8-2.4) Total Bilirubin 0.5 mg/dL (0.2-1.0) Aspartate Amino Transf (AST/SGOT) 26 U/L (15-37) Alanine Aminotransferase (ALT/SGPT) 19 U/L (14-59) Alkaline Phosphatase 80 U/L (46-116) Troponin I Quantitative < 0.017 ng/mL (0.000-0.055) RT-Wkw-M-Type Natriuretic Peptide 55 pg/mL (0-124) Total Protein 8.3 g/dL (6.4-8.2) Albumin 2.8 g/dL (3.4-5.0) Albumin/Globulin Ratio 0.5 (1.0-1.7) Images Images 02 Frozen section diagnosis: . INTRAOPERATIVE CONSULTATION WITH GROSS IMPRESSION (Tom Mascorro MD) . Distal ileum, cecum, and ascending colon with attached mesocolon/mesentery, right colon resection: - Irregular areas of ulceration of distal ileum and colonic aspect of ileocecal valve - no evidence of malignancy. . The results are displayed to Dr. Jacques in the operating room. A specimen is fixed in formalin prior to additional sectioning. . . Frozen section performed at [facility], [address] [place] [address]. . PATIENT: CLAUDE UNGER ACCOUNT: [id number] : 1995 LOCATION: ER AGE: 24 SEX: F EXAM STATUS: REG ER ORD. PHYSICIAN: ZHANG HUI Jr. DO REASON: POSSIBLE PE? CHEST WALL PAIN, OMNI 350, 75 ML IV PROCEDURE: CT ANGIOGRAPHY CHEST CT ANGIOGRAPHY CHEST History: Chest wall pain. Technique: CT of the chest was performed with contrast. PE protocol. Maximum intensity projection coronal and sagittal reconstructions were performed. Exposure: One or more of the following individualized dose reduction techniques were utilized for this examination: 1. Automated exposure control 2. Adjustment of the mA and/or kV according to patient size 3. Use of iterative reconstruction technique. Comparison: None Findings: Chest: Several small left lower lobe segmental and subsegmental pulmonary emboli. Small left upper lobe inferior branch pulmonary embolism. No evidence of right heart strain. Small left pleural effusion with adjacent atelectasis. Peripheral ground glass opacity within the lingula. No aortic dissection or aneurysm. No pathologic axillary, mediastinal or hilar adenopathy. Upper abdomen: The imaged upper abdomen is unremarkable. Bones: No pathologic osseous lesions. Impression: 1. Small left lower lobe and lingular pulmonary emboli. 2. Patchy peripheral lingular opacity, may represent infarct. 3. Small left pleural effusion with adjacent atelectasis. FOR INTERNAL CODING PURPOSES VTE Prophylaxis Ordered VTE Prophylaxis Devices: No VTE Pharmacological Prophylaxi: No Assessment/Plan Assessment/Plan Impression: 1. Small left lower lobe and lingular pulmonary emboli. 2. Patchy peripheral lingular opacity, may represent infarct. 3. Small left pleural effusion with adjacent atelectasis. 4. POST OP laparoscopic ileocolic resection 11/10/19 5. Uterine fibroids 6. Iron deficiency anemia 7. hx Ileum and colon ulcerations plan admit heparin drip protocol PULM CONSULT GEN SURG CONSULT GI CONSULT 75 MIN pt exam, chart review, > 50% of time spent with exam, chart review, pt care coordination MIO ZEPEDA MD Nov 16, 2019 09:24
--- NOTE | 2019-11-16 10:16 | PDOC2 ---
GHADA ROBERTS BOTTOM CAGER 11/16/19 1016: CONSULT Date of Consult Date of Consult DATE: 11/16/19 TIME: 10:11 Reason for Consult Reason for Consult: postop check, PE Referring Physician Referring Physician: ER Identification/Chief Complaint Chief Complaint chest pain Source Source: Chart review, Patient History of Present Illness Reason for Visit: Patient known from previous admission--underwent laparoscopic ileocolic resection on 11/05. Bowel function returning and pain managed, discharged home. Yesterday developed chest pain. Denies n/v Past Medical History Cardiovascular: No pertinent hx Pulmonary: No pertinent hx GI: No pertinent hx Heme/Onc: No pertinent hx Past Surgical History Past Surgical History: Colon Resection Family History Family History: No Significant Social History ALCOHOL: occassional Drugs: None Lives: Alone Current Problem List Problem List Problems Medical Problems: (1) Pulmonary embolism Status: Acute Current Medications Current Medications Current Medications Morphine Sulfate (Morphine Sulfate) 4 mg PRN Q15MIN PRN IV/SQ PAIN GREATER THAN 3/10 Last administered on 11/16/19at 09:14; Start 11/16/19 at 04:30; Stop 11/17/19 at 04:29 Sodium Chloride 1,000 ml @ 1,000 mls/hr Q1H IV Last administered on 11/16/19at 04:49; Start 11/16/19 at 04:30; Stop 11/16/19 at 05:29; Status DC Iohexol (Omnipaque 350 Mg/ml) 75 ml 1X ONCE IV Last administered on 11/16/19at 06:23; Start 11/16/19 at 06:30; Stop 11/16/19 at 06:31; Status DC Info (CONTRAST GIVEN -- Rx MONITORING) 1 each PRN DAILY PRN MC SEE COMMENTS; Start 11/16/19 at 06:00; Stop 11/18/19 at 05:59 Heparin Sodium (Porcine) (Heparin Sodium) 3,300 unit 1X ONCE IV Last administered on 11/16/19at 07:27; Start 11/16/19 at 07:15; Stop 11/16/19 at 07:16; Status DC Heparin Sodium/ Dextrose 250 ml @ 0 mls/hr CONT PRN IV PER PROTOCOL Last administered on 11/16/19at 07:29; Start 11/16/19 at 07:00 Heparin Sodium (Porcine) (Heparin Sodium) 1,250 unit PRN Q6HRS PRN IV FOR UFH LEVEL LESS THAN 0.2; Start 11/16/19 at 07:00 Heparin Sodium (Porcine) (Heparin Sodium) 600 unit PRN Q6HRS PRN IV FOR UFH LEVEL 0.2 - 0.29; Start 11/16/19 at 07:00 Info (Anti-Coagulation Monitoring By Pharmacy) 1 each PRN DAILY PRN MC SEE CO MMENTS; Start 11/16/19 at 07:00 Active Scripts Active Percocet 5-325 Mg Tablet (Oxycodone/Acetaminophen) 1 Each Tablet 1 Tab PO PRN Q4HRS PRN 6 Days Allergies Allergies: Coded Allergies: No Known Drug Allergies (Unverified , 11/01/19) ROS General: No: Chills, Other (fevers) PSYCHOLOGICAL ROS: No: Anxiety, Depression Eyes: No Blurry vision, No Double vision HEENT: No: Heacaches, Sore Throat Hematological and Lymphatic: YES: Blood Clots (this admission ); No: Bleeding Problems Respiratory: YES: Shortness of breath; No: Cough Cardiovascular: yes Chest Pain; No Palpitations Gastrointestinal: Yes Other (see hpi) Genitourinary: No Dysuria, No Retention Musculoskeletal: No Joint Pain, No Muscle Pain Neurological: No Impaired Coord/balance, No Numbness/Tingling Skin: No Pruritus, No Rash Physical Exam General: Alert, Oriented X3, Cooperative HEENT: Atraumatic, PERRLA Lungs: Clear to auscultation, Normal air movement Heart: Other (tachy) Abdomen: Soft, Other (ND, incisions healing, NTTP) Extremities: No clubbing, No cyanosis Skin: No rashes, No breakdown Neuro: Normal gait, Normal speech Psych/Mental Status: Mental status NL, Mood NL MUSCULOSKELETAL: No deformity, No swelling Vitals VITALS Vital Signs Date Time Temp Pulse Resp B/P (MAP) Pulse Ox O2 Delivery O2 Flow Rate FiO2 11/16/19 09:40 110 20 109/73 (85) 98 Room Air 11/16/19 04:22 98.3 98.3 Labs Labs Laboratory Tests Test 11/16/19 04:35 11/16/19 04:36 11/16/19 06:50 Bedside Urine HCG, Qualitative Hcg negative (Negative) White Blood Count 8.3 x10^3/uL (4.0-11.0) 8.8 x10^3/uL (4.0-11.0) Red Blood Count 4.44 x10^6/uL (3.50-5.40) 4.20 x10^6/uL (3.50-5.40) Hemoglobin 10.9 g/dL (12.0-15.5) 10.4 g/dL (12.0-15.5) Hematocrit 33.6 % (36.0-47.0) 31.9 % (36.0-47.0) Mean Corpuscular Volume 76 fL (79-100) 76 fL (79-100) Mean Corpuscular Hemoglobin 25 pg (25-35) 25 pg (25-35) Mean Corpuscular Hemoglobin Concent 33 g/dL (31-37) 33 g/dL (31-37) Red Cell Distribution Width 20.3 % (11.5-14.5) 20.0 % (11.5-14.5) Platelet Count 915 x10^3/uL (140-400) 800 x10^3/uL (140-400) Neutrophils (%) (Auto) 63 % (31-73) 64 % (31-73) Lymphocytes (%) (Auto) 20 % (24-48) 18 % (24-48) Monocytes (%) (Auto) 13 % (0-9) 14 % (0-9) Eosinophils (%) (Auto) 3 % (0-3) 3 % (0-3) Basophils (%) (Auto) 1 % (0-3) 1 % (0-3) Neutrophils # (Auto) 5.3 x10^3/uL (1.8-7.7) 5.6 x10^3/uL (1.8-7.7) Lymphocytes # (Auto) 1.7 x10^3/uL (1.0-4.8) 1.6 x10^3/uL (1.0-4.8) Monocytes # (Auto) 1.1 x10^3/uL (0.0-1.1) 1.2 x10^3/uL (0.0-1.1) Eosinophils # (Auto) 0.2 x10^3/uL (0.0-0.7) 0.3 x10^3/uL (0.0-0.7) Basophils # (Auto) 0.1 x10^3/uL (0.0-0.2) 0.1 x10^3/uL (0.0-0.2) Platelet Estimate Increased (ADEQUATE) Large Platelets Few Giant Platelets Occ Hypochromasia Slight Poikilocytosis Present Anisocytosis Mod Target Cells Occ Ovalocytes Occ Schistocytes Occ D-Dimer (Audra) 2.64 ug/mlFEU (0.00-0.50) Sodium Level 139 mmol/L (136-145) Potassium Level 4.0 mmol/L (3.5-5.1) Chloride Level 102 mmol/L (98-107) Carbon Dioxide Level 23 mmol/L (21-32) Anion Gap 14 (6-14) Blood Urea Nitrogen 5 mg/dL (7-20) Creatinine 0.6 mg/dL (0.6-1.0) Estimated GFR (Cockcroft-Gault) 147.4 BUN/Creatinine Ratio 8 (6-20) Glucose Level 98 mg/dL (70-99) Calcium Level 9.0 mg/dL (8.5-10.1) Magnesium Level 1.8 mg/dL (1.8-2.4) Total Bilirubin 0.5 mg/dL (0.2-1.0) Aspartate Amino Transf (AST/SGOT) 26 U/L (15-37) Alanine Aminotransferase (ALT/SGPT) 19 U/L (14-59) Alkaline Phosphatase 80 U/L (46-116) Troponin I Quantitative < 0.017 ng/mL (0.000-0.055) IZ-Bkf-K-Type Natriuretic Peptide 55 pg/mL (0-124) Total Protein 8.3 g/dL (6.4-8.2) Albumin 2.8 g/dL (3.4-5.0) Albumin/Globulin Ratio 0.5 (1.0-1.7) Laboratory Tests Test 11/16/19 04:35 11/16/19 04:36 11/16/19 06:50 Bedside Urine HCG, Qualitative Hcg negative (Negative) White Blood Count 8.3 x10^3/uL (4.0-11.0) 8.8 x10^3/uL (4.0-11.0) Red Blood Count 4.44 x10^6/uL (3.50-5.40) 4.20 x10^6/uL (3.50-5.40) Hemoglobin 10.9 g/dL (12.0-15.5) 10.4 g/dL (12.0-15.5) Hematocrit 33.6 % (36.0-47.0) 31.9 % (36.0-47.0) Mean Corpuscular Volume 76 fL (79-100) 76 fL (79-100) Mean Corpuscular Hemoglobin 25 pg (25-35) 25 pg (25-35) Mean Corpuscular Hemoglobin Concent 33 g/dL (31-37) 33 g/dL (31-37) Red Cell Distribution Width 20.3 % (11.5-14.5) 20.0 % (11.5-14.5) Platelet Count 915 x10^3/uL (140-400) 800 x10^3/uL (140-400) Neutrophils (%) (Auto) 63 % (31-73) 64 % (31-73) Lymphocytes (%) (Auto) 20 % (24-48) 18 % (24-48) Monocytes (%) (Auto) 13 % (0-9) 14 % (0-9) Eosinophils (%) (Auto) 3 % (0-3) 3 % (0-3) Basophils (%) (Auto) 1 % (0-3) 1 % (0-3) Neutrophils # (Auto) 5.3 x10^3/uL (1.8-7.7) 5.6 x10^3/uL (1.8-7.7) Lymphocytes # (Auto) 1.7 x10^3/uL (1.0-4.8) 1.6 x10^3/uL (1.0-4.8) Monocytes # (Auto) 1.1 x10^3/uL (0.0-1.1) 1.2 x10^3/uL (0.0-1.1) Eosinophils # (Auto) 0.2 x10^3/uL (0.0-0.7) 0.3 x10^3/uL (0.0-0.7) Basophils # (Auto) 0.1 x10^3/uL (0.0-0.2) 0.1 x10^3/uL (0.0-0.2) Platelet Estimate Increased (ADEQUATE) Large Platelets Few Giant Platelets Occ Hypochromasia Slight Poikilocytosis Present Anisocytosis Mod Target Cells Occ Ovalocytes Occ Schistocytes Occ D-Dimer (Audra) 2.64 ug/mlFEU (0.00-0.50) Sodium Level 139 mmol/L (136-145) Potassium Level 4.0 mmol/L (3.5-5.1) Chloride Level 102 mmol/L (98-107) Carbon Dioxide Level 23 mmol/L (21-32) Anion Gap 14 (6-14) Blood Urea Nitrogen 5 mg/dL (7-20) Creatinine 0.6 mg/dL (0.6-1.0) Estimated GFR (Cockcroft-Gault) 147.4 BUN/Creatinine Ratio 8 (6-20) Glucose Level 98 mg/dL (70-99) Calcium Level 9.0 mg/dL (8.5-10.1) Magnesium Level 1.8 mg/dL (1.8-2.4) Total Bilirubin 0.5 mg/dL (0.2-1.0) Aspartate Amino Transf (AST/SGOT) 26 U/L (15-37) Alanine Aminotransferase (ALT/SGPT) 19 U/L (14-59) Alkaline Phosphatase 80 U/L (46-116) Troponin I Quantitative < 0.017 ng/mL (0.000-0.055) IR-Dxs-K-Type Natriuretic Peptide 55 pg/mL (0-124) Total Protein 8.3 g/dL (6.4-8.2) Albumin 2.8 g/dL (3.4-5.0) Albumin/Globulin Ratio 0.5 (1.0-1.7) Assessment/Plan Assessment/Plan PE recent laparoscopic ileocolic resection Pulm consult for PE management no surgical findings, will have RITA Michelle MD 11/16/19 1431: CONSULT Assessment/Plan Assessment/Plan Pt seen and examined. Agree with Ms. Roberts's note Pt main c/o is chest pain, elham diet abd soft, passing stools cont treatment for PE no surgical plans. Thanks for consult! GHADA ROBERTS BOTTOM CAGER Nov 16, 2019 10:16 RITA MALDONADO MD Nov 16, 2019 14:31
[2019-11-16 10:20] VITALS: BP 110/74
[2019-11-16] MEDS ORDERED: FLU VAX QS 2019-20 (36MOS+)/PF 0.5 ML SYRINGE. VAX IM ONE (11:30)
[2019-11-16 14:40] VITALS: BP 101/59
[2019-11-16] MEDS: HEPARIN for IV BOLUS 10,000 UNIT/10 ML VIAL. IV PRN (14:53)
[2019-11-16] MEDS: MORPHINE SULFATE 4 MG/ML VIAL. IV PRN ×4 (14:58→21:41)
--- NOTE | 2019-11-16 16:02 | PDOC ---
PULMONARY PROGRESS NOTES Vitals Vital Signs Date Time Temp Pulse Resp B/P (MAP) Pulse Ox O2 Delivery O2 Flow Rate FiO2 11/16/19 15:35 97 Room Air 11/16/19 14:40 98.9 115 14 101/59 (73) 98.9 Labs Laboratory Tests Test 11/16/19 04:35 11/16/19 04:36 11/16/19 06:50 11/16/19 13:20 Bedside Urine HCG, Qualitative Hcg negative (Negative) White Blood Count 8.3 x10^3/uL (4.0-11.0) 8.8 x10^3/uL (4.0-11.0) Red Blood Count 4.44 x10^6/uL (3.50-5.40) 4.20 x10^6/uL (3.50-5.40) Hemoglobin 10.9 g/dL (12.0-15.5) 10.4 g/dL (12.0-15.5) Hematocrit 33.6 % (36.0-47.0) 31.9 % (36.0-47.0) Mean Corpuscular Volume 76 fL (79-100) 76 fL (79-100) Mean Corpuscular Hemoglobin 25 pg (25-35) 25 pg (25-35) Mean Corpuscular Hemoglobin Concent 33 g/dL (31-37) 33 g/dL (31-37) Red Cell Distribution Width 20.3 % (11.5-14.5) 20.0 % (11.5-14.5) Platelet Count 915 x10^3/uL (140-400) 800 x10^3/uL (140-400) Neutrophils (%) (Auto) 63 % (31-73) 64 % (31-73) Lymphocytes (%) (Auto) 20 % (24-48) 18 % (24-48) Monocytes (%) (Auto) 13 % (0-9) 14 % (0-9) Eosinophils (%) (Auto) 3 % (0-3) 3 % (0-3) Basophils (%) (Auto) 1 % (0-3) 1 % (0-3) Neutrophils # (Auto) 5.3 x10^3/uL (1.8-7.7) 5.6 x10^3/uL (1.8-7.7) Lymphocytes # (Auto) 1.7 x10^3/uL (1.0-4.8) 1.6 x10^3/uL (1.0-4.8) Monocytes # (Auto) 1.1 x10^3/uL (0.0-1.1) 1.2 x10^3/uL (0.0-1.1) Eosinophils # (Auto) 0.2 x10^3/uL (0.0-0.7) 0.3 x10^3/uL (0.0-0.7) Basophils # (Auto) 0.1 x10^3/uL (0.0-0.2) 0.1 x10^3/uL (0.0-0.2) Platelet Estimate Increased (ADEQUATE) Large Platelets Few Giant Platelets Occ Hypochromasia Slight Poikilocytosis Present Anisocytosis Mod Target Cells Occ Ovalocytes Occ Schistocytes Occ D-Dimer (Audra) 2.64 ug/mlFEU (0.00-0.50) Sodium Level 139 mmol/L (136-145) Potassium Level 4.0 mmol/L (3.5-5.1) Chloride Level 102 mmol/L (98-107) Carbon Dioxide Level 23 mmol/L (21-32) Anion Gap 14 (6-14) Blood Urea Nitrogen 5 mg/dL (7-20) Creatinine 0.6 mg/dL (0.6-1.0) Estimated GFR (Cockcroft-Gault) 147.4 BUN/Creatinine Ratio 8 (6-20) Glucose Level 98 mg/dL (70-99) Calcium Level 9.0 mg/dL (8.5-10.1) Magnesium Level 1.8 mg/dL (1.8-2.4) Total Bilirubin 0.5 mg/dL (0.2-1.0) Aspartate Amino Transf (AST/SGOT) 26 U/L (15-37) Alanine Aminotransferase (ALT/SGPT) 19 U/L (14-59) Alkaline Phosphatase 80 U/L (46-116) Troponin I Quantitative < 0.017 ng/mL (0.000-0.055) GR-Khf-N-Type Natriuretic Peptide 55 pg/mL (0-124) Total Protein 8.3 g/dL (6.4-8.2) Albumin 2.8 g/dL (3.4-5.0) Albumin/Globulin Ratio 0.5 (1.0-1.7) Heparin Anti-Xa Act, Unfractionated < 0.10 IU/mL (0.30-0.70) Laboratory Tests Test 11/16/19 04:35 11/16/19 04:36 11/16/19 06:50 11/16/19 13:20 Bedside Urine HCG, Qualitative Hcg negative (Negative) White Blood Count 8.3 x10^3/uL (4.0-11.0) 8.8 x10^3/uL (4.0-11.0) Red Blood Count 4.44 x10^6/uL (3.50-5.40) 4.20 x10^6/uL (3.50-5.40) Hemoglobin 10.9 g/dL (12.0-15.5) 10.4 g/dL (12.0-15.5) Hematocrit 33.6 % (36.0-47.0) 31.9 % (36.0-47.0) Mean Corpuscular Volume 76 fL (79-100) 76 fL (79-100) Mean Corpuscular Hemoglobin 25 pg (25-35) 25 pg (25-35) Mean Corpuscular Hemoglobin Concent 33 g/dL (31-37) 33 g/dL (31-37) Red Cell Distribution Width 20.3 % (11.5-14.5) 20.0 % (11.5-14.5) Platelet Count 915 x10^3/uL (140-400) 800 x10^3/uL (140-400) Neutrophils (%) (Auto) 63 % (31-73) 64 % (31-73) Lymphocytes (%) (Auto) 20 % (24-48) 18 % (24-48) Monocytes (%) (Auto) 13 % (0-9) 14 % (0-9) Eosinophils (%) (Auto) 3 % (0-3) 3 % (0-3) Basophils (%) (Auto) 1 % (0-3) 1 % (0-3) Neutrophils # (Auto) 5.3 x10^3/uL (1.8-7.7) 5.6 x10^3/uL (1.8-7.7) Lymphocytes # (Auto) 1.7 x10^3/uL (1.0-4.8) 1.6 x10^3/uL (1.0-4.8) Monocytes # (Auto) 1.1 x10^3/uL (0.0-1.1) 1.2 x10^3/uL (0.0-1.1) Eosinophils # (Auto) 0.2 x10^3/uL (0.0-0.7) 0.3 x10^3/uL (0.0-0.7) Basophils # (Auto) 0.1 x10^3/uL (0.0-0.2) 0.1 x10^3/uL (0.0-0.2) Platelet Estimate Increased (ADEQUATE) Large Platelets Few Giant Platelets Occ Hypochromasia Slight Poikilocytosis Present Anisocytosis Mod Target Cells Occ Ovalocytes Occ Schistocytes Occ D-Dimer (Audra) 2.64 ug/mlFEU (0.00-0.50) Sodium Level 139 mmol/L (136-145) Potassium Level 4.0 mmol/L (3.5-5.1) Chloride Level 102 mmol/L (98-107) Carbon Dioxide Level 23 mmol/L (21-32) Anion Gap 14 (6-14) Blood Urea Nitrogen 5 mg/dL (7-20) Creatinine 0.6 mg/dL (0.6-1.0) Estimated GFR (Cockcroft-Gault) 147.4 BUN/Creatinine Ratio 8 (6-20) Glucose Level 98 mg/dL (70-99) Calcium Level 9.0 mg/dL (8.5-10.1) Magnesium Level 1.8 mg/dL (1.8-2.4) Total Bilirubin 0.5 mg/dL (0.2-1.0) Aspartate Amino Transf (AST/SGOT) 26 U/L (15-37) Alanine Aminotransferase (ALT/SGPT) 19 U/L (14-59) Alkaline Phosphatase 80 U/L (46-116) Troponin I Quantitative < 0.017 ng/mL (0.000-0.055) TG-Ggs-N-Type Natriuretic Peptide 55 pg/mL (0-124) Total Protein 8.3 g/dL (6.4-8.2) Albumin 2.8 g/dL (3.4-5.0) Albumin/Globulin Ratio 0.5 (1.0-1.7) Heparin Anti-Xa Act, Unfractionated < 0.10 IU/mL (0.30-0.70) Medications Active Scripts Medications Dose Route/Sig Max Daily Dose Days Date Category Impression . FULL NOTE DICTATED PE SEC TO RECENT SURGERY WILL NEED OUT PT HYPERCOAGULABLE WORK UP ONCE OFF ANTICOUGULATION JOSE ALFREDO MTZ MD Nov 16, 2019 16:02
--- NOTE | 2019-11-16 16:24 | PDOC2 ---
GI CONSULT HPI: HPI: Pleasant 24 y/o female who we recently saw. Admitted 11/01/19 w/ abd pain and nausea. Labs noted VEENA. Imaging noted possible prominent appendix (though normal caliber on US), large uterine fibroid, and nonspecific lymph node and bowel loops in RLQ. Underwent laparoscopic ilecolic resection by Dr. Jackson on 11/05/19 - per op note, findings of TI and colon ulcers and somewhat big uterus. Frozen section noted irregular areas of ulceration of distal ileum and colonic aspect of ileocecal valve - no evidence of malignancy. Gross pathology noted segment of ileum and attached right colon with multifocal mucosal ulcerations, relatively normal small bowel and large bowel mucosa in between the areas of ulceration, acute and chronic serositis (mild to moderate), appendix with no pathologic diagnosis, and 14 pericolonic lymph nodes with reactive changes. Microscopic pathology is unavailable. Discharged 11/10 w/ recs to follow-up w/ Jacquie Jorge in clinic. Some lower abd pain after eating at home which improved, then CP and SOA began over the weekend, now readmitted w/ PEs. Normal stool on Saturday. Some lower abdominal cramping after eating today - better overall. Denies reflux/heartburn, dysphagia, vomiting, diarrhea, constipation, melena, change in appetite, or weight loss. No previous EGD or colonoscopy. No GB, liver, pancreas, or PUD history. H/o NSAID use - stopped 06/2019. PMH: PMH: as above FH: Family History: Other (mother - GERD, father - "flatulence problem" and "soft or thin" colon) Social History: Smoke: No (vapes) ALCOHOL: none Drugs: None, Other (works at [employer]) ROS: GEN: Denies fevers, chills, sweats HEENT: Denies blurred vision, sore throat CV: left chest pain RESP: +SOA GI: Per HPI : Denies hematuria, dysuria ENDO: Denies weight changes NEURO: Denies confusion, dizziness MSK: Denies weakness, joint pain/swelling SKIN: Denies jaundice, pruritus Vitals: Vitals: Vital Signs Date Time Temp Pulse Resp B/P (MAP) Pulse Ox O2 Delivery O2 Flow Rate FiO2 11/16/19 15:35 97 Room Air 11/16/19 14:40 98.9 115 14 101/59 (73) 98.9 Labs: Labs: Laboratory Tests Test 11/16/19 04:35 11/16/19 04:36 11/16/19 06:50 11/16/19 13:20 Bedside Urine HCG, Qualitative Hcg negative (Negative) White Blood Count 8.3 x10^3/uL (4.0-11.0) 8.8 x10^3/uL (4.0-11.0) Red Blood Count 4.44 x10^6/uL (3.50-5.40) 4.20 x10^6/uL (3.50-5.40) Hemoglobin 10.9 g/dL (12.0-15.5) 10.4 g/dL (12.0-15.5) Hematocrit 33.6 % (36.0-47.0) 31.9 % (36.0-47.0) Mean Corpuscular Volume 76 fL (79-100) 76 fL (79-100) Mean Corpuscular Hemoglobin 25 pg (25-35) 25 pg (25-35) Mean Corpuscular Hemoglobin Concent 33 g/dL (31-37) 33 g/dL (31-37) Red Cell Distribution Width 20.3 % (11.5-14.5) 20.0 % (11.5-14.5) Platelet Count 915 x10^3/uL (140-400) 800 x10^3/uL (140-400) Neutrophils (%) (Auto) 63 % (31-73) 64 % (31-73) Lymphocytes (%) (Auto) 20 % (24-48) 18 % (24-48) Monocytes (%) (Auto) 13 % (0-9) 14 % (0-9) Eosinophils (%) (Auto) 3 % (0-3) 3 % (0-3) Basophils (%) (Auto) 1 % (0-3) 1 % (0-3) Neutrophils # (Auto) 5.3 x10^3/uL (1.8-7.7) 5.6 x10^3/uL (1.8-7.7) Lymphocytes # (Auto) 1.7 x10^3/uL (1.0-4.8) 1.6 x10^3/uL (1.0-4.8) Monocytes # (Auto) 1.1 x10^3/uL (0.0-1.1) 1.2 x10^3/uL (0.0-1.1) Eosinophils # (Auto) 0.2 x10^3/uL (0.0-0.7) 0.3 x10^3/uL (0.0-0.7) Basophils # (Auto) 0.1 x10^3/uL (0.0-0.2) 0.1 x10^3/uL (0.0-0.2) Platelet Estimate Increased (ADEQUATE) Large Platelets Few Giant Platelets Occ Hypochromasia Slight Poikilocytosis Present Anisocytosis Mod Target Cells Occ Ovalocytes Occ Schistocytes Occ D-Dimer (Audra) 2.64 ug/mlFEU (0.00-0.50) Sodium Level 139 mmol/L (136-145) Potassium Level 4.0 mmol/L (3.5-5.1) Chloride Level 102 mmol/L (98-107) Carbon Dioxide Level 23 mmol/L (21-32) Anion Gap 14 (6-14) Blood Urea Nitrogen 5 mg/dL (7-20) Creatinine 0.6 mg/dL (0.6-1.0) Estimated GFR (Cockcroft-Gault) 147.4 BUN/Creatinine Ratio 8 (6-20) Glucose Level 98 mg/dL (70-99) Calcium Level 9.0 mg/dL (8.5-10.1) Magnesium Level 1.8 mg/dL (1.8-2.4) Total Bilirubin 0.5 mg/dL (0.2-1.0) Aspartate Amino Transf (AST/SGOT) 26 U/L (15-37) Alanine Aminotransferase (ALT/SGPT) 19 U/L (14-59) Alkaline Phosphatase 80 U/L (46-116) Troponin I Quantitative < 0.017 ng/mL (0.000-0.055) ED-Sns-Z-Type Natriuretic Peptide 55 pg/mL (0-124) Total Protein 8.3 g/dL (6.4-8.2) Albumin 2.8 g/dL (3.4-5.0) Albumin/Globulin Ratio 0.5 (1.0-1.7) Heparin Anti-Xa Act, Unfractionated < 0.10 IU/mL (0.30-0.70) Allergies: Coded Allergies: No Known Drug Allergies (Unverified , 11/01/19) Medications: Current Medications Medications (Trade) Dose Ordered Sig/Yeimi Route PRN Reason Start Time Stop Time Status Last Admin Dose Admin Morphine Sulfate (Morphine Sulfate) 4 mg PRN Q15MIN PRN IV/SQ PAIN GREATER THAN 3/10 11/16/19 04:30 11/16/19 12:23 DC 11/16/19 12:14 Sodium Chloride 1,000 ml @ 1,000 mls/hr Q1H IV 11/16/19 04:30 11/16/19 05:29 DC 11/16/19 04:49 Iohexol (Omnipaque 350 Mg/ml) 75 ml 1X ONCE IV 11/16/19 06:30 11/16/19 06:31 DC 11/16/19 06:23 Heparin Sodium (Porcine) (Heparin Sodium) 3,300 unit 1X ONCE IV 11/16/19 07:15 11/16/19 07:16 DC 11/16/19 07:27 Heparin Sodium/ Dextrose 250 ml @ 0 mls/hr CONT PRN IV PER PROTOCOL 11/16/19 07:00 11/16/19 07:29 Heparin Sodium (Porcine) (Heparin Sodium) 1,250 unit PRN Q6HRS PRN IV FOR UFH LEVEL LESS THAN 0.2 11/16/19 07:00 11/16/19 14:53 Influenza Virus Vaccine Quadrival (Afluria Quad 2019-20 (3yr Up) Syringe) 0.5 ml ONCE ONCE VAX IM 11/16/19 11:30 11/16/19 11:31 DC 11/16/19 12:15 Morphine Sulfate (Morphine Sulfate) 4 mg PRN Q2HR PRN IV PAIN 11/16/19 15:00 11/16/19 14:58 Imaging: Imaging: CXR Impression: 1. Mild bibasilar linear atelectasis. 2. Possible small left pleural effusion. Chest CTA Impression: 1. Small left lower lobe and lingular pulmonary emboli. 2. Patchy peripheral lingular opacity, may represent infarct. 3. Small left pleural effusion with adjacent atelectasis. PE: GEN: NAD, family present HEENT: Atraumatic, PERRL LUNGS: CTAB anteriorly HEART: tachycardic ABD: NABS, S/ND, non-tender, RLQ incision healing EXTREMITY: No edema SKIN: No rashes, no jaundice NEURO/PSYCH: A & O 3 A/P: A/P: PEs Lower abd pain VEENA, h/o uterine fibroid S/p ileocolic resection 11/05/19 - ulcers in TI and colon, gross path as above CRC screen - average risk -- No microscopic pathology results available. TIFFANIE MULLINS Nov 16, 2019 16:24
[2019-11-16 19:20] VITALS: BP 102/64
--- NOTE | 2019-11-16 20:58 | RAD ---
Bilateral Lower Extremity Venous Doppler Ultrasound History: Pulmonary embolism Comparison: None Procedure: Color flow, duplex, spectral analysis and 2D images are obtained with and without compression in the area of the common femoral vein, superficial femoral vein - femoral vein junction, main femoral vein (superficial femoral vein) and popliteal vein. Veins of the proximal calf are also imaged. Findings: There is normal duplex flow, color flow and compressibility of all visualized vein segments. No evidence of deep venous thrombus is present. Impression: No evidence of DVT. Electronically signed by: Dawson Cristina III, MD (11/16/2019 8:55 PM) [id number]
[2019-11-16 23:10] VITALS: BP 97/57
[2019-11-17] MEDS: MORPHINE SULFATE 4 MG/ML VIAL. IV PRN ×2 (01:18→08:36)
--- NOTE | 2019-11-17 02:39 | CONS ---
DATE OF CONSULTATION: 11/16/2019 ATTENDING PHYSICIAN: Dr. Lopez. CONSULTING PHYSICIAN: Jose Alfredo Mtz M.D. REASON FOR CONSULTATION: The patient is seen in pulmonary consultation at the request of Dr. Lopez for acute pulmonary embolism. HISTORY OF PRESENT ILLNESS: The patient is a 24-year-old who underwent laparoscopic ileocolonic resection. She had ulcers of the terminal ileum ____. She was in the hospital for approximately 7 days. Her pathology showed no evidence of malignancy. The patient was in from 11/02/2019 through 11/10/2019. She was discharged home to follow up on the final pathology. She represented yesterday with acute onset of shortness of air, some chest pain. She was evaluated with CT angiogram. I reviewed it. There is evidence of pulmonary emboli in the left lower segment and subsegmental pulmonary arteries. PAST MEDICAL HISTORY: Otherwise unremarkable. PAST SURGICAL HISTORY: She has had previous appendectomy. SOCIAL HISTORY: She smokes. REVIEW OF SYSTEMS: As indicated above, otherwise, a 10-point system was reviewed and negative. She denies taking any control pills. FAMILY HISTORY: No family history of thrombophilia. PHYSICAL EXAMINATION: GENERAL: The patient was in some distress from pain, pleuritic type of discomfort. HEENT: Eyes, the sclerae were nonicteric. NECK: Jugular venous distention was not elevated. No lymphadenopathy. CHEST: Full expansion. LUNGS: Diminished breath sounds in the bases. No wheezes. CARDIOVASCULAR: Regular rate and rhythm with S1, S2, no S3. ABDOMEN: Soft, nontender, nondistended. EXTREMITIES: No clubbing, cyanosis, or edema. LABORATORY DATA: White count was normal. Hemoglobin and hematocrit were noted. Electrolytes were noted. BUN and creatinine were noted. D-dimer yesterday was elevated. IMPRESSION: 1. Acute pulmonary embolism. 2. Recent laparoscopic ileocolonic resection. 3. Tobacco dependence. PLAN: 1. Continue current anticoagulation. 2. Possible home in the a.m. on Eliquis. 3. Follow up in the office in approximately 6-[address] chest. 4. Obtain venous Dopplers of the lower extremities. I do appreciate the privilege in sharing in the patient's care. JOSE ALFREDO MTZ MD DR: GABRIELLA/reuben JOB#: [id number] / [id number]
[2019-11-17 02:50] VITALS: BP 94/59
[2019-11-17 07:26] VITALS: BP 115/71
[2019-11-17] MEDS: HEPARIN for IV BOLUS 10,000 UNIT/10 ML VIAL. IV PRN (08:45)
--- NOTE | 2019-11-17 09:37 | PDOC2 ---
CONSULT Date of Consult Date of Consult DATE: 11/17/19 TIME: 09:32 HEMATOLOGY ONCOLOGY CONSULTATION REQUESTING PHYSICIAN: Primary REASON FOR CONSULTATION: Embolism pulmonary HISTORY OF PRESENT ILLNESS: The patient is a 24-year-old female with recent ileocolonic resection and postop PE came in with shortness of air, acute, moderate, associated with pleuritic chest pain, better on heparin drip, worsening due to pulmonary embolism, risk factor includes postop status, and pulmonary is involved as well. PAST MEDICAL HISTORY: Uterine fibroid Iron Deficiency anemia Pulmonary embolism Ileal ulcers, stopped NSAIDs June 2019 SURGERIES: Ileocolonic laparoscopic resection Appendectomy ALL: No known Drug allergies MEDS: see attached list FAMILY HISTORY: No clotting SOCIAL HISTORY: vapes, works at [employer] REVIEW OF SYSTEMS: A 10-point review of system was positive for constipation, mild ab pain, SOA, chest pain, otherwise rest of the 10 pt system review is negative. PHYSICAL EXAMINATION: GENERAL APPEARANCE: WN, WD, in NAD VITAL SIGNS: vitals reviewed HEAD: Atraumatic, normocephalic. NECK: Supple. nl ROM. no LAD. CHEST: Bilaterally symmetrical, on RA w/o resp distress. ABDOMEN: Soft, nontender. nondist. CENTRAL NERVOUS SYSTEM: No focal deficits. A&Ox3 SKIN: No rashes or obvious lesions. EXT: no c/c/e PSYCHOLOGIC: pleasant mood and affect LABS: White count 8.8, hemoglobin 10.4, platelets 800, MCV of 76 HCG negative Iron sat 5%, TIBC normal RADS: [address] angiogram showed small left lower lobe lingular PE, patchy peripheral lingular opacity, possible infarct, small left effusion with adjacent atelectasis Bilateral lower extremity ultrasounds negative for DVT Case discussed w/ pt, records reviewed in [facility], including labs and radiology, please see note for summary details. A/P: She is a 24-year-old female with postop PE Ileocolonic ulcers resected recently: GI is involved PE: Agree with apixaban 10 mg twice a day 1 week followed by 5 mg twice a day 3 months, hypercoag w/u not absolutely nec with reversible risk factor and lack of fam hx, could potentially repeat CT angiogram after 3 months to ensure complete resolution prior to stopping anticoagulation thrombocytosis: Suspect reactive postoperatively, will also check ferritin with microcytic anemia and low iron sat, we'll order Disposition: After continued clinical improvement, can follow up with pulmonary and primary care and us as needed Thank you kindly for this consultation and please do not hesitate to call with any further questions. Past Medical History Cardiovascular: No pertinent hx Pulmonary: No pertinent hx GI: No pertinent hx Heme/Onc: No pertinent hx Past Surgical History Past Surgical History: Colon Resection Family History Family History: No Significant, High Cholestrol, Hypertension Social History No (vapes) ALCOHOL: none Drugs: None, Other (works at [employer]) Lives: Alone Current Problem List Problem List Problems Medical Problems: (1) Pulmonary embolism Status: Acute Current Medications Current Medications Current Medications Morphine Sulfate (Morphine Sulfate) 4 mg PRN Q15MIN PRN IV/SQ PAIN GREATER THAN 3/10 Last administered on 11/16/19at 12:14; Start 11/16/19 at 04:30; Stop 11/16/19 at 12:23; Status DC Sodium Chloride 1,000 ml @ 1,000 mls/hr Q1H IV Last administered on 11/16/19at 04:49; Start 11/16/19 at 04:30; Stop 11/16/19 at 05:29; Status DC Iohexol (Omnipaque 350 Mg/ml) 75 ml 1X ONCE IV Last administered on 11/16/19at 06:23; Start 11/16/19 at 06:30; Stop 11/16/19 at 06:31; Status DC Info (CONTRAST GIVEN -- Rx MONITORING) 1 each PRN DAILY PRN MC SEE COMMENTS; Start 11/16/19 at 06:00; Stop 11/18/19 at 05:59 Heparin Sodium (Porcine) (Heparin Sodium) 3,300 unit 1X ONCE IV Last administered on 11/16/19at 07:27; Start 11/16/19 at 07:15; Stop 11/16/19 at 07:16; Status DC Heparin Sodium/ Dextrose 250 ml @ 0 mls/hr CONT PRN IV PER PROTOCOL Last administered on 11/16/19at 07:29; Start 11/16/19 at 07:00 Heparin Sodium (Porcine) (Heparin Sodium) 1,250 unit PRN Q6HRS PRN IV FOR UFH LEVEL LESS THAN 0.2 Last administered on 11/17/19at 08:45; Start 11/16/19 at 07:00 Heparin Sodium (Porcine) (Heparin Sodium) 600 unit PRN Q6HRS PRN IV FOR UFH L EVEL 0.2 - 0.29 Last administered on 11/16/19at 20:12; Start 11/16/19 at 07:00 Info (Anti-Coagulation Monitoring By Pharmacy) 1 each PRN DAILY PRN MC SEE COMMENTS; Start 11/16/19 at 07:00 Influenza Virus Vaccine Quadrival (Afluria Quad 2019-20 (3yr Up) Syringe) 0.5 ml ONCE ONCE VAX IM Last administered on 11/16/19at 12:15; Start 11/16/19 at 11:30; Stop 11/16/19 at 11:31; Status DC Morphine Sulfate (Morphine Sulfate) 4 mg PRN Q2HR PRN IV PAIN Last administered on 11/17/19at 08:36; Start 11/16/19 at 15:00 Active Scripts Active Allergies Allergies: Coded Allergies: No Known Drug Allergies (Unverified , 11/01/19) Vitals VITALS Vital Signs Date Time Temp Pulse Resp B/P (MAP) Pulse Ox O2 Delivery O2 Flow Rate FiO2 11/17/19 08:36 Room Air 11/17/19 07:26 99.5 122 18 115/71 (86) 98 99.5 Labs Labs Laboratory Tests Test 11/16/19 04:35 11/16/19 04:36 11/16/19 06:50 11/16/19 13:20 Bedside Urine HCG, Qualitative Hcg negative (Negative) White Blood Count 8.3 x10^3/uL (4.0-11.0) 8.8 x10^3/uL (4.0-11.0) Red Blood Count 4.44 x10^6/uL (3.50-5.40) 4.20 x10^6/uL (3.50-5.40) Hemoglobin 10.9 g/dL (12.0-15.5) 10.4 g/dL (12.0-15.5) Hematocrit 33.6 % (36.0-47.0) 31.9 % (36.0-47.0) Mean Corpuscular Volume 76 fL (79-100) 76 fL (79-100) Mean Corpuscular Hemoglobin 25 pg (25-35) 25 pg (25-35) Mean Corpuscular Hemoglobin Concent 33 g/dL (31-37) 33 g/dL (31-37) Red Cell Distribution Width 20.3 % (11.5-14.5) 20.0 % (11.5-14.5) Platelet Count 915 x10^3/uL (140-400) 800 x10^3/uL (140-400) Neutrophils (%) (Auto) 63 % (31-73) 64 % (31-73) Lymphocytes (%) (Auto) 20 % (24-48) 18 % (24-48) Monocytes (%) (Auto) 13 % (0-9) 14 % (0-9) Eosinophils (%) (Auto) 3 % (0-3) 3 % (0-3) Basophils (%) (Auto) 1 % (0-3) 1 % (0-3) Neutrophils # (Auto) 5.3 x10^3/uL (1.8-7.7) 5.6 x10^3/uL (1.8-7.7) Lymphocytes # (Auto) 1.7 x10^3/uL (1.0-4.8) 1.6 x10^3/uL (1.0-4.8) Monocytes # (Auto) 1.1 x10^3/uL (0.0-1.1) 1.2 x10^3/uL (0.0-1.1) Eosinophils # (Auto) 0.2 x10^3/uL (0.0-0.7) 0.3 x10^3/uL (0.0-0.7) Basophils # (Auto) 0.1 x10^3/uL (0.0-0.2) 0.1 x10^3/uL (0.0-0.2) Platelet Estimate Increased (ADEQUATE) Large Platelets Few Giant Platelets Occ Hypochromasia Slight Poikilocytosis Present Anisocytosis Mod Target Cells Occ Ovalocytes Occ Schistocytes Occ D-Dimer (Audra) 2.64 ug/mlFEU (0.00-0.50) Sodium Level 139 mmol/L (136-145) Potassium Level 4.0 mmol/L (3.5-5.1) Chloride Level 102 mmol/L (98-107) Carbon Dioxide Level 23 mmol/L (21-32) Anion Gap 14 (6-14) Blood Urea Nitrogen 5 mg/dL (7-20) Creatinine 0.6 mg/dL (0.6-1.0) Estimated GFR (Cockcroft-Gault) 147.4 BUN/Creatinine Ratio 8 (6-20) Glucose Level 98 mg/dL (70-99) Calcium Level 9.0 mg/dL (8.5-10.1) Magnesium Level 1.8 mg/dL (1.8-2.4) Total Bilirubin 0.5 mg/dL (0.2-1.0) Aspartate Amino Transf (AST/SGOT) 26 U/L (15-37) Alanine Aminotransferase (ALT/SGPT) 19 U/L (14-59) Alkaline Phosphatase 80 U/L (46-116) Troponin I Quantitative < 0.017 ng/mL (0.000-0.055) JI-Ion-A-Type Natriuretic Peptide 55 pg/mL (0-124) Total Protein 8.3 g/dL (6.4-8.2) Albumin 2.8 g/dL (3.4-5.0) Albumin/Globulin Ratio 0.5 (1.0-1.7) Heparin Anti-Xa Act, Unfractionated < 0.10 IU/mL (0.30-0.70) Test 11/16/19 19:10 11/17/19 01:30 11/17/19 07:28 Heparin Anti-Xa Act, Unfractionated 0.22 IU/mL (0.30-0.70) 0.30 IU/mL (0.30-0.70) < 0.10 IU/mL (0.30-0.70) Laboratory Tests Test 11/16/19 13:20 11/16/19 19:10 11/17/19 01:30 11/17/19 07:28 Heparin Anti-Xa Act, Unfractionated < 0.10 IU/mL (0.30-0.70) 0.22 IU/mL (0.30-0.70) 0.30 IU/mL (0.30-0.70) < 0.10 IU/mL (0.30-0.70) TERESA PINEDA MD Nov 17, 2019 09:37
[2019-11-17] MEDS ORDERED: APIXABAN 5 MG TABLET. PO SCH (10:00)
[2019-11-17 10:25] VITALS: BP 112/62
--- NOTE | 2019-11-17 11:17 | PDOC ---
PROGRESS NOTES History of Present Illness History of Present Illness Impression: 1. Small left lower lobe and lingular pulmonary emboli. 2. Patchy peripheral lingular opacity, may represent infarct. 3. Small left pleural effusion with adjacent atelectasis. FOR INTERNAL CODING PURPOSES VTE Prophylaxis Ordered VTE Prophylaxis Devices: No VTE Pharmacological Prophylaxi: No Assessment/Plan Assessment/Plan Impression: 1. Small left lower lobe and lingular pulmonary emboli. 2. Patchy peripheral lingular opacity, may represent infarct. 3. Small left pleural effusion with adjacent atelectasis. 4. POST OP laparoscopic ileocolic resection 11/10/19 5. Uterine fibroids 6. Iron deficiency anemia 7. hx Ileum and colon ulcerations 8. POSSIBLE Inflammatory bowel disease plan admit heparin drip protocol PULM CONSULT GEN SURG CONSULT GI CONSULT Hypercoagulable panel as OP. home on eliquis if ok with GI D/W DR COTTRELL 36 MIN pt exam, chart review, > 50% of time spent with exam, chart review, pt care coordination Vitals Vitals Vital Signs Date Time Temp Pulse Resp B/P (MAP) Pulse Ox O2 Delivery O2 Flow Rate FiO2 11/17/19 10:25 99.4 125 18 112/62 (79) 99 Room Air 99.4 Physical Exam General: Alert, Oriented X3, Cooperative, No acute distress Heart: Regular rate, Normal S1, Other (tachy) Lungs: Clear Abdomen: Normal bowel sounds Extremities: No cyanosis, No edema Skin: No rashes, No breakdown Labs LABS Laboratory Tests Test 11/16/19 13:20 11/16/19 19:10 11/17/19 01:30 11/17/19 07:28 Heparin Anti-Xa Act, Unfractionated < 0.10 IU/mL (0.30-0.70) 0.22 IU/mL (0.30-0.70) 0.30 IU/mL (0.30-0.70) < 0.10 IU/mL (0.30-0.70) Ferritin 170 ng/mL (8-252) Assessment and Plan Assessmemt and Plan Problems Medical Problems: (1) Pulmonary embolism Status: Acute Comment Review of Relevant I have reviewed the following items kamilah (where applicable) has been applied. Labs Laboratory Tests Test 11/16/19 04:35 11/16/19 04:36 11/16/19 06:50 11/16/19 13:20 Bedside Urine HCG, Qualitative Hcg negative (Negative) White Blood Count 8.3 x10^3/uL (4.0-11.0) 8.8 x10^3/uL (4.0-11.0) Red Blood Count 4.44 x10^6/uL (3.50-5.40) 4.20 x10^6/uL (3.50-5.40) Hemoglobin 10.9 g/dL (12.0-15.5) 10.4 g/dL (12.0-15.5) Hematocrit 33.6 % (36.0-47.0) 31.9 % (36.0-47.0) Mean Corpuscular Volume 76 fL (79-100) 76 fL (79-100) Mean Corpuscular Hemoglobin 25 pg (25-35) 25 pg (25-35) Mean Corpuscular Hemoglobin Concent 33 g/dL (31-37) 33 g/dL (31-37) Red Cell Distribution Width 20.3 % (11.5-14.5) 20.0 % (11.5-14.5) Platelet Count 915 x10^3/uL (140-400) 800 x10^3/uL (140-400) Neutrophils (%) (Auto) 63 % (31-73) 64 % (31-73) Lymphocytes (%) (Auto) 20 % (24-48) 18 % (24-48) Monocytes (%) (Auto) 13 % (0-9) 14 % (0-9) Eosinophils (%) (Auto) 3 % (0-3) 3 % (0-3) Basophils (%) (Auto) 1 % (0-3) 1 % (0-3) Neutrophils # (Auto) 5.3 x10^3/uL (1.8-7.7) 5.6 x10^3/uL (1.8-7.7) Lymphocytes # (Auto) 1.7 x10^3/uL (1.0-4.8) 1.6 x10^3/uL (1.0-4.8) Monocytes # (Auto) 1.1 x10^3/uL (0.0-1.1) 1.2 x10^3/uL (0.0-1.1) Eosinophils # (Auto) 0.2 x10^3/uL (0.0-0.7) 0.3 x10^3/uL (0.0-0.7) Basophils # (Auto) 0.1 x10^3/uL (0.0-0.2) 0.1 x10^3/uL (0.0-0.2) Platelet Estimate Increased (ADEQUATE) Large Platelets Few Giant Platelets Occ Hypochromasia Slight Poikilocytosis Present Anisocytosis Mod Target Cells Occ Ovalocytes Occ Schistocytes Occ D-Dimer (Audra) 2.64 ug/mlFEU (0.00-0.50) Sodium Level 139 mmol/L (136-145) Potassium Level 4.0 mmol/L (3.5-5.1) Chloride Level 102 mmol/L (98-107) Carbon Dioxide Level 23 mmol/L (21-32) Anion Gap 14 (6-14) Blood Urea Nitrogen 5 mg/dL (7-20) Creatinine 0.6 mg/dL (0.6-1.0) Estimated GFR (Cockcroft-Gault) 147.4 BUN/Creatinine Ratio 8 (6-20) Glucose Level 98 mg/dL (70-99) Calcium Level 9.0 mg/dL (8.5-10.1) Magnesium Level 1.8 mg/dL (1.8-2.4) Total Bilirubin 0.5 mg/dL (0.2-1.0) Aspartate Amino Transf (AST/SGOT) 26 U/L (15-37) Alanine Aminotransferase (ALT/SGPT) 19 U/L (14-59) Alkaline Phosphatase 80 U/L (46-116) Troponin I Quantitative < 0.017 ng/mL (0.000-0.055) TV-Cnw-U-Type Natriuretic Peptide 55 pg/mL (0-124) Total Protein 8.3 g/dL (6.4-8.2) Albumin 2.8 g/dL (3.4-5.0) Albumin/Globulin Ratio 0.5 (1.0-1.7) Heparin Anti-Xa Act, Unfractionated < 0.10 IU/mL (0.30-0.70) Test 11/16/19 19:10 3/3/20 01:30 11/17/19 07:28 Heparin Anti-Xa Act, Unfractionated 0.22 IU/mL (0.30-0.70) 0.30 IU/mL (0.30-0.70) < 0.10 IU/mL (0.30-0.70) Ferritin 170 ng/mL (8-252) Laboratory Tests Test 11/16/19 13:20 11/16/19 19:10 11/17/19 01:30 11/17/19 07:28 Heparin Anti-Xa Act, Unfractionated < 0.10 IU/mL (0.30-0.70) 0.22 IU/mL (0.30-0.70) 0.30 IU/mL (0.30-0.70) < 0.10 IU/mL (0.30-0.70) Ferritin 170 ng/mL (8-252) Medications Current Medications Morphine Sulfate (Morphine Sulfate) 4 mg PRN Q15MIN PRN IV/SQ PAIN GREATER THAN 3/10 Last administered on 11/16/19at 12:14; Start 11/16/19 at 04:30; Stop 11/16/19 at 12:23; Status DC Sodium Chloride 1,000 ml @ 1,000 mls/hr Q1H IV Last administered on 11/16/19at 04:49; Start 11/16/19 at 04:30; Stop 11/16/19 at 05:29; Status DC Iohexol (Omnipaque 350 Mg/ml) 75 ml 1X ONCE IV Last administered on 11/16/19at 06:23; Start 11/16/19 at 06:30; Stop 11/16/19 at 06:31; Status DC Info (CONTRAST GIVEN -- Rx MONITORING) 1 each PRN DAILY PRN MC SEE COMMENTS; Start 11/16/19 at 06:00; Stop 11/18/19 at 05:59 Heparin Sodium (Porcine) (Heparin Sodium) 3,300 unit 1X ONCE IV Last administered on 11/16/19at 07:27; Start 11/16/19 at 07:15; Stop 11/16/19 at 07:16; Status DC Heparin Sodium/ Dextrose 250 ml @ 0 mls/hr CONT PRN IV PER PROTOCOL Last administered on 11/16/19at 07:29; Start 11/16/19 at 07:00; Stop 11/17/19 at 09:55; Status DC Heparin Sodium (Porcine) (Heparin Sodium) 1,250 unit PRN Q6HRS PRN IV FOR UFH LEVEL LESS THAN 0.2 Last administered on 11/17/19at 08:45; Start 11/16/19 at 07:00; Stop 11/17/19 at 09:55; Status DC Heparin Sodium (Porcine) (Heparin Sodium) 600 unit PRN Q6HRS PRN IV FOR UFH LEVEL 0.2 - 0.29 Last administered on 11/16/19at 20:12; Start 11/16/19 at 07:00; Stop 11/17/19 at 09:55; Status DC Info (Anti-Coagulation Monitoring By Pharmacy) 1 each PRN DAILY PRN MC SEE COMMENTS; Start 11/16/19 at 07:00 Influenza Virus Vaccine Quadrival (Afluria Quad 2019-20 (3yr Up) Syringe) 0.5 ml ONCE ONCE VAX IM Last administered on 11/16/19at 12:15; Start 11/16/19 at 11:30; Stop 11/16/19 at 11:31; Status DC Morphine Sulfate (Morphine Sulfate) 4 mg PRN Q2HR PRN IV PAIN Last administered on 11/17/19at 08:36; Start 11/16/19 at 15:00 Apixaban (Eliquis) 10 mg BID PO ; Start 11/17/19 at 10:00 Active Scripts Active Vitals/I & O Vital Sign - Last 24 Hours 11/16/19 11/16/19 11/16/19 11/16/19 12:14 14:40 14:58 15:35 Temp 98.9 98.9 Pulse 115 Resp 14 B/P (MAP) 101/59 (73) Pulse Ox 100 97 97 97 O2 Delivery Room Air Room Air Room Air Room Air 11/16/19 11/16/19 11/16/19 11/16/19 16:57 17:40 19:20 19:32 Temp 98.7 98.7 Pulse 124 Resp 20 B/P (MAP) 102/64 (77) Pulse Ox 97 97 99 97 O2 Delivery Room Air Room Air Room Air Room Air 11/16/19 11/16/19 11/16/19 11/16/19 20:00 20:02 21:41 22:11 Pulse Ox 97 97 97 O2 Delivery Room Air Room Air Room Air Room Air 11/16/19 11/17/19 11/17/19 11/17/19 23:10 01:18 01:48 02:50 Temp 98.3 98.6 98.3 98.6 Pulse 118 120 Resp 18 18 B/P (MAP) 97/57 (70) 94/59 (71) Pulse Ox 100 100 96 O2 Delivery Room Air Room Air Room Air Room Air 11/17/19 11/17/19 11/17/19 07:26 08:36 10:25 Temp 99.5 99.4 99.5 99.4 Pulse 122 125 Resp 18 18 B/P (MAP) 115/71 (86) 112/62 (79) Pulse Ox 98 99 O2 Delivery Room Air Room Air Room Air Intake and Output 11/16/19 11/16/19 11/17/19 15:00 23:00 07:00 Intake Total 1000 ml 480 ml 257 ml Output Total 0 ml Balance 1000 ml 480 ml 257 ml MIO ZEPEDA MD Nov 17, 2019 11:17
--- NOTE | 2019-11-17 11:58 | PDOC ---
PULMONARY PROGRESS NOTES Subjective feels better, on RA Vitals Vital Signs Date Time Temp Pulse Resp B/P (MAP) Pulse Ox O2 Delivery O2 Flow Rate FiO2 11/17/19 10:25 99.4 125 18 112/62 (79) 99 Room Air 99.4 General: Alert, No acute distress Lungs: Other (decrease left base) Cardiovascular: S1 Abdomen: Soft Neuro Exam: Alert Extremities: No Edema Skin: Warm Labs Laboratory Tests Test 11/16/19 04:35 11/16/19 04:36 11/16/19 06:50 11/16/19 13:20 Bedside Urine HCG, Qualitative Hcg negative (Negative) White Blood Count 8.3 x10^3/uL (4.0-11.0) 8.8 x10^3/uL (4.0-11.0) Red Blood Count 4.44 x10^6/uL (3.50-5.40) 4.20 x10^6/uL (3.50-5.40) Hemoglobin 10.9 g/dL (12.0-15.5) 10.4 g/dL (12.0-15.5) Hematocrit 33.6 % (36.0-47.0) 31.9 % (36.0-47.0) Mean Corpuscular Volume 76 fL (79-100) 76 fL (79-100) Mean Corpuscular Hemoglobin 25 pg (25-35) 25 pg (25-35) Mean Corpuscular Hemoglobin Concent 33 g/dL (31-37) 33 g/dL (31-37) Red Cell Distribution Width 20.3 % (11.5-14.5) 20.0 % (11.5-14.5) Platelet Count 915 x10^3/uL (140-400) 800 x10^3/uL (140-400) Neutrophils (%) (Auto) 63 % (31-73) 64 % (31-73) Lymphocytes (%) (Auto) 20 % (24-48) 18 % (24-48) Monocytes (%) (Auto) 13 % (0-9) 14 % (0-9) Eosinophils (%) (Auto) 3 % (0-3) 3 % (0-3) Basophils (%) (Auto) 1 % (0-3) 1 % (0-3) Neutrophils # (Auto) 5.3 x10^3/uL (1.8-7.7) 5.6 x10^3/uL (1.8-7.7) Lymphocytes # (Auto) 1.7 x10^3/uL (1.0-4.8) 1.6 x10^3/uL (1.0-4.8) Monocytes # (Auto) 1.1 x10^3/uL (0.0-1.1) 1.2 x10^3/uL (0.0-1.1) Eosinophils # (Auto) 0.2 x10^3/uL (0.0-0.7) 0.3 x10^3/uL (0.0-0.7) Basophils # (Auto) 0.1 x10^3/uL (0.0-0.2) 0.1 x10^3/uL (0.0-0.2) Platelet Estimate Increased (ADEQUATE) Large Platelets Few Giant Platelets Occ Hypochromasia Slight Poikilocytosis Present Anisocytosis Mod Target Cells Occ Ovalocytes Occ Schistocytes Occ D-Dimer (Audra) 2.64 ug/mlFEU (0.00-0.50) Sodium Level 139 mmol/L (136-145) Potassium Level 4.0 mmol/L (3.5-5.1) Chloride Level 102 mmol/L (98-107) Carbon Dioxide Level 23 mmol/L (21-32) Anion Gap 14 (6-14) Blood Urea Nitrogen 5 mg/dL (7-20) Creatinine 0.6 mg/dL (0.6-1.0) Estimated GFR (Cockcroft-Gault) 147.4 BUN/Creatinine Ratio 8 (6-20) Glucose Level 98 mg/dL (70-99) Calcium Level 9.0 mg/dL (8.5-10.1) Magnesium Level 1.8 mg/dL (1.8-2.4) Total Bilirubin 0.5 mg/dL (0.2-1.0) Aspartate Amino Transf (AST/SGOT) 26 U/L (15-37) Alanine Aminotransferase (ALT/SGPT) 19 U/L (14-59) Alkaline Phosphatase 80 U/L (46-116) Troponin I Quantitative < 0.017 ng/mL (0.000-0.055) NO-Wol-J-Type Natriuretic Peptide 55 pg/mL (0-124) Total Protein 8.3 g/dL (6.4-8.2) Albumin 2.8 g/dL (3.4-5.0) Albumin/Globulin Ratio 0.5 (1.0-1.7) Heparin Anti-Xa Act, Unfractionated < 0.10 IU/mL (0.30-0.70) Test 11/16/19 19:10 11/17/19 01:30 11/17/19 07:28 Heparin Anti-Xa Act, Unfractionated 0.22 IU/mL (0.30-0.70) 0.30 IU/mL (0.30-0.70) < 0.10 IU/mL (0.30-0.70) Ferritin 170 ng/mL (8-252) Laboratory Tests Test 11/16/19 13:20 11/16/19 19:10 11/17/19 01:30 11/17/19 07:28 Heparin Anti-Xa Act, Unfractionated < 0.10 IU/mL (0.30-0.70) 0.22 IU/mL (0.30-0.70) 0.30 IU/mL (0.30-0.70) < 0.10 IU/mL (0.30-0.70) Ferritin 170 ng/mL (8-252) Medications Active Scripts Medications Dose Route/Sig Max Daily Dose Days Date Category Impression . 1. Acute pulmonary embolism, risk factor recent surgery, ? hypercoagulable state 2. Recent laparoscopic ileocolonic resection. 3. Tobacco dependence. 4. Thrombocytosis, likely reactive, hematology following Plan . 1. Continue current anticoagulation 2. Home on Eliquis. will need 3 months of AC 3. Follow up in the office in approximately 6-[address] chest. Appointment given for Dr Beaulieu for January 4. Neg venous Dopplers of the lower extremities. 5. Hypercoagulable panel as OP. Prescription given to mother ( factor V, cardiolipin Ab) d/w DR Cee. ok by pa for or home JAMES COTTRELL MD Nov 17, 2019 11:58
--- NOTE | 2019-11-17 12:46 | PDOC ---
Subjective: Subjective: Feels better today. Objective: Vital Signs: Vital Signs Date Time Temp Pulse Resp B/P (MAP) Pulse Ox O2 Delivery O2 Flow Rate FiO2 11/17/19 10:25 99.4 125 18 112/62 (79) 99 Room Air 99.4 Labs: Laboratory Tests Test 11/16/19 13:20 11/16/19 19:10 11/17/19 01:30 11/17/19 07:28 Heparin Anti-Xa Act, Unfractionated < 0.10 IU/mL 0.22 IU/mL 0.30 IU/mL < 0.10 IU/mL Ferritin 170 ng/mL PE: GEN: NAD, family present LUNGS: CTAB anteriorly HEART: tachycardic ABD: NABS, S/ND/NT NEURO/PSYCH: A & O 3 A/P: PE VEENA S/p ileocolic resection 11/05/19 - ulcers in TI and colon, microscopic path pending -- Awaiting path, continue treatment for PE (now on Eliquis). Hemodynamically unstable?: No Is patient in severe pain?: No Is NPO status required?: No TIFFANIE MULLINS Nov 17, 2019 12:46
--- NOTE | 2019-11-17 13:34 | PDOC ---
SURGICAL PROGRESS NOTE Subjective eating, having stools Vital Signs Vital Signs Date Time Temp Pulse Resp B/P (MAP) Pulse Ox O2 Delivery O2 Flow Rate FiO2 11/17/19 10:25 99.4 125 18 112/62 (79) 99 Room Air 99.4 I&O Intake and Output 11/17/19 07:00 Intake Total 1737 ml Output Total 0 ml Balance 1737 ml Intake Oral 580 ml IV Total 1157 ml Output Urine Total 0 ml # Voids 5 General: Alert, Oriented X3, Cooperative Abdomen: Soft, Other (incisions healing well) Labs Laboratory Tests Test 11/16/19 04:35 11/16/19 04:36 11/16/19 06:50 11/16/19 13:20 Bedside Urine HCG, Qualitative Hcg negative (Negative) White Blood Count 8.3 x10^3/uL (4.0-11.0) 8.8 x10^3/uL (4.0-11.0) Red Blood Count 4.44 x10^6/uL (3.50-5.40) 4.20 x10^6/uL (3.50-5.40) Hemoglobin 10.9 g/dL (12.0-15.5) 10.4 g/dL (12.0-15.5) Hematocrit 33.6 % (36.0-47.0) 31.9 % (36.0-47.0) Mean Corpuscular Volume 76 fL (79-100) 76 fL (79-100) Mean Corpuscular Hemoglobin 25 pg (25-35) 25 pg (25-35) Mean Corpuscular Hemoglobin Concent 33 g/dL (31-37) 33 g/dL (31-37) Red Cell Distribution Width 20.3 % (11.5-14.5) 20.0 % (11.5-14.5) Platelet Count 915 x10^3/uL (140-400) 800 x10^3/uL (140-400) Neutrophils (%) (Auto) 63 % (31-73) 64 % (31-73) Lymphocytes (%) (Auto) 20 % (24-48) 18 % (24-48) Monocytes (%) (Auto) 13 % (0-9) 14 % (0-9) Eosinophils (%) (Auto) 3 % (0-3) 3 % (0-3) Basophils (%) (Auto) 1 % (0-3) 1 % (0-3) Neutrophils # (Auto) 5.3 x10^3/uL (1.8-7.7) 5.6 x10^3/uL (1.8-7.7) Lymphocytes # (Auto) 1.7 x10^3/uL (1.0-4.8) 1.6 x10^3/uL (1.0-4.8) Monocytes # (Auto) 1.1 x10^3/uL (0.0-1.1) 1.2 x10^3/uL (0.0-1.1) Eosinophils # (Auto) 0.2 x10^3/uL (0.0-0.7) 0.3 x10^3/uL (0.0-0.7) Basophils # (Auto) 0.1 x10^3/uL (0.0-0.2) 0.1 x10^3/uL (0.0-0.2) Platelet Estimate Increased (ADEQUATE) Large Platelets Few Giant Platelets Occ Hypochromasia Slight Poikilocytosis Present Anisocytosis Mod Target Cells Occ Ovalocytes Occ Schistocytes Occ D-Dimer (Audra) 2.64 ug/mlFEU (0.00-0.50) Sodium Level 139 mmol/L (136-145) Potassium Level 4.0 mmol/L (3.5-5.1) Chloride Level 102 mmol/L (98-107) Carbon Dioxide Level 23 mmol/L (21-32) Anion Gap 14 (6-14) Blood Urea Nitrogen 5 mg/dL (7-20) Creatinine 0.6 mg/dL (0.6-1.0) Estimated GFR (Cockcroft-Gault) 147.4 BUN/Creatinine Ratio 8 (6-20) Glucose Level 98 mg/dL (70-99) Calcium Level 9.0 mg/dL (8.5-10.1) Magnesium Level 1.8 mg/dL (1.8-2.4) Total Bilirubin 0.5 mg/dL (0.2-1.0) Aspartate Amino Transf (AST/SGOT) 26 U/L (15-37) Alanine Aminotransferase (ALT/SGPT) 19 U/L (14-59) Alkaline Phosphatase 80 U/L (46-116) Troponin I Quantitative < 0.017 ng/mL (0.000-0.055) CK-Ibs-K-Type Natriuretic Peptide 55 pg/mL (0-124) Total Protein 8.3 g/dL (6.4-8.2) Albumin 2.8 g/dL (3.4-5.0) Albumin/Globulin Ratio 0.5 (1.0-1.7) Heparin Anti-Xa Act, Unfractionated < 0.10 IU/mL (0.30-0.70) Test 11/16/19 19:10 11/17/19 01:30 11/17/19 07:28 Heparin Anti-Xa Act, Unfractionated 0.22 IU/mL (0.30-0.70) 0.30 IU/mL (0.30-0.70) < 0.10 IU/mL (0.30-0.70) Ferritin 170 ng/mL (8-252) Laboratory Tests Test 11/16/19 19:10 11/17/19 01:30 11/17/19 07:28 Heparin Anti-Xa Act, Unfractionated 0.22 IU/mL (0.30-0.70) 0.30 IU/mL (0.30-0.70) < 0.10 IU/mL (0.30-0.70) Ferritin 170 ng/mL (8-252) Problem List Problems Medical Problems: (1) Pulmonary embolism Status: Acute Assessment/Plan PE management no surgical recs GHADA ROBERTS APRN Nov 17, 2019 13:33
[2019-11-17 14:30] VITALS: BP 100/63
--- NOTE | 2019-11-17 15:17 | PDOC3 ---
Discharge Summary Date of Admission: Nov 16, 2019 Date of Discharge: Nov 17, 2019 Follow-Up: 3-5 days Admitting Diagnosis comment: Assessment/Plan Assessment/Plan Impression: 1. Small left lower lobe and lingular pulmonary emboli. 2. Patchy peripheral lingular opacity, may represent infarct. 3. Small left pleural effusion with adjacent atelectasis. 4. POST OP laparoscopic ileocolic resection 11/10/19 5. Uterine fibroids 6. Iron deficiency anemia 7. hx Ileum and colon ulcerations 8. POSSIBLE Inflammatory bowel disease plan admit heparin drip protocol PULM CONSULT GEN SURG CONSULT GI CONSULT Hypercoagulable panel as OP. home on eliquis if ok with GI D/W DR COTTRELL 36 MIN pt exam d/c planning , chart review, > 50% of time spent with exam, chart review, pt care coordination Vitals Vitals Vital Signs Date Time Temp Pulse Resp B/P (MAP) Pulse Ox O2 Delivery O2 Flow Rate FiO2 11/17/19 10:25 99.4 125 18 112/62 (79) 99 Room Air 99.4 Physical Exam General: Alert, Oriented X3, Cooperative, No acute distress Heart: Regular rate, Normal S1, Other (tachy) Lungs: Clear Abdomen: Normal bowel sounds Extremities: No cyanosis, No edema Skin: No rashes, No breakdown FINAL DIAGNOSIS Problems Medical Problems: (1) Pulmonary embolism Status: Acute Brief Hospital Course Ms. Lei is a 24 old [sex] who presented with [ acute pulmonary embolus ] CONDITION AT DISCHARGE: Improved Discharge Medications Current Medications Morphine Sulfate (Morphine Sulfate) 4 mg PRN Q15MIN PRN IV/SQ PAIN GREATER THAN 3/10 Last administered on 11/16/19at 12:14; Start 11/16/19 at 04:30; Stop 11/16/19 at 12:23; Status DC Sodium Chloride 1,000 ml @ 1,000 mls/hr Q1H IV Last administered on 11/16/19at 04:49; Start 11/16/19 at 04:30; Stop 11/16/19 at 05:29; Status DC Iohexol (Omnipaque 350 Mg/ml) 75 ml 1X ONCE IV Last administered on 11/16/19at 06:23; Start 11/16/19 at 06:30; Stop 11/16/19 at 06:31; Status DC Info (CONTRAST GIVEN -- Rx MONITORING) 1 each PRN DAILY PRN MC SEE COMMENTS; Start 11/16/19 at 06:00; Stop 11/18/19 at 05:59 Heparin Sodium (Porcine) (Heparin Sodium) 3,300 unit 1X ONCE IV Last administered on 11/16/19at 07:27; Start 11/16/19 at 07:15; Stop 11/16/19 at 07:16; Status DC Heparin Sodium/ Dextrose 250 ml @ 0 mls/hr CONT PRN IV PER PROTOCOL Last administered on 11/16/19at 07:29; Start 11/16/19 at 07:00; Stop 11/17/19 at 09:55; Status DC Heparin Sodium (Porcine) (Heparin Sodium) 1,250 unit PRN Q6HRS PRN IV FOR UFH LEVEL LESS THAN 0.2 Last administered on 11/17/19at 08:45; Start 11/16/19 at 07:00; Stop 11/17/19 at 09:55; Status DC Heparin Sodium (Porcine) (Heparin Sodium) 600 unit PRN Q6HRS PRN IV FOR UFH LEVEL 0.2 - 0.29 Last administered on 11/16/19at 20:12; Start 11/16/19 at 07:00; Stop 11/17/19 at 09:55; Status DC Info (Anti-Coagulation Monitoring By Pharmacy) 1 each PRN DAILY PRN MC SEE COMMENTS; Start 11/16/19 at 07:00 Influenza Virus Vaccine Quadrival (Afluria Quad 2019-20 (3yr Up) Syringe) 0.5 ml ONCE ONCE VAX IM Last administered on 11/16/19 12:15; Start 11/16/19 at 11:30; Stop 11/16/19 at 11:31; Status DC Morphine Sulfate (Morphine Sulfate) 4 mg PRN Q2HR PRN IV PAIN Last administered on 11/17/19 08:36; Start 11/16/19 at 15:00 Apixaban (Eliquis) 10 mg BID PO Last administered on 11/17/19at 11:48; Start 11/17/19 at 10:00 Active Scripts Active Vital Signs Vital Signs Date Time Temp Pulse Resp B/P (MAP) Pulse Ox O2 Delivery O2 Flow Rate FiO2 11/17/19 14:30 99.8 128 18 100/63 (75) 99 Room Air 99.8 Labs Laboratory Tests Test 11/16/19 04:35 11/16/19 04:36 11/16/19 06:50 11/16/19 13:20 Bedside Urine HCG, Qualitative Hcg negative (Negative) White Blood Count 8.3 x10^3/uL (4.0-11.0) 8.8 x10^3/uL (4.0-11.0) Red Blood Count 4.44 x10^6/uL (3.50-5.40) 4.20 x10^6/uL (3.50-5.40) Hemoglobin 10.9 g/dL (12.0-15.5) 10.4 g/dL (12.0-15.5) Hematocrit 33.6 % (36.0-47.0) 31.9 % (36.0-47.0) Mean Corpuscular Volume 76 fL (79-100) 76 fL (79-100) Mean Corpuscular Hemoglobin 25 pg (25-35) 25 pg (25-35) Mean Corpuscular Hemoglobin Concent 33 g/dL (31-37) 33 g/dL (31-37) Red Cell Distribution Width 20.3 % (11.5-14.5) 20.0 % (11.5-14.5) Platelet Count 915 x10^3/uL (140-400) 800 x10^3/uL (140-400) Neutrophils (%) (Auto) 63 % (31-73) 64 % (31-73) Lymphocytes (%) (Auto) 20 % (24-48) 18 % (24-48) Monocytes (%) (Auto) 13 % (0-9) 14 % (0-9) Eosinophils (%) (Auto) 3 % (0-3) 3 % (0-3) Basophils (%) (Auto) 1 % (0-3) 1 % (0-3) Neutrophils # (Auto) 5.3 x10^3/uL (1.8-7.7) 5.6 x10^3/uL (1.8-7.7) Lymphocytes # (Auto) 1.7 x10^3/uL (1.0-4.8) 1.6 x10^3/uL (1.0-4.8) Monocytes # (Auto) 1.1 x10^3/uL (0.0-1.1) 1.2 x10^3/uL (0.0-1.1) Eosinophils # (Auto) 0.2 x10^3/uL (0.0-0.7) 0.3 x10^3/uL (0.0-0.7) Basophils # (Auto) 0.1 x10^3/uL (0.0-0.2) 0.1 x10^3/uL (0.0-0.2) Platelet Estimate Increased (ADEQUATE) Large Platelets Few Giant Platelets Occ Hypochromasia Slight Poikilocytosis Present Anisocytosis Mod Target Cells Occ Ovalocytes Occ Schistocytes Occ D-Dimer (Audra) 2.64 ug/mlFEU (0.00-0.50) Sodium Level 139 mmol/L (136-145) Potassium Level 4.0 mmol/L (3.5-5.1) Chloride Level 102 mmol/L (98-107) Carbon Dioxide Level 23 mmol/L (21-32) Anion Gap 14 (6-14) Blood Urea Nitrogen 5 mg/dL (7-20) Creatinine 0.6 mg/dL (0.6-1.0) Estimated GFR (Cockcroft-Gault) 147.4 BUN/Creatinine Ratio 8 (6-20) Glucose Level 98 mg/dL (70-99) Calcium Level 9.0 mg/dL (8.5-10.1) Magnesium Level 1.8 mg/dL (1.8-2.4) Total Bilirubin 0.5 mg/dL (0.2-1.0) Aspartate Amino Transf (AST/SGOT) 26 U/L (15-37) Alanine Aminotransferase (ALT/SGPT) 19 U/L (14-59) Alkaline Phosphatase 80 U/L (46-116) Troponin I Quantitative < 0.017 ng/mL (0.000-0.055) ZO-Iqg-L-Type Natriuretic Peptide 55 pg/mL (0-124) Total Protein 8.3 g/dL (6.4-8.2) Albumin 2.8 g/dL (3.4-5.0) Albumin/Globulin Ratio 0.5 (1.0-1.7) Heparin Anti-Xa Act, Unfractionated < 0.10 IU/mL (0.30-0.70) Test 3/2/20 19:10 11/17/19 01:30 11/17/19 07:28 Heparin Anti-Xa Act, Unfractionated 0.22 IU/mL (0.30-0.70) 0.30 IU/mL (0.30-0.70) < 0.10 IU/mL (0.30-0.70) Ferritin 170 ng/mL (8-252) Laboratory Tests Test 11/16/19 19:10 11/17/19 01:30 11/17/19 07:28 Heparin Anti-Xa Act, Unfractionated 0.22 IU/mL (0.30-0.70) 0.30 IU/mL (0.30-0.70) < 0.10 IU/mL (0.30-0.70) Ferritin 170 ng/mL (8-252) Allergies Allergies Coded Allergies Type Severity Reaction Last Updated Verified No Known Drug Allergies 11/01/19 No Disposition/Orders: D/C to Home Hemodynamically unstable?: No Is patient in severe pain?: No Is NPO status required?: No MIO ZEPEDA MD Nov 17, 2019 15:17
[2019-11-17] MEDS ORDERED: APIX5TAB PO ×2 (15:19→15:20)
--- NOTE | 2019-11-17 15:21 | DISCH ---
DISCHARGE INSTRUCTIONS Condition on Discharge Condition on Discharge: Stable Activity After Discharge Activity Instructions for Disc: Activity as tolerated Driving Instructions after Dis: Do not drive today Weight Bearing Status after Di: As tolerated Diet after Discharge Diet after Discharge: Regular Checks after Discharge Checks after discharge: Check blood press - daily, Check your Temp as needed, Weigh Yourself Daily Contacting the DR. after DC Call your doctor for: If your condition worsens Treatment/Equipment after DC Adaptive Equipment Issued: None MIO ZEPEDA MD Nov 17, 2019 15:21
== END 2019-11-17 17:45 | disposition home or self-care (01) | DRG 176 ==
LOC: ER 04:04 → ED HOLD 06:50 → 2 NORTH 10:24
PROVIDERS: ADMIT Family Medicine; ATTEND Family Medicine
DX: I26.99 Other pulmonary embolism without acute cor pulmonale (principal); D68.59 Other primary thrombophilia; J98.11 Atelectasis; D25.9 Leiomyoma of uterus, unspecified; D50.9 Iron deficiency anemia, unspecified; F17.200 Nicotine dependence, unspecified, uncomplicated; Z82.49 Family history of ischemic heart disease and other diseases of the circulatory system; Z90.49 Acquired absence of other specified parts of digestive tract; Z86.711 Personal history of pulmonary embolism
CPT/HCPCS: 36415; 71045; 71275; 80053; 81025; 82728; 83735; 83880; 84484; 85025; 85379; 85520; 86038; 90471; 90686; 93005; 93970; 94618; J1644; J2270; J7030; Q9967; G0378

== ENCOUNTER → 2019-11-23 | Outpatient (CLI) | payer BC ==
[2019-11-17 14:30] VITALS: BP 100/63
[~2019-11-23] MED LIST changes: +APIX5TAB PO
== END | disposition home or self-care (01) ==
LOC: LAB 13:48
PROVIDERS: ATTEND Internal Medicine Critical Care Medicine
DX: I26.99 Other pulmonary embolism without acute cor pulmonale (principal)
CPT/HCPCS: 36415; 85220; 86147